=== PATIENT | male | born 1965 | race Caucasian/White ===

== ENCOUNTER 2017-07-17 10:47 | Inpatient (IN) | payer OTHER ==
--- NOTE | 2017-07-17 12:02 | PDOC ---
History of Present Illness - General Chief Complaint: Respiratory Stated Complaint: ADMIT (PCP SENT) Time Seen by Provider: 07/17/17 11:45 History Source: Patient - History of Present Illness Timing/Duration: reports: other Severity: reports: moderate Associated Symptoms: reports: shortness of breath. denies: chest pain/soreness , wheezing Past History - Past Medical History Allergies/Adverse Reactions: Allergies Allergy/AdvReac Type Severity Reaction Status Date / Time No Known Allergies Allergy Verified 07/17/17 11:03 Home Medications: Ambulatory Orders Cetirizine HCl 10 mg PO DAILY 07/17/17 Cholecalciferol (Vitamin D3) [Vitamin D3 -] 5,000 unit PO Q7D 07/17/17 Glipizide 2.5 mg PO DAILY 07/17/17 Metoprolol Succinate [Toprol Xl -] 50 mg PO DAILY 07/17/17 [place]-3S/Dha/Epa/Fish Oil [Fish Oil 1,200 mg Softgel] 1 each PO DAILY 07/17/17 Sevelamer Carbonate [Renvela] 800 mg PO TID 07/17/17 Torsemide 100 mg PO BID 07/17/17 COPD: No Diabetes: Yes Dialysis: Yes (M-W-F) HTN: Yes - Suicide/Smoking/Psychosocial Hx Smoking History: Never smoked Have you smoked in the past 12 months: Yes Hx Alcohol Use: No Drug/Substance Use Hx: No Review of Systems - Review of Systems Constitutional: No: Chills, Fever Respiratory: Yes: Shortness of Breath. No: Wheezing Cardiac (ROS): No: Chest Pain *Physical Exam - Vital Signs Last Vital Signs Temp Pulse Resp BP Pulse Ox 97.6 F 82 20 210/95 98 07/17/17 11:00 07/17/17 11:00 07/17/17 11:00 07/17/17 11:00 07/17/17 11:00 - Physical Exam General Appearance: Yes: Appropriately Dressed, Mild Distress HEENT: positive: Normal Voice Neck: positive: Supple Respiratory/Chest: positive: Lungs Clear, Normal Breath Sounds. negative: Respiratory Distress Cardiovascular: positive: Regular Rate, S1, S2 Gastrointestinal/Abdominal: positive: Soft. negative: Tender Extremity: positive: Pedal Edema Integumentary: positive: Dry, Warm Neurologic: positive: Fully Oriented, Alert, Normal Mood/Affect ED Treatment Course - LABORATORY CBC & Chemistry Diagram: 07/17/17 12:31 07/17/17 12:31 - RADIOLOGY Radiology Studies Ordered: Category Date Time Status CHEST X-RAY PORTABLE* [RAD] Stat Radiology 07/17/17 11:50 Ordered Medical Decision Making - Medical Decision Making 07/17/17 11:50 52-year-old male history of NIDDM, hypertension, ESRD on HD Wednesdays and Fridays, last dialyzed on Saturday, sent in by PMD for shortness of breath. Patient states for the past several months, has had worsening shortness of breath with edema and started on 100 mg of torsemide. States despite following up with dialysis and getting dialyzed 2 days ago, continues to be short of breath. Went to see Dr. Staton yesterday and told "there is fluid on my lungs" and referred to ER for admission. Patient denies chest pain, diaphoresis, nausea or vomiting See exam Worsening sob w/ edema On torsemide and last dialyzed 2 days ago, scheduled for HD at 5pm today Referred to ED by PMD for "fluid on lungs" in office yesterday Pt visibly sob and hypertensive but stable otherwise -NC -ekg -cxr -labs -cards c/s -arrange admission w/ PMD 07/17/17 13:[address] Staton who wants patient admitted. [facility] patient's cell technician, Dr. Nava rodriguez M.D. requesting Dr. Navarro of renal be consulted to arrange HD today *DC/Admit/Observation/Transfer Diagnosis at time of Disposition: SOB (shortness of breath) - Discharge Dispostion Condition at time of disposition: Fair Admit: Yes - Referrals Referrals: Axel Staton MD [Primary Care Provider] - - Patient Instructions - Post Discharge Activity
[2017-07-17 12:40] LABS: BASOPHIL 0.7 % (0-2.0); MCH 31.6 pg (25.7-33.7); MCHC 33.1 g/dl (32.0-35.9); MEAN CELL VOLUME 95.6 fl (80-96); MEAN PLT VOLUME 9.3 fl (7.5-11.1); NEUTROPHILS 69.5 % (42.8-82.8); PLATELET COUNT 166 K/MM3 (134-434); RDW 16.1 % (11.9-15.9); WHITE BLOOD COUNT 7.5 K/mm3 (4.0-10.0)
[2017-07-17 12:58] LABS: ALBUMIN 3.2 g/dl (3.4-5.0); ANION GAP 15 (8-16); BILIRUBIN,TOTAL 0.4 mg/dL (0.2-1.0); CALCIUM 7.8 mg/dL (8.5-10.1); CO2 22 mmol/L (21-32); GLUCOSE,RANDOM 126 mg/dL (74-106); SGPT/ALT 18 U/L (12-78); TOT PROT 6.3 g/dl (6.4-8.2)
[2017-07-17 13:03] LABS: ALK PHOS 57 U/L (45-117); CPK 308 IU/L (39-308); TROPONIN I 0.03 ng/ml (0.00-0.05)
[2017-07-17 13:20] LABS: CREATININE 12.7 mg/dL (0.7-1.3); SGOT/AST 10 U/L (15-37)
[2017-07-17] MEDS ORDERED: EPOETIN ALFA 3,000 UNIT/1 ML ML IVPUSH ONE ×2 (13:42→18:45)
--- NOTE | 2017-07-17 13:42 | CONSULT ---
Consult Consult Specialty:: Nephrology Reason for Consultation:: ESRD - History of Present Illness Chief Complaint: shortness of breath History of Present Illness: Pt is a 52 year old male with pmhx of esrd (MWF), DM and HTN who was sent in from PMD office for fluid overload and shortness of breath. He last has HD on Saturday. I was called to evaluate him for dialysis. He got to HD in [facility] in [facility] and is followed by Dr Navarrete. I did call and discuss his care with his clinical specialty rep. Pt says that he is easily short of breath. He complains of lower extremity edema. It does not seem that he is compliant with his fluid intake. He denies chest pain or palpitations. He is awake and alert. He denies fevers or chills. He still makes urine and is on diuretics as well. Consult called as stat. - History Source History Provided By: Patient, Medical Record - Past Medical History Cardio/Vascular: Yes: HTN Renal/: Yes: Renal Inusuff, Hemodialysis Heme/Onc: Yes: Anemia Endocrine: Yes: Diabetes Mellitus - Past Surgical History Past Surgical History: Yes: AV Fistula/Graft - Alcohol/Substance Use Hx Alcohol Use: No - Smoking History Smoking history: Never smoked Have you smoked in the past 12 months: Yes Home Medications - Allergies Allergies/Adverse Reactions: Allergies Allergy/AdvReac Type Severity Reaction Status Date / Time No Known Allergies Allergy Verified 07/17/17 11:03 - Home Medications Home Medications: Ambulatory Orders Cetirizine HCl 10 mg PO DAILY 07/17/17 Cholecalciferol (Vitamin D3) [Vitamin D3 -] 5,000 unit PO Q7D 07/17/17 Glipizide 2.5 mg PO DAILY 07/17/17 Metoprolol Succinate [Toprol Xl -] 50 mg PO DAILY 07/17/17 [place]-3S/Dha/Epa/Fish Oil [Fish Oil 1,200 mg Softgel] 1 each PO DAILY 07/17/17 Sevelamer Carbonate [Renvela] 800 mg PO TID 07/17/17 Torsemide 100 mg PO BID 07/17/17 Family Disease History - Family Disease History Family History: Denies Review of Systems - Review of Systems Constitutional: reports: Malaise. denies: Chills, Fever Eyes: reports: No Symptoms HENT: reports: No Symptoms Neck: reports: No Symptoms Cardiovascular: reports: Edema, Shortness of Breath Respiratory: reports: SOB, SOB on Exertion Gastrointestinal: reports: No Symptoms Musculoskeletal: reports: No Symptoms Integumentary: reports: No Symptoms Neurological: reports: No Symptoms Endocrine: reports: No Symptoms Physical Exam Vital Signs: Vital Signs Temperature 97.6 F 07/17/17 11:00 Pulse Rate 80 07/17/17 12:37 Respiratory Rate 18 07/17/17 12:37 Blood Pressure 155/87 07/17/17 12:37 O2 Sat by Pulse Oximetry (%) 98 07/17/17 12:37 Constitutional: Yes: Calm Eyes: Yes: Conjunctiva Clear HENT: Yes: Atraumatic Cardiovascular: Yes: JVD, S1, S2 Respiratory: Yes: On Nasal O2, Rhonchi Gastrointestinal: Yes: Soft, Abdomen, Obese Renal/: Yes: WNL Musculoskeletal: Yes: WNL Extremities: Yes: Other (fistula with thrill and bruit) Edema: Yes Edema: LLE: 2+, RLE: 2+ Neurological: Yes: Oriented Psychiatric: Yes: Oriented Labs: CBC, BMP 07/17/17 12:31 07/17/17 12:31 Laboratory Tests 07/17/17 07/17/17 07/17/17 12:02 12:31 12:31 WBC 7.5 Hgb 9.0 L Sodium 138 Potassium 5.4 H Chloride 101 Anion Gap 15 B-Natriuretic Peptide 70570.97 H Imaging - Results Chest X-ray: Report Reviewed Problem List - Problems (1) ESRD (end stage renal disease) Code(s): N18.6 - END STAGE RENAL DISEASE (2) HTN (hypertension) Code(s): I10 - ESSENTIAL (PRIMARY) HYPERTENSION (3) Diabetes mellitus Code(s): E11.9 - TYPE 2 DIABETES MELLITUS WITHOUT COMPLICATIONS (4) Anemia Code(s): D64.9 - ANEMIA, UNSPECIFIED (5) Hyperkalemia Code(s): E87.5 - HYPERKALEMIA (6) SOB (shortness of breath) Code(s): R06.02 - SHORTNESS OF BREATH Assessment/Plan Current Medications Generic Name Dose Route Start Last Admin Trade Name Freq PRN Reason Stop Dose Admin Acetaminophen 650 mg 07/17/17 14:35 Tylenol - PO Q6H PRN FEVER OR PAIN Glipizide 2.5 mg 07/17/17 16:30 07/17/17 17:18 Glucotrol - PO 2.5 mg DAILY@0700 BRIAN Administration Metoprolol Succinate 50 mg 07/18/17 10:00 Toprol Xl - PO DAILY BRIAN Sevelamer Carbonate 800 mg 07/17/17 14:30 07/17/17 17:00 Renvela - PO 800 mg TIDCM BRIAN Administration Torsemide 100 mg 07/18/17 10:00 Demadex - PO DAILY BRIAN Impression 1. ESRD 2. hyperkalemia 3. fluid overload 4. dyspnea 5. anemia 6. HTN 7. DM Plan - will arrange for urgent dialysis today - called HD unit for prescription - repeat labs in am - discussed fluid restriction with pt and it does not seem that he is compliant - cont with torsemide - cont with oxygen as needed - will treat hyperkalemia with HD - will assess for HD again tomorrow for volume removal as needed - cardio eval - monitro blood pressure - will follow closely Dr Navarro
[2017-07-17] MEDS ORDERED: ACETAMINOPHEN 325 MG TABLET (FP) PO PRN (14:35)
--- NOTE | 2017-07-17 15:37 | CON.CARD ---
Cardiology Consult (text) - Consultation Consultation Note: CC: Sob 52-year-old male history of NIDDM, hypertension, ESRD on HD Wednesdays and Fridays, last dialyzed on Saturday, sent in by PMD for shortness of breath. Patient states for the past several months, has had worsening shortness of breath with edema and started on 100 mg of torsemide. States despite following up with dialysis and getting dialyzed 2 days ago, continues to be short of breath. Went to see Dr. Staton yesterday and told "there is fluid on my lungs" and referred to ER for admission. Patient denies chest pain, diaphoresis, nausea or vomiting Ambulatory Orders Cetirizine HCl 10 mg PO DAILY 07/17/17 Cholecalciferol (Vitamin D3) [Vitamin D3 -] 5,000 unit PO Q7D 07/17/17 Glipizide 2.5 mg PO DAILY 07/17/17 Metoprolol Succinate [Toprol Xl -] 50 mg PO DAILY 07/17/17 [place]-3S/Dha/Epa/Fish Oil [Fish Oil 1,200 mg Softgel] 1 each PO DAILY 07/17/17 Sevelamer Carbonate [Renvela] 800 mg PO TID 07/17/17 Torsemide 100 mg PO BID 07/17/17 Current Medications Acetaminophen (Tylenol -) 650 mg PO Q6H PRN PRN Reason: FEVER OR PAIN Epoetin Maurizio (Procrit -) 6,000 unit IVPUSH ONCE ONE Stop: 07/17/17 14:01 Glipizide (Glucotrol -) 2.5 mg PO DAILY@0700 [facility] Heparin Sodium (Porcine) (Heparin -) 2,000 unit IVPUSH ONCE ONE Stop: 07/17/17 13:43 Metoprolol Succinate (Toprol Xl -) 50 mg PO DAILY BRIAN Sevelamer Carbonate (Renvela -) 800 mg PO TIDCM BRIAN Torsemide (Demadex -) 100 mg PO DAILY [facility] Vital Signs - 24 hr 07/17/17 07/17/17 07/17/17 11:00 12:31 12:37 Temperature 97.6 F Pulse Rate 82 Pulse Rate [ 80 Apical] Respiratory 20 18 Rate Blood Pressure 210/95 Blood Pressure 155/87 [Right Arm] O2 Sat by Pulse 98 97 98 Oximetry (%) Intake & Output 07/15/17 07/16/17 07/17/17 11/30/17 07:59 07:59 07:59 07:59 Weight 255 lb CBC, BMP 07/17/17 12:31 07/17/17 12:31
[2017-07-17] MEDS: SEVELAMER CARBONATE 800 MG TAB (FP) PO SCH ×2 (17:00→22:36)
[2017-07-17] MEDS: glipiZIDE 5 MG TABLET (FP) PO SCH (17:18)
[2017-07-17] MEDS ORDERED: HEPARIN NA (PORCINE) 5,000 UNITS/ML 1ML VIAL IVPUSH ONE (18:45)
[2017-07-17] MEDS ORDERED: CALCIUM CHLORIDE 1 GM/10 ML *DISP.SYRIN ONE (19:38)
[2017-07-18 00:32] VITALS: BMI 38.1
[2017-07-18] MEDS: glipiZIDE 5 MG TABLET (FP) PO SCH (06:17)
[2017-07-18] MEDS: SEVELAMER CARBONATE 800 MG TAB (FP) PO SCH ×3 (08:33→17:26)
--- NOTE | 2017-07-18 11:03 | CON.CARD ---
Cardiology Consult (text) - Consultation Consultation Note: cc: sob hpi: 52 m hx dm, esrd on hd, htn here with sob. Pt has been having gradual worsening of sob past few days. No cp, palps, dizzy, loc, pnd, orthopnea, le edema. Got HD session and now feeling better. Sees dr tyler for cardio. pmh: per hpi psh: HD access social: no tob fam: no premature cad, scd ros: per hpi; no fever, nvd, cough, [place], vision changes, nasal congestion, muscle pain, gib, dysuria meds: Home Medications Medication Instructions Recorded Cetirizine HCl 10 mg PO DAILY 07/17/17 Cholecalciferol (Vitamin D3) 5,000 unit PO Q7D 07/17/17 [Vitamin D3 -] Glipizide 2.5 mg PO DAILY 07/17/17 Metoprolol Succinate [Toprol Xl -] 50 mg PO DAILY 07/17/17 [place]-3S/Dha/Epa/Fish Oil [Fish 1 each PO DAILY 07/17/17 Oil 1,200 mg Softgel] Sevelamer Carbonate [Renvela] 800 mg PO TID 07/17/17 Torsemide 100 mg PO BID 07/17/17 pe: Vital Signs Period Temp Pulse Resp BP Sys/Layne Pulse Ox Last 24 Hr 97.6 F-98.8 F 78-91 18-20 138-210/68-109 95-98 nad no jvd rrr s1s2 no mrg cta bl nl eff aaox3 no le e/c/c abd nt nd pos bs no jaundice diaphoresis pos pt pt no carotid bruit Laboratory Last Values WBC 7.5 K/mm3 (4.0-10.0) 07/17/17 12:31 RBC 2.84 M/mm3 (4.00-5.60) L 07/17/17 12:31 Hgb 9.0 GM/dL (11.7-16.9) L 07/17/17 12:31 Hct 27.1 % (35.4-49) L 07/17/17 12:31 MCV 95.6 fl (80-96) 07/17/17 12:31 MCH 31.6 pg (25.7-33.7) 07/17/17 12:31 MCHC 33.1 g/dl (32.0-35.9) 07/17/17 12:31 RDW 16.1 % (11.9-15.9) H 07/17/17 12:31 Plt Count 166 K/MM3 (134-434) 07/17/17 12:31 MPV 9.3 fl (7.5-11.1) 07/17/17 12:31 Neutrophils % 69.5 % (42.8-82.8) 07/17/17 12:31 Lymphocytes % 17.7 % (8-40) 07/17/17 12:31 Monocytes % 6.1 % (3.8-10.2) 07/17/17 12:31 Eosinophils % 6.0 % (0-4.5) H 07/17/17 12:31 Basophils % 0.7 % (0-2.0) 07/17/17 12:31 Sodium 138 mmol/L (136-145) 07/17/17 12:31 Potassium 5.4 mmol/L (3.5-5.1) H 07/17/17 12:31 Chloride 101 mmol/L (98-107) 07/17/17 12:31 Carbon Dioxide 22 mmol/L (21-32) 07/17/17 12:31 Anion Gap 15 (8-16) 07/17/17 12:31 BUN 101 mg/dL (7-18) H 07/17/17 12:31 Creatinine 12.7 mg/dL (0.7-1.3) H* 07/17/17 12:31 Creat Clearance w eGFR 4.18 (>60) 07/17/17 12:31 POC Glucometer 80 UNITS (80-120) 07/18/17 06:17 Random Glucose 126 mg/dL (74-106) H 07/17/17 12:31 Calcium 7.8 mg/dL (8.5-10.1) L 07/17/17 12:31 Total Bilirubin 0.4 mg/dL (0.2-1.0) 07/17/17 12:31 AST 10 U/L (15-37) L 07/17/17 12:31 ALT 18 U/L (12-78) 07/17/17 12:31 Alkaline Phosphatase 57 U/L (45-117) 07/17/17 12:31 Creatine Kinase 308 IU/L (39-308) 07/17/17 12:31 Creatine Kinase Index 2.2 % (0.0-5.0) 07/17/17 12:31 CK-MB (CK-2) 6.93 ng/mL (0.5-3.6) H 07/17/17 12:31 Troponin I 0.03 ng/ml (0.00-0.05) 07/17/17 12:31 B-Natriuretic Peptide 85668.97 pg/ml (5-125) H 07/17/17 12:02 Total Protein 6.3 g/dl (6.4-8.2) L 07/17/17 12:31 Albumin 3.2 g/dl (3.4-5.0) L 07/17/17 12:31 cxr: clear lungs ecg 07/17/17: sr, nl intervals, no ischemic changes a/p: 52 m hx dm, esrd on hd, htn here with sob. esrd, sob: -no signs acs -no sig pulm edema and pt already feeling better after HD session so seems he had mild vol overload that is now improved -echo pending -cont hd per renal -cont diuretics (pt makes some urine still) htn: -cont bb cardiac mari stable
--- NOTE | 2017-07-18 12:06 | CON.PULM ---
Consult Consult Specialty:: Pulmonary Reason for Consultation:: We were called to evaluate the patient for worsening shortness of breath - History of Present Illness Chief Complaint: Shortness of breath History of Present Illness: The patient is a 52 yo m w/ PMH DM, HTN, ESRD on HD MWF who was sent to the ED by his PCP, Dr. Staton, for progressively worsening shortness of breath. The patient states that he has been having intermittent shortness of breath in between his dialysis sessions over the past several months. The patient's symptoms have been getting progressively worse, prompting him to visit his PCP. Per the patient, his doctor told him he "has water in the lungs" and sent him to the ED for admission. Nephrology saw him in the ED and scheduled him for urgent dialysis. The patient denies any recent change in medications, but believed his symptoms are due to his drinking water several times per day. Today , patient states he feels better after dialysis yesterday evening and states that the swelling of his legs has improved. He states his dry weight after dialysis is approximately 106 kg. - Past Medical History Cardio/Vascular: Yes: HTN Renal/: Yes: Renal Inusuff, Hemodialysis Endocrine: Yes: Diabetes Mellitus - Past Surgical History Past Surgical History: Yes: AV Fistula/Graft - Alcohol/Substance Use Hx Alcohol Use: No - Smoking History Smoking history: Former smoker Have you smoked in the past 12 months: Yes If you are a former smoker, when did you quit?: 1 year ago Home Medications - Allergies Allergies/Adverse Reactions: Allergies Allergy/AdvReac Type Severity Reaction Status Date / Time No Known Allergies Allergy Verified 07/17/17 11:03 - Home Medications Home Medications: Ambulatory Orders Cetirizine HCl 10 mg PO DAILY 07/17/17 Cholecalciferol (Vitamin D3) [Vitamin D3 -] 5,000 unit PO Q7D 07/17/17 Glipizide 2.5 mg PO DAILY 07/17/17 Metoprolol Succinate [Toprol Xl -] 50 mg PO DAILY 07/17/17 [place]-3S/Dha/Epa/Fish Oil [Fish Oil 1,200 mg Softgel] 1 each PO DAILY 07/17/17 Sevelamer Carbonate [Renvela] 800 mg PO TID 07/17/17 Torsemide 100 mg PO BID 07/17/17 Review of Systems - Review of Systems Constitutional: denies: Chills, Fever, Weakness Cardiovascular: reports: Edema, Shortness of Breath. denies: Chest Pain Respiratory: reports: SOB, SOB on Exertion. denies: Cough Integumentary: denies: Erythema, Pruritis, Rash Physical Exam Vital Sings: Vital Signs Temperature 97.7 F 07/18/17 09:00 Pulse Rate 91 H 07/18/17 09:00 Respiratory Rate 20 07/18/17 09:00 Blood Pressure 158/88 07/18/17 09:00 O2 Sat by Pulse Oximetry (%) 95 07/18/17 09:00 Constitutional: Yes: Well Nourished, No Distress, Calm HENT: Yes: Atraumatic, Normocephalic Neck: Yes: Supple, Trachea Midline Cardiovascular: Yes: Regular Rate and Rhythm, S1, S2. No: JVD, Gallop, Murmur, Rub, S3, S4 Respiratory: Yes: Regular, CTA Bilaterally, Other (crackles at bases b/l; crackles in the mid lung field on the right ) Edema: Yes Edema: LLE: 2+, RLE: 2+ Neurological: Yes: Alert, Oriented Labs: CBC, BMP 07/17/17 12:31 07/17/17 12:31 Assessment/Plan The patient is a 52 yo m w/ PMH DM, HTN, HLD admitted for urgent dialysis. Patient's clinical status is improved after dialysis yesterday. Patient is scheduled for dialysis tomorrow and Saturday. #SOB 2/2 fluid overload vs cardiac etiology -patient improved after dialysis -patient for two more dialysis sessions today and saturday -monitor lytes -monitor weight with goal of dry weight (106 kg) -c/w home diuretics -advise echo
--- NOTE | 2017-07-18 12:19 | PN ---
Progress Note, Physician History of Present Illness: Pt seen and examined at bedside. He feels that his breathing is a little better. He still complains of lower ext edema. - Current Medication List Current Medications: Active Medications Acetaminophen (Tylenol -) 650 mg PO Q6H PRN PRN Reason: FEVER OR PAIN Glipizide (Glucotrol -) 2.5 mg PO DAILY@0700 [facility] Last Admin: 07/18/17 06:17 Dose: 2.5 mg Metoprolol Succinate (Toprol Xl -) 50 mg PO DAILY [facility] Sevelamer Carbonate (Renvela -) 800 mg PO TIDCM [facility] Last Admin: 07/18/17 12:00 Dose: 800 mg Torsemide (Demadex -) 100 mg PO DAILY [facility] - Objective Vital Signs: Vital Signs Temperature 97.7 F 07/18/17 09:00 Pulse Rate 91 H 07/18/17 09:00 Respiratory Rate 20 07/18/17 09:00 Blood Pressure 158/88 07/18/17 09:00 O2 Sat by Pulse Oximetry (%) 95 07/18/17 09:00 Constitutional: Yes: Calm Eyes: Yes: Conjunctiva Clear HENT: Yes: Atraumatic Neck: Yes: Supple Cardiovascular: Yes: S1, S2 Respiratory: Yes: CTA Bilaterally Gastrointestinal: Yes: Soft, Abdomen, Obese Genitourinary: Yes: WNL Musculoskeletal: Yes: WNL Edema: Yes Edema: LLE: 1+, RLE: 1+ Neurological: Yes: Oriented Psychiatric: Yes: Oriented Labs: CBC, BMP 07/17/17 12:31 07/17/17 12:31 Problem List - Problems (1) ESRD (end stage renal disease) Code(s): N18.6 - END STAGE RENAL DISEASE (2) HTN (hypertension) Code(s): I10 - ESSENTIAL (PRIMARY) HYPERTENSION (3) Diabetes mellitus Code(s): E11.9 - TYPE 2 DIABETES MELLITUS WITHOUT COMPLICATIONS (4) Anemia Code(s): D64.9 - ANEMIA, UNSPECIFIED (5) Hyperkalemia Code(s): E87.5 - HYPERKALEMIA (6) SOB (shortness of breath) Code(s): R06.02 - SHORTNESS OF BREATH Assessment/Plan Current Medications Generic Name Dose Route Start Last Admin Trade Name Freq PRN Reason Stop Dose Admin Acetaminophen 650 mg 07/17/17 14:35 Tylenol - PO Q6H PRN FEVER OR PAIN Glipizide 2.5 mg 07/17/17 16:30 07/18/17 06:17 Glucotrol - PO 2.5 mg DAILY@0700 BRIAN Administration Metoprolol Succinate 50 mg 07/18/17 10:00 Toprol Xl - PO DAILY BRIAN Sevelamer Carbonate 800 mg 07/17/17 14:30 07/18/17 12:00 Renvela - PO 800 mg TIDCM BRIAN Administration Torsemide 100 mg 07/18/17 10:00 Demadex - PO DAILY BRIAN Impression 1. ESRD 2. hyperkalemia 3. fluid overload 4. dyspnea 5. anemia 6. HTN 7. DM Plan - will dialyze pt again today for volume - check pre HD labs - will likely dialyze again tomorrow and get pt back on schedule - discussed fluid restriction with pt and it does not seem that he is compliant - cont with torsemide - cont with oxygen as needed - monitro blood pressure - will follow closely Dr Navarro
[2017-07-18] MEDS ORDERED: HEPARIN NA (PORCINE) 5,000 UNITS/ML 1ML VIAL IVPUSH ONE (12:20)
--- NOTE | 2017-07-18 12:59 | EKG ---
Test Reason : Blood Pressure : / mmHG Vent. Rate : 079 BPM Atrial Rate : 079 BPM P-R Int : 174 ms QRS Dur : 098 ms QT Int : 436 ms P-R-T Axes : -04 064 062 degrees QTc Int : 499 ms NORMAL SINUS RHYTHM NONSPECIFIC ST ABNORMALITY PROLONGED QT ABNORMAL ECG NO PREVIOUS ECGS AVAILABLE Confirmed by JOSHUA CARRERA MD ([id number]) on 07/18/2017 12:59:11 PM Referred By: Confirmed By:JOSHUA CARRERA MD
[2017-07-18 13:10] LABS: MCH 31.7 pg (25.7-33.7); MCHC 33.5 g/dl (32.0-35.9); MEAN CELL VOLUME 94.7 fl (80-96); MEAN PLT VOLUME 8.1 fl (7.5-11.1); PLATELET COUNT 149 K/MM3 (134-434); RDW 16.1 % (11.9-15.9); WHITE BLOOD COUNT 6.9 K/mm3 (4.0-10.0)
[2017-07-18 13:41] LABS: ANION GAP 13 (8-16); CALCIUM 7.9 mg/dL (8.5-10.1); CO2 27 mmol/L (21-32); GLUCOSE,RANDOM 110 mg/dL (74-106)
--- NOTE | 2017-07-18 13:42 | PN ---
Teaching Attending Note Name of Resident: Antonio Senior ATTENDING PHYSICIAN STATEMENT I saw and evaluated the patient. I reviewed the resident's note and discussed the case with the resident. I agree with the resident's findings and plan as documented. SUBJECTIVE: Pt seen and examined with the resident. Briefly, 52yo male with h/o HTN, DM, ESRD on HD who was admitted with progressive shortness of breath. Admits to liberal fluid intake. Dry weight apparently 233lbs. No chest pain. No cough or wheezing. Otherwise compliant with medications and HD sessions. OBJECTIVE: Last Vital Signs Temp Pulse Resp BP Pulse Ox 97.7 F 91 H 20 158/88 95 07/18/17 09:00 07/18/17 09:00 07/18/17 09:00 07/18/17 09:00 07/18/17 09:00 Intake & Output 07/15/17 07/16/17 07/17/17 07/18/17 23:59 23:59 23:59 23:59 Intake Total 275 Balance 275 Weight 258 lb 4.8 oz 257 lb 4.8 oz Gen: NAD at rest Heart: RRR Lung: decreased breath sounds at the bases Abd: soft, nontender Ext: distal edema CBC, BMP 07/18/17 12:45 CMP Sodium 138 mmol/L (136-145) 07/17/17 12:31 Potassium 5.4 mmol/L (3.5-5.1) H 07/17/17 12:31 Chloride 101 mmol/L (98-107) 07/17/17 12:31 Carbon Dioxide 22 mmol/L (21-32) 07/17/17 12:31 Anion Gap 15 (8-16) 07/17/17 12:31 BUN 101 mg/dL (7-18) H 07/17/17 12:31 Creatinine 12.7 mg/dL (0.7-1.3) H* 07/17/17 12:31 Creat Clearance w eGFR 4.18 (>60) 07/17/17 12:31 POC Glucometer 80 UNITS (80-120) 07/18/17 06:17 Random Glucose 126 mg/dL (74-106) H 07/17/17 12:31 Calcium 7.8 mg/dL (8.5-10.1) L 07/17/17 12:31 Total Bilirubin 0.4 mg/dL (0.2-1.0) 07/17/17 12:31 AST 10 U/L (15-37) L 07/17/17 12:31 ALT 18 U/L (12-78) 07/17/17 12:31 Alkaline Phosphatase 57 U/L (45-117) 07/17/17 12:31 Creatine Kinase 308 IU/L (39-308) 07/17/17 12:31 Creatine Kinase Index 2.2 % (0.0-5.0) 07/17/17 12:31 CK-MB (CK-2) 6.93 ng/mL (0.5-3.6) H 07/17/17 12:31 Troponin I 0.03 ng/ml (0.00-0.05) 07/17/17 12:31 B-Natriuretic Peptide 64309.97 pg/ml (5-125) H 07/17/17 12:02 Total Protein 6.3 g/dl (6.4-8.2) L 07/17/17 12:31 Albumin 3.2 g/dl (3.4-5.0) L 07/17/17 12:31 Active Medications Acetaminophen (Tylenol -) 650 mg PO Q6H PRN PRN Reason: FEVER OR PAIN Glipizide (Glucotrol -) 2.5 mg PO DAILY@0700 [facility] Last Admin: 07/18/17 06:17 Dose: 2.5 mg Metoprolol Succinate (Toprol Xl -) 50 mg PO DAILY [facility] Sevelamer Carbonate (Renvela -) 800 mg PO TIDCM [facility] Last Admin: 07/18/17 12:00 Dose: 800 mg Torsemide (Demadex -) 100 mg PO DAILY [facility] CXR: cardiomegaly, mild congestion ASSESSMENT AND PLAN: Volume Overload ESRD on HD HTN DM - continue HD with ultrafiltration - echocardiogram - monitor lytes - daily weights - enforced diet/fluid compliance - DVT prophylaxis Thank you for this consult Adriano Townsend MD
[2017-07-18 14:45] LABS: CREATININE 9.3 mg/dL (0.7-1.3)
[2017-07-18] MEDS ORDERED: PT OWN MED DRAWER 7, Y5N ONE ×2 (16:09→16:13)
[2017-07-18] MEDS: METOPROLOL SUCCINATE 50 MG TAB.SR.24H (FP) PO SCH (16:11)
[2017-07-18] MEDS: TORSEMIDE 100 MG TABLET PO SCH (17:27)
--- NOTE | 2017-07-18 21:29 | HP ---
Admitting History and Physical - Primary Care Physician PCP: Axel Staton - Admission Chief Complaint: DYSPNEA History of Present Illness: ADMITTTED FOR PROGRESSIVE SOB, HISTORY OF ESRD ON HD, HTN, CHF History Source: Patient Limitations to Obtaining History: No Limitations - Past Medical History Cardiovascular: Yes: HTN Renal/: Yes: Renal Inusuff, Hemodialysis Heme/Onc: Yes: Anemia Endocrine: Yes: Diabetes Mellitus - Past Surgical History Past Surgical History: Yes: AV Fistula/Graft - Smoking History Smoking history: Former smoker Have you smoked in the past 12 months: Yes If you are a former smoker, when did you quit?: 1 year ago - Alcohol/Substance Use Hx Alcohol Use: No Home Medications - Allergies Allergies/Adverse Reactions: Allergies Allergy/AdvReac Type Severity Reaction Status Date / Time No Known Allergies Allergy Verified 07/17/17 11:03 - Home Medications Home Medications: Ambulatory Orders Cetirizine HCl 10 mg PO DAILY 07/17/17 Cholecalciferol (Vitamin D3) [Vitamin D3 -] 5,000 unit PO Q7D 07/17/17 Glipizide 2.5 mg PO DAILY 07/17/17 Metoprolol Succinate [Toprol Xl -] 50 mg PO DAILY 07/17/17 [place]-3S/Dha/Epa/Fish Oil [Fish Oil 1,200 mg Softgel] 1 each PO DAILY 07/17/17 Sevelamer Carbonate [Renvela] 800 mg PO TID 07/17/17 Torsemide 100 mg PO BID 07/17/17 Review of Systems - Review of Systems Constitutional: reports: Weakness Eyes: reports: No Symptoms HENT: reports: No Symptoms Neck: reports: No Symptoms Cardiovascular: reports: Shortness of Breath Respiratory: reports: Orthopnea Gastrointestinal: reports: No Symptoms Genitourinary: reports: No Symptoms Musculoskeletal: reports: No Symptoms Integumentary: reports: No Symptoms Neurological: reports: Pre-Existing Deficit Endocrine: reports: No Symptoms Hematology/Lymphatic: reports: No Symptoms Psychiatric: reports: No Symptoms Physical Examination Vital Signs: Vital Signs Temperature 98.2 F 07/18/17 16:40 Pulse Rate 84 07/18/17 16:00 Respiratory Rate 20 07/18/17 16:00 Blood Pressure 160/88 07/18/17 16:00 O2 Sat by Pulse Oximetry (%) 95 07/18/17 09:00 Constitutional: Yes: Mild Distress Eyes: Yes: WNL HENT: Yes: WNL Neck: Yes: WNL Cardiovascular: Yes: Other Respiratory: Yes: SOB Gastrointestinal: Yes: WNL Renal/: Yes: WNL Musculoskeletal: Yes: WNL Extremities: Yes: WNL Edema: Yes Edema: LLE: 2+, RLE: 2+ Peripheral Pulses WNL: Yes Integumentary: Yes: WNL Wound/Incision: Yes: Clean/Dry Neurological: Yes: WNL ...Motor Strength: WNL Psychiatric: Yes: WNL Labs: CBC, BMP 07/18/17 12:45 07/18/17 12:45 Imaging - Results Chest X-ray: Report Reviewed Problem List - Problems (1) Anemia Code(s): D64.9 - ANEMIA, UNSPECIFIED (2) Diabetes mellitus Code(s): E11.9 - TYPE 2 DIABETES MELLITUS WITHOUT COMPLICATIONS (3) ESRD (end stage renal disease) Code(s): N18.6 - END STAGE RENAL DISEASE (4) HTN (hypertension) Code(s): I10 - ESSENTIAL (PRIMARY) HYPERTENSION (5) Hyperkalemia Code(s): E87.5 - HYPERKALEMIA (6) SOB (shortness of breath) Code(s): R06.02 - SHORTNESS OF BREATH Assessment/Plan HD PER RENAL CARDIOLGY EVAL PULMONARY EVAL LASIX/DIURETICS 02 SUPPORT
[2017-07-19] MEDS: glipiZIDE 5 MG TABLET (FP) PO SCH (06:40)
[2017-07-19] MEDS: SEVELAMER CARBONATE 800 MG TAB (FP) PO SCH ×2 (08:19→12:13)
[2017-07-19] MEDS ORDERED: PT OWN MED DRAWER 7, Y5N ONE (09:05)
[2017-07-19] MEDS: METOPROLOL SUCCINATE 50 MG TAB.SR.24H (FP) PO SCH ×2 (09:12→15:46)
[2017-07-19] MEDS: TORSEMIDE 100 MG TABLET PO SCH ×2 (09:12→15:46)
--- NOTE | 2017-07-19 11:41 | DS ---
Physical Examination Vital Signs: Vital Signs Temperature 97.4 F L 07/19/17 06:00 Pulse Rate 75 07/19/17 06:00 Respiratory Rate 18 07/19/17 06:00 Blood Pressure 124/61 07/19/17 06:00 O2 Sat by Pulse Oximetry (%) 96 07/18/17 21:00 Findings/Remarks: awake alert feeling better Constitutional: Yes: No Distress Eyes: Yes: WNL HENT: Yes: WNL Neck: Yes: WNL Cardiovascular: Yes: WNL Respiratory: Yes: WNL Gastrointestinal: Yes: WNL Renal/: Yes: WNL Musculoskeletal: Yes: WNL Extremities: Yes: WNL Edema: Yes Peripheral Pulses WNL: Yes Integumentary: Yes: WNL Wound/Incision: Yes: Clean/Dry Neurological: Yes: WNL ...Motor Strength: WNL Psychiatric: Yes: WNL Labs: CBC, BMP 07/18/17 12:45 07/18/17 12:45 Discharge Summary Reason For Visit: SOB Current Active Problems Anemia (Acute) Diabetes mellitus (Acute) ESRD (end stage renal disease) (Acute) HTN (hypertension) (Acute) Hyperkalemia (Acute) SOB (shortness of breath) (Acute) Procedures: Principal: ECHO/CAROTID DOPPLER Hospital Course: ADMITTED WITH DYSPNEA/FLUID OVERLOAD, TREATED WITH CARDIOLOGY WORKUP AND HEMODIALYSIS FOR FLUID REMOVAL. DIETARY CONSULT TO AVOID REOCCURANCE Condition: Fair - Instructions Diet, Activity, Other Instructions: RENAL, 1 LITER FLUID DAILY ADA SEE DR STATON 2 WEEKS NEPHROLOGY SATURDAY FOR HD Referrals: Axel Staton MD [Primary Care Provider] - Disposition: HOME - Home Medications Comprehensive Discharge Medication List: Ambulatory Orders Cetirizine HCl 10 mg PO DAILY 07/17/17 Cholecalciferol (Vitamin D3) [Vitamin D -] 5,000 unit PO Q7D 07/17/17 Glipizide 2.5 mg PO DAILY 07/17/17 Metoprolol Succinate [Toprol XL -] 50 mg PO DAILY 07/17/17 [place]-3S/Dha/Epa/Fish Oil [Fish Oil 1,200 mg Softgel] 1 each PO DAILY 07/17/17 Sevelamer Carbonate [Renvela -] 800 mg PO TID 07/17/17 Torsemide 100 mg PO BID 07/17/17
--- NOTE | 2017-07-19 11:57 | PN ---
Progress Note, Physician History of Present Illness: Pulmonology follow-up Patient seen and examined at bedside. Patient states he continues to improve after serial dialysis. For dialysis again today. For discharge after dialysis as per primary. - Current Medication List Current Medications: Active Medications Acetaminophen (Tylenol -) 650 mg PO Q6H PRN PRN Reason: FEVER OR PAIN Epoetin Maurizio (Epogen -) 8,000 units IVPUSH ONCE ONE Stop: 07/19/17 11:18 Glipizide (Glucotrol -) 2.5 mg PO DAILY@0700 [facility] Last Admin: 07/19/17 06:40 Dose: 2.5 mg Heparin Sodium (Porcine) (Heparin -) 2,000 unit IVPUSH ONCE ONE Stop: 07/19/17 11:18 Metoprolol Succinate (Toprol Xl -) 50 mg PO DAILY [facility] Last Admin: 07/19/17 09:12 Dose: Not Given Sevelamer Carbonate (Renvela -) 800 mg PO TIDCM [facility] Last Admin: 07/19/17 08:19 Dose: 800 mg Torsemide (Demadex -) 100 mg PO DAILY [facility] Last Admin: 07/19/17 09:12 Dose: Not Given - Objective Vital Signs: Vital Signs Temperature 97.4 F L 07/19/17 06:00 Pulse Rate 75 07/19/17 06:00 Respiratory Rate 18 07/19/17 06:00 Blood Pressure 124/61 07/19/17 06:00 O2 Sat by Pulse Oximetry (%) 96 07/18/17 21:00 Constitutional: Yes: Well Nourished, No Distress, Calm HENT: Yes: Atraumatic, Normocephalic Neck: Yes: Supple, Trachea Midline Cardiovascular: Yes: Regular Rate and Rhythm, S1, S2. No: JVD, Gallop, Murmur, Rub, S3, S4 Respiratory: Yes: Regular, CTA Bilaterally Edema: Yes (improved from yesterday) Edema: LLE: 2+, RLE: 2+ Labs: CBC, BMP 07/18/17 12:45 07/18/17 12:45 Assessment/Plan The patient is a 52 yo m w/ PMH DM, HTN, HLD admitted for urgent dialysis. Patient's clinical status is improved after dialysis yesterday. Patient is scheduled for dialysis again today. #SOB 2/2 fluid overload vs cardiac etiology -patient improved after second dialysis -patient for one more dialysis session today -echo shows ventricular dilation and mild decrease in LV function -patient will require PFTs as outpatient.
[2017-07-19 13:13] LABS: MCH 31.3 pg (25.7-33.7); MCHC 32.6 g/dl (32.0-35.9); MEAN CELL VOLUME 96.2 fl (80-96); MEAN PLT VOLUME 8.5 fl (7.5-11.1); PLATELET COUNT 201 K/MM3 (134-434); RDW 16.2 % (11.9-15.9); WHITE BLOOD COUNT 8.2 K/mm3 (4.0-10.0)
[2017-07-19 13:38] LABS: ANION GAP 9 (8-16); CALCIUM 7.9 mg/dL (8.5-10.1); CO2 28 mmol/L (21-32); GLUCOSE,RANDOM 75 mg/dL (74-106)
--- NOTE | 2017-07-19 13:40 | PN ---
Teaching Attending Note Name of Resident: Antonio Senior ATTENDING PHYSICIAN STATEMENT I saw and evaluated the patient. I reviewed the resident's note and discussed the case with the resident. I agree with the resident's findings and plan as documented. PULMONARY ALERT,NAD,ON DIALYSIS,-SOB,-CP,OCC COUGH ASSESSMENT AND PLAN: Volume Overload ESRD on HD HTN DM - HD with ultrafiltration as per renal - monitor lytes - daily weights - enforced diet/fluid compliance - DVT prophylaxis - pfts outpatient DR MARK Problem List - Problems (1) Anemia Code(s): D64.9 - ANEMIA, UNSPECIFIED (2) Diabetes mellitus Code(s): E11.9 - TYPE 2 DIABETES MELLITUS WITHOUT COMPLICATIONS (3) ESRD (end stage renal disease) Code(s): N18.6 - END STAGE RENAL DISEASE (4) HTN (hypertension) Code(s): I10 - ESSENTIAL (PRIMARY) HYPERTENSION (5) SOB (shortness of breath) Code(s): R06.02 - SHORTNESS OF BREATH
[2017-07-19] MEDS ORDERED: HEPARIN NA (PORCINE) 5,000 UNITS/ML 1ML VIAL IVPUSH ONE (14:15)
[2017-07-19] MEDS ORDERED: EPOETIN ALFA 2,000 UNITS/1 ML VIAL IVPUSH ONE (14:15)
[2017-07-19 15:24] VITALS: TEMP 97.9
[2017-07-19 15:38] VITALS: BP 148/83; PULSE 75
--- NOTE | 2017-07-19 16:33 | PN ---
Progress Note, Physician History of Present Illness: Pt seen and examined at bedside. He is awake and alert. He tolerated HD. He denies shortness of breath. - Objective Vital Signs: Vital Signs Temperature 97.9 F 07/19/17 14:21 Pulse Rate 75 07/19/17 15:30 Respiratory Rate 18 07/19/17 15:30 Blood Pressure 148/83 07/19/17 15:30 O2 Sat by Pulse Oximetry (%) 97 07/19/17 10:00 Constitutional: Yes: Calm Eyes: Yes: Conjunctiva Clear Cardiovascular: Yes: S1, S2 Respiratory: Yes: CTA Bilaterally Gastrointestinal: Yes: Soft Genitourinary: Yes: WNL Musculoskeletal: Yes: WNL Extremities: Yes: WNL Edema: No Neurological: Yes: Oriented Psychiatric: Yes: Oriented Labs: CBC, BMP 07/19/17 12:30 07/19/17 12:30 Problem List - Problems (1) ESRD (end stage renal disease) Code(s): N18.6 - END STAGE RENAL DISEASE (2) HTN (hypertension) Code(s): I10 - ESSENTIAL (PRIMARY) HYPERTENSION (3) Diabetes mellitus Code(s): E11.9 - TYPE 2 DIABETES MELLITUS WITHOUT COMPLICATIONS (4) Anemia Code(s): D64.9 - ANEMIA, UNSPECIFIED (5) Hyperkalemia Code(s): E87.5 - HYPERKALEMIA (6) SOB (shortness of breath) Code(s): R06.02 - SHORTNESS OF BREATH Assessment/Plan Impression 1. ESRD 2. hyperkalemia 3. fluid overload 4. dyspnea 5. anemia 6. HTN 7. DM Plan - pt tolerated HD today - he has outpt dialysis scheduled for Saturday - discussed diet and fluid intake with pt - discussed with pmd - volume status is improved - cont with torsemide - cont with oxygen as needed - will follow closely Dr Navarro
== END 2017-07-19 16:28 | disposition home or self-care (01) | DRG 640 ==
LOC: JER 10:47 → JERBED 13:01 → J5S 21:17
PROVIDERS: ADMIT Family Medicine; ATTEND Family Medicine
PROC: 5A1D90Z Performance of Urinary Filtration, Continuous, Greater than 18 hours Per Day (ICD-10-PCS; principal; 2017-07-18)
DX: E87.70 Fluid overload, unspecified (principal); N18.6 End stage renal disease; I12.0 Hypertensive chronic kidney disease with stage 5 chronic kidney disease or end stage renal disease; E11.22 Type 2 diabetes mellitus with diabetic chronic kidney disease; Z99.2 Dependence on renal dialysis; E87.5 Hyperkalemia; D64.9 Anemia, unspecified; Z87.891 Personal history of nicotine dependence; R06.02 Shortness of breath
CPT/HCPCS: 36415; 71010-TC; 80048; 80053; 82550; 82553; 83880; 84484; 85025; 85027; 86704; 86706; 86708; 86803; 87340; 93005; 93010; 93306-TC; 93880-TC; 99284-25; J0885; J1644

== ENCOUNTER 2017-10-31 09:31 | Day surgery (SDC) | payer OTHER ==
[2017-10-31 10:15] VITALS: BMI 36.1
[2017-10-31] MEDS ORDERED: PROPOFOL 20 ML ONE ×2 (11:07)
--- NOTE | 2017-10-31 11:55 | PROC ---
Endoscopy Procedure Endoscopy procedure completed. Please see scanned procedure report. small, transverse colon polyp noted and removed via cold forceps biopsy, otherwise normal colonoscopy
[2017-10-31 11:58] VITALS: TEMP 98.5
[2017-10-31 12:37] VITALS: BP 152/78; PULSE 77
--- NOTE | 2017-11-01 15:34 | PATH ---
Surgical Pathology Report Patient Name: VERONIKA ROMERO [facility]. Rec. #: [id number] /Age/Gender: 1965 (Age: 52) / M Account: [id number] Location: [facility]-ENDOSCOPY Taken: 10/31/2017 Received: 10/31/2017 Reported: 11/01/2017 Physicians: Ronni Winslow M.D. Specimen(s) Received BX TRANSVERSE COLON Clinical History Preoperative diagnosis: Screening Postoperative diagnosis: Colon polyp Final Diagnosis TRANSVERSE COLON, POLYP, BIOPSY: TUBULAR ADENOMA. Electronically Signed Yuli Putnam M.D. Gross Description Received in formalin, labeled "biopsy transverse colon polyp" are 2 jama, irregular portions of soft tissue measuring 0.3 and 0.4 cm. in greatest dimension. The specimens are submitted in toto in one cassette. 10/31/201710/31/2017
== END 2017-10-31 12:38 | disposition home or self-care (01) ==
LOC: JASU-ENDO 09:31
PROVIDERS: ATTEND Internal Medicine Gastroenterology
PROC: 0DBL8ZX Excision of Transverse Colon, Via Natural or Artificial Opening Endoscopic, Diagnostic (ICD-10-PCS; principal; 2017-10-31 12:30)
DX: Z12.11 Encounter for screening for malignant neoplasm of colon (principal); D12.3 Benign neoplasm of transverse colon; K64.8 Other hemorrhoids
CPT/HCPCS: 88305-TC

== ENCOUNTER 2018-01-12 23:35 | Inpatient (IN) | payer OTHER ==
--- NOTE | 2018-01-12 23:38 | PDOC ---
History of Present Illness - General History Source: Patient, EMS, Spouse Exam Limitations: No Limitations - History of Present Illness Initial Comments: 01/13/18 00:46 The patient is a 52 year old male with past medical history of ESRD on HD MWF, Diabetes Mellitus, Anemia, HTN and CHF presents to the emergency department via ems s/p difficulty breathing. As per the ems, upon arrival the patient was standing at a tripod position with having trouble breathing. The ems reports the patient had an increase blood pressure upon arrival, patient was given nitroglycerin sublingually which help to lower the blood pressure. The reports the patient has an appointment on Saturday at [place] to get an angiogram done. The reports the patient is awaiting a kidney transplant. Denies fever, chills, or headache. Denies nausea or vomiting. Denies diarrhea or constipation. Denies dysuria, hematuria, frequency or urgency to urinate. Allergies: NKDA Social history: Former smoker. No reported use of alcohol or recreational drugs. Surgical history: AV Fistula/Graft PCP: Dr. Axel Staton [employer] Professor: Dr. Cooper Anchor Operator: Dr. Kp Navarrete <Haily Hdez - Last Filed: 01/13/18 02:22> <Steff Crump - Last Filed: 01/13/18 02:44> - General Chief Complaint: Congestive Heart Failure Stated Complaint: S.O.B. Time Seen by Provider: 01/12/18 23:37 Past History <Haily Hdez - Last Filed: 01/13/18 02:22> - Past Medical History Anemia: No Asthma: No Cancer: No Cardiac Disorders: No CVA: No COPD: No CHF: No Dementia: No Diabetes: Yes (NIDDM) Dialysis: Yes (M-W-F) GI Disorders: No Disorders: No HTN: Yes Hypercholesterolemia: No Liver Disease: No Seizures: No Thyroid Disease: No - Surgical History Abdominal Surgery: No Appendectomy: No Cardiac Surgery: No Cholecystectomy: No Lung Surgery: No Neurologic Surgery: No Orthopedic Surgery: No - Suicide/Smoking/Psychosocial Hx Smoking History: Former smoker Have you smoked in the past 12 months: No If you are a former smoker, when did you quit?: 2009 Hx Alcohol Use: No Drug/Substance Use Hx: No <Steff Crump - Last Filed: 01/13/18 02:44> - Past Medical History Allergies/Adverse Reactions: Allergies Allergy/AdvReac Type Severity Reaction Status Date / Time No Known Allergies Allergy Verified 01/13/18 00:43 Home Medications: Ambulatory Orders Cholecalciferol (Vitamin D3) [Vitamin D -] 50,000 unit PO Q7D 07/17/17 Sevelamer Carbonate [Renvela -] 1,600 mg PO TID 07/17/17 Nifedipine [Procardia] 10 mg PO DAILY 10/31/17 Glipizide [Glipizide ER] 2.5 mg PO DAILY 01/13/18 Review of Systems - Review of Systems Able to Perform ROS?: Yes Comments:: 01/13/18 00:48 CONSTITUTIONAL:(+)Tripod standing position. Absent: fever, chills, diaphoresis, generalized weakness, malaise, loss of appetite HEENT: Absent: rhinorrhea, nasal congestion, throat pain, throat swelling, difficulty swallowing, mouth swelling, ear pain, eye pain, visual Changes CARDIOVASCULAR: Absent: chest pain, syncope, palpitations, irregular heart rate, lightheadedness , peripheral edema RESPIRATORY: (+)Difficulty breathing and cough. Absent: shortness of breath, dyspnea with exertion, orthopnea, wheezing, stridor , hemoptysis GASTROINTESTINAL: Absent: abdominal pain, abdominal distension, nausea, vomiting, diarrhea, constipation, melena, hematochezia GENITOURINARY: Absent: dysuria, frequency, urgency, hesitancy, hematuria, flank pain, genital pain MUSCULOSKELETAL: Absent: myalgia, arthralgia, joint swelling SKIN: Absent: rash, itching, pallor HEMATOLOGIC/IMMUNOLOGIC: Absent: easy bleeding, easy bruising, lymphadenopathy, frequent infections ENDOCRINE: Absent: unexplained weight gain, unexplained weight loss, heat intolerance, cold intolerance NEUROLOGIC: Absent: headache, focal weakness or paresthesias, dizziness, unsteady gait, seizure, mental status changes, bladder or bowel incontinence PSYCHIATRIC: Absent: anxiety, depression, suicidal or homicidal ideation, hallucinations. <Haily Hdez - Last Filed: 01/13/18 02:22> *Physical Exam - Vital Signs Last Vital Signs Temp Pulse Resp BP Pulse Ox 99 H 28 H 180/102 99 01/12/18 23:39 01/12/18 23:39 01/12/18 23:39 01/12/18 23:39 - Physical Exam Comments: 01/13/18 01:29 GENERAL:Acute SOB Well developed, well nourished. Awake and alert. HEENT: Normocephalic, atraumatic. PERRLA, EOMI. No conjunctival pallor. Sclera are non- icteric. Moist mucous membranes. Oropharynx is clear. NECK: Supple. Full ROM. No JVD. Carotid pulses 2+ and symmetric, without bruits. No thyromegaly. No lymphadenopathy. CARDIOVASCULAR:(+) Slightly tachycardic No murmurs, rubs, or gallops. Distal pulses are 2+ and symmetric. PULMONARY: (+) scattered rales Lungs clear to auscultation bilaterally. No wheezing or rhonchi. ABDOMINAL: Soft. Non-tender. Non-distended. No rebound or guarding. No organomegaly. Normoactive bowel sounds. MUSCULOSKELETAL Normal range of motion at all joints. No bony deformities or tenderness. No CVA tenderness. EXTREMITIES: (+) Bilateral edema. No cyanosis. No clubbing. No calf tenderness. SKIN: Warm and dry. Normal capillary refill. No rashes. No jaundice. NEUROLOGICAL: Alert, awake, appropriate. Cranial nerves 2-12 intact. No deficits to light touch and temperature in face, upper extremities and lower extremities. No motor deficits in the in face, upper extremities and lower extremities. Normoreflexic in the upper and lower extremities. Normal speech. Toes are down- going bilaterally. PSYCHIATRIC: Cooperative. Good eye contact. Appropriate mood and affect. <Haily Hdez - Last Filed: 01/13/18 02:22> ED Treatment Course - LABORATORY CBC & Chemistry Diagram: 01/13/18 00:20 01/13/18 00:20 - ADDITIONAL ORDERS Additional order review: 01/13/18 00:20 RBC 2.93 L MCV 95.2 MCHC 33.9 RDW 14.4 D MPV 8.8 Neutrophils % 72.9 Lymphocytes % 12.6 D Monocytes % 4.8 Eosinophils % 8.5 H Basophils % 1.2 <Haily Hdez - Last Filed: 01/13/18 02:22> - LABORATORY CBC & Chemistry Diagram: 01/13/18 00:20 01/13/18 00:20 <Steff Crump - Last Filed: 01/13/18 02:44> Medical Decision Making - Critical Care Time Total Critical Care Time (minutes): 30 (Required the use of Bipap ) Critical Care Statement: The care of this patient involved high complexity decision making to prevent further life threatening deterioration of the patient 's condition and/or to evaluate & treat vital organ system(s) failure or risk of failure. - Medical Decision Making 01/13/18 02:[address] [place] at 2:14 am, whose covering for Dr. Navarro. The dialysis is scheduled for 6:00 am, if something happens the team will come in earlier. <Haily Hdez - Last Filed: 01/13/18 02:22> *DC/Admit/Observation/Transfer - Attestations Scribe Attestion: 01/13/18 01:30 Documentation prepared by Haily Hdez, acting as medical billing and coding instructor for Steff Crump MD. <Haily Hdez - Last Filed: 01/13/18 02:22> - Discharge Dispostion Decision to Admit order: Yes <Steff Crump - Last Filed: 01/13/18 02:44> Diagnosis at time of Disposition: SOB (shortness of breath), Hyperkalemia, ESRD (end stage renal disease) HTN (hypertension) Qualifiers: Hypertension type: secondary to other renal disorders Qualified Code(s): I15.1 - Hypertension secondary to other renal disorders Anemia Qualifiers: Anemia type: due to chronic kidney disease Chronic kidney disease stage: on chronic dialysis Qualified Code(s): N18.6 - End stage renal disease - Referrals Referrals: Axel Staton MD [Primary Care Provider] - - Patient Instructions - Post Discharge Activity
[2018-01-13 00:40] LABS: BASO % 1.2 % (0-2.0); EOS % 8.5 % (0-4.5); HEMATOCRIT 27.9 % (35.4-49); HEMOGLOBIN 9.5 GM/dL (11.7-16.9); LYMPH % 12.6 % (8-40); MCH 32.3 pg (25.7-33.7); MCHC 33.9 g/dl (32.0-35.9); MEAN CELL VOLUME 95.2 fl (80-96); MEAN PLT VOLUME 8.8 fl (7.5-11.1); MONO % 4.8 % (3.8-10.2); NEUT % 72.9 % (42.8-82.8); PLATELET COUNT 242 K/MM3 (134-434); RBC 2.93 M/mm3 (4.00-5.60); RDW 14.4 % (11.9-15.9); WHITE BLOOD COUNT 10.3 K/mm3 (4.0-10.0)
[2018-01-13 01:16] LABS: ALBUMIN 3.5 g/dl (3.4-5.0); ANION GAP 12 (8-16); BILIRUBIN,TOTAL 0.5 mg/dL (0.2-1.0); BLOOD UREA NITROGEN 95 mg/dL (7-18); CALCIUM 8.2 mg/dL (8.5-10.1); CHLORIDE 97 mmol/L (98-107); CO2 28 mmol/L (21-32); GLUCOSE,RANDOM 94 mg/dL (74-106); POTASSIUM 5.3 mmol/L (3.5-5.1); SGOT/AST 10 U/L (15-37); SGPT/ALT 21 U/L (12-78); SODIUM 137 mmol/L (136-145); TOT PROT 6.8 g/dl (6.4-8.2)
[2018-01-13 01:17] LABS: CREATININE 12.4 mg/dL (0.7-1.3)
[2018-01-13 01:21] LABS: ALK PHOS 89 U/L (45-117)
[2018-01-13] MEDS ORDERED: SODIUM POLYSTYRENE SULFONATE 15 GM/60 ML BOTTLE PO ONE (01:55)
--- NOTE | 2018-01-13 02:13 | HP ---
CHIEF COMPLAINT: SOB, Lower Extremity Swelling PCP: Dr. Staton HISTORY OF PRESENT ILLNESS: This is a 52 y/o man with a PMHx of ESRD (HD- Mo, We, Fr), HTN, NIDDM. Who presents to the ED with increased SOB, ANDERSEN, LE edema x several days, worse last night. Patient's family at bedside, reports that the patient was very pale, with blanched lips and having difficulty breathing. His family also report that the patient was scheduled for an Angiogram this Saturday at [facility]. Patient was placed on BIPAP in the ED secondary to his Acute Respiratory Distress. Patient denies fever, chills, CP, palpitations, AP, N/V/D , constipation. ER course was notable for: (1) Chest Xray image- Cardiomegaly, pulm vascular congestion (2) EKG- NSR with incomplete RBBB, prolonged QT (3) BNP- 46814 (4) BUN/Cr- 95/12.4 Recent Travel: None PAST MEDICAL HISTORY: See HPI PAST SURGICAL HISTORY: AV Fistula- right arm Social History: Smoking: Former Alcohol: None Drugs: None Lives with family Family History: Allergies No Known Allergies Allergy (Verified 01/13/18 00:43) HOME MEDICATIONS: Home Medications Medication Instructions Recorded Cholecalciferol (Vitamin D3) 5,000 unit PO Q7D 07/17/17 [Vitamin D -] [place]-3S/Dha/Epa/Fish Oil [Fish 1 each PO DAILY 07/17/17 Oil 1,200 mg Softgel] Sevelamer Carbonate [Renvela -] 800 mg PO TID 07/17/17 Nifedipine [Procardia] 10 mg PO DAILY 10/31/17 Glipizide [Glipizide ER] 2.5 mg PO 01/13/18 REVIEW OF SYSTEMS CONSTITUTIONAL: shortness of breath, dyspnea with exertion Absent: fever, chills, diaphoresis, generalized weakness, malaise, loss of appetite, weight change HEENT: Absent: rhinorrhea, nasal congestion, throat pain, throat swelling, difficulty swallowing, mouth swelling, ear pain, eye pain, visual changes CARDIOVASCULAR: peripheral edema Absent: chest pain, syncope, palpitations, irregular heart rate, lightheadedness RESPIRATORY: Absent: cough, orthopnea, wheezing, stridor, hemoptysis GASTROINTESTINAL: Absent: abdominal pain, abdominal distension, nausea, vomiting, diarrhea, constipation, melena, hematochezia GENITOURINARY: Absent: dysuria, frequency, urgency, hesitancy, hematuria, flank pain, genital pain MUSCULOSKELETAL: Absent: myalgia, arthralgia, joint swelling, back pain, neck pain SKIN: Absent: rash, itching, pallor HEMATOLOGIC/IMMUNOLOGIC: Absent: easy bleeding, easy bruising, lymphadenopathy, frequent infections ENDOCRINE: Absent: unexplained weight gain, unexplained weight loss, heat intolerance, cold intolerance NEUROLOGIC: Absent: headache, focal weakness or paresthesias, dizziness, unsteady gait, seizure, mental status changes, bladder or bowel incontinence PSYCHIATRIC: Absent: anxiety, depression, suicidal or homicidal ideation, hallucinations. PHYSICAL EXAMINATION Vital Signs - 24 hr 01/12/18 01/13/18 23:39 00:46 Pulse Rate 99 H Respiratory 28 H Rate Blood Pressure 180/102 O2 Sat by Pulse 99 95 Oximetry (%) GENERAL: Awake, alert, and fully oriented, in no acute distress. HEAD: Normal with no signs of trauma. EYES: Pupils equal, round and reactive to light, extraocular movements intact, sclera anicteric, conjunctiva clear. No lid lag. EARS, NOSE, THROAT: Ears normal, nares patent, oropharynx clear without exudates. Dry mucous membranes. NECK: Normal range of motion, supple without lymphadenopathy, JVD, or masses. LUNGS: Breath sounds diminished at bases, rales throughout. No accessory muscle use. HEART: Regular rate and rhythm, normal S1 and S2 without murmur, rub or gallop. ABDOMEN: Soft, nontender, not distended, normoactive bowel sounds, no guarding, no rebound, no masses. No hepatomegaly or splenomegaly. MUSCULOSKELETAL: Normal range of motion at all joints. No bony deformities or tenderness. No CVA tenderness. UPPER EXTREMITIES: 2+ pulses, warm, well-perfused. No cyanosis. No clubbing. No peripheral edema. LOWER EXTREMITIES: 2+ pulses, warm, well-perfused. No calf tenderness. +3 +4 R> L pitting feet-below knee peripheral edema. NEUROLOGICAL: Cranial nerves II-XII intact. Normal speech. Gait not observed. PSYCHIATRIC: Cooperative. Good eye contact. Appropriate mood and affect. SKIN: Warm, dry, normal turgor, no rashes or lesions noted, normal capillary refill. Laboratory Results - last 24 hr 01/13/18 01/13/18 01/13/18 00:20 00:20 00:20 WBC 10.3 H RBC 2.93 L Hgb 9.5 L Hct 27.9 L MCV 95.2 MCH 32.3 MCHC 33.9 RDW 14.4 D Plt Count 242 D MPV 8.8 Neutrophils % 72.9 Lymphocytes % 12.6 D Monocytes % 4.8 Eosinophils % 8.5 H Basophils % 1.2 Nucleated RBC % 0 Sodium 137 Potassium 5.3 H Chloride 97 L Carbon Dioxide 28 Anion Gap 12 BUN 95 H D Creatinine 12.4 H* D Creat Clearance w eGFR 4.29 Random Glucose 94 D Calcium 8.2 L Total Bilirubin 0.5 D AST 10 L ALT 21 Alkaline Phosphatase 89 D Creatine Kinase 295 Troponin I 0.04 D B-Natriuretic Peptide Total Protein 6.8 Albumin 3.5 01/13/18 00:20 WBC RBC Hgb Hct MCV MCH MCHC RDW Plt Count MPV Neutrophils % Lymphocytes % Monocytes % Eosinophils % Basophils % Nucleated RBC % Sodium Potassium Chloride Carbon Dioxide Anion Gap BUN Creatinine Creat Clearance w eGFR Random Glucose Calcium Total Bilirubin AST ALT Alkaline Phosphatase Creatine Kinase Troponin I B-Natriuretic Peptide 38010.84 H Total Protein Albumin ASSESSMENT/PLAN: 52 y/o man with a PMH of ESRD (HD- Mo,We,Fr), HTN, DM. Admitted to Telemetry for Acute CHF Exacerbation, ESRD. Plan: FEN - Fluid Restriction - Replete lytes prn - Low Na, Renal Diet DVT ppx - OOB - Heparin SQ Code Status: Full Code Dispo: Requires Inpatient Care Problem List - Problem (1) Acute exacerbation of CHF (congestive heart failure) Assessment/Plan: - Admit to Telemetry - Continue cardiac monitoring - [place] HF Criteria Met - Serial Enzymes, neg x1 - Appreciate Cardiology consult - Continue BIPAP - ABG- pending - BNP> 45,000 - Patient would benefit from HD in am - Monitor Spo2 - Consider Echo - Monitor CBC, BMP Code(s): I50.9 - HEART FAILURE, UNSPECIFIED (2) SOB (shortness of breath) Assessment/Plan: - See Above Code(s): R06.02 - SHORTNESS OF BREATH (3) Hyperkalemia Assessment/Plan: - Likely secondary to Fluid Overload - Kayexlate given in ED - Repeat BMP in am - EKG reviewed no peaked T waves - Monitor vitals - Continue cardiac monitoring Code(s): E87.5 - HYPERKALEMIA (4) ESRD (end stage renal disease) Assessment/Plan: - HD (Mo, We, Fr) - Appreciate Nephrology consult for HD management - Continue home meds - Avoid nephrotoxic drugs Code(s): N18.6 - END STAGE RENAL DISEASE (5) Lower extremity edema Assessment/Plan: - Likely secondary to Fluid Overload - Wells Score 1 - Duplex LE- pending - Elevate extremities Code(s): R60.0 - LOCALIZED EDEMA (6) HTN (hypertension) Assessment/Plan: - Uncontrolled - Likely secondary to fluid overload - Given NTG sl in ED- now improved - Will need to verify Procardia dose with patient's home pharmacy - Monitor BP Code(s): I10 - ESSENTIAL (PRIMARY) HYPERTENSION Qualifiers: Hypertension type: secondary to other renal disorders Qualified Code(s): I15.1 - Hypertension secondary to other renal disorders; N28.89 - Other specified disorders of kidney and ureter (7) Diabetes mellitus Assessment/Plan: - Stable - Continue Glipizide - Monitor renal function Code(s): E11.9 - TYPE 2 DIABETES MELLITUS WITHOUT COMPLICATIONS (8) Anemia Assessment/Plan: - Stable - Likely chronic secondary to ESRD - Will transfuse if Hb < 7.0 - Monitor CBC Code(s): D64.9 - ANEMIA, UNSPECIFIED Qualifiers: Anemia type: due to chronic kidney disease Chronic kidney disease stage: on chronic dialysis Qualified Code(s): N18.6 - End stage renal disease; D63.1 - Anemia in chronic kidney disease; Z99.2 - Dependence on renal dialysis Visit type - Emergency Visit Emergency Visit: Yes ED Registration Date: 01/12/18 Care time: The patient presented to the Emergency Department on the above date and was hospitalized for further evaluation of their emergent condition. - New Patient This patient is new to me today: Yes Date on this admission: 01/13/18 - Critical Care Critical Care patient: No Hospitalist Screening - Colonoscopy Questionnaire Colonoscopy Questionnaire: Colonoscopy Questionnaire - Patient: 50 - 75 years old and never had a screening colonoscopy: No History of colon or rectal polyps, or CA: No History of IBD, Crohn's disease or UC: No History of abdominal radiation therapy as a child: No - Relative: 1 with colon or rectal CA, or polyps at age 60 or younger: No Colon or rectal CA diagnosed at age 45 or younger: No Multiple relatives with colon or rectal CA: No - Outcome: Screening Result: Negative Screen
[2018-01-13 02:57] LABS: ARTERIAL BLD GAS O2 SATURATION 99.4 % (90-98.9); ARTERIAL BLOOD GAS BASE EXCESS -0.8 meq/l (-2-2); ARTERIAL BLOOD GAS PCO2 41.9 mmHg (35-45); ARTERIAL BLOOD GAS pH 7.37 (7.35-7.45)
[2018-01-13 02:58] LABS: ALLENS TEST POSITIVE
[2018-01-13] MEDS ORDERED: SODIUM POLYSTYRENE SULFONATE 15 GM/60 ML BOTTLE ONE (03:04)
[2018-01-13] MEDS: SEVELAMER CARBONATE 800 MG TAB (FP) PO SCH ×3 (08:00→17:42)
[2018-01-13] MEDS ORDERED: EPOETIN ALFA 3,000 UNIT, EPOETIN ALFA 2,000 UNIT IVPUSH ONE (08:00)
[2018-01-13] MEDS ORDERED: HEPARIN NA (PORCINE) 5,000 UNITS/ML 1ML VIAL SQ ONE (08:30)
--- NOTE | 2018-01-13 08:37 | EKG ---
Test Reason : Blood Pressure : / mmHG Vent. Rate : 091 BPM Atrial Rate : 091 BPM P-R Int : 160 ms QRS Dur : 104 ms QT Int : 396 ms P-R-T Axes : 050 045 069 degrees QTc Int : 487 ms NORMAL SINUS RHYTHM POSSIBLE LEFT ATRIAL ENLARGEMENT INCOMPLETE RIGHT BUNDLE BRANCH BLOCK POOR R WAVE PROGRESSION PROLONGED QT ABNORMAL ECG WHEN COMPARED WITH ECG OF 17-JUL-2017 13:13, NO SIGNIFICANT CHANGE WAS FOUND BASELINE ARTIFACT Confirmed by LAVINIA LAUGHLIN, DAMIR ([id number]) on 01/13/2018 8:37:24 AM Referred By: Confirmed By:DAMIR KATE MD
[2018-01-13] MEDS ORDERED: NIFEdipine 10 MG CAPSULE (FP) PO SCH (10:00)
[2018-01-13] MEDS: HEPARIN NA (PORCINE) 5,000 UNITS/ML 1ML VIAL SQ SCH ×2 (10:00→22:02)
--- NOTE | 2018-01-13 10:13 | PN ---
Progress Note, Physician Chief Complaint: AWAKE ALERT RECEIVING HD APPROX 2.2LBS OF FLUID REMOVED SO FAR, GOAL 3.8LBS DENEIS CHEST PAIN NO SOB SCHEDULED FOR CARDIAC CATH AT [facility] TOMORROW OUTPATIENT - Current Medication List Current Medications: Active Medications Glipizide (Glucotrol Xl -) 2.5 mg PO DAILY@0700 [facility] Heparin Sodium (Porcine) (Heparin -) 5,000 unit SQ BID BRIAN Nifedipine (Procardia Capsule -) 10 mg PO DAILY BRIAN Sevelamer Carbonate (Renvela -) 1,600 mg PO TIDCM BRIAN - Objective Vital Signs: Vital Signs Temperature 97.8 F 01/13/18 07:45 Pulse Rate 87 01/13/18 09:20 Respiratory Rate 18 01/13/18 09:20 Blood Pressure 184/100 01/13/18 09:20 O2 Sat by Pulse Oximetry (%) 98 01/13/18 06:38 Constitutional: Yes: Mild Distress Eyes: Yes: WNL HENT: Yes: WNL Neck: Yes: WNL Cardiovascular: Yes: WNL Respiratory: Yes: WNL Gastrointestinal: Yes: WNL Genitourinary: Yes: Other Musculoskeletal: Yes: Other Extremities: Yes: WNL Edema: Yes Edema: LLE: 1+, RLE: 1+ Peripheral Pulses WNL: Yes Integumentary: Yes: WNL Wound/Incision: Yes: Clean/Dry Neurological: Yes: WNL ...Motor Strength: WNL Psychiatric: Yes: WNL Labs: CBC, BMP 01/13/18 00:20 01/13/18 00:20 Problem List - Problems (1) Acute exacerbation of CHF (congestive heart failure) Code(s): I50.9 - HEART FAILURE, UNSPECIFIED (2) Anemia Code(s): D64.9 - ANEMIA, UNSPECIFIED Qualifiers: Anemia type: due to chronic kidney disease Chronic kidney disease stage: on chronic dialysis Qualified Code(s): N18.6 - End stage renal disease; D63.1 - Anemia in chronic kidney disease; Z99.2 - Dependence on renal dialysis (3) ESRD (end stage renal disease) Code(s): N18.6 - END STAGE RENAL DISEASE (4) HTN (hypertension) Code(s): I10 - ESSENTIAL (PRIMARY) HYPERTENSION Qualifiers: Hypertension type: secondary to other renal disorders Qualified Code(s): I15.1 - Hypertension secondary to other renal disorders; N28.89 - Other specified disorders of kidney and ureter (5) Hyperkalemia Code(s): E87.5 - HYPERKALEMIA (6) Lower extremity edema Code(s): R60.0 - LOCALIZED EDEMA (7) SOB (shortness of breath) Code(s): R06.02 - SHORTNESS OF BREATH (8) Diabetes mellitus Code(s): E11.9 - TYPE 2 DIABETES MELLITUS WITHOUT COMPLICATIONS Assessment/Plan HD PER RENAL REMOVING APPROX 3.8LBS DIET AND FLUID RESTRICTION D/W PATIENT I INSTRUCTED THE PAT[facility] RESCHEDULE CARDIAC CATH FOR NEXT WEEK HE WILL BE HERE INPATIENT FOR AT LEAST 2 MORE DAYS
[2018-01-13 10:30] LABS: MAGNESIUM 2.1 mg/dL (1.8-2.4); PHOSPHOROUS 6.4 mg/dL (2.5-4.9)
[2018-01-13 12:02] LABS: CREATININE 11.3 mg/dL (0.7-1.3)
[2018-01-13] MEDS: hydrALAZINE HCL 10 MG TABLET PO SCH ×2 (12:23→22:02)
--- NOTE | 2018-01-13 15:11 | CON.CARD ---
Consult Consult Specialty:: Cardiology Referred by:: Dr. Staton and Ms. Jose L NP Reason for Consultation:: CHF exacerbation - History of Present Illness Chief Complaint: Worsening shortness of breath. History of Present Illness: 52 year-old man with a PMHx of HTN, NIDDM, CHF with mild LV systolic dysfunction , scheduled cardiac cath at [facility] for 01/14/2018, ESRD on hemodialysis presented to the ED with increased worsening shortness of breath, leg edema and decreased exercise tolerance for several days. His symptoms of shortness of beath worsened last night with shortness of breath at rest. His BP was severe elevated, was placed on BIPAP in the ED secondary to his acute respiratory distress. He received IV NTG for BP control. His symptoms of dyspnea improved markedly after hemodialysis today. He reports no chest pain , palpitation, dizziness, syncope or near syncope. ECG shows sinus rhythm with imcomplete RBBB, no ST-T abnormalities. Echocardiogram 07/18/2017: Moderate LV dilatation with mild global hypokinesis and mildly reduced LV systolic function. Reported LVEF = 51.7%. Mild RV dilatation with mildly reduced RV function. Moderate LA dilatation. Mild MR. Mild to moderate pulmonary HTN, RVSP = 40 - 50 mmHg. CXR 01/12/2018: Cardiomegaly and pulmonary congestion. - History Source History Provided By: Patient, Medical Record Limitations to Obtaining History: No Limitations - Past Medical History Cardio/Vascular: Yes: CHF, HTN Renal/: Yes: Renal Failure, Renal Inusuff, Hemodialysis Heme/Onc: Yes: Anemia Endocrine: Yes: Diabetes Mellitus - Past Surgical History Past Surgical History: Yes: AV Fistula/Graft - Alcohol/Substance Use Hx Alcohol Use: No - Smoking History Smoking history: Former smoker Have you smoked in the past 12 months: No If you are a former smoker, when did you quit?: 2009 Home Medications - Allergies Allergies/Adverse Reactions: Allergies Allergy/AdvReac Type Severity Reaction Status Date / Time No Known Allergies Allergy Verified 01/13/18 00:43 - Home Medications Home Medications: Ambulatory Orders Cholecalciferol (Vitamin D3) [Vitamin D -] 50,000 unit PO Q7D 07/17/17 Sevelamer Carbonate [Renvela -] 1,600 mg PO TID 07/17/17 Nifedipine [Procardia] 10 mg PO DAILY 03/15/18 Glipizide [Glipizide ER] 2.5 mg PO DAILY 01/13/18 Review of Systems - Review of Systems Constitutional: reports: No Symptoms Eyes: reports: No Symptoms HENT: reports: No Symptoms Neck: reports: No Symptoms Cardiovascular: reports: Shortness of Breath Respiratory: reports: SOB, SOB on Exertion Gastrointestinal: reports: No Symptoms Genitourinary: reports: No Symptoms Breasts: reports: No Symptoms Reported Musculoskeletal: reports: No Symptoms Integumentary: reports: No Symptoms Neurological: reports: No Symptoms Endocrine: reports: No Symptoms Hematology/Lymphatic: reports: No Symptoms Psychiatric: reports: No Symptoms Vital Signs: Vital Signs Temperature 97.7 F 01/13/18 14:21 Pulse Rate 79 01/13/18 14:21 Respiratory Rate 18 01/13/18 14:21 Blood Pressure 146/54 01/13/18 14:21 O2 Sat by Pulse Oximetry (%) 98 01/13/18 06:38 General: Well developed. Obese. No acute distress. Head: Normocephalic. Atraumatic, Eyes: PERRLA, EOMI. Sclerae anicteric. Conjunctivae clear. Neck: Supple. No JVD. No bruits. Heart: Normal S1, S2: Regular rhythm and rate. No murmur. No gallop or rub. Lungs: Symmetrical air entry. Minimal bibasilar crackle. No wheezing or rhonchi. Abdomen: Obese. Soft. Bowel sound positive. Non tender. No masses. Extremities: 1+ edema. No clubbing or cyanosis. PD 2+, equal bilaterally. - Other Data Labs, Other Data: CBC, BMP 01/13/18 00:20 01/13/18 11:40 Troponin, BNP 01/13/18 01/13/18 01/13/18 00:20 00:20 08:00 Troponin I 0.04 D 0.05 B-Natriuretic Peptide 39873.84 H 01/13/18 01/13/18 11:40 11:40 Troponin I Cancelled 0.06 H B-Natriuretic Peptide Troponin, BNP 01/13/18 01/13/18 01/13/18 00:20 00:20 08:00 Troponin I 0.04 D 0.05 B-Natriuretic Peptide 45998.84 H 01/13/18 01/13/18 11:40 11:40 Troponin I Cancelled 0.06 H B-Natriuretic Peptide Imaging - Results EKG: Image Reviewed (Sinus rhythm. Normal axis. Incomplete RBBB. LA abnormality. No significant ST-T abnormalities.) Assessment/Plan 52 year-old man with a PMHx of HTN, NIDDM, CHF with mild LV systolic dysfunction , scheduled cardiac cath at [facility] for 01/14/2018, ESRD on hemodialysis presented to the ED with increased worsening shortness of breath, leg edema and decreased exercise tolerance for several days. No angina or TN. ECG shows sinus rhythm with imcomplete RBBB, no ST-T abnormalities. Echocardiogram 07/18/2017: Moderate LV dilatation with mild global hypokinesis and mildly reduced LV systolic function. Reported LVEF = 51.7%. Mild RV dilatation with mildly reduced RV function. Moderate LA dilatation. Mild MR. Mild to moderate pulmonary HTN, RVSP = 40 - 50 mmHg. CXR 01/12/2018: Cardiomegaly and pulmonary congestion. 1) CHF exacerbation: Acute on chronic diastolic CHF with mild LV systolic dysfunction, possible due to dietary indiscrepasy and medication non- compliance. Renal follow up for hemodialysis to prevent fluid overload. Add Metoprolol succinate 50 mg daily for heart rate and BP control. Titrate up for BP and HR control. Add ACEI - Lisinopril 10 mg daily. May discontinue nifedipine after starting Metoprolol and Lisinopril. 2) Severe hypertension: BP control improved after HD. BP control as above. 3) Cardiac cath is scheduled for 01/14/2018 at [facility]. The detail is unclear. The patient is inpatient to provide the information at the time of interview. His CHF, LV dilatation and mild global LV systolic dysfunction are likely caused by non-ischemic cardiomyopathy, possible hypertensive cardiomyopathy. But I have no objection to the plan cardiac cath. We will follow the patient with you.
[2018-01-13 20:34] VITALS: BMI 33.0
--- NOTE | 2018-01-13 20:34 | CON.NEP ---
Consult Consult Specialty:: nephrology Referred by:: diego Reason for Consultation:: esrd for hd - History of Present Illness Chief Complaint: sob/esrd History of Present Illness: esrd on hd tiw mwf did not miss any tx claims he doesnt gain much weight in between treatments pt presents with sob respiratory distress asking for hd - History Source History Provided By: Patient Limitations to Obtaining History: Clinical Condition - Past Medical History Cardio/Vascular: Yes: CHF, HTN Renal/: Yes: Renal Failure, Renal Inusuff, Hemodialysis Endocrine: Yes: Diabetes Mellitus - Past Surgical History Past Surgical History: Yes: AV Fistula/Graft - Alcohol/Substance Use Hx Alcohol Use: No - Smoking History Smoking history: Former smoker Have you smoked in the past 12 months: No If you are a former smoker, when did you quit?: 2009 Home Medications - Allergies Allergies/Adverse Reactions: Allergies Allergy/AdvReac Type Severity Reaction Status Date / Time No Known Allergies Allergy Verified 01/13/18 00:43 - Home Medications Home Medications: Ambulatory Orders Cholecalciferol (Vitamin D3) [Vitamin D -] 50,000 unit PO Q7D 07/17/17 Sevelamer Carbonate [Renvela -] 1,600 mg PO TID 07/17/17 Nifedipine [Procardia] 10 mg PO DAILY 10/31/17 Glipizide [Glipizide ER] 2.5 mg PO DAILY 01/13/18 Review of Systems - Review of Systems Constitutional: denies: No Symptoms Eyes: denies: No Symptoms HENT: denies: No Symptoms Neck: denies: No Symptoms Cardiovascular: reports: Shortness of Breath Respiratory: reports: SOB, SOB on Exertion Gastrointestinal: reports: No Symptoms Genitourinary: reports: No Symptoms Breasts: reports: No Symptoms Reported Musculoskeletal: reports: No Symptoms Integumentary: reports: No Symptoms Neurological: reports: No Symptoms Endocrine: reports: No Symptoms Hematology/Lymphatic: reports: No Symptoms Psychiatric: reports: No Symptoms Nephrology Consult - Height Height: 5 ft 9 in - Weight Weight: 224 lb - BMI Body Mass Index (BMI): 33.0 - Lab Results CBC,BMP: CBC, BMP 01/13/18 00:20 01/13/18 11:40 Anion Gap: Anion Gap Anion Gap 12 (8-16) 01/13/18 00:20 - Physical Examination Vital Signs: Vital Signs Temperature 98.3 F 01/13/18 17:54 Pulse Rate 78 01/13/18 17:54 Respiratory Rate 18 01/13/18 17:54 Blood Pressure 172/93 01/13/18 17:54 O2 Sat by Pulse Oximetry (%) 97 01/13/18 09:00 Constitutional: Yes: Obese Eyes: Yes: WNL HENT: Yes: WNL Neck: Yes: WNL Cardiovascular: Yes: WNL Respiratory: Yes: WNL Gastrointestinal: Yes: WNL Musculoskeletal: Yes: WNL Extremities: Yes: WNL Edema: Yes Edema: LLE: 2+, RLE: 2+ Peripheral Pulses WNL: No Integumentary: Yes: WNL Neurological: Yes: WNL Psychiatric: Yes: WNL Assessment/Plan esrd on hd fluid overload r/o unidentified weight loss needs dry weight to be adjusted dialyzed urgently seen while on dialysis may benefit from extra dialysis treatment if he still has edema
[2018-01-13] MEDS: glipiZIDE-XL 2.5 MG TAB.ER.24 PO SCH (22:01)
[2018-01-14] MEDS: glipiZIDE-XL 2.5 MG TAB.ER.24 PO SCH (06:32)
[2018-01-14] MEDS ORDERED: PT OWN MED DRAWER 7, Y5N ONE (08:58)
[2018-01-14] MEDS: SEVELAMER CARBONATE 800 MG TAB (FP) PO SCH ×3 (09:27→17:14)
[2018-01-14] MEDS: hydrALAZINE HCL 10 MG TABLET PO SCH ×2 (09:27→21:05)
[2018-01-14] MEDS: HEPARIN NA (PORCINE) 5,000 UNITS/ML 1ML VIAL SQ SCH ×2 (09:27→21:05)
--- NOTE | 2018-01-14 10:59 | PN ---
Progress Note, Physician History of Present Illness: seen and examined today in [facility]. no overnight events. no new complaints. - Current Medication List Current Medications: Active Medications Glipizide (Glucotrol Xl -) 2.5 mg PO DAILY@0700 [facility] Last Admin: 01/14/18 06:32 Dose: 2.5 mg Heparin Sodium (Porcine) (Heparin -) 5,000 unit SQ BID [facility] Last Admin: 01/14/18 09:27 Dose: 5,000 unit Hydralazine HCl (Apresoline -) 10 mg PO BID [facility] Last Admin: 01/14/18 09:27 Dose: 10 mg Nifedipine (Procardia Capsule -) 10 mg PO DAILY [facility] Sevelamer Carbonate (Renvela -) 1,600 mg PO TIDCM [facility] Last Admin: 01/14/18 09:27 Dose: 1,600 mg - Objective Vital Signs: Vital Signs Temperature 98.2 F 01/14/18 09:00 Pulse Rate 81 01/14/18 09:00 Respiratory Rate 20 01/14/18 09:00 Blood Pressure 171/87 01/14/18 09:00 O2 Sat by Pulse Oximetry (%) 98 01/14/18 09:00 Constitutional: Yes: No Distress, Calm Eyes: Yes: Conjunctiva Clear, EOM Intact HENT: Yes: Atraumatic, Normocephalic Neck: Yes: Supple, Trachea Midline Cardiovascular: Yes: Regular Rate and Rhythm, S1, S2. No: Bradycardia, Tachycardia, Pulse Irregular, Bruit, JVD, Gallop, Murmur, Rub, S3, S4, Varicosities Respiratory: Yes: Regular, Diminished, On Nasal O2, Rales. No: Rhonchi, SOB, Wheezes Gastrointestinal: Yes: Normal Bowel Sounds, Soft Extremities: Yes: WNL Edema: LLE: Trace, RLE: Trace Peripheral Pulses WNL: Yes Neurological: Yes: Alert, Oriented Psychiatric: Yes: Alert, Oriented Labs: CBC, BMP 01/13/18 00:20 01/13/18 11:40 - ....Imaging Chest X-ray: Report Reviewed, Image Reviewed EKG: Report Reviewed, Image Reviewed Other: Report Reviewed, Image Reviewed (tele-nsr, no events recorded) Assessment/Plan 52 year-old man with a PMHx of HTN, NIDDM, CHF with mild LV systolic dysfunction , pt reports scheduled cardiac cath at [facility] for 01/14/2018 , ESRD on hemodialysis presented to the ED with increased worsening shortness of breath, leg edema and decreased exercise tolerance for several days. No angina or [place]. ECG shows sinus rhythm with imcomplete RBBB, no ST-T abnormalities. Echocardiogram 07/18/2017: Moderate LV dilatation with mild global hypokinesis and mildly reduced LV systolic function. Reported LVEF = 51.7%. Mild RV dilatation with mildly reduced RV function. Moderate LA dilatation. Mild MR. Mild to moderate pulmonary HTN, RVSP = 40 - 50 mmHg. CXR 01/12/2018: Cardiomegaly and pulmonary congestion. 1) CHF exacerbation: Acute on chronic diastolic CHF with mild LV systolic dysfunction, possible due to dietary indiscretion and medication non-adherence -tanesha HERMAN possibly HTN induced, unclear if ischemic work up done in the past -s/p HD yesterday, still volume overloaded -volume removal with HD -can Start Metoprolol succinate 50 mg daily for heart rate and BP control. Titrate up for BP and HR control. -if safe from a renal/K+ standpoint Add ACEI -May discontinue nifedipine after starting Metoprolol and Lisinopril if BP tolerates -pt does not know if he follows with a wearing apparel presser as outpatient, only aware of Dr. Dunn, will need close outpatient f/up 2) Severe hypertension: -as above 3) Pt reports outpatient Cardiac cath is scheduled for 01/14/2018 at [facility] -pt states this was arranged by Dr. Dunn, unclear details at this time if indeed is for cardiac cath or peripheral angiogram -this can be rescheduled as outpatient
--- NOTE | 2018-01-14 14:56 | PN ---
Progress Note, Physician History of Present Illness: Pt seen and examined at bedside. He feels better after HD yesterday. He still complains of lower ext edema. - Current Medication List Current Medications: Active Medications Glipizide (Glucotrol Xl -) 2.5 mg PO DAILY@0700 [facility] Last Admin: 01/14/18 06:32 Dose: 2.5 mg Heparin Sodium (Porcine) (Heparin -) 5,000 unit SQ BID [facility] Last Admin: 01/14/18 09:27 Dose: 5,000 unit Hydralazine HCl (Apresoline -) 10 mg PO BID [facility] Last Admin: 01/14/18 09:27 Dose: 10 mg Nifedipine (Procardia Capsule -) 10 mg PO DAILY [facility] Sevelamer Carbonate (Renvela -) 1,600 mg PO TIDCM [facility] Last Admin: 01/14/18 12:51 Dose: 1,600 mg - Objective Vital Signs: Vital Signs Temperature 98.2 F 01/14/18 09:00 Pulse Rate 81 01/14/18 09:00 Respiratory Rate 20 01/14/18 09:00 Blood Pressure 171/87 01/14/18 09:00 O2 Sat by Pulse Oximetry (%) 98 01/14/18 09:00 Constitutional: Yes: Calm Eyes: Yes: Conjunctiva Clear HENT: Yes: Atraumatic Neck: Yes: Supple Cardiovascular: Yes: S1, S2 Respiratory: Yes: On Nasal O2 Gastrointestinal: Yes: Soft, Abdomen, Obese Genitourinary: Yes: WNL Musculoskeletal: Yes: WNL Edema: Yes Edema: LLE: 1+, RLE: 1+ Neurological: Yes: Oriented Psychiatric: Yes: Oriented Labs: CBC, BMP 01/13/18 00:20 01/13/18 11:40 Problem List - Problems (1) Anemia Code(s): D64.9 - ANEMIA, UNSPECIFIED Qualifiers: Anemia type: due to chronic kidney disease Chronic kidney disease stage: on chronic dialysis Qualified Code(s): N18.6 - End stage renal disease; D63.1 - Anemia in chronic kidney disease; Z99.2 - Dependence on renal dialysis (2) ESRD (end stage renal disease) Code(s): N18.6 - END STAGE RENAL DISEASE (3) HTN (hypertension) Code(s): I10 - ESSENTIAL (PRIMARY) HYPERTENSION Qualifiers: Hypertension type: secondary to other renal disorders Qualified Code(s): I15.1 - Hypertension secondary to other renal disorders; N28.89 - Other specified disorders of kidney and ureter (4) Hyperkalemia Code(s): E87.5 - HYPERKALEMIA Assessment/Plan Current Medications Generic Name Dose Route Start Last Admin Trade Name Freq PRN Reason Stop Dose Admin Glipizide 2.5 mg 01/13/18 07:00 01/14/18 06:32 Glucotrol Xl - PO 2.5 mg DAILY@0700 BRIAN Administration Heparin Sodium (Porcine) 5,000 unit 01/13/18 10:00 01/14/18 09:27 Heparin - SQ 5,000 unit BID BRIAN Administration Hydralazine HCl 10 mg 01/13/18 10:30 01/14/18 09:27 Apresoline - PO 10 mg BID BRIAN Administration Nifedipine 10 mg 01/13/18 10:00 Procardia Capsule - PO DAILY BRIAN Sevelamer Carbonate 1,600 mg 01/13/18 08:00 01/14/18 12:51 Renvela - PO 1,600 mg TIDCM BRIAN Administration Impression 1. ESRD 2. hyperkalemia 3. fluid overload 4. dyspnea 5. anemia 6. HTN 7. DM Plan - HD in am - cont current med - discussed diet and fluid intake - follow up echo
[2018-01-14] MEDS ORDERED: SODIUM CHLORIDE 250 ML IV PRN (14:58)
[2018-01-14 16:21] LABS: HBSAG SCREEN Negative (Negative); HEP B CORE AB, TOT Negative (Negative)
--- NOTE | 2018-01-14 21:20 | DS ---
Physical Examination Vital Signs: Vital Signs Temperature 97.5 F L 01/14/18 17:00 Pulse Rate 79 01/14/18 17:00 Respiratory Rate 18 01/14/18 17:00 Blood Pressure 159/89 01/14/18 17:00 O2 Sat by Pulse Oximetry (%) 98 01/14/18 09:00 Constitutional: Yes: Mild Distress Eyes: Yes: WNL HENT: Yes: WNL Neck: Yes: WNL Cardiovascular: Yes: WNL Respiratory: Yes: On Nasal O2, SOB Gastrointestinal: Yes: WNL Renal/: Yes: Incontinence, Other Musculoskeletal: Yes: WNL Extremities: Yes: Other Edema: Yes Edema: LLE: 1+, RLE: 1+ Peripheral Pulses WNL: Yes Integumentary: Yes: WNL Wound/Incision: Yes: Clean/Dry Neurological: Yes: WNL ...Motor Strength: WNL Psychiatric: Yes: WNL Labs: CBC, BMP 01/13/18 00:20 01/13/18 11:40 Discharge Summary Reason For Visit: SHORTNESS OF BREATH,DIABETES MELLITUS,ANEMIA Current Active Problems Acute exacerbation of CHF (congestive heart failure) (Acute) Anemia (Acute) ESRD (end stage renal disease) (Acute) HTN (hypertension) (Acute) Hyperkalemia (Acute) Lower extremity edema (Acute) SOB (shortness of breath) (Acute) Procedures: Principal: ECHO, HD Hospital Course: TRANSFERRING FOR CARDIAC CATH - Instructions Referrals: Axel Staton MD [Primary Care Provider] - Disposition: TRANSFER ACUTE CARE/OTHER HOSP - Home Medications Comprehensive Discharge Medication List: Ambulatory Orders Cholecalciferol (Vitamin D3) [Vitamin D -] 50,000 unit PO Q7D 07/17/17 Sevelamer Carbonate [Renvela -] 1,600 mg PO TID 07/17/17 Nifedipine [Procardia] 10 mg PO DAILY 10/31/17 Glipizide [Glipizide ER] 2.5 mg PO DAILY 01/13/18
[2018-01-15 05:28] VITALS: BP 152/92; PULSE 84; TEMP 97.9
[2018-01-15] MEDS: glipiZIDE-XL 2.5 MG TAB.ER.24 PO SCH (06:22)
--- NOTE | 2018-01-15 07:06 | HOSP ---
Subjective - Review of Symptoms Events since last encounter: Hospitalist Encounter Notified by RN that the patient is scheduled to be transferred arranged by Dr. Hardy to [facility] for Cardiac Cath this AM, and the transfer formes need to be filled out. Subjective: Arrived to bedside, patient is asleep but arosuable. He denies chest pain or SOB at present. See PE Assessment: 52 y/o man with a PMH of ESRD (HD- Mo,We,Fr), HTN, DM. Admitted to Telemetry for Acute CHF Exacerbation, ESRD. 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 Condition stable Physical Examination Vital Signs: Vital Signs Temperature 97.9 F 01/15/18 05:00 Pulse Rate 84 01/15/18 05:00 Respiratory Rate 20 01/15/18 05:00 Blood Pressure 152/92 01/15/18 05:00 O2 Sat by Pulse Oximetry (%) 96 01/14/18 21:00 Constitutional: Yes: Well Nourished, No Distress Eyes: Yes: WNL, Conjunctiva Clear, EOM Intact, PERRL HENT: Yes: WNL, Atraumatic, Normocephalic Neck: Yes: WNL, Supple, Trachea Midline Cardiovascular: Yes: WNL, Regular Rate and Rhythm Respiratory: Yes: WNL, Regular, CTA Bilaterally, On Nasal O2 Gastrointestinal: Yes: WNL, Normal Bowel Sounds, Soft, Abdomen, Obese Neurological: Yes: WNL, Alert, Oriented ...Motor Strength: WNL Psychiatric: Yes: WNL, Alert, Oriented Labs: CBC, BMP 01/13/18 00:20 01/13/18 11:40 Laboratory Results - last 24 hr 01/13/18 01/13/18 01/14/18 08:00 08:00 16:42 POC Glucometer 123 Hepatitis A Ab Total Negative Hep Bs Antigen Negative Hep Bs Antibody Reactive Hep B Core Total Ab Negative Hep C Ab Diagnostic 0.1 Liver Fibrosis Interp 01/15/18 05:32 POC Glucometer 120 Hepatitis A Ab Total Hep Bs Antigen Hep Bs Antibody Hep B Core Total Ab Hep C Ab Diagnostic Liver Fibrosis Interp Current Medications Generic Name Dose Route Start Last Admin Trade Name Freq PRN Reason Stop Dose Admin Epoetin Maurizio 5,000 unit 01/15/18 14:58 Epogen - IVPUSH 01/15/18 14:59 ONCE ONE Glipizide 2.5 mg 01/13/18 07:00 01/15/18 06:22 Glucotrol Xl - PO 2.5 mg DAILY@0700 BRIAN Administration Heparin Sodium (Porcine) 5,000 unit 01/13/18 10:00 01/14/18 21:05 Heparin - SQ 5,000 unit BID BRIAN Administration Heparin Sodium (Porcine) 1,000 unit 01/15/18 14:58 Heparin - IVPUSH 01/15/18 14:59 ONCE ONE Hydralazine HCl 10 mg 01/13/18 10:30 01/14/18 21:05 Apresoline - PO 10 mg BID BRIAN Administration Sodium Chloride 250 mls @ 3,000 mls/hr 01/14/18 14:58 Normal Saline - IV 01/15/18 14:58 PRN PRN Hypotension during Dialysis Nifedipine 10 mg 01/13/18 10:00 Procardia Capsule - PO DAILY BRIAN Sevelamer Carbonate 1,600 mg 01/13/18 08:00 01/14/18 17:14 Renvela - PO 1,600 mg TIDCM BRIAN Administration
[2018-01-15] MEDS ORDERED: HEPARIN NA (PORCINE) 5,000 UNITS/ML 1ML VIAL IVPUSH ONE (14:58)
[2018-01-15] MEDS ORDERED: EPOETIN ALFA 2,000 UNIT/1 ML VIAL IVPUSH ONE (14:58)
== END 2018-01-15 08:52 | disposition short-term general hospital (02) | DRG 291 ==
LOC: JER 23:35 → JERBED 01-13 02:44 → J4W 01-13 04:50
PROVIDERS: ADMIT Family Medicine; ATTEND Family Medicine
PROC: 5A1D70Z Performance of Urinary Filtration, Intermittent, Less than 6 Hours Per Day (ICD-10-PCS; principal; 2018-01-14)
DX: I13.2 Hypertensive heart and chronic kidney disease with heart failure and with stage 5 chronic kidney disease, or end stage renal disease (principal); N18.6 End stage renal disease; I50.33 Acute on chronic diastolic (congestive) heart failure; D64.9 Anemia, unspecified; E11.22 Type 2 diabetes mellitus with diabetic chronic kidney disease; I50.9 Heart failure, unspecified; Z99.2 Dependence on renal dialysis; Z87.891 Personal history of nicotine dependence; E87.5 Hyperkalemia; I45.10 Unspecified right bundle-branch block; I45.81 Long QT syndrome; Z79.84 Long term (current) use of oral hypoglycemic drugs; E66.9 Obesity, unspecified; Z91.14 Patient's other noncompliance with medication regimen; Z91.11 Patient's noncompliance with dietary regimen; Z68.36 Body mass index [BMI] 36.0-36.9, adult
CPT/HCPCS: 36415; 36600; 71045-TC-FY; 80053; 80061; 82550; 82553; 82565; 82803; 82962; 83036; 83721; 83735; 83880; 84100; 84484; 84520; 85025; 86704; 86706; 86708; 87340; 93005; 93010; 93306-TC; 93970-TC; 99284-25; J0885; J1644

== ENCOUNTER 2018-10-14 12:12 | Inpatient (IN) | payer OTHER ==
[~2018-10-14 12:12] MED LIST: SODIUM CHLORIDE 250 ML IV PRN
--- NOTE | 2018-10-14 12:43 | PDOC ---
History of Present Illness - General Chief Complaint: Congestive Heart Failure Stated Complaint: SENT BY PCP - History of Present Illness Initial Comments: 10/14/18 12:40 53 yo M with h/o HTN, NIDDM, ESRD ( HD M,,), CHF with diastolic dysfunction, who p/w SOB, and cough. Patient reports 2 weeks of non prodcutive cough, worse within past 24 hours. Also with 1-2 days worsening SOB,Morel, and BL LE swelling. No home lasix use, home O2 requrimetns, or duoneb use. Last dialysis Saturday. Patient states that he had to use oxygen during dialysis session, d/t SOB. Able to produce trace urine. Past Echo ( 12/2017) with EF 35 %. Patient denies Falcon, N/V, F,C, CP, wheezing, palpitations, orthopnea, PND, urinary complaints, abdominal pain, diarrhea, constipation, lightheadedness, weakness, sensory changes. PMHx: as noted above. Denies h/o ACS/MO, stent placement, CABG, DVT/PE. ROS: as noted SHx: Denies Etoh, IVDA. Tobacco cessation x 2 years Allergies: FREDI Gould, Cardiology Dr. Styles Past History - Past Medical History Allergies/Adverse Reactions: Allergies Allergy/AdvReac Type Severity Reaction Status Date / Time No Known Allergies Allergy Verified 01/13/18 00:43 Home Medications: Ambulatory Orders Cholecalciferol (Vitamin D3) [Vitamin D -] 50,000 unit PO Q7D 07/17/17 Sevelamer Carbonate [Renvela -] 1,600 mg PO TID 07/17/17 Nifedipine [Procardia] 10 mg PO DAILY 10/31/17 Glipizide [Glipizide ER] 2.5 mg PO DAILY 01/13/18 Anemia: No Asthma: No Cancer: No Cardiac Disorders: No CVA: No COPD: No CHF: Yes Dementia: No Diabetes: Yes (NIDDM) Dialysis: Yes (-W-) GI Disorders: No Disorders: No HTN: Yes Hypercholesterolemia: No Liver Disease: No Seizures: No Thyroid Disease: No - Surgical History Abdominal Surgery: No Appendectomy: No Cardiac Surgery: No Cholecystectomy: No Lung Surgery: No Neurologic Surgery: No Orthopedic Surgery: No - Suicide/Smoking/Psychosocial Hx Smoking History: Never smoked Have you smoked in the past 12 months: No If you are a former smoker, when did you quit?: 2009 Information on smoking cessation initiated: No Hx Alcohol Use: No Drug/Substance Use Hx: No Substance Use Type: None Hx Substance Use Treatment: No Review of Systems - Review of Systems Comments:: 10/14/18 12:42 GENERAL/CONSTITUTIONAL: No fever or chills. No weakness. HEAD, EYES, EARS, NOSE AND THROAT: No change in vision. No ear pain or discharge. No sore throat. CARDIOVASCULAR: + SOB. No chest pain. RESPIRATORY: +cough. No wheezing, or hemoptysis. GASTROINTESTINAL: No nausea, vomiting, diarrhea or constipation. GENITOURINARY: No dysuria, frequency, or change in urination. MUSCULOSKELETAL: No joint or muscle swelling or pain. No neck or back pain. SKIN: No rash NEUROLOGIC: No headache, vertigo, loss of consciousness, or change in strength/ sensation. ENDOCRINE: No increased thirst. No abnormal weight change HEMATOLOGIC/LYMPHATIC: No anemia, easy bleeding, or history of blood clots. ALLERGIC/IMMUNOLOGIC: No hives or skin allergy. *Physical Exam - Vital Signs Last Vital Signs Temp Pulse Resp BP Pulse Ox 98.6 F 84 20 175/81 H 96 10/14/18 12:19 10/14/18 12:19 10/14/18 12:19 10/14/18 12:19 10/14/18 12:19 - Physical Exam Comments: 10/14/18 12:42 GENERAL: Awake, alert, and fully oriented, in no acute distress HEAD: No signs of trauma, normocephalic, atraumatic EYES: PERRLA, EOMI, sclera anicteric, conjunctiva clear ENT: Hearing grossly normal, nares patent, oropharynx clear without exudates. Moist mucosa NECK: Normal ROM, supple, no lymphadenopathy, JVD, or masses LUNGS: No distress, speaks full sentences, clear to auscultation bilaterally HEART: Regular rate and rhythm, normal S1 and S2, no murmurs, rubs or gallops, peripheral pulses normal and equal bilaterally. ABDOMEN: Soft, nontender, normoactive bowel sounds. No guarding, no rebound. No masses EXTREMITIES : + R AV fistula in AC, with + bruit. + BL LE edema 2 +. Normal inspection, Normal range of motion. No clubbing or cyanosis. SKIN: Warm, Dry, normal turgor, no rashes or lesions noted Moderate Sedation - Procedure Monitoring Vital Signs: Procedure Monitoring Vital Signs Temperature 98.6 F 10/14/18 12:19 Pulse Rate 84 10/14/18 12:19 Respiratory Rate 20 10/14/18 12:19 Blood Pressure 175/81 H 10/14/18 12:19 O2 Sat by Pulse Oximetry (%) 96 10/14/18 12:19 Heart Score/ECG Review - History History: Slightly suspicious - Electrocardiogram EKG: Non specific repolarization disturbance - Age Age: 45-65 - Risk Factors Risk Factors Heart Score: Yes Hx Hypercholesterolemia, Yes Hx Hypertension, Yes Hx Diabetes, Yes Smoking History, Yes Positive family hx of cardiac disease, Yes Hx Obesity Based on the list above the patient has:: >/=3 risk factors or Hx atherosclerotic disease - Troponin Troponin: 1-3x normal limit - Score Heart Score - Total: 5 ED Treatment Course - LABORATORY CBC & Chemistry Diagram: 10/14/18 13:13 10/14/18 13:13 Medical Decision Making - Medical Decision Making 10/14/18 12:43 53 yo M with h/o HTN, NIDDM, ESRD ( HD M,W,F), CHF with diastolic dysfunction, who p/w SOB, BL LE edema, x 2 days, and cough x 2 weeks. BP 175/81, vitals otherwise wnl, AF, A&Ox3. Physical exam notable for BL LE 2 + Pitting edema. ACS /MO r/o. Will consider PNA, acute CHF, COPD, pericardial effusions, plerual effusion. Low risk PE Weils criteria. Ed Course: 10/14/18 12:43 BUN/Cr: 54/7.8 CXR: Cardiomegaly 10/14/18 14:21 BNP: 94,277 Trop: 0.09 EKG: Heart score 5 Admit patient 10/14/18 14:[address] Adams. Patient admitted. *DC/Admit/Observation/Transfer Diagnosis at time of Disposition: ESRD (end stage renal disease) on dialysis Fluid overload Qualifiers: Hypervolemia type: unspecified Qualified Code(s): E87.70 - Fluid overload, unspecified Acute exacerbation of CHF (congestive heart failure) Qualifiers: Heart failure type: combined systolic and diastolic Qualified Code(s): I50.43 - Acute on chronic combined systolic (congestive) and diastolic (congestive) heart failure - Discharge Dispostion Condition at time of disposition: Stable Decision to Admit order: Yes - Referrals - Patient Instructions Additional Instructions: Please return to the emergency department with any new or worsening symptoms or concerns. Please follow up with your primary care physician within 72 hours. - Post Discharge Activity
[2018-10-14 13:31] LABS: BASO % 0.4 % (0-2.0); EOS % 2.5 % (0-4.5); HEMATOCRIT 25.5 % (35.4-49); HEMOGLOBIN 8.8 GM/dL (11.7-16.9); LYMPH % 5.6 % (8-40); MCH 34.6 pg (25.7-33.7); MCHC 34.5 g/dl (32.0-35.9); MEAN CELL VOLUME 100.4 fl (80-96); MEAN PLT VOLUME 7.6 fl (7.5-11.1); MONO % 8.4 % (3.8-10.2); NEUT % 83.1 % (42.8-82.8); PLATELET COUNT 211 K/MM3 (134-434); RBC 2.54 M/mm3 (4.00-5.60); RDW 13.2 % (11.9-15.9); WHITE BLOOD COUNT 9.8 K/mm3 (4.0-10.0)
--- NOTE | 2018-10-14 13:57 | PDOC ---
Attending Attestation - Resident Resident Name: Jose David Banegas - ED Attending Attestation I have performed the following: I have examined & evaluated the patient, The case was reviewed & discussed with the resident, I agree w/resident's findings & plan - HPI HPI: 10/14/18 13:52 53-year-old male with history of CHF, ESRD on Saturday/Saturday/Saturday dialysis last dialyzed on yesterday presents from Dr. Staton's office with several days of worsening volume overload with symptoms of cough, orthopnea, and leg swelling. Had full dialysis yesterday without improvement, presents for evaluation. Does not make urine and does not take diuretics. admits to diet noncompliance over the weekend that may have contributed to this. - Physicial Exam PE: 10/14/18 13:53 Elevated blood pressure, O2 sat within normal limits Seated upright in stretcher, slightly tachypnea, but speaking full sentences Lungs are clear 2+ edema bilaterally around the ankles - Medical Decision Making 10/14/18 13:55 53-year-old male end-stage renal disease on dialysis and CHF presents with volume overload/dyspnea/peripheral edema. Check labs Will likely need additional dialysis for diuresis Admission Heart Score/ECG Review #1 ECG reviewed & interpreted by me at: 14:07 General ECG Interpretation: Sinus Rhythm, Normal Rate (73), Normal Intervals ( qtc 502, IRBBB with qrs 102), No acute ischemic changes
[2018-10-14 14:00] LABS: ALBUMIN 3.1 g/dl (3.4-5.0); ALK PHOS 126 U/L (45-117); ANION GAP 10 MMOL/L (8-16); BILIRUBIN,TOTAL 0.6 mg/dL (0.2-1); BLOOD UREA NITROGEN 54 mg/dL (7-18); CALCIUM 8.3 mg/dL (8.5-10.1); CHLORIDE 97 mmol/L (98-107); CO2 30 mmol/L (21-32); GLUCOSE,RANDOM 114 mg/dL (74-106); POTASSIUM 4.1 mmol/L (3.5-5.1); SGOT/AST 8 U/L (15-37); SGPT/ALT 15 U/L (13-61); SODIUM 137 mmol/L (136-145); TOT PROT 6.7 g/dl (6.4-8.2)
[2018-10-14 14:04] LABS: CREATININE 7.8 mg/dL (0.55-1.3)
[2018-10-14 14:19] LABS: N-TERMINAL BNP 94277.4 pg/ml (5-125)
--- NOTE | 2018-10-14 15:31 | HP ---
Admitting History and Physical - Primary Care Physician PCP: Axel Staton - Admission Chief Complaint: worsening cough and increased leg edema History of Present Illness: 10/14/18 13:52 53-year-old male with history of CHF, ESRD on Saturday/Saturday/Saturday dialysis last dialyzed on yesterday presents from Dr. Staton's office with several days of worsening volume overload with symptoms of cough, orthopnea, and leg swelling. Had full dialysis yesterday without improvement, presents for evaluation. Does not make urine and does not take diuretics. admits to diet noncompliance over the weekend that may have contributed to this. History Source: Patient - Past Medical History Cardiovascular: Yes: CHF, HTN Renal/: Yes: Renal Failure, Renal Inusuff, Hemodialysis Heme/Onc: Yes: Anemia Endocrine: Yes: Diabetes Mellitus - Past Surgical History Past Surgical History: Yes: AV Fistula/Graft - Smoking History Smoking history: Never smoked Have you smoked in the past 12 months: No If you are a former smoker, when did you quit?: 2009 - Alcohol/Substance Use Hx Alcohol Use: No Home Medications - Allergies Allergies/Adverse Reactions: Allergies Allergy/AdvReac Type Severity Reaction Status Date / Time No Known Allergies Allergy Verified 01/13/18 00:43 - Home Medications Home Medications: Ambulatory Orders Cholecalciferol (Vitamin D3) [Vitamin D -] 50,000 unit PO Q7D 07/17/17 Sevelamer Carbonate [Renvela -] 1,600 mg PO TID 07/17/17 Nifedipine [Procardia] 10 mg PO DAILY 10/31/17 Glipizide [Glipizide ER] 2.5 mg PO DAILY 01/13/18 Review of Systems - Review of Systems Respiratory: reports: Cough Musculoskeletal: reports: Other (leg swelling) Physical Examination Vital Signs: Vital Signs Temperature 98.6 F 10/14/18 12:19 Pulse Rate 78 10/14/18 15:13 Respiratory Rate 16 10/14/18 15:13 Blood Pressure 128/75 10/14/18 15:13 O2 Sat by Pulse Oximetry (%) 100 10/14/18 15:13 Constitutional: Yes: Calm Cardiovascular: Yes: Regular Rate and Rhythm, S1, S2 Respiratory: Yes: CTA Bilaterally, Diminished (at bases) Gastrointestinal: Yes: Normal Bowel Sounds, Soft Edema: Yes Labs: CBC, BMP 10/14/18 13:13 10/14/18 13:13 Problem List - Problems (1) Acute exacerbation of CHF (congestive heart failure) Assessment/Plan: daily weight echo cardiology renal iv lasix today if no plans for HD elevated bnp elevated troponin in setting of ESRD Code(s): I50.9 - HEART FAILURE, UNSPECIFIED Qualifiers: Heart failure type: combined systolic and diastolic Qualified Code(s): I50.43 - Acute on chronic combined systolic (congestive) and diastolic ( congestive) heart failure (2) ESRD (end stage renal disease) on dialysis Assessment/Plan: got HD yesterday is on MWF schedule Code(s): N18.6 - END STAGE RENAL DISEASE; Z99.2 - DEPENDENCE ON RENAL DIALYSIS (3) Anemia Assessment/Plan: iron panel, folate Code(s): D64.9 - ANEMIA, UNSPECIFIED Qualifiers: Anemia type: due to chronic kidney disease Chronic kidney disease stage: on chronic dialysis Qualified Code(s): N18.6 - End stage renal disease; D63.1 - Anemia in chronic kidney disease; Z99.2 - Dependence on renal dialysis (4) Diabetes mellitus Assessment/Plan: bgm sliding scale [id number] Code(s): E11.9 - TYPE 2 DIABETES MELLITUS WITHOUT COMPLICATIONS Qualifiers: Diabetes mellitus type: type 2
[2018-10-14] MEDS ORDERED: FUROSEMIDE 40 MG/4 ML INJECTABLE VIAL IVPUSH ONE (15:57)
[2018-10-14] MEDS ORDERED: FUROSEMIDE 40 MG/4 ML INJECTABLE VIAL ONE (16:51)
--- NOTE | 2018-10-14 17:06 | CONSULT ---
Consult Consult Specialty:: Nephrology Reason for Consultation:: ESRD - History of Present Illness Chief Complaint: sent in for cough History of Present Illness: Pt is a 53 year old male with pmhx of ESRD, DM, HTN and CHF who was sent in to the ER for cough and edema. He denies chest pain. He denies shortness of breath at rest. He has had a cough for the last two weeks. He last went to HD yesterday. He is not compliant with fluid intake. He does make urine. He denies fevers or chills. He denies sick contacts. - History Source History Provided By: Patient, Medical Record - Past Medical History Cardio/Vascular: Yes: CHF, HTN Renal/: Yes: Renal Failure, Renal Inusuff, Hemodialysis Endocrine: Yes: Diabetes Mellitus - Past Surgical History Past Surgical History: Yes: AV Fistula/Graft - Alcohol/Substance Use Hx Alcohol Use: No - Smoking History Smoking history: Never smoked Have you smoked in the past 12 months: No If you are a former smoker, when did you quit?: 2009 Home Medications - Allergies Allergies/Adverse Reactions: Allergies Allergy/AdvReac Type Severity Reaction Status Date / Time No Known Allergies Allergy Verified 01/13/18 00:43 - Home Medications Home Medications: Ambulatory Orders Cholecalciferol (Vitamin D3) [Vitamin D -] 50,000 unit PO Q7D 07/17/17 Sevelamer Carbonate [Renvela -] 1,600 mg PO TID 07/17/17 Nifedipine [Procardia] 10 mg PO DAILY 10/31/17 Glipizide [Glipizide ER] 2.5 mg PO DAILY 01/13/18 Family Disease History - Family Disease History Family History: Denies Review of Systems - Review of Systems Constitutional: reports: Malaise. denies: Chills, Fever Eyes: reports: No Symptoms HENT: reports: No Symptoms Neck: reports: No Symptoms Cardiovascular: reports: Edema Respiratory: reports: Cough, SOB on Exertion Gastrointestinal: reports: No Symptoms Genitourinary: reports: No Symptoms Musculoskeletal: reports: No Symptoms Integumentary: reports: No Symptoms Neurological: reports: No Symptoms Endocrine: reports: No Symptoms Hematology/Lymphatic: reports: No Symptoms Psychiatric: reports: No Symptoms Physical Exam Vital Signs: Vital Signs Temperature 98.6 F 10/14/18 12:19 Pulse Rate 78 10/14/18 15:13 Respiratory Rate 16 10/14/18 15:13 Blood Pressure 128/75 10/14/18 15:13 O2 Sat by Pulse Oximetry (%) 100 10/14/18 15:13 Constitutional: Yes: Calm Eyes: Yes: Conjunctiva Clear HENT: Yes: Atraumatic Neck: Yes: Supple Cardiovascular: Yes: S1, S2 Respiratory: Yes: CTA Bilaterally, On Nasal O2 Gastrointestinal: Yes: Soft, Abdomen, Obese Renal/: Yes: WNL Musculoskeletal: Yes: WNL Edema: LLE: 1+, RLE: 1+ Neurological: Yes: Oriented Psychiatric: Yes: Oriented Labs: CBC, BMP 10/14/18 13:13 10/14/18 13:13 Laboratory Tests 10/14/18 10/14/18 10/14/18 13:13 13:13 13:13 Hgb 8.8 L Sodium 137 Potassium 4.1 Chloride 97 L Carbon Dioxide 30 Anion Gap 10 BUN 54 H Creatinine 7.8 H* B-Natriuretic Peptide 92225.4 H Imaging - Results Chest X-ray: Report Reviewed Problem List - Problems (1) ESRD (end stage renal disease) on dialysis Code(s): N18.6 - END STAGE RENAL DISEASE; Z99.2 - DEPENDENCE ON RENAL DIALYSIS (2) Anemia Code(s): D64.9 - ANEMIA, UNSPECIFIED Qualifiers: Anemia type: due to chronic kidney disease Chronic kidney disease stage: on chronic dialysis Qualified Code(s): N18.6 - End stage renal disease; D63.1 - Anemia in chronic kidney disease; Z99.2 - Dependence on renal dialysis (3) Diabetes mellitus Code(s): E11.9 - TYPE 2 DIABETES MELLITUS WITHOUT COMPLICATIONS Qualifiers: Diabetes mellitus type: type 2 (4) HTN (hypertension) Code(s): I10 - ESSENTIAL (PRIMARY) HYPERTENSION Qualifiers: Hypertension type: secondary to other renal disorders Qualified Code(s): I15.1 - Hypertension secondary to other renal disorders; N28.89 - Other specified disorders of kidney and ureter Assessment/Plan Current Medications Generic Name Dose Route Start Last Admin Trade Name Freq PRN Reason Stop Dose Admin Heparin Sodium (Porcine) 5,000 unit 10/14/18 22:00 Heparin - SQ BID BRIAN Insulin Aspart 1 vial 10/14/18 16:30 Novolog Vial Sliding Scale - SQ ACHS BRIAN Protocol Impression 1. ESRD 2. CHF 3. fluid overload 4. dyspnea 5. anemia 6. HTN 7. DM Plan - will arrange for HD in am - agree with dose of lasix - no failure on cxr - pt sat is 100 percent on 2 l nasal canula - check daily weights Dr Navarro
[2018-10-14] MEDS: INSULIN SLIDING SCALE (NOVOLOG) 1 VIAL SQ SCH ×2 (18:38→22:29)
[2018-10-14] MEDS ORDERED: HEPARIN NA (PORCINE) 5,000 UNITS/ML 1ML VIAL ONE (22:17)
[2018-10-14] MEDS: HEPARIN NA (PORCINE) 5,000 UNITS/ML 1ML VIAL SQ SCH (22:29)
[2018-10-15] MEDS: BENZOCAINE/MENTH/CETYLPYRD CL 1 EACH LOZENGE MM PRN ×2 (06:23→09:41)
[2018-10-15] MEDS: INSULIN SLIDING SCALE (NOVOLOG) 1 VIAL SQ SCH ×4 (06:32→21:59)
[2018-10-15 06:37] VITALS: BMI 37.3
[2018-10-15 07:01] LABS: INR 1.23 (0.83-1.09); PROTHROMBIN TIME (PATIENT) 14.6 SEC (9.7-13.0)
[2018-10-15 07:45] LABS: HEMATOCRIT 26.4 % (35.4-49); HEMOGLOBIN 9.1 GM/dL (11.7-16.9); MCH 34.9 pg (25.7-33.7); MCHC 34.5 g/dl (32.0-35.9); MEAN CELL VOLUME 101.1 fl (80-96); MEAN PLT VOLUME 8.9 fl (7.5-11.1); PLATELET COUNT 170 K/MM3 (134-434); RBC 2.62 M/mm3 (4.00-5.60); RDW 13.1 % (11.9-15.9); WHITE BLOOD COUNT 8.8 K/mm3 (4.0-10.0)
[2018-10-15 07:56] LABS: ALBUMIN 3.1 g/dl (3.4-5.0); ALK PHOS 122 U/L (45-117); ANION GAP 10 MMOL/L (8-16); BILIRUBIN,TOTAL 0.6 mg/dL (0.2-1); BLOOD UREA NITROGEN 70 mg/dL (7-18); CALCIUM 8.3 mg/dL (8.5-10.1); CHLORIDE 97 mmol/L (98-107); CO2 29 mmol/L (21-32); GLUCOSE,RANDOM 108 mg/dL (74-106); MAGNESIUM 2.1 mg/dL (1.8-2.4); N-TERMINAL BNP 89856.4 pg/ml (5-125); PHOSPHOROUS 5.8 mg/dL (2.5-4.9); POTASSIUM 5.1 mmol/L (3.5-5.1); SGOT/AST 10 U/L (15-37); SGPT/ALT 14 U/L (13-61); SODIUM 136 mmol/L (136-145); TOT PROT 6.6 g/dl (6.4-8.2)
[2018-10-15 08:18] LABS: CREATININE 9.2 mg/dL (0.55-1.3)
--- NOTE | 2018-10-15 08:20 | PN ---
Progress Note, Physician - Current Medication List Current Medications: Active Medications Benzocaine/Menthol (Cepacol Lozenge -) 1 each MM PRN PRN PRN Reason: SORE THROAT Last Admin: 10/15/18 06:23 Dose: 1 each Epoetin Maurizio (Procrit -) 5,000 unit IVPUSH ONCE ONE Stop: 10/15/18 08:31 Heparin Sodium (Porcine) (Heparin -) 5,000 unit SQ BID BRIAN Last Admin: 10/14/18 22:29 Dose: 5,000 unit Heparin Sodium (Porcine) (Heparin -) 2,000 unit IVPUSH ONCE ONE Stop: 10/15/18 08:31 Sodium Chloride (Normal Saline -) 250 mls @ 3,000 mls/hr IV PRN PRN PRN Reason: Hypotension during Dialysis Stop: 10/15/18 08:29 Insulin Aspart (Novolog Vial Sliding Scale -) 1 vial SQ ACHS [facility]; Protocol Last Admin: 10/15/18 06:32 Dose: Not Given Pneumococcal 13-Valent Conj Vacc (Prevnar 13 Syringe -) 0.5 ml IM .ONCE ONE Stop: 10/15/18 10:01 - Objective Vital Signs: Vital Signs Temperature 97.8 F 10/15/18 06:00 Pulse Rate 79 10/15/18 06:00 Respiratory Rate 22 H 10/15/18 06:00 Blood Pressure 145/84 10/15/18 06:00 O2 Sat by Pulse Oximetry (%) 100 10/15/18 02:00 Cardiovascular: Yes: S1, S2 Respiratory: Yes: Diminished, On Nasal O2 Gastrointestinal: Yes: Normal Bowel Sounds, Soft Labs: CBC, BMP 10/15/18 05:30 10/15/18 05:30 INR, PTT INR 1.23 (0.83-1.09) H 10/15/18 05:30 Assessment/Plan - Problems (1) Acute exacerbation of CHF (congestive heart failure) Assessment/Plan: daily weight echo cardiology renal getting dialysis now elevated bnp elevated troponin in setting of ESRD Code(s): I50.9 - HEART FAILURE, UNSPECIFIED Qualifiers: Heart failure type: combined systolic and diastolic Qualified Code(s): I50.43 - Acute on chronic combined systolic (congestive) and diastolic ( congestive) heart failure (2) ESRD (end stage renal disease) on dialysis Assessment/Plan: getting HD Code(s): N18.6 - END STAGE RENAL DISEASE; Z99.2 - DEPENDENCE ON RENAL DIALYSIS (3) Anemia Assessment/Plan: iron panel, folate Code(s): D64.9 - ANEMIA, UNSPECIFIED Qualifiers: Anemia type: due to chronic kidney disease Chronic kidney disease stage: on chronic dialysis Qualified Code(s): N18.6 - End stage renal disease; D63.1 - Anemia in chronic kidney disease; Z99.2 - Dependence on renal dialysis (4) Diabetes mellitus Assessment/Plan: bgm sliding scale hgba1c Code(s): E11.9 - TYPE 2 DIABETES MELLITUS WITHOUT COMPLICATIONS Qualifiers: Diabetes mellitus type: type 2
[2018-10-15] MEDS ORDERED: EPOETIN ALFA 3,000 UNIT/1 ML ML IVPUSH ONE (08:30)
[2018-10-15] MEDS ORDERED: HEPARIN NA (PORCINE) 5,000 UNITS/ML 1ML VIAL IVPUSH ONE (08:30)
[2018-10-15] MEDS: HEPARIN NA (PORCINE) 5,000 UNITS/ML 1ML VIAL SQ SCH ×2 (09:42→21:59)
--- NOTE | 2018-10-15 10:43 | EKG ---
Test Reason : Blood Pressure : / mmHG Vent. Rate : 073 BPM Atrial Rate : 073 BPM P-R Int : 190 ms QRS Dur : 102 ms QT Int : 456 ms P-R-T Axes : 022 088 085 degrees QTc Int : 502 ms NORMAL SINUS RHYTHM INCOMPLETE RIGHT BUNDLE BRANCH BLOCK NONSPECIFIC ST AND T WAVE ABNORMALITY ABNORMAL ECG WHEN COMPARED WITH ECG OF 12-JAN-2018 23:51, ST NOW DEPRESSED IN ANTERIOR LEADS NONSPECIFIC T WAVE ABNORMALITY, WORSE IN ANTERIOR LEADS Confirmed by WILI LAUGHLIN, SAMI ([id number]) on 10/15/2018 10:43:26 AM Referred By: Confirmed By:SAMI RASHEED MD
[2018-10-15] MEDS ORDERED: SODIUM CHLORIDE 250 ML IV PRN (11:18)
--- NOTE | 2018-10-15 11:18 | PN ---
Progress Note, Physician History of Present Illness: Pt seen and examined at bedside. He is awake and alert. He still has a cough. He is tolerating HD. - Current Medication List Current Medications: Active Medications Benzocaine/Menthol (Cepacol Lozenge -) 1 each MM PRN PRN PRN Reason: SORE THROAT Last Admin: 10/15/18 09:41 Dose: 1 each Heparin Sodium (Porcine) (Heparin -) 5,000 unit SQ BID BRIAN Last Admin: 10/15/18 09:42 Dose: 5,000 unit Insulin Aspart (Novolog Vial Sliding Scale -) 1 vial SQ ACHS [facility]; Protocol Last Admin: 10/15/18 06:32 Dose: Not Given Pneumococcal 13-Valent Conj Vacc (Prevnar 13 Syringe -) 0.5 ml IM .ONCE ONE Stop: 10/15/18 10:01 - Objective Vital Signs: Vital Signs Temperature 98.2 F 10/15/18 07:25 Pulse Rate 72 10/15/18 10:30 Respiratory Rate 18 10/15/18 10:30 Blood Pressure 152/87 10/15/18 10:30 O2 Sat by Pulse Oximetry (%) 100 10/15/18 02:00 Constitutional: Yes: Calm Eyes: Yes: Conjunctiva Clear HENT: Yes: Atraumatic Neck: Yes: Supple Cardiovascular: Yes: S1, S2 Respiratory: Yes: CTA Bilaterally Gastrointestinal: Yes: Soft Genitourinary: Yes: WNL Extremities: Yes: WNL Edema: Yes Edema: LLE: 2+, RLE: 2+ Neurological: Yes: Oriented Psychiatric: Yes: Oriented Labs: CBC, BMP 10/15/18 05:30 10/15/18 05:30 INR, PTT INR 1.23 (0.83-1.09) H 10/15/18 05:30 Problem List - Problems (1) ESRD (end stage renal disease) on dialysis Code(s): N18.6 - END STAGE RENAL DISEASE; Z99.2 - DEPENDENCE ON RENAL DIALYSIS (2) Anemia Code(s): D64.9 - ANEMIA, UNSPECIFIED Qualifiers: Anemia type: due to chronic kidney disease Chronic kidney disease stage: on chronic dialysis Qualified Code(s): N18.6 - End stage renal disease; D63.1 - Anemia in chronic kidney disease; Z99.2 - Dependence on renal dialysis (3) Diabetes mellitus Code(s): E11.9 - TYPE 2 DIABETES MELLITUS WITHOUT COMPLICATIONS Qualifiers: Diabetes mellitus type: type 2 (4) HTN (hypertension) Code(s): I10 - ESSENTIAL (PRIMARY) HYPERTENSION Qualifiers: Hypertension type: secondary to other renal disorders Qualified Code(s): I15.1 - Hypertension secondary to other renal disorders; N28.89 - Other specified disorders of kidney and ureter Assessment/Plan Current Medications Generic Name Dose Route Start Last Admin Trade Name Freq PRN Reason Stop Dose Admin Benzocaine/Menthol 1 each 10/14/18 17:13 10/15/18 09:41 Cepacol Lozenge - MM 1 each PRN PRN Administration SORE THROAT Heparin Sodium (Porcine) 5,000 unit 10/14/18 22:00 10/15/18 09:42 Heparin - SQ 5,000 unit BID BRIAN Administration Insulin Aspart 1 vial 10/14/18 16:30 10/15/18 06:32 Novolog Vial Sliding Scale - SQ Not Given ACHS [facility] Protocol Pneumococcal 13-Valent Conj Vacc 0.5 ml 10/15/18 10:00 Prevnar 13 Syringe - IM 10/15/18 10:01 .ONCE ONE Impression 1. ESRD 2. CHF 3. fluid overload 4. dyspnea 5. anemia 6. HTN 7. DM Plan - pt tolerating HD - will dialyze again tomorrow for volume - repeat labs in am - compliance with fluids intake has been a problem - renal diet - check daily weights Dr Navarro
--- NOTE | 2018-10-15 13:18 | ECHO ---
Name: INEZ ROMEROADA Exam:Adult Echocardiogram Study Date: 10/15/2018 12:05 PM Age: 53 yrs Reason For Study: EF Height: 69 in Weight: 255 lb BSA: 2.3 m2 MMode/2D Measurements & Calculations IVSd: 1.4 cm Ao root diam: 2.9 cm LVIDd: 6.0 cm LA dimension: 4.5 cm LVIDs: 4.0 cm LVPWd: 1.5 cm EDV(Teich): 179.5 ml LVOT diam: 2.0 cm ESV(Teich): 70.2 ml LAV (MOD-bp): 150.0 ml Doppler Measurements & Calculations MV E max louis: 163.0 cm/sec Ao V2 max: 167.0 cm/sec MV A max louis: 61.2 cm/sec Ao max P.1 mmHg MV E/A: 2.7 MV dec time: 0.17 sec GULSHAN(V,D): 2.3 cm2 LV V1 max P.7 mmHg MR max louis: 357.4 cm/sec LV V1 max: 119.4 cm/sec MR max P.7 mmHg TR max louis: 257.2 cm/sec PA V2 max: 109.9 cm/sec TR max P.6 mmHg PA max P.8 mmHg Med Peak E' Louis: 5.0 cm/sec PI Vmax: 210.4 cm/sec Med E/e': 32.6 Lat Peak E' Louis: 9.1 cm/sec Lat E/e': 17.8 Procedure A two-dimensional transthoracic echocardiogram with color flow and Doppler was performed. Left Ventricle There is moderate concentric left ventricular hypertrophy. The left ventricle is moderately dilated. The left ventricular ejection fraction is normal. Diastolic dysfunction, Grade II, consistent with elevated le ft atrial pressure. The left ventricular wall motion is normal. Right Ventricle The right ventricle is not well visualized. Atria The left atrium is moderately dilated. The right atrium is moderately dilated. Mitral Valve There is mild mitral valve thickening. There is no mitral valve stenosis. There is mild mitral regurg itation. Tricuspid Valve There is mild tricuspid valve thickening. There is no tricuspid stenosis. There is mild tricuspid regurgitation. Right ventricular systolic pressure is normal. Aortic Valve The aortic valve is normal in structure and function. No hemodynamically significant valvular aortic stenosis. No aortic regurgitation is present. Pulmonic Valve The pulmonic valve is not well visualized. There is no pulmonic valvular stenosis. Trace pulmonic gabo vular regurgitation. Great Vessels The aortic root is normal size. Pericardium/Pleura There is no pericardial effusion. Interpretation Summary There is moderate concentric left ventricular hypertrophy. The left ventricle is moderately dilated. There is mild tricuspid regurgitation. Right ventricular systolic pressure is normal. The left ventricular wall motion is normal. There is mild mitral regurgitation. Diastolic dysfunction, Grade II, consistent with elevated left atrial pressure. The left ventricular ejection fraction is normal. The left atrium is moderately dilated. The right atrium is moderately dilated. MD Benedicto Muñoz 10/15/2018 01:18 PM
--- NOTE | 2018-10-15 15:27 | CON.CARD ---
Consult Consult Specialty:: Cardiology Referred by:: Shemar Reason for Consultation:: CHF - History of Present Illness Chief Complaint: sob, cough History of Present Illness: 52 year-old man with a PMHx of HTN, NIDDM, CHF with mild LV systolic dysfunction , s/p cardiac cath at [facility] for 01/14/2018 showing nonobstructive CAD, ESRD on hemodialysis presented to the ED with increased worsening shortness of breath, and cough for one day. Had no messed HD, but is noncompliant with fluid restriction. Echocardiogram 07/18/2017: Moderate LV dilatation with mild global hypokinesis and mildly reduced LV systolic function. Reported LVEF = 51.7%. Mild RV dilatation with mildly reduced RV function. Moderate LA dilatation. Mild MR. Mild to moderate pulmonary HTN, RVSP = 40 - 50 mmHg. - History Source History Provided By: Patient, Medical Record Limitations to Obtaining History: No Limitations - Past Medical History Cardio/Vascular: Yes: CHF, HTN Renal/: Yes: Renal Failure, Renal Inusuff, Hemodialysis Endocrine: Yes: Diabetes Mellitus - Past Surgical History Past Surgical History: Yes: AV Fistula/Graft - Alcohol/Substance Use Hx Alcohol Use: No - Smoking History Smoking history: Never smoked Have you smoked in the past 12 months: No If you are a former smoker, when did you quit?: 2009 Home Medications - Allergies Allergies/Adverse Reactions: Allergies Allergy/AdvReac Type Severity Reaction Status Date / Time No Known Allergies Allergy Verified 01/13/18 00:43 - Home Medications Home Medications: Ambulatory Orders Sevelamer Carbonate [Renvela -] 1,600 mg PO TID 07/17/17 Unobtainable 10/14/18 Vital Signs: Vital Signs Temperature 99.1 F 10/15/18 13:51 Pulse Rate 82 10/15/18 13:51 Respiratory Rate 22 H 10/15/18 13:51 Blood Pressure 169/66 10/15/18 13:51 O2 Sat by Pulse Oximetry (%) 100 10/15/18 09:00 Constitutional: Yes: No Distress Eyes: Yes: EOM Intact HENT: Yes: Normocephalic Neck: Yes: Trachea Midline Respiratory: Yes: Rales (bilat bases) Gastrointestinal: Yes: Normal Bowel Sounds, Soft Renal/: Yes: WNL Cardiovascular: Yes: Regular Rate and Rhythm JVD: Yes Carotid Bruit: No PMI: Non-Displaced Heart Sounds: Yes: S1, S2 Murmur: Yes: Systolic Murmur, Grade 2 Musculoskeletal: Yes: WNL Extremities: Yes: WNL Edema: No Peripheral Pulses WNL: Yes - Other Data Labs, Other Data: CBC, BMP 10/15/18 05:30 10/15/18 05:30 INR, PTT INR 1.23 (0.83-1.09) H 10/15/18 05:30 Troponin, BNP 10/15/18 10/15/18 10/15/18 01:15 05:30 05:30 Troponin I 0.07 H 0.07 H 0.06 H B-Natriuretic Peptide 63691.4 H Troponin, BNP 10/15/18 10/15/18 10/15/18 01:15 05:30 05:30 Troponin I 0.07 H 0.07 H 0.06 H B-Natriuretic Peptide 77795.4 H Imaging - Results Chest X-ray: Report Reviewed EKG: Report Reviewed Assessment/Plan 52 year-old man with a PMHx of HTN, NIDDM, CHF with mild LV systolic dysfunction , s/p cardiac cath at [facility] for 01/14/2018 showing nonobstructive CAD, ESRD on hemodialysis presented to the ED with increased worsening shortness of breath, and cough for one day. Had no messed HD, but is noncompliant with fluid restriction. Acute on chronic diastolic CHF -needs HD for fluid removal. -no need for repeat cardiac testing at present. -fluid restriction -he has nonobstructive CAD by cath. Elevated troponin is nonischemic pattern due to renal disease. No plans for further cardiac workup. -dc telemetry.
[2018-10-15] MEDS: guaiFENesin/CODEINE 10 ML UNIT-DOSE CUPS PO PRN ×2 (18:16→21:59)
[2018-10-15] MEDS: LORATADINE 10 MG TABLET PO SCH (18:16)
[2018-10-15] MEDS: SEVELAMER CARBONATE 800 MG TAB (FP) PO SCH (18:17)
[2018-10-15] MEDS ORDERED: PT OWN MED DRAWER 7, Y5N ONE (22:08)
[2018-10-16 06:43] LABS: BASO % 0.5 % (0-2.0); EOS % 4.9 % (0-4.5); HEMATOCRIT 24.9 % (35.4-49); HEMOGLOBIN 8.5 GM/dL (11.7-16.9); LYMPH % 7.9 % (8-40); MCH 34.2 pg (25.7-33.7); MCHC 34.2 g/dl (32.0-35.9); MEAN CELL VOLUME 100.1 fl (80-96); MEAN PLT VOLUME 7.6 fl (7.5-11.1); MONO % 8.7 % (3.8-10.2); PLATELET COUNT 194 K/MM3 (134-434); RBC 2.48 M/mm3 (4.00-5.60); WHITE BLOOD COUNT 7.9 K/mm3 (4.0-10.0)
[2018-10-16 08:06] LABS: SERUM IRON SATURATION 25 % (15-55); TOTAL IRON BINDING CAPACITY 219 ug/dL (250-450); UIBC 164 ug/dL (111-343)
[2018-10-16] MEDS: SEVELAMER CARBONATE 800 MG TAB (FP) PO SCH ×3 (08:50→17:08)
--- NOTE | 2018-10-16 08:54 | PN ---
Progress Note, Physician - Current Medication List Current Medications: Active Medications Benzocaine/Menthol (Cepacol Lozenge -) 1 each MM PRN PRN PRN Reason: SORE THROAT Last Admin: 10/15/18 09:41 Dose: 1 each Guaifenesin/Codeine Phosphate (Robitussin Ac -) 10 ml PO Q8H PRN PRN Reason: COUGH Last Admin: 10/15/18 21:59 Dose: 10 ml Heparin Sodium (Porcine) (Heparin -) 5,000 unit SQ BID [facility] Last Admin: 10/15/18 21:59 Dose: 5,000 unit Sodium Chloride (Normal Saline -) 250 mls @ 3,000 mls/hr IV PRN PRN PRN Reason: Hypotension during Dialysis Stop: 10/16/18 11:18 Insulin Aspart (Novolog Vial Sliding Scale -) 1 vial SQ ACHS [facility]; Protocol Last Admin: 10/15/18 21:59 Dose: Not Given Loratadine (Claritin -) 10 mg PO DAILY [facility] Last Admin: 10/15/18 18:16 Dose: 10 mg Pneumococcal 13-Valent Conj Vacc (Prevnar 13 Syringe -) 0.5 ml IM .ONCE ONE Stop: 10/15/18 10:01 Sevelamer Carbonate (Renvela -) 1,600 mg PO TIDCM [facility] Last Admin: 10/15/18 18:17 Dose: 1,600 mg - Objective Vital Signs: Vital Signs Temperature 99.1 F 10/15/18 13:51 Pulse Rate 82 10/15/18 21:00 Respiratory Rate 81 H 10/15/18 21:00 Blood Pressure 156/80 10/15/18 21:00 O2 Sat by Pulse Oximetry (%) 96 10/15/18 21:00 Cardiovascular: Yes: S1, S2 Respiratory: Yes: Regular, CTA Bilaterally Gastrointestinal: Yes: Normal Bowel Sounds, Soft Edema: Yes Labs: CBC, BMP 10/16/18 05:30 10/15/18 05:30 INR, PTT INR 1.23 (0.83-1.09) H 10/15/18 05:30 Assessment/Plan - Problems (1) Acute exacerbation of CHF (congestive heart failure) Assessment/Plan: daily weight echo cardiology renal getting dialysis now elevated bnp elevated troponin in setting of ESRD Code(s): I50.9 - HEART FAILURE, UNSPECIFIED Qualifiers: Heart failure type: combined systolic and diastolic Qualified Code(s): I50.43 - Acute on chronic combined systolic (congestive) and diastolic ( congestive) heart failure (2) ESRD (end stage renal disease) on dialysis Assessment/Plan: getting HD Code(s): N18.6 - END STAGE RENAL DISEASE; Z99.2 - DEPENDENCE ON RENAL DIALYSIS (3) Anemia Assessment/Plan: iron panel, folate Code(s): D64.9 - ANEMIA, UNSPECIFIED Qualifiers: Anemia type: due to chronic kidney disease Chronic kidney disease stage: on chronic dialysis Qualified Code(s): N18.6 - End stage renal disease; D63.1 - Anemia in chronic kidney disease; Z99.2 - Dependence on renal dialysis (4) Diabetes mellitus Assessment/Plan: bgm sliding scale hgba1c Code(s): E11.9 - TYPE 2 DIABETES MELLITUS WITHOUT COMPLICATIONS Qualifiers: Diabetes mellitus type: type 2
[2018-10-16] MEDS: LORATADINE 10 MG TABLET PO SCH (09:20)
[2018-10-16] MEDS: guaiFENesin/CODEINE 10 ML UNIT-DOSE CUPS PO PRN ×2 (09:21→17:07)
[2018-10-16] MEDS: HEPARIN NA (PORCINE) 5,000 UNITS/ML 1ML VIAL SQ SCH ×2 (09:21→21:48)
[2018-10-16] MEDS: INSULIN SLIDING SCALE (NOVOLOG) 1 VIAL SQ SCH ×3 (12:32→21:48)
[2018-10-16] MEDS ORDERED: PNEUMOC 13-VAL CONJ-DIP CRM/PF 0.5 ML DISP.SYRIN IM ONE (13:30)
[2018-10-16] MEDS ORDERED: SODIUM CHLORIDE 250 ML IV PRN (15:25)
--- NOTE | 2018-10-16 15:25 | PN ---
Progress Note, Physician History of Present Illness: Pt seen and examined at bedside. He tolerated HD today. He feels that his breathing is improved. - Current Medication List Current Medications: Active Medications Benzocaine/Menthol (Cepacol Lozenge -) 1 each MM PRN PRN PRN Reason: SORE THROAT Last Admin: 10/15/18 09:41 Dose: 1 each Guaifenesin/Codeine Phosphate (Robitussin Ac -) 10 ml PO Q8H PRN PRN Reason: COUGH Last Admin: 10/16/18 09:21 Dose: 10 ml Heparin Sodium (Porcine) (Heparin -) 5,000 unit SQ BID BRIAN Last Admin: 10/16/18 09:21 Dose: 5,000 unit Sodium Chloride (Normal Saline -) 250 mls @ 3,000 mls/hr IV PRN PRN PRN Reason: Hypotension during Dialysis Stop: 10/16/18 11:18 Insulin Aspart (Novolog Vial Sliding Scale -) 1 vial SQ ACHS [facility]; Protocol Last Admin: 10/16/18 12:32 Dose: Not Given Loratadine (Claritin -) 10 mg PO DAILY [facility] Last Admin: 10/16/18 09:20 Dose: 10 mg Sevelamer Carbonate (Renvela -) 1,600 mg PO TIDCM [facility] Last Admin: 10/16/18 12:33 Dose: 1,600 mg - Objective Vital Signs: Vital Signs Temperature 98.6 F 10/16/18 10:10 Pulse Rate 86 10/16/18 13:30 Respiratory Rate 18 10/16/18 13:30 Blood Pressure 149/76 10/16/18 13:30 O2 Sat by Pulse Oximetry (%) 96 10/15/18 21:00 Constitutional: Yes: Calm Eyes: Yes: Conjunctiva Clear HENT: Yes: Atraumatic Neck: Yes: Supple Cardiovascular: Yes: S1, S2 Respiratory: Yes: CTA Bilaterally, On Nasal O2 Gastrointestinal: Yes: Soft, Abdomen, Obese Genitourinary: Yes: WNL Musculoskeletal: Yes: WNL Edema: Yes Edema: LLE: 1+, RLE: 1+ Neurological: Yes: Oriented Psychiatric: Yes: Oriented Labs: CBC, BMP 10/16/18 05:30 10/15/18 05:30 INR, PTT INR 1.23 (0.83-1.09) H 10/15/18 05:30 Problem List - Problems (1) ESRD (end stage renal disease) on dialysis Code(s): N18.6 - END STAGE RENAL DISEASE; Z99.2 - DEPENDENCE ON RENAL DIALYSIS (2) Anemia Code(s): D64.9 - ANEMIA, UNSPECIFIED Qualifiers: Anemia type: due to chronic kidney disease Chronic kidney disease stage: on chronic dialysis Qualified Code(s): N18.6 - End stage renal disease; D63.1 - Anemia in chronic kidney disease; Z99.2 - Dependence on renal dialysis (3) Diabetes mellitus Code(s): E11.9 - TYPE 2 DIABETES MELLITUS WITHOUT COMPLICATIONS Qualifiers: Diabetes mellitus type: type 2 (4) HTN (hypertension) Code(s): I10 - ESSENTIAL (PRIMARY) HYPERTENSION Qualifiers: Hypertension type: secondary to other renal disorders Qualified Code(s): I15.1 - Hypertension secondary to other renal disorders; N28.89 - Other specified disorders of kidney and ureter Assessment/Plan Current Medications Generic Name Dose Route Start Last Admin Trade Name Freq PRN Reason Stop Dose Admin Benzocaine/Menthol 1 each 10/14/18 17:13 10/15/18 09:41 Cepacol Lozenge - MM 1 each PRN PRN Administration SORE THROAT Guaifenesin/Codeine Phosphate 10 ml 10/15/18 18:09 10/16/18 09:21 Robitussin Ac - PO 10 ml Q8H PRN Administration COUGH Heparin Sodium (Porcine) 5,000 unit 10/14/18 22:00 10/16/18 09:21 Heparin - SQ 5,000 unit BID BRIAN Administration Sodium Chloride 250 mls @ 3,000 mls/hr 10/15/18 11:18 Normal Saline - IV 10/16/18 11:18 PRN PRN Hypotension during Dialysis Insulin Aspart 1 vial 10/14/18 16:30 10/16/18 12:32 Novolog Vial Sliding Scale - SQ Not Given ACHS BRIAN Protocol Loratadine 10 mg 10/15/18 18:15 10/16/18 09:20 Claritin - PO 10 mg DAILY [facility]RIAN Administration Sevelamer Carbonate 1,600 mg 10/15/18 18:15 10/16/18 12:33 Renvela - PO 1,600 mg TIDCM BRIAN Administration Impression 1. ESRD 2. CHF 3. fluid overload 4. dyspnea 5. anemia 6. HTN 7. DM Plan - pt tolerated HD - will dialyze again tomorrow to get him back on schedule - discussed compliance with fluids intake, pt has been gaining over 5 kg between HD sessions as outpt - repeat labs in am - renal diet - check daily weights Dr Navarro
[2018-10-16] MEDS: BENZOCAINE/MENTH/CETYLPYRD CL 1 EACH LOZENGE MM PRN (21:48)
--- NOTE | 2018-10-16 23:12 | CONSULT ---
Consult Consult Specialty:: endocrine Referred by:: dr.ammir cortez Reason for Consultation:: diabetes mellitus 2 - History of Present Illness Chief Complaint: patient refused to be seen History of Present Illness: patient refused to be seen understands he has diabetes mellitus feels he has it under control and does not want help,i offered him my information if he changes his mind please call back. - Past Medical History Cardio/Vascular: Yes: CHF, HTN Renal/: Yes: Renal Failure, Renal Inusuff, Hemodialysis Endocrine: Yes: Diabetes Mellitus - Past Surgical History Past Surgical History: Yes: AV Fistula/Graft - Alcohol/Substance Use Hx Alcohol Use: No - Smoking History Smoking history: Never smoked Have you smoked in the past 12 months: No If you are a former smoker, when did you quit?: 2009 Home Medications - Allergies Allergies/Adverse Reactions: Allergies Allergy/AdvReac Type Severity Reaction Status Date / Time No Known Allergies Allergy Verified 01/13/18 00:43 - Home Medications Home Medications: Ambulatory Orders Sevelamer Carbonate [Renvela -] 1,600 mg PO TID 07/17/17 Unobtainable 10/14/18 Physical Exam Vital Signs: Vital Signs Temperature 98.4 F 10/16/18 22:00 Pulse Rate 85 10/16/18 22:00 Respiratory Rate 18 10/16/18 22:00 Blood Pressure 158/78 10/16/18 22:00 O2 Sat by Pulse Oximetry (%) 98 10/16/18 21:00 Labs: CBC, BMP 10/16/18 05:30 10/15/18 05:30
[2018-10-17] MEDS: guaiFENesin/CODEINE 10 ML UNIT-DOSE CUPS PO PRN (00:25)
[2018-10-17 04:15] LABS: HBSAG SCREEN Negative (Negative); HEP B CORE AB, TOT Negative (Negative)
[2018-10-17] MEDS ORDERED: PT OWN MED DRAWER 7, Y5N ONE ×2 (05:58→10:12)
[2018-10-17] MEDS: INSULIN SLIDING SCALE (NOVOLOG) 1 VIAL SQ SCH ×2 (06:52→11:05)
[2018-10-17 07:58] LABS: HEMATOCRIT 24.3 % (35.4-49); HEMOGLOBIN 8.4 GM/dL (11.7-16.9); MCH 34.2 pg (25.7-33.7); MCHC 34.4 g/dl (32.0-35.9); MEAN CELL VOLUME 99.3 fl (80-96); MEAN PLT VOLUME 7.5 fl (7.5-11.1); PLATELET COUNT 196 K/MM3 (134-434); RBC 2.44 M/mm3 (4.00-5.60); RDW 12.8 % (11.9-15.9); WHITE BLOOD COUNT 7.3 K/mm3 (4.0-10.0)
[2018-10-17] MEDS: SEVELAMER CARBONATE 800 MG TAB (FP) PO SCH ×2 (08:31→12:13)
[2018-10-17 08:50] LABS: ANION GAP 10 MMOL/L (8-16); BLOOD UREA NITROGEN 36 mg/dL (7-18); CALCIUM 8.1 mg/dL (8.5-10.1); CHLORIDE 97 mmol/L (98-107); CO2 29 mmol/L (21-32); CREATININE 6.5 mg/dL (0.55-1.3); GLUCOSE,RANDOM 98 mg/dL (74-106); POTASSIUM 3.9 mmol/L (3.5-5.1); SODIUM 136 mmol/L (136-145)
[2018-10-17 10:05] VITALS: TEMP 97.9
[2018-10-17] MEDS: HEPARIN NA (PORCINE) 5,000 UNITS/ML 1ML VIAL SQ SCH (10:12)
[2018-10-17] MEDS: LORATADINE 10 MG TABLET PO SCH (10:13)
[2018-10-17 11:40] VITALS: BP 142/71; PULSE 89
--- NOTE | 2018-10-17 12:55 | PN ---
Progress Note, Physician Chief Complaint: ESRD Fluid overload History of Present Illness: Received dialysis today comfortable sitting in bed NAD - Current Medication List Current Medications: Active Medications Benzocaine/Menthol (Cepacol Lozenge -) 1 each MM PRN PRN PRN Reason: SORE THROAT Last Admin: 10/16/18 21:48 Dose: 1 each Guaifenesin/Codeine Phosphate (Robitussin Ac -) 10 ml PO Q8H PRN PRN Reason: COUGH Last Admin: 10/17/18 00:25 Dose: 10 ml Heparin Sodium (Porcine) (Heparin -) 5,000 unit SQ BID [facility] Last Admin: 10/17/18 10:12 Dose: 5,000 unit Sodium Chloride (Normal Saline -) 250 mls @ 3,000 mls/hr IV PRN PRN PRN Reason: Hypotension during Dialysis Stop: 10/17/18 15:25 Insulin Aspart (Novolog Vial Sliding Scale -) 1 vial SQ [facility]; Protocol Last Admin: 10/17/18 11:05 Dose: Not Given Loratadine (Claritin -) 10 mg PO DAILY [facility] Last Admin: 10/17/18 10:13 Dose: 10 mg Sevelamer Carbonate (Renvela -) 1,600 mg PO TIDCM [facility] Last Admin: 10/17/18 12:13 Dose: 1,600 mg - Objective Vital Signs: Vital Signs Temperature 97.9 F 10/17/18 10:00 Pulse Rate 89 10/17/18 11:40 Respiratory Rate 18 10/17/18 11:40 Blood Pressure 142/71 10/17/18 11:40 O2 Sat by Pulse Oximetry (%) 98 10/17/18 08:00 Constitutional: Yes: Well Nourished, No Distress, Calm, Obese Cardiovascular: Yes: Regular Rate and Rhythm Respiratory: Yes: Regular Gastrointestinal: Yes: Normal Bowel Sounds, Soft, Abdomen, Obese Musculoskeletal: Yes: WNL Extremities: Yes: WNL Edema: No Peripheral Pulses WNL: Yes Neurological: Yes: Alert, Oriented Psychiatric: Yes: Alert, Oriented Labs: CBC, BMP 10/17/18 07:20 10/17/18 07:20 INR, PTT INR 1.23 (0.83-1.09) H 10/15/18 05:30 Problem List - Problems (1) ESRD (end stage renal disease) on dialysis Assessment/Plan: -Dialysis as per renal- MWF -Seen by nephrology Code(s): N18.6 - END STAGE RENAL DISEASE; Z99.2 - DEPENDENCE ON RENAL DIALYSIS (2) Fluid overload Assessment/Plan: -Volume status stabilized -1 L restriction -Renal diet -Seen by nephrology and cardiology Code(s): E87.70 - FLUID OVERLOAD, UNSPECIFIED Qualifiers: Hypervolemia type: unspecified Qualified Code(s): E87.70 - Fluid overload, unspecified (3) Anemia Assessment/Plan: in CKD -stable Code(s): D64.9 - ANEMIA, UNSPECIFIED Qualifiers: Anemia type: due to chronic kidney disease Chronic kidney disease stage: on chronic dialysis Qualified Code(s): N18.6 - End stage renal disease; D63.1 - Anemia in chronic kidney disease; Z99.2 - Dependence on renal dialysis (4) Diabetes mellitus Assessment/Plan: -A1c at goal -BGM AC HS -On Insulin Novolog Code(s): E11.9 - TYPE 2 DIABETES MELLITUS WITHOUT COMPLICATIONS Qualifiers: Diabetes mellitus type: type 2 Assessment/Plan see problem list Self ambulatory
--- NOTE | 2018-10-17 13:15 | PN ---
Progress Note, Physician History of Present Illness: Pt tolerated HD. Feels edema is improved. - Current Medication List Current Medications: Active Medications Benzocaine/Menthol (Cepacol Lozenge -) 1 each MM PRN PRN PRN Reason: SORE THROAT Last Admin: 10/16/18 21:48 Dose: 1 each Guaifenesin/Codeine Phosphate (Robitussin Ac -) 10 ml PO Q8H PRN PRN Reason: COUGH Last Admin: 10/17/18 00:25 Dose: 10 ml Heparin Sodium (Porcine) (Heparin -) 5,000 unit SQ BID [facility] Last Admin: 10/17/18 10:12 Dose: 5,000 unit Sodium Chloride (Normal Saline -) 250 mls @ 3,000 mls/hr IV PRN PRN PRN Reason: Hypotension during Dialysis Stop: 10/17/18 15:25 Insulin Aspart (Novolog Vial Sliding Scale -) 1 vial SQ ACHS [facility]; Protocol Last Admin: 10/17/18 11:05 Dose: Not Given Loratadine (Claritin -) 10 mg PO DAILY [facility] Last Admin: 10/17/18 10:13 Dose: 10 mg Sevelamer Carbonate (Renvela -) 1,600 mg PO TIDCM [facility] Last Admin: 10/17/18 12:13 Dose: 1,600 mg - Objective Vital Signs: Vital Signs Temperature 97.9 F 10/17/18 10:00 Pulse Rate 89 10/17/18 11:40 Respiratory Rate 18 10/17/18 11:40 Blood Pressure 142/71 10/17/18 11:40 O2 Sat by Pulse Oximetry (%) 98 10/17/18 08:00 Constitutional: Yes: Calm Eyes: Yes: Conjunctiva Clear HENT: Yes: Atraumatic Cardiovascular: Yes: S1, S2 Respiratory: Yes: CTA Bilaterally Gastrointestinal: Yes: Soft Genitourinary: Yes: WNL Musculoskeletal: Yes: WNL Edema: LLE: Trace, RLE: Trace Neurological: Yes: Oriented Psychiatric: Yes: Oriented Labs: CBC, BMP 10/17/18 07:20 10/17/18 07:20 INR, PTT INR 1.23 (0.83-1.09) H 10/15/18 05:30 Problem List - Problems (1) ESRD (end stage renal disease) on dialysis Code(s): N18.6 - END STAGE RENAL DISEASE; Z99.2 - DEPENDENCE ON RENAL DIALYSIS (2) Anemia Code(s): D64.9 - ANEMIA, UNSPECIFIED Qualifiers: Anemia type: due to chronic kidney disease Chronic kidney disease stage: on chronic dialysis Qualified Code(s): N18.6 - End stage renal disease; D63.1 - Anemia in chronic kidney disease; Z99.2 - Dependence on renal dialysis (3) Diabetes mellitus Code(s): E11.9 - TYPE 2 DIABETES MELLITUS WITHOUT COMPLICATIONS Qualifiers: Diabetes mellitus type: type 2 (4) HTN (hypertension) Code(s): I10 - ESSENTIAL (PRIMARY) HYPERTENSION Qualifiers: Hypertension type: secondary to other renal disorders Qualified Code(s): I15.1 - Hypertension secondary to other renal disorders; N28.89 - Other specified disorders of kidney and ureter Assessment/Plan Current Medications Generic Name Dose Route Start Last Admin Trade Name Freq PRN Reason Stop Dose Admin Benzocaine/Menthol 1 each 10/14/18 17:13 10/16/18 21:48 Cepacol Lozenge - MM 1 each PRN PRN Administration SORE THROAT Guaifenesin/Codeine Phosphate 10 ml 10/15/18 18:09 10/17/18 00:25 Robitussin Ac - PO 10 ml Q8H PRN Administration COUGH Heparin Sodium (Porcine) 5,000 unit 10/14/18 22:00 10/17/18 10:12 Heparin - SQ 5,000 unit BID BRIAN Administration Sodium Chloride 250 mls @ 3,000 mls/hr 10/16/18 15:25 Normal Saline - IV 10/17/18 15:25 PRN PRN Hypotension during Dialysis Insulin Aspart 1 vial 10/14/18 16:30 10/17/18 11:05 Novolog Vial Sliding Scale - SQ Not Given ACHS BRIAN Protocol Loratadine 10 mg 10/15/18 18:15 10/17/18 10:13 Claritin - PO 10 mg DAILY BRIAN Administration Sevelamer Carbonate 1,600 mg 10/15/18 18:15 10/17/18 12:13 Renvela - PO 1,600 mg TIDCM BRIAN Administration Impression 1. ESRD 2. CHF 3. fluid overload 4. dyspnea 5. anemia 6. HTN 7. DM Plan - HD today - pt has HD set up as outpt - renal diet - check daily weights Dr Navarro
--- NOTE | 2018-10-17 13:16 | DS ---
Physical Examination Vital Signs: Vital Signs Temperature 97.9 F 10/17/18 10:00 Pulse Rate 89 10/17/18 11:40 Respiratory Rate 18 10/17/18 11:40 Blood Pressure 142/71 10/17/18 11:40 O2 Sat by Pulse Oximetry (%) 98 10/17/18 08:00 Findings/Remarks: 53-year-old male with history of CHF, ESRD on Saturday/Saturday/Saturday dialysis last dialyzed on yesterday presents from Dr. Staton's office with several days of worsening volume overload with symptoms of cough, orthopnea, and leg swelling. Had full dialysis yesterday without improvement, presents for evaluation. Does not make urine and does not take diuretics. admits to diet noncompliance over the weekend that may have contributed to this. Constitutional: Yes: Well Nourished, No Distress, Calm Cardiovascular: Yes: Regular Rate and Rhythm Respiratory: Yes: Regular Gastrointestinal: Yes: Normal Bowel Sounds, Soft, Abdomen, Obese Musculoskeletal: Yes: WNL Extremities: Yes: WNL Edema: No Peripheral Pulses WNL: Yes Neurological: Yes: Alert, Oriented Psychiatric: Yes: Alert, Oriented Labs: CBC, BMP 10/17/18 07:20 10/17/18 07:20 Discharge Summary Reason For Visit: ACUTE CHF,ESRD,HYPERVOLEMIA Current Active Problems Acute exacerbation of CHF (congestive heart failure) (Acute) ESRD (end stage renal disease) on dialysis (Acute) Fluid overload (Acute) Hospital Course: Laboratory Last Values WBC 7.3 K/mm3 (4.0-10.0) 10/17/18 07:20 RBC 2.44 M/mm3 (4.00-5.60) L 10/17/18 07:20 Hgb 8.4 GM/dL (11.7-16.9) L 10/17/18 07:20 Hct 24.3 % (35.4-49) L 10/17/18 07:20 MCV 99.3 fl (80-96) H 10/17/18 07:20 MCH 34.2 pg (25.7-33.7) H 10/17/18 07:20 MCHC 34.4 g/dl (32.0-35.9) 10/17/18 07:20 RDW 12.8 % (11.9-15.9) 10/17/18 07:20 Plt Count 196 K/MM3 (134-434) 10/17/18 07:20 MPV 7.5 fl (7.5-11.1) 10/17/18 07:20 Absolute Neuts (auto) 6.2 K/mm3 (1.5-8.0) 10/16/18 05:30 Neutrophils % 78.0 % (42.8-82.8) 10/16/18 05:30 Lymphocytes % 7.9 % (8-40) L D 10/16/18 05:30 Monocytes % 8.7 % (3.8-10.2) 10/16/18 05:30 Eosinophils % 4.9 % (0-4.5) H D 10/16/18 05:30 Basophils % 0.5 % (0-2.0) 10/16/18 05:30 Nucleated RBC % 0 % (0-0) 10/16/18 05:30 Platelet Comment No clumping noted 10/15/18 05:30 PT with INR 14.60 SEC (9.7-13.0) H 10/15/18 05:30 INR 1.23 (0.83-1.09) H 10/15/18 05:30 Sodium 136 mmol/L (136-145) 10/17/18 07:20 Potassium 3.9 mmol/L (3.5-5.1) 10/17/18 07:20 Chloride 97 mmol/L (98-107) L 10/17/18 07:20 Carbon Dioxide 29 mmol/L (21-32) 10/17/18 07:20 Anion Gap 10 MMOL/L (8-16) 10/17/18 07:20 BUN 36 mg/dL (7-18) H 10/17/18 07:20 Creatinine 6.5 mg/dL (0.55-1.3) H 10/17/18 07:20 Creat Clearance w eGFR 9.01 (>60) 10/17/18 07:20 POC Glucometer 143 UNITS (80-120) 10/17/18 11:04 Random Glucose 98 mg/dL (74-106) 10/17/18 07:20 Hemoglobin A1c % 6.6 % (4.2-6.3) H 10/15/18 05:30 Calcium 8.1 mg/dL (8.5-10.1) L 10/17/18 07:20 Phosphorus 5.8 mg/dL (2.5-4.9) H 10/15/18 05:30 Magnesium 2.1 mg/dL (1.8-2.4) 10/15/18 05:30 Iron 55 ug/dL (38-169) 10/15/18 05:30 TIBC 219 ug/dL (250-450) L 10/15/18 05:30 Iron Saturation 25 % (15-55) 10/15/18 05:30 Ferritin 843.1 ng/ml (8-388) H 10/15/18 05:30 Total Bilirubin 0.6 mg/dL (0.2-1) 10/15/18 05:30 AST 10 U/L (15-37) L 10/15/18 05:30 ALT 14 U/L (13-61) 10/15/18 05:30 Alkaline Phosphatase 122 U/L (45-117) H 10/15/18 05:30 Creatine Kinase 354 U/L (26-308) H 10/16/18 05:30 Creatine Kinase Index 0.8 % (0.0-5.0) 10/16/18 05:30 CK-MB (CK-2) 2.9 ng/mL (0.5-3.6) 10/16/18 05:30 Troponin I 0.09 ng/ml (0.00-0.05) H 10/16/18 05:30 B-Natriuretic Peptide 83234.4 pg/ml (5-125) H 10/15/18 05:30 Total Protein 6.6 g/dl (6.4-8.2) 10/15/18 05:30 Albumin 3.1 g/dl (3.4-5.0) L 10/15/18 05:30 Hepatitis A Ab Total Negative (Negative) 10/15/18 12:00 Hep Bs Antigen Negative (Negative) 10/15/18 12:00 Hep Bs Antibody Reactive (.) 10/15/18 12:00 Hep B Core Total Ab Negative (Negative) 10/15/18 12:00 Hep C Ab Diagnostic <0.1 s/co ratio (0.0-0.9) 10/15/18 08:53 Vital Signs Temp 97.9 F 10/17/18 10:00 Pulse 89 10/17/18 11:40 Resp 18 10/17/18 11:40 BP 142/71 10/17/18 11:40 Pulse Ox 98 10/17/18 08:00 Intake & Output 10/16/18 10/17/18 10/17/18 23:59 11:59 23:59 Intake Total 300 Balance 300 Intake: Oral 300 Other: Voiding Method Urinal Urinal # Unmeasured Voids Void 2 Bowel Movement No Condition: Stable - Instructions Diet, Activity, Other Instructions: Please return to the emergency department with any new or worsening symptoms or concerns. Please follow up with your primary care physician within 72 hours. Disposition: HOME - Home Medications Comprehensive Discharge Medication List: Ambulatory Orders Sevelamer Carbonate [Renvela -] 1,600 mg PO TID 07/17/17 Unobtainable 10/14/18
== END 2018-10-17 14:45 | disposition home or self-care (01) | DRG 291 ==
LOC: JER 12:12 → JERBED 14:23 → J2W 10-15 01:31
PROVIDERS: ADMIT Family Medicine; ATTEND Family Medicine
PROC: 5A1D70Z Performance of Urinary Filtration, Intermittent, Less than 6 Hours Per Day (ICD-10-PCS; principal; 2018-10-16)
DX: I13.2 Hypertensive heart and chronic kidney disease with heart failure and with stage 5 chronic kidney disease, or end stage renal disease (principal); N18.6 End stage renal disease; I50.43 Acute on chronic combined systolic (congestive) and diastolic (congestive) heart failure; E11.22 Type 2 diabetes mellitus with diabetic chronic kidney disease; Z99.2 Dependence on renal dialysis; I27.20 Pulmonary hypertension, unspecified; Z79.84 Long term (current) use of oral hypoglycemic drugs; Z87.891 Personal history of nicotine dependence; D63.1 Anemia in chronic kidney disease; E66.9 Obesity, unspecified; Z68.37 Body mass index [BMI] 37.0-37.9, adult; I25.10 Atherosclerotic heart disease of native coronary artery without angina pectoris; Z91.19 Patient's noncompliance with other medical treatment and regimen
CPT/HCPCS: 36415; 71045-TC-FY; 80048; 80053; 82550; 82553; 82728; 82962; 83036; 83540; 83550; 83735; 83880; 84100; 84484; 85025; 85027; 85610; 86704; 86706; 86708; 86803; 87340; 93005; 93010; 93306-TC; 93970-TC; 97116-GP; 97161-GP; 99285-25; J0885; J1644

== ENCOUNTER 2019-02-01 23:15 | Inpatient (IN) | payer OTHER | END 2019-02-04 16:50 | disposition home or self-care (01) | LOC: JER 23:15 → JERBED 02-02 01:49 → J4W 02-02 03:33 ==

== ENCOUNTER 2019-07-05 22:33 | Inpatient (IN) | payer OTHER ==
--- NOTE | 2019-07-05 22:55 | PDOC ---
History of Present Illness - General Stated Complaint: DIFFICULTY BREATHING Time Seen by Provider: 07/05/19 22:55 History Source: Patient Exam Limitations: No Limitations - History of Present Illness Initial Comments: Pt is a 54 yo M, with PMH of ESRD (HD M/W/F), dCHF, DM, HTN, who is presenting with complaints of acute SOB just prior to arrival. Pt states he went to lie down for sleep, when he had SOB with lying flat. The SOB was not improved with sitting up, prompting him to call EMS; SOB was improved with 2 L NC and O2 was 100% on the ambulance per EMS. Pt states he has been compliant with his medication and diet, and had a full HD tx on Saturday. Pt does not produce urine. Pt denies any recent fevers/chills, cough or congestion, headache, vision changes, syncope, chest pain, palpitations, nausea/vomiting, abdominal pain, urinary symptoms, diarrhea/constipation, or leg swelling. Allergies: NKDA PCP: Dr. Staton Renal: Dr. Navarrete; [facility] for HD Social: Pt denies any current cigarette, alcohol, or drug use. Prior THC and cocaine use ~30 years ago. Pt denies any recent travel or sick contacts. Surgical: L AVF for dialysis Family: Father - MIs in 50s; Grandfather - CVA 07/05/19 23:13 07/05/19 23:17 07/06/19 01:23 Past History - Travel Traveled outside of the country in the last 30 days: No Close contact w/someone who was outside of country & ill: No - Past Medical History Allergies/Adverse Reactions: Allergies Allergy/AdvReac Type Severity Reaction Status Date / Time No Known Allergies Allergy Verified 07/05/19 23:09 Home Medications: Ambulatory Orders Glyburide 2.5 mg PO DAILY 02/03/19 Hydralazine HCl 25 mg PO BID 02/03/19 Metoprolol Succinate [Toprol XL -] 50 mg PO BID 02/03/19 Torsemide 100 mg PO UTDICT 02/03/19 Fluticasone Prop 0.05% Nasal [Flonase -] 2 spray NS DAILY PRN #1 spray 02/04/19 Sevelamer Carbonate [Renvela -] 1,600 mg PO TIDCM tab 02/04/19 Anemia: No Asthma: No Cancer: No Cardiac Disorders: No CVA: No COPD: No CHF: Yes Dementia: No Diabetes: Yes Dialysis: Yes (-W-) GI Disorders: No Disorders: No HTN: Yes Hypercholesterolemia: Yes Liver Disease: No Seizures: No Thyroid Disease: No - Surgical History Abdominal Surgery: No Appendectomy: No Cardiac Surgery: No Cholecystectomy: No Lung Surgery: No Neurologic Surgery: No Orthopedic Surgery: No - Psycho Social/Smoking Cessation Hx Smoking History: Never smoked Have you smoked in the past 12 months: No If you are a former smoker, when did you quit?: 2009 Hx Alcohol Use: No Drug/Substance Use Hx: No Substance Use Type: None Hx Substance Use Treatment: No Respiratory Specific PMHX - Complaint Specific PMHX Hx Asthma: No Hx Intubation: No Hx Bronchitis: No Hx Pneumonia: No Hx Pulmonary Embolus: No Hx TB (Tuberculosis): No Hx Angina: No Review of Systems - Review of Systems Able to Perform ROS?: Yes Is the patient limited Romansh proficient: No Constitutional: Yes: Weight Stable. No: Chills, Diaphoresis, Fever, Loss of Appetite, Malaise, Weakness HEENTM: No: Recent change in vision, Nose Congestion, Throat Pain, Throat Swelling, Difficulty Swallowing Respiratory: Yes: See HPI, Orthopnea, Shortness of Breath, SOB with Exertion, SOB at Rest. No: Cough, Wheezing, Productive cough, Hemoptysis Cardiac (ROS): No: Chest Pain, Edema, Irregular Heart Rate, Lightheadedness, Palpitations, Syncope, Chest Tightness ABD/GI: No: Constipated, Diarrhea, Nausea, Poor Appetite, Poor Fluid Intake, Vomiting, Abdominal cramping : No: Burning, Dysuria, Frequency, Flank Pain, Hematuria, Pain, Urgency Musculoskeletal: No: Joint Pain, Joint Swelling, Muscle Pain, Muscle Weakness Integumentary: No: Erythema, Rash Neurological: No: Headache, Paresthesia, Weakness, Unsteady Gait, Dizziness Psychiatric: No: Sleep Pattern Change, Change in Appetite Endocrine: No: Increased Urine, Change in Weight Hematologic/Lymphatic: Yes: Anemia. No: Blood Clots, Easy Bleeding, Easy Bruising All Other Systems: Reviewed and Negative *Physical Exam - Physical Exam Comments: HTN (at baseline), 100% on 2 L NC, pt afebrile. Pt in NAD, able to lie flat on the bed; obese body habitus. Pt alert and oriented x3. vocational trainer generally intact, muscular strength and sensation intact. No midline spinal tenderness, step-offs, or crepitus. Head normocephalic, atraumatic. Eyes PERRLA, EOMI. Oropharynx without erythema or exudates, no LAD b/l. No nasal congestion. Hearing intact. +mild b/l pedal edema without pitting. Clear heart sounds, S1/S2, no JVD, or heart murmur. Clear lung sounds, no respiratory distress, wheezes, crackles, or accessory muscle use. No abdominal or CVA tenderness to palpation, no rebound, no guarding. Abdomen soft, non-distended, and with normoactive bowel sounds. Skin without jaundice or rash. 07/05/19 23:27 ED Treatment Course - LABORATORY CBC & Chemistry Diagram: 07/05/19 23:50 07/05/19 23:50 Medical Decision Making - Medical Decision Making Pt was seen at bedside, also will be seen by attending Dr. Crump. Pt presenting with SOB; frequent admissions due to fluid overload, ESRD, CHF exacerbations. Will evaluate for anemia vs electrolyte imbalances vs ACS vs CHF exacerbation vs non-compliance with medications/diet. Provided 2 L NC for improvement of dyspnea. Will continue to reassess pt and monitor for symptomatic improvement. 07/05/19 23:28 ECG: NSR with 1st degree AV block, RAD (HR 63, Pr 210, QRS 104, QTc 509). No TWIs or significant ST segment changes. No significant changes from prior ECG (). 07/06/19 00:26 CBC: anemia within pt baseline CMP: BUN/Cr 85/10.5 -- at pts baseline when pending HD Trop <.02 Chest x-ray with congestion, no focal infiltrate Pt takes PO torsemide, would provide IV lasix but pt makes minimal urine -- pt needs HD in AM Placed consult for nephrology (Dr. Navarro) Paged hospitalist team for admission (covering for Dr. Staton) 07/06/19 00:50 Pt accepted to hospitalist (Dr. Staton) for urgent transfusion. 07/06/19 01:38 Discharge - Discharge Information Problems reviewed: Yes Clinical Impression/Diagnosis: ESRD (end stage renal disease) on dialysis Acute exacerbation of CHF (congestive heart failure) Qualifiers: Heart failure type: unspecified Qualified Code(s): I50.9 - Heart failure, unspecified Condition: Stable - Admission Yes - Follow up/Referral - Patient Discharge Instructions - Post Discharge Activity
--- NOTE | 2019-07-05 23:36 | PDOC ---
Documentation entered by Haily Hdez SCRIBE, acting as scribe for Steff Crump MD. Steff Crump MD: This documentation has been prepared by the viktoribe, Haily Hdez SCRIBE, under my direction and personally reviewed by me in its entirety. I confirm that the documentation accurately reflects all work, treatment, procedures, and medical decision making performed by me. Attending Attestation - Resident Resident Name: Jerica Gale - ED Attending Attestation I have performed the following: I have examined & evaluated the patient, The case was reviewed & discussed with the resident, I agree w/resident's findings & plan, Exceptions are as noted - HPI HPI: 07/06/19 00:40 The patient is a 54 year old male with a past medical history significant for ESRD (on HD M, W, F), CHF, DM, HTN who presents to the emergency department with an acute onset of shortness of breath, that presented while the patient was lying down. The patient denies any relief with sitting up. Denies fever, chills or cough. - Physicial Exam PE: 07/06/19 00:42 Obese 54-year-old male presents with acute shortness of breath that started 30 minutes after he went to bed 07/06/19 00:51 head ncat neck supple lungs no wheezing cvs [id number] abd protuberant skin warm and dry extremities Left AV fistula, + thrill neuro [id number] 07/06/19 01:54 - Medical Decision Making 07/06/19 00:54 EKG is normal sinus rhythm at 63 bpm with a first-degree AV block, incomplete right bundle branch block 07/06/19 00:54 bnp>35,000 07/06/19 01:52 Patient had an echo done February 03 of this year that showed an ejection fraction of 35 to 40% There was moderate decreased LV function pt has ESRD and dialysis M W Fr 07/06/19 01:54 negative trop/ admit acute on chronic chf 07/06/19 01:55
[2019-07-06 00:02] LABS: BASO % 0.7 % (0-2.0); EOS % 4.9 % (0-4.5); HEMATOCRIT 33.2 % (35.4-49); HEMOGLOBIN 10.8 GM/dL (11.7-16.9); LYMPH % 11.1 % (8-40); MCH 33.2 pg (25.7-33.7); MCHC 32.5 g/dl (32.0-35.9); MEAN CELL VOLUME 102.2 fl (80-96); MEAN PLT VOLUME 9.1 fl (7.5-11.1); MONO % 5.6 % (3.8-10.2); NEUT % 77.7 % (42.8-82.8); PLATELET COUNT 117 K/MM3 (134-434); RBC 3.25 M/mm3 (4.00-5.60); RDW 14.6 % (11.9-15.9); WHITE BLOOD COUNT 7.5 K/mm3 (4.0-10.0)
[2019-07-06 00:21] VITALS: BMI 35.4
[2019-07-06 00:32] LABS: INR 1.12 (0.83-1.09); PROTHROMBIN TIME (PATIENT) 13.2 SEC (9.7-13.0)
[2019-07-06 00:34] LABS: ALBUMIN 3.9 g/dl (3.4-5.0); ALK PHOS 133 U/L (45-117); ANION GAP 10 MMOL/L (8-16); BILIRUBIN,TOTAL 0.8 mg/dL (0.2-1); BLOOD UREA NITROGEN 85.9 mg/dL (7-18); CALCIUM 8.5 mg/dL (8.5-10.1); CHLORIDE 99 mmol/L (98-107); CO2 28 mmol/L (21-32); GLUCOSE,RANDOM 102 mg/dL (74-106); MAGNESIUM 2.3 mg/dL (1.8-2.4); N-TERMINAL BNP > 35000.0 pg/ml (5-125); PHOSPHOROUS 4.9 mg/dL (2.5-4.9); POTASSIUM 5.2 mmol/L (3.5-5.1); SGOT/AST 12 U/L (15-37); SGPT/ALT 30 U/L (13-61); SODIUM 138 mmol/L (136-145); TOT PROT 7.3 g/dl (6.4-8.2)
[2019-07-06 00:39] LABS: CREATININE 10.5 mg/dL (0.55-1.3)
--- NOTE | 2019-07-06 02:12 | HP ---
Admitting History and Physical - Admission Chief Complaint: SOB History of Present Illness: 54 year old male with a past medical history significant for ESRD (on HD M, W, F ), CHF, DM, HTN and anemia who presents to the emergency department with an acute onset of shortness of breath, that presented while the patient was lying down. The patient denies any relief with sitting up. Pt states he went to lie down for sleep, when he had SOB with lying flat. The SOB was not improved with sitting up, prompting him to call EMS; SOB was improved with 2 L NC and O2 was 100% on the ambulance per EMS. Pt states he has been compliant with his medication and diet, and had a full HD tx on Saturday. Pt does not produce urine. Denies fever, chills or cough. History Source: Patient Limitations to Obtaining History: No Limitations - Past Medical History Cardiovascular: Yes: CHF, HTN Renal/: Yes: Renal Failure, Renal Inusuff, Hemodialysis Heme/Onc: Yes: Anemia Endocrine: Yes: Diabetes Mellitus - Past Surgical History Past Surgical History: Yes: AV Fistula/Graft - Smoking History Smoking history: Never smoked Have you smoked in the past 12 months: No If you are a former smoker, when did you quit?: 2009 - Alcohol/Substance Use Hx Alcohol Use: No History of Substance Use: reports: None - Social History ADL: Independent History of Recent Travel: No Home Medications - Allergies Allergies/Adverse Reactions: Allergies Allergy/AdvReac Type Severity Reaction Status Date / Time No Known Allergies Allergy Verified 07/05/19 23:09 - Home Medications Home Medications: Ambulatory Orders Glyburide 2.5 mg PO DAILY 02/03/19 Hydralazine HCl 25 mg PO BID 02/03/19 Metoprolol Succinate [Toprol XL -] 50 mg PO BID 02/03/19 Torsemide 100 mg PO UTDICT 02/03/19 Sevelamer Carbonate [Renvela -] 800 mg PO TID 07/06/19 Family Medical History Family History: Denies Review of Systems - Review of Systems Constitutional: reports: No Symptoms Eyes: reports: No Symptoms HENT: reports: No Symptoms Neck: reports: No Symptoms Cardiovascular: reports: No Symptoms Respiratory: reports: SOB Gastrointestinal: reports: No Symptoms Genitourinary: reports: No Symptoms Musculoskeletal: reports: No Symptoms Integumentary: reports: No Symptoms Neurological: reports: No Symptoms Endocrine: reports: No Symptoms Hematology/Lymphatic: reports: No Symptoms Psychiatric: reports: No Symptoms Physical Examination Vital Signs: Vital Signs Temperature 97.9 F 07/05/19 23:06 Pulse Rate 65 07/05/19 23:06 Respiratory Rate 20 07/05/19 23:06 Blood Pressure 160/78 07/05/19 23:06 O2 Sat by Pulse Oximetry (%) 100 07/05/19 23:06 Constitutional: Yes: No Distress, Calm Eyes: Yes: Conjunctiva Clear, EOM Intact HENT: Yes: Atraumatic, Normocephalic Neck: Yes: Supple, Trachea Midline Cardiovascular: Yes: Regular Rate and Rhythm Respiratory: Yes: Regular, CTA Bilaterally, On Nasal O2, SOB Gastrointestinal: Yes: Normal Bowel Sounds, Soft Musculoskeletal: Yes: WNL Extremities: Yes: WNL Edema: No Peripheral Pulses WNL: Yes Neurological: Yes: Alert, Oriented Labs: CBC, BMP 07/05/19 23:50 07/05/19 23:50 Problem List - Problems (1) Acute exacerbation of CHF (congestive heart failure) Code(s): I50.9 - HEART FAILURE, UNSPECIFIED Qualifiers: Heart failure type: unspecified Qualified Code(s): I50.9 - Heart failure, unspecified (2) ESRD (end stage renal disease) on dialysis Code(s): N18.6 - END STAGE RENAL DISEASE; Z99.2 - DEPENDENCE ON RENAL DIALYSIS (3) Anemia Code(s): D64.9 - ANEMIA, UNSPECIFIED (4) Diabetes mellitus Code(s): E11.9 - TYPE 2 DIABETES MELLITUS WITHOUT COMPLICATIONS Qualifiers: Diabetes mellitus type: type 2 (5) HTN (hypertension) Code(s): I10 - ESSENTIAL (PRIMARY) HYPERTENSION Qualifiers: Hypertension type: secondary to other renal disorders Qualified Code(s): I15.1 - Hypertension secondary to other renal disorders; N28.89 - Other specified disorders of kidney and ureter (6) Hyperkalemia Code(s): E87.5 - HYPERKALEMIA (7) SOB (shortness of breath) Code(s): R06.02 - SHORTNESS OF BREATH Assessment/Plan 54 year old male with a past medical history significant for ESRD (on HD M, W, F ), CHF, DM, HTN who presents to the emergency department with an acute onset of shortness of breath, that presented while the patient was lying down. # Acute exacerbation of CHF (congestive heart failure) - Admit to Telemetry - Continue cardiac monitoring - BNP 35,000 - CXR: no acute infiltrate -Torsemide 100 mg PO UTDICT - Patient would benefit from HD in am - Monitor Spo2 - Daily weight - cardiology follow up - Monitor CBC, BMP #HTN -trops negative -CK-MB: 3.9 -ECG: NSR with 1st degree AV block, No TWIs or significant ST segment changes. -Hydralazine HCl 25 mg PO BID -Metoprolol Succinate 50 mg PO BID # Hyperkalemia -K 5.2 - will get dialysis in AM - monitor lytes trend # ESRD (end stage renal disease) on dialysis -HD MWF schedule -Continue Sevelamer Carbonate 1,600 mg PO TIDCM -Avoid nephrotoxic drugs # Anemia - Stable - Likely chronic secondary to ESRD - Will transfuse if Hb < 7.0 - Monitor CBC #Diabetes mellitus -bgm QDAC -Glyburide 2.5 mg PO DAILY -hgba1c FEN - Fluid Restriction - Replete lytes prn - Low Na, Renal Diet DVT ppx - OOB - Heparin SQ Dispo: Requires Inpatient Care Visit type - Emergency Visit Emergency Visit: Yes Care time: The patient presented to the Emergency Department on the above date and was hospitalized for further evaluation of their emergent condition. - New Patient This patient is new to me today: Yes Date on this admission: 07/06/19 - Critical Care Critical Care patient: No
[2019-07-06 06:07] LABS: HEMATOCRIT 31.7 % (35.4-49); HEMOGLOBIN 10.5 GM/dL (11.7-16.9); MCH 33.3 pg (25.7-33.7); MEAN CELL VOLUME 101.2 fl (80-96); PLATELET COUNT 118 K/MM3 (134-434); RBC 3.13 M/mm3 (4.00-5.60); WHITE BLOOD COUNT 7.5 K/mm3 (4.0-10.0)
[2019-07-06 06:29] LABS: BLOOD UREA NITROGEN 94.7 mg/dL (7-18); CALCIUM 8.5 mg/dL (8.5-10.1); POTASSIUM 5.7 mmol/L (3.5-5.1)
[2019-07-06] MEDS ORDERED: glyBURIDE 2.5 MG TABLET (FP) PO SCH (07:00)
[2019-07-06] MEDS ORDERED: SEVELAMER CARBONATE 800 MG TAB (FP) PO SCH (08:00)
[2019-07-06] MEDS ORDERED: hydrALAZINE HCL 25 MG TABLET (FP) PO SCH (10:00)
[2019-07-06] MEDS ORDERED: HEPARIN NA (PORCINE) 5,000 UNITS/ML 1ML VIAL SQ SCH (10:00)
--- NOTE | 2019-07-06 10:01 | EKG ---
Test Reason : Blood Pressure : / mmHG Vent. Rate : 063 BPM Atrial Rate : 063 BPM P-R Int : 210 ms QRS Dur : 104 ms QT Int : 498 ms P-R-T Axes : 049 106 087 degrees QTc Int : 509 ms SINUS RHYTHM WITH 1ST DEGREE A-V BLOCK INCOMPLETE RIGHT BUNDLE BRANCH BLOCK BORDERLINE ECG WHEN COMPARED WITH ECG OF 01-FEB-2019 23:33, NO SIGNIFICANT CHANGE WAS FOUND Confirmed by ОЛЬГА CRABTREE MD ([id number]) on 07/06/2019 10:01:10 AM Referred By: Confirmed By:ОЛЬГА CRABTREE MD
--- NOTE | 2019-07-06 11:34 | PN ---
Progress Note, Physician Chief Complaint: patient seen examined sitting up in chair wants to go home no complains of Shortness of breath feels ok patient said he suddenly got short of breath last night and now he feels much better - Current Medication List Current Medications: Active Medications Glyburide (Diabeta -) 2.5 mg PO DAILY@0700 [facility] Last Admin: 07/06/19 07:45 Dose: 2.5 mg Heparin Sodium (Porcine) (Heparin -) 5,000 unit SQ BID [facility] Hydralazine HCl (Apresoline -) 25 mg PO BID [facility] Last Admin: 07/06/19 11:09 Dose: Not Given Metoprolol Succinate (Toprol Xl -) 50 mg PO BID [facility] Last Admin: 07/06/19 11:10 Dose: Not Given Sevelamer Carbonate (Renvela -) 800 mg PO TIDCM [facility] Last Admin: 07/06/19 09:30 Dose: 800 mg Torsemide (Demadex -) 100 mg PO TuThSa@1000 [facility] - Objective Vital Signs: Vital Signs Temperature 98.0 F 07/06/19 07:10 Pulse Rate 58 L 07/06/19 11:27 Respiratory Rate 18 07/06/19 11:27 Blood Pressure 152/71 07/06/19 11:27 O2 Sat by Pulse Oximetry (%) 97 07/06/19 11:27 Constitutional: Yes: Calm Cardiovascular: Yes: Regular Rate and Rhythm, S1, S2 Respiratory: Yes: CTA Bilaterally Gastrointestinal: Yes: Normal Bowel Sounds, Soft Musculoskeletal: Yes: Other (arm bruit) Neurological: Yes: Alert, Oriented Labs: CBC, BMP 07/06/19 05:38 07/06/19 05:38 INR, PTT INR 1.12 (0.83-1.09) H 07/05/19 23:50 Problem List - Problems (1) ESRD (end stage renal disease) on dialysis Assessment/Plan: HD today per schedule renal consult renvela Code(s): N18.6 - END STAGE RENAL DISEASE; Z99.2 - DEPENDENCE ON RENAL DIALYSIS (2) Diabetes mellitus Assessment/Plan: [facility] 89 glyburide Code(s): E11.9 - TYPE 2 DIABETES MELLITUS WITHOUT COMPLICATIONS Qualifiers: Diabetes mellitus type: type 2 (3) HTN (hypertension) Assessment/Plan: hydralazine Code(s): I10 - ESSENTIAL (PRIMARY) HYPERTENSION Qualifiers: Hypertension type: secondary to other renal disorders Qualified Code(s): I15.1 - Hypertension secondary to other renal disorders; N28.89 - Other specified disorders of kidney and ureter
--- NOTE | 2019-07-06 12:21 | CONSULT ---
Consult Consult Specialty:: Nephrology Reason for Consultation:: esrd - History of Present Illness Chief Complaint: shortness of breath History of Present Illness: Pt is a 54 year old mal with pmhx of esrd, chf, dm and htn who presents to the er with shortness of breath. he says that it began yesterday and got worse though the day. he last went to HD on Saturday. He is not compliant with fluid intake. He denies fevers or chills. He denies chest pain or palpitations. He complains of lower ext edema. - History Source History Provided By: Patient - Past Medical History Cardio/Vascular: Yes: CHF, HTN Renal/: Yes: Renal Failure, Renal Inusuff, Hemodialysis Endocrine: Yes: Diabetes Mellitus - Past Surgical History Past Surgical History: Yes: AV Fistula/Graft - Alcohol/Substance Use Hx Alcohol Use: No History of Substance Use: reports: None - Smoking History Smoking history: Never smoked Have you smoked in the past 12 months: No If you are a former smoker, when did you quit?: 2009 - Social History ADL: Independent History of Recent Travel: No Home Medications - Allergies Allergies/Adverse Reactions: Allergies Allergy/AdvReac Type Severity Reaction Status Date / Time No Known Allergies Allergy Verified 07/05/19 23:09 - Home Medications Home Medications: Ambulatory Orders Glyburide 2.5 mg PO DAILY 02/03/19 Hydralazine HCl 25 mg PO BID 02/03/19 Metoprolol Succinate [Toprol XL -] 50 mg PO BID 02/03/19 Torsemide 100 mg PO UTDICT 02/03/19 Sevelamer Carbonate [Renvela -] 800 mg PO TID 07/06/19 Family Medical History Family History: Denies Review of Systems - Review of Systems Constitutional: reports: Malaise Eyes: reports: No Symptoms HENT: reports: No Symptoms Neck: reports: No Symptoms Cardiovascular: reports: Edema Respiratory: reports: SOB Gastrointestinal: reports: No Symptoms Genitourinary: reports: No Symptoms Musculoskeletal: reports: No Symptoms Integumentary: reports: No Symptoms Neurological: reports: No Symptoms Endocrine: reports: No Symptoms Hematology/Lymphatic: reports: No Symptoms Psychiatric: reports: No Symptoms Physical Exam Vital Signs: Vital Signs Temperature 98.0 F 07/06/19 07:10 Pulse Rate 58 L 07/06/19 11:27 Respiratory Rate 18 07/06/19 11:27 Blood Pressure 152/71 07/06/19 11:27 O2 Sat by Pulse Oximetry (%) 97 07/06/19 11:27 Constitutional: Yes: Calm Eyes: Yes: Conjunctiva Clear HENT: Yes: Atraumatic Neck: Yes: Supple Cardiovascular: Yes: S1, S2 Respiratory: Yes: CTA Bilaterally Gastrointestinal: Yes: Soft, Abdomen, Obese Renal/: Yes: WNL Musculoskeletal: Yes: WNL Edema: LLE: 1+, RLE: 1+ Neurological: Yes: Oriented Psychiatric: Yes: Oriented Labs: CBC, BMP 07/06/19 05:38 07/06/19 05:38 Imaging - Results Chest X-ray: Report Reviewed Problem List - Problems (1) ESRD (end stage renal disease) on dialysis Code(s): N18.6 - END STAGE RENAL DISEASE; Z99.2 - DEPENDENCE ON RENAL DIALYSIS (2) Anemia Code(s): D64.9 - ANEMIA, UNSPECIFIED (3) Diabetes mellitus Code(s): E11.9 - TYPE 2 DIABETES MELLITUS WITHOUT COMPLICATIONS Qualifiers: Diabetes mellitus type: type 2 Assessment/Plan Current Medications Generic Name Dose Route Start Last Admin Trade Name Freq PRN Reason Stop Dose Admin Glyburide 2.5 mg 07/06/19 07:00 07/06/19 07:45 Diabeta - PO 2.5 mg DAILY@0700 [facility] Administration Heparin Sodium (Porcine) 5,000 unit 07/06/19 10:00 Heparin - SQ BID BRIAN Hydralazine HCl 25 mg 07/06/19 10:00 07/06/19 11:09 Apresoline - PO Not Given BID BRIAN Metoprolol Succinate 50 mg 07/06/19 10:00 07/06/19 11:10 Toprol Xl - PO Not Given BID BRIAN Sevelamer Carbonate 800 mg 07/06/19 08:00 07/06/19 09:30 Renvela - PO 800 mg TIDCM BRIAN Administration Torsemide 100 mg 07/07/19 10:00 Demadex - PO TuThSa@1000 [facility]RIAN Impression 1. ESRD 2. CHF 3. fluid overload 4. dyspnea 5. anemia 6. HTN 7. DM 8. hyperkalemia Plan - diuretic on non HD days - HD today - epogen for anemia - discussed fluid intake and compliance - pt has HD set up as outpt -
[2019-07-06] MEDS ORDERED: HEPARIN NA (PORCINE) 5,000 UNITS/ML 1ML VIAL IVPUSH ONE (12:23)
[2019-07-06 12:56] VITALS: TEMP 98.2
--- NOTE | 2019-07-06 15:30 | CON.CARD ---
Consult Consult Specialty:: Cardiology Referred by:: Dr. Staton Reason for Consultation:: SOB, fluid overload - History of Present Illness Chief Complaint: SOB History of Present Illness: 54 year old man with a pmh HTN, DMII, HLD, ESRD on HD, chronic combined systolic /diastolic CHF with h/o mild LV systolic dysfunction, non-obs CAD on cardiac cath 01/15/18 prior admissions for sob/fluid overload in the setting of dietary non-adherence, now again admitted with sob and fluid overload. Pt seen and examined today in HD in [place]. States he is feeling better and wants to go home. States that he has been eating a proper diet at home states he had breakfast and lunch at home yesterday and states he does not add any salt to his food. states he has been adherent with his medications. denies any chest pain, palpitations. - History Source History Provided By: Patient, Medical Record Limitations to Obtaining History: No Limitations - Past Medical History Cardio/Vascular: Yes: CAD, CHF, HTN Renal/: Yes: Renal Failure, Renal Inusuff, Hemodialysis Endocrine: Yes: Diabetes Mellitus - Past Surgical History Past Surgical History: Yes: AV Fistula/Graft - Alcohol/Substance Use Hx Alcohol Use: No History of Substance Use: reports: None - Smoking History Smoking history: Never smoked Have you smoked in the past 12 months: No If you are a former smoker, when did you quit?: 2009 - Social History ADL: Independent History of Recent Travel: No Home Medications - Allergies Allergies/Adverse Reactions: Allergies Allergy/AdvReac Type Severity Reaction Status Date / Time No Known Allergies Allergy Verified 07/05/19 23:09 - Home Medications Home Medications: Ambulatory Orders Glyburide 2.5 mg PO DAILY 02/03/19 Hydralazine HCl 25 mg PO BID 02/03/19 Metoprolol Succinate [Toprol XL -] 50 mg PO BID 02/03/19 Torsemide 100 mg PO UTDICT 02/03/19 Sevelamer Carbonate [Renvela -] 800 mg PO TID 07/06/19 Review of Systems - Review of Systems Constitutional: denies: No Symptoms, Chills, Diaphoresis, Fever, Lethargy, Loss of Appetite, Malaise, Night Sweats, Unintentional Wgt. Loss, Weakness, Other Eyes: denies: No Symptoms, Blind Spots, Blurred Vision, Double Vision, Eye Pain , Floaters, Photophobia, Recent Change in Vision, Other HENT: denies: No Symptoms, Difficult Swallowing, Ear Discharge, Ear Pain, Epistaxis, Gingival Bleeding, Hearing Loss, Mouth Swelling, Nasal Congestion, Ocular Prosthesis, Throat Pain, Toothache, Ringing in Ears, Other Neck: denies: No Symptoms, Decreased ROM, Lumps, Pain on Movement, Stiffness, Swollen Glands, Tenderness, Other Cardiovascular: reports: Shortness of Breath. denies: No Symptoms, Chest Pain, Edema, Palpitations, Other Respiratory: reports: Orthopnea, SOB, SOB on Exertion. denies: No Symptoms, Cough, Exercise Intolerance, Hemoptysis, PND, Snoring, Wheezing, Other Gastrointestinal: denies: No Symptoms, Abdominal Pain, Bloating, Constipation, Diarrhea, Dysphagia, Indigestion, Melena, Nausea, Rectal Bleeding, Vomiting, Vomiting Blood, Other Genitourinary: denies: No Symptoms, Burning, Discharge, Dysuria, Flank Pain, Frequency, Hematuria, Incontinence, Lesions, Menses, Pain, Testicular Mass, Testicular Pain, Testicular Swelling, Urgency, Vaginal Bleeding, Other Breasts: denies: No Symptoms Reported, See HPI, Breast Implants, Discharge from Nipple, Lumps, Pain, Skin Changes, Other Musculoskeletal: denies: No Symptoms, Back Pain, Crepitus, Decreased ROM, Extremity Pain, Joint Pain, Joint Swelling, Muscle Pain, Muscle Cramps, Muscle Weakness, Other Integumentary: denies: No Symptoms, Blister, Bruising, Change in Color, Eczema, Erythema, Incision, Lesions, Lump, Pallor, Pruritis, Rash, Wound, Other Neurological: denies: No Symptoms, Change in LOC, Change in Speech, Confusion, Dizziness, Headache, Incoordination, Numbness, Parasthesia, Pre-Existing Deficit , Seizure, Syncope, Tremors, Unsteady Gait, Weakness, Other Endocrine: denies: No Symptoms, Excessive Sweating, Flushing, Increased Hunger, Increased Thirst, Intolerance to Cold, Intolerance to Heat, Unexplained Weight Gain, Unexplained Weight Loss, Other Hematology/Lymphatic: denies: No Symptoms, Easily Bruised, Excessive Bleeding, Swollen Glands, Other Psychiatric: denies: No Symptoms, Altered Sleep Pattern, Anxiety, Depression, Hallucinations, Panic, Paranoia, Suicidal, Other - Risk Factors Known Risk Factors: Yes: Hypercholesterolemia, Hypertension Vital Signs: Vital Signs Temperature 98.2 F 07/06/19 12:45 Pulse Rate 60 07/06/19 14:20 Respiratory Rate 18 07/06/19 14:20 Blood Pressure 164/82 07/06/19 14:20 O2 Sat by Pulse Oximetry (%) 97 07/06/19 11:27 Constitutional: Yes: No Distress, Calm Eyes: Yes: Conjunctiva Clear, EOM Intact, PERRL HENT: Yes: Atraumatic, Normocephalic Neck: Yes: Supple, Trachea Midline Respiratory: Yes: Regular, CTA Bilaterally. No: Rales, Rhonchi, SOB, Wheezes Gastrointestinal: Yes: Normal Bowel Sounds, Soft. No: Distention, Tenderness Cardiovascular: Yes: Regular Rate and Rhythm. No: Bradycardia, Tachycardia, Pulse Irregular, Gallop, Rub, Varicosities, Other JVD: No Carotid Bruit: No PMI: Non-Displaced Heart Sounds: Yes: S1, S2. No: Split S2, S3, S4, Clicks, Gallop, Rub, Bruit Murmur: No: Systolic Murmur, Diastolic Murmur Extremities: Yes: WNL Edema: No Peripheral Pulses WNL: Yes Peripheral Pulses: 2+ Left Doralis Pedis, 2+ Right Dorsalis Pedis Neurological: Yes: Alert, Oriented Psychiatric: Yes: Alert, Oriented - Other Data Labs, Other Data: CBC, BMP 07/06/19 05:38 07/06/19 05:38 INR, PTT INR 1.12 (0.83-1.09) H 07/05/19 23:50 Troponin, BNP 07/05/19 07/05/19 23:50 23:50 Troponin I 0.02 B-Natriuretic Peptide > 01635.0 H Troponin, BNP 07/05/19 07/05/19 23:50 23:50 Troponin I 0.02 B-Natriuretic Peptide > 93872.0 H nsr 1st deg avb 63bpm, incomplete rbbb Imaging - Results Chest X-ray: Report Reviewed, Image Reviewed EKG: Report Reviewed, Image Reviewed Other: Report Reviewed, Image Reviewed Assessment/Plan 54 year old man with a pmh HTN, DMII, HLD, ESRD on HD, chronic combined systolic /diastolic CHF with h/o mild LV systolic dysfunction, non-obs CAD on cardiac cath 01/15/18 prior admissions for sob/fluid overload in the setting of dietary non-adherence, now again admitted with sob and fluid overload. States he is feeling better and wants to go home. States that he has been eating a proper diet at home states he had breakfast and lunch at home yesterday and states he does not add any salt to his food. states he has been adherent with his medications. denies any chest pain, palpitations. Volume overload-acute on chronic combined systolic/diastolic chf in setting of ESRD on HD -improving with HD -no current pulm edema or sob -no signs of ischemia, no chest pain, no ischemia on ekg, cardiac enzymes wnl -cardiac cath 01/15/2018 [facility] as above showed non-obs CAD -no additional inpatient cardiac work up is needed at this time. 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
--- NOTE | 2019-07-06 15:34 | DS ---
Physical Examination Vital Signs: Vital Signs Temperature 98.2 F 07/06/19 12:45 Pulse Rate 60 07/06/19 14:20 Respiratory Rate 18 07/06/19 14:20 Blood Pressure 164/82 07/06/19 14:20 O2 Sat by Pulse Oximetry (%) 97 07/06/19 11:27 Constitutional: Yes: Calm Cardiovascular: Yes: Regular Rate and Rhythm, S1, S2 Respiratory: Yes: CTA Bilaterally Gastrointestinal: Yes: Normal Bowel Sounds, Soft Neurological: Yes: Alert, Oriented Labs: CBC, BMP 07/06/19 05:38 07/06/19 05:38 Discharge Summary Problems reviewed: Yes Reason For Visit: ACUTE ON CHRONIC CHF,SOB,ESRD Current Active Problems Acute exacerbation of CHF (congestive heart failure) (Acute) ESRD (end stage renal disease) on dialysis (Acute) Hospital Course: 54 year old male with a past medical history significant for ESRD (on HD M, W, F ), CHF, DM, HTN and anemia who presents to the emergency department with an acute onset of shortness of breath, that presented while the patient was lying down. The patient denies any relief with sitting up. Pt states he went to lie down for sleep, when he had SOB with lying flat. The SOB was not improved with sitting up, prompting him to call EMS; SOB was improved with 2 L NC and O2 was 100% on the ambulance per EMS. Pt states he has been compliant with his medication and diet, and had a full HD tx on Saturday and 4.5 Kg was removed today he is getting HD and feeling better dc home after HD Condition: Stable - Instructions Disposition: HOME - Home Medications Comprehensive Discharge Medication List: Ambulatory Orders Glyburide 2.5 mg PO DAILY 02/03/19 Hydralazine HCl 25 mg PO BID 02/03/19 Metoprolol Succinate [Toprol XL -] 50 mg PO BID 02/03/19 Torsemide 100 mg PO UTDICT 02/03/19 Sevelamer Carbonate [Renvela -] 800 mg PO TID 07/06/19
[2019-07-06] MEDS ORDERED: SODIUM CHLORIDE 250 ML IV PRN (15:57)
[2019-07-06] MEDS ORDERED: HEPARIN NA (PORCINE) 5,000 UNITS/ML 1ML VIAL IVPUSH SCH (16:00)
[2019-07-06 17:33] VITALS: BP 160/77; PULSE 60
[2019-07-07] MEDS ORDERED: TORSEMIDE 100 MG TABLET PO SCH (10:00)
== END 2019-07-06 17:45 | disposition home or self-care (01) | DRG 291 ==
LOC: JER 22:33 → JERBED 07-06 00:45
PROVIDERS: ADMIT Family Medicine; ATTEND Family Medicine
PROC: 5A1D70Z Performance of Urinary Filtration, Intermittent, Less than 6 Hours Per Day (ICD-10-PCS; principal; 2019-07-06)
DX: I13.2 Hypertensive heart and chronic kidney disease with heart failure and with stage 5 chronic kidney disease, or end stage renal disease (principal); N18.6 End stage renal disease; I50.43 Acute on chronic combined systolic (congestive) and diastolic (congestive) heart failure; E66.9 Obesity, unspecified; Z68.35 Body mass index [BMI] 35.0-35.9, adult; I44.0 Atrioventricular block, first degree; I45.10 Unspecified right bundle-branch block; E87.5 Hyperkalemia; E87.70 Fluid overload, unspecified; I25.10 Atherosclerotic heart disease of native coronary artery without angina pectoris; Z95.5 Presence of coronary angioplasty implant and graft; E11.22 Type 2 diabetes mellitus with diabetic chronic kidney disease; Z99.2 Dependence on renal dialysis
CPT/HCPCS: 36415; 71045-TC-FY; 80048; 80053; 82550; 82553; 82962; 83735; 83880; 84100; 84484; 85025; 85027; 85610; 86803; 87340; 93005; 93010; 99285-25; J1644

== ENCOUNTER 2019-08-24 18:08 | Inpatient (IN) | payer OTHER ==
--- NOTE | 2019-08-24 18:17 | PDOC ---
Rapid Medical Evaluation Medical Evaluation: Allergies Allergy/AdvReac Type Severity Reaction Status Date / Time No Known Allergies Allergy Verified 07/05/19 23:09 I have performed a brief in-person evaluation of this patient. The patient presents with a chief complaint of: pmh HTN, DMII, HLD, ESRD on HD, chronic combined systolic/diastolic CHF with h/o mild LV systolic dysfunction, non-obs CAD on cardiac cath 01/15/18 sent for admission by Dr. Staton for possible worsening CHF; patient is on Torsemide but reports increased BLE swelling over the past couple of weeks; weight gain 15 pounds in 2 weeks Pertinent physical exam findings: 3+pitting edema of BLE, no skin color changes on legs noted I have ordered the following: labs, ekg, cxr The patient will proceed to the ED for further evaluation. 08/24/19 18:15
[2019-08-24 19:11] LABS: BASO % 0.7 % (0-2.0); EOS % 6.5 % (0-4.5); HEMATOCRIT 30.5 % (35.4-49); HEMOGLOBIN 9.9 GM/dL (11.7-16.9); LYMPH % 11.6 % (8-40); MCH 32.7 pg (25.7-33.7); MCHC 32.3 g/dl (32.0-35.9); MEAN CELL VOLUME 101.2 fl (80-96); MEAN PLT VOLUME 8.9 fl (7.5-11.1); MONO % 12.1 % (3.8-10.2); NEUT % 69.1 % (42.8-82.8); PLATELET COUNT 135 K/MM3 (134-434); RBC 3.02 M/mm3 (4.00-5.60); RDW 15.6 % (11.9-15.9)
--- NOTE | 2019-08-24 19:30 | PDOC ---
History of Present Illness - General Chief Complaint: Edema Stated Complaint: PAIN Time Seen by Provider: 08/24/19 18:14 - History of Present Illness Initial Comments: The pt is a 54M w/ a history of HTN, CHF, T2DM, ESRD on iHD (MWF) s/p complete session today who presents for evaluation of 2 weeks of worsening BLE swelling, ANDERSEN, and orthopnea. He reports having a full session of iHD today. He denies fevers/chills, cough, abdominal pain, vomiting today, diarrhea, or changes in sensation. He reports being compliant with his medications and no change in his diet He reports a >10lbs weight gain over the last 2 weeks. 08/24/19 19:30 Past History - Past Medical History Allergies/Adverse Reactions: Allergies Allergy/AdvReac Type Severity Reaction Status Date / Time No Known Allergies Allergy Verified 08/24/19 18:17 Home Medications: Ambulatory Orders Hydralazine HCl 25 mg PO BID 02/03/19 Metoprolol Succinate [Toprol XL -] 50 mg PO BID 02/03/19 Torsemide 100 mg PO UTDICT 02/03/19 Sevelamer Carbonate [Renvela -] 800 mg PO TID 07/06/19 Atorvastatin Ca [Lipitor] 80 mg PO HS 08/24/19 Ferrous Sulfate [Feosol] 325 mg PO BID 08/24/19 Hydralazine HCl 50 mg PO TID 08/24/19 Anemia: No Asthma: No Cancer: No Cardiac Disorders: No CVA: No COPD: No CHF: Yes Dementia: No Diabetes: Yes Dialysis: Yes (M-W-) GI Disorders: No Disorders: No HTN: Yes Hypercholesterolemia: Yes Liver Disease: No Seizures: No Thyroid Disease: No - Surgical History Abdominal Surgery: No Appendectomy: No Cardiac Surgery: No Cholecystectomy: No Lung Surgery: No Neurologic Surgery: No Orthopedic Surgery: No - Psycho Social/Smoking Cessation Hx Smoking History: Never smoked Have you smoked in the past 12 months: No If you are a former smoker, when did you quit?: 2009 Hx Alcohol Use: No Drug/Substance Use Hx: No Substance Use Type: None Hx Substance Use Treatment: No Review of Systems - Review of Systems Able to Perform ROS?: Yes Comments:: GENERAL/CONSTITUTIONAL: No fever or chills HEAD, EYES, EARS, NOSE AND THROAT: No change in vision. No change in hearing. No sore throat CARDIOVASCULAR: +ANDERSEN/orthopnea; denies CP RESPIRATORY: Denies cough, hemoptysis GASTROINTESTINAL: +intermittent nausea/vomiting; denies diarrhea or constipation GENITOURINARY: Anuric MUSCULOSKELETAL: No joint or muscle swelling or pain. No neck or back pain SKIN: No rash NEUROLOGIC: No headache, vertigo, loss of consciousness, or change in strength/ sensation ENDOCRINE: No increased thirst HEMATOLOGIC/LYMPHATIC: No anemia, easy bleeding, or history of blood clots ALLERGIC/IMMUNOLOGIC: No hives or skin allergy 08/24/19 19:24 Is the patient limited Hungarian proficient: No *Physical Exam - Vital Signs Last Vital Signs Temp Pulse Resp BP Pulse Ox 97.9 F 64 18 168/80 95 08/24/19 18:15 08/24/19 18:15 08/24/19 18:15 08/24/19 18:15 08/24/19 18:15 - Physical Exam GENERAL: Awake, alert, and oriented to person/place/time, in no acute distress HEAD: No signs of trauma, normocephalic, atraumatic EYES: PERRLA, EOMI, sclera anicteric, conjunctiva clear ENT: Hearing grossly normal, nares patent, oropharynx clear without exudates. Moist mucosa LUNGS: No distress, speaks in full sentences, mild diminished breath sounds at bases HEART: Regular rate and rhythm, normal S1 and S2, no murmurs appreciated, peripheral pulses normal and equal bilaterally ABDOMEN: Soft, nontender, normoactive bowel sounds. No guarding, no rebound EXTREMITIES: Moves all extremities independently, BLE 4+ edema to knees NEUROLOGICAL: Cranial nerves II through XII grossly intact. Normal speech, no focal sensorimotor deficits SKIN: Warm, Dry 08/24/19 19:25 ED Treatment Course - LABORATORY CBC & Chemistry Diagram: 08/24/19 18:45 08/24/19 18:45 - ADDITIONAL ORDERS Additional order review: 08/24/19 18:45 RBC 3.02 L MCV 101.2 H MCHC 32.3 RDW 15.6 D MPV 8.9 Neutrophils % 69.1 Lymphocytes % 11.6 Monocytes % 12.1 H D Eosinophils % 6.5 H Basophils % 0.7 Medical Decision Making - Medical Decision Making The pt is a 54M w/ a history of HTN, CHF, T2DM, ESRD on iHD (MWF) s/p complete session today who presents for evaluation of 2 weeks of worsening BLE swelling, ANDERSEN, and orthopnea. ED Course Labs sent ECG CXR Consult order placed to Dr. Navarro ECG w/ NSR; HR 62; QTc 513; no axis deviation, non-specific TW abn; abn ecg No leukocytosis Anemia noted, near baseline K 4.6 Cr elevated, known ESRD Trop I neg BNP elevated to >100k Plan for admission for CHF exacerbation Pt [facility] [place] 08/24/19 21:18 Discharge - Discharge Information Problems reviewed: Yes Clinical Impression/Diagnosis: ESRD (end stage renal disease) Acute exacerbation of CHF (congestive heart failure) Qualifiers: Heart failure type: unspecified Qualified Code(s): I50.9 - Heart failure, unspecified HTN (hypertension) Qualifiers: Hypertension type: secondary to other renal disorders Qualified Code(s): I15.1 - Hypertension secondary to other renal disorders Condition: Good - Admission Yes - Follow up/Referral Referrals: Axel Staton MD [Primary Care Provider] - - Patient Discharge Instructions - Post Discharge Activity
--- NOTE | 2019-08-24 19:37 | PDOC ---
Attending Attestation - Resident Resident Name: Woodrow Melgar - ED Attending Attestation I have performed the following: I have examined & evaluated the patient, The case was reviewed & discussed with the resident, I agree w/resident's findings & plan, Exceptions are as noted - HPI HPI: 08/24/19 19:37 54-year-old male referred in for admission by for his increasing lower extremity edema - Physicial Exam PE: 08/24/19 20:36 Well-nourished well-developed 54-year-old male Presents with lower extremity pitting edema Head normocephalic atraumatic Neck is supple Lungs clear to auscultation bilaterally CVS regular rate rhythm S1-S2 Abdomen is protuberant, nontender, no rebound or guarding Extremities pitting edema in lower extremities, there is AV fistula in left arm w thrill Neuro alert and oriented x3, ambulating with ease no gross focal neuro deficits 08/24/19 22:24 - Medical Decision Making 08/24/19 21:27 54-year-old male sent in by Dr. Staton for admission Chief complaint of 2 weeks of increasing orthopnea and dyspnea on exertion and increasing lower extremity edema Past medical history significant for hypertension, CHF, type 2 diabetes, end- stage renal disease with dialysis on Saturday and and Saturday08/24/19 21:28 Electrolytes are unremarkable Patient is afebrile, has no current chest pain abdominal pain or nausea or vomiting or fever or chills 08/24/19 22:25 imp chf,esrd pt admitted to med/surg
[2019-08-24 19:41] LABS: ALBUMIN 3.4 g/dl (3.4-5.0); BILIRUBIN,TOTAL 0.8 mg/dL (0.2-1); BLOOD UREA NITROGEN 50.6 mg/dL (7-18); CALCIUM 7.5 mg/dL (8.5-10.1); POTASSIUM 4.6 mmol/L (3.5-5.1); TOT PROT 6.7 g/dl (6.4-8.2)
--- NOTE | 2019-08-24 20:25 | HP ---
Admitting History and Physical - Primary Care Physician PCP: Axel Staton - Admission Chief Complaint: SOB, Bilateral LE Edema History of Present Illness: This is a 54 y/o man with a PMHx of ESRD (HD- M,W,F), Chronic Systolic/ Diastolic CHF, non obs CAD (cardiac cath 01/15/18), HTN, HLD, DM. Who presents to the ED with worsening SOB, ANDERSEN and b/l LE edema. Patient reports having b/l LE edema x 2 weeks. Patient reports only being able to ambulate 10-12 feet before becoming SOB. He reports having to sleep with 3 pillows at night. He reports having chills, non bilious- non bloody vomiting this past weekend. Patient ate 75% of his dinner tray without incident. Patient denies fever, dizziness, CUTLER, CP, palpitations, AP, melena, hematochezia. Patient does not produce urine. Patient denies recent travel or sick contacts. ED course was noted for: (1) BNP- 437125 (2) Bun 50.6, Cr 7.0 (3) Chest Xray image- cardiomegaly, congestive changes History Source: Patient Limitations to Obtaining History: No Limitations - Past Medical History Cardiovascular: Yes: CAD, CHF, HTN Renal/: Yes: Renal Failure, Renal Inusuff, Hemodialysis Heme/Onc: Yes: Anemia Endocrine: Yes: Diabetes Mellitus - Past Surgical History Past Surgical History: Yes: AV Fistula/Graft - Smoking History Smoking history: Never smoked Have you smoked in the past 12 months: No If you are a former smoker, when did you quit?: 2009 - Alcohol/Substance Use Hx Alcohol Use: No History of Substance Use: reports: None - Social History Usual Living Arrangement: Yes: With Spouse Do you think of yourself as: Straight/Heterosexual ADL: Independent History of Recent Travel: No Home Medications - Allergies Allergies/Adverse Reactions: Allergies Allergy/AdvReac Type Severity Reaction Status Date / Time No Known Allergies Allergy Verified 08/24/19 18:17 - Home Medications Home Medications: Ambulatory Orders Hydralazine HCl 25 mg PO BID 02/03/19 Metoprolol Succinate [Toprol XL -] 50 mg PO BID 02/03/19 Torsemide 100 mg PO UTDICT 02/03/19 Sevelamer Carbonate [Renvela -] 800 mg PO TID 07/06/19 Atorvastatin Ca [Lipitor] 80 mg PO HS 08/24/19 Ferrous Sulfate [Feosol] 325 mg PO BID 08/24/19 Hydralazine HCl 50 mg PO TID 08/24/19 Family Medical History Family Hx Cardiac Disorders: Father (CHF- age 58) Family Hx Diabetes: Sister Family Hx Nuerologic Problems: Mother (Seizures) Review of Systems - Review of Systems Constitutional: reports: No Symptoms Eyes: reports: No Symptoms HENT: reports: No Symptoms Neck: reports: No Symptoms Cardiovascular: reports: Edema, Shortness of Breath Respiratory: reports: Cough, Orthopnea, SOB, SOB on Exertion Gastrointestinal: reports: No Symptoms Genitourinary: reports: Other (patient does not produce urine) Breasts: reports: No Symptoms Reported Musculoskeletal: reports: Extremity Pain Integumentary: reports: Erythema Neurological: reports: No Symptoms Endocrine: reports: No Symptoms Hematology/Lymphatic: reports: No Symptoms Psychiatric: reports: No Symptoms Pain Intensity: 4 Physical Examination Vital Signs: Vital Signs Temperature 97.9 F 08/24/19 18:15 Pulse Rate 64 08/24/19 18:15 Respiratory Rate 18 08/24/19 18:15 Blood Pressure 168/80 08/24/19 18:15 O2 Sat by Pulse Oximetry (%) 95 08/24/19 18:15 Constitutional: Yes: Well Nourished, Mild Distress, Obese Eyes: Yes: WNL, Conjunctiva Clear, EOM Intact, PERRL HENT: Yes: WNL, Atraumatic, Normocephalic Neck: Yes: WNL, Supple, Trachea Midline Cardiovascular: Yes: WNL, Regular Rate and Rhythm, S1, S2 Respiratory: Yes: Diminished, Rales, Rhonchi, SOB, SOB on Exertion Gastrointestinal: Yes: WNL, Normal Bowel Sounds, Soft, Abdomen, Obese ...Rectal Exam: Yes: Deferred Renal/: Yes: Other (pt does not produce urine) Breast(s): Yes: WNL Musculoskeletal: Yes: WNL Extremities: Yes: Other (AV Fistula- L-forearm +bruit/thrill) Edema: Yes Edema: LLE: 3+, RLE: 3+ Peripheral Pulses WNL: Yes Integumentary: Yes: Erythema Neurological: Yes: WNL, Alert, Oriented ...Motor Strength: WNL Psychiatric: Yes: WNL, Alert, Oriented Labs: CBC, BMP 08/24/19 18:45 08/24/19 18:45 Problem List - Problems (1) Acute exacerbation of CHF (congestive heart failure) Assessment/Plan: Likely secondary to overload due to ESRD (HD) Appreciate Cardiology consult Appreciate Nephrology consult BNP > 712330 (no baseline avail to compare) Chest Xray image- vascular congestion, increased markings Will continue Torsemide per renal dosing Strict INOs Daily weights Elevated extremity Duplex b/l LE r/o DVT Wells Score 1 Code(s): I50.9 - HEART FAILURE, UNSPECIFIED Qualifiers: Heart failure type: unspecified Qualified Code(s): I50.9 - Heart failure, unspecified (2) SOB (shortness of breath) Assessment/Plan: See above Code(s): R06.02 - SHORTNESS OF BREATH (3) Lower extremity edema Assessment/Plan: Likely secondary to CHF flare Appreciate Cardiology consult Continue Torsemide Strict INOs Daily weights Monitor vitals Code(s): R60.0 - LOCALIZED EDEMA (4) ESRD (end stage renal disease) on dialysis Assessment/Plan: HD (M,W,F) Appreciate Nephrology consult- HD Management Avoid Nephrotoxic drugs Code(s): N18.6 - END STAGE RENAL DISEASE; Z99.2 - DEPENDENCE ON RENAL DIALYSIS (5) HTN (hypertension) Assessment/Plan: stable Monitor BP Continue home meds with parameters Code(s): I10 - ESSENTIAL (PRIMARY) HYPERTENSION Qualifiers: Hypertension type: secondary to other renal disorders Qualified Code(s): I15.1 - Hypertension secondary to other renal disorders; N28.89 - Other specified disorders of kidney and ureter (6) Anemia Assessment/Plan: Likely due to ESRD Hgb 9.9 9 (at baseline) Will transfuse if Hgb < 7.0 Code(s): D64.9 - ANEMIA, UNSPECIFIED (7) Diabetes mellitus Assessment/Plan: stable BGMs ISS Code(s): E11.9 - TYPE 2 DIABETES MELLITUS WITHOUT COMPLICATIONS Qualifiers: Diabetes mellitus type: type 2 Assessment/Plan This is a 54 with a PMHx of ESRD (HD- M,W,F), Chronic Systolic/Diastolic CHF, non obs CAD (cardiac cath 01/15/18), HTN, HLD, DM. Admitted to Telemetry for CHF Exacerbation, ESRD for further evaluation of their emergent condition. Plan: See Problem List FEN Fluid Restriction 1L Replete lytes prn Low Na, Diabetic, Renal Diet DVT ppx OOB SCDs Heparin SQ Code Status: Full Code Dispo: Requires Inpatient Care Visit type - Emergency Visit Emergency Visit: Yes ED Registration Date: 08/24/19 Care time: The patient presented to the Emergency Department on the above date and was hospitalized for further evaluation of their emergent condition. - New Patient This patient is new to me today: Yes Date on this admission: 08/24/19 - Critical Care Critical Care patient: No
[2019-08-24] MEDS ORDERED: PATIENT'S OWN MEDICATION (NON-FORMULARY) (Ferrous Sulfate [Feosol] 325 MG) PO SCH (22:00)
[2019-08-24] MEDS ORDERED: hydrALAZINE HCL 25 MG TABLET (FP) ONE (22:04)
[2019-08-24] MEDS ORDERED: FERROUS SO4 325 MG TABLET (FP) ONE (22:05)
[2019-08-24] MEDS ORDERED: HEPARIN NA (PORCINE) 5,000 UNITS/ML 1ML VIAL ONE (22:05)
[2019-08-24] MEDS ORDERED: ATORVASTATIN CA 40 MG TABLET (FP) ONE (22:06)
[2019-08-24] MEDS: HEPARIN NA (PORCINE) 5,000 UNITS/ML 1ML VIAL SQ SCH (22:13)
[2019-08-24] MEDS: hydrALAZINE HCL 50 MG TABLET (FP) PO SCH (22:13)
[2019-08-24] MEDS: FERROUS SO4 325 MG TABLET (FP) PO SCH (22:13)
[2019-08-24] MEDS: ATORVASTATIN CA 80 MG TABLET (FP) PO SCH (22:13)
[2019-08-25 01:09] VITALS: BMI 39.3
[2019-08-25] MEDS: hydrALAZINE HCL 50 MG TABLET (FP) PO SCH ×3 (05:49→21:38)
[2019-08-25 06:38] LABS: BASO % 0.5 % (0-2.0); EOS % 6.2 % (0-4.5); HEMATOCRIT 28.9 % (35.4-49); HEMOGLOBIN 9.4 GM/dL (11.7-16.9); LYMPH % 10.7 % (8-40); MCH 32.9 pg (25.7-33.7); MCHC 32.6 g/dl (32.0-35.9); MEAN PLT VOLUME 8.9 fl (7.5-11.1); MONO % 13.1 % (3.8-10.2); NEUT % 69.5 % (42.8-82.8); PLATELET COUNT 132 K/MM3 (134-434); RBC 2.87 M/mm3 (4.00-5.60); RDW 15.4 % (11.9-15.9); WHITE BLOOD COUNT 6.7 K/mm3 (4.0-10.0)
[2019-08-25 07:24] LABS: BLOOD UREA NITROGEN 59.7 mg/dL (7-18); CALCIUM 7.4 mg/dL (8.5-10.1); MAGNESIUM 2.3 mg/dL (1.8-2.4); PHOSPHOROUS 5.2 mg/dL (2.5-4.9); POTASSIUM 4.8 mmol/L (3.5-5.1)
[2019-08-25] MEDS ORDERED: TORSEMIDE 100 MG TABLET PO SCH (10:00)
[2019-08-25] MEDS: FERROUS SO4 325 MG TABLET (FP) PO SCH ×2 (10:22→21:38)
[2019-08-25] MEDS: SEVELAMER CARBONATE 800 MG TAB (FP) PO SCH ×3 (10:22→17:37)
[2019-08-25] MEDS: HEPARIN NA (PORCINE) 5,000 UNITS/ML 1ML VIAL SQ SCH ×2 (10:22→21:38)
--- NOTE | 2019-08-25 11:04 | CON.CARD ---
Consult Consult Specialty:: Cardiology Referred by:: Dr. Vigil Reason for Consultation:: edema - History of Present Illness Chief Complaint: fluid overload, edema History of Present Illness: 54 year old man with a pmh HTN, DMII, HLD, ESRD on HD, chronic combined systolic /diastolic CHF with h/o mild LV systolic dysfunction, non-obs CAD on cardiac cath 01/15/18 prior admissions for sob/fluid overload in the setting of dietary non-adherence, now again admitted with sob and fluid overload. Pt seen and examined today in HD in nad. States he has not missed HD. states that he has had weight gain over the past 2 weeks. Denies any chest pain, palpitations. Currently he is denying having had any sob. states that his only issue is the swelling in his legs. States he has been adherent with his diet but may have been drinking too much water. - History Source History Provided By: Patient Limitations to Obtaining History: No Limitations - Past Medical History Cardio/Vascular: Yes: CAD, CHF, HTN Renal/: Yes: Renal Failure, Renal Inusuff, Hemodialysis Endocrine: Yes: Diabetes Mellitus - Past Surgical History Past Surgical History: Yes: AV Fistula/Graft - Alcohol/Substance Use Hx Alcohol Use: No History of Substance Use: reports: None - Smoking History Smoking history: Never smoked Have you smoked in the past 12 months: No If you are a former smoker, when did you quit?: 2009 - Social History ADL: Independent History of Recent Travel: No Home Medications - Allergies Allergies/Adverse Reactions: Allergies Allergy/AdvReac Type Severity Reaction Status Date / Time No Known Allergies Allergy Verified 08/24/19 18:17 - Home Medications Home Medications: Ambulatory Orders Hydralazine HCl 25 mg PO BID 02/03/19 Metoprolol Succinate [Toprol XL -] 50 mg PO BID 02/03/19 Torsemide 100 mg PO UTDICT 02/03/19 Sevelamer Carbonate [Renvela -] 800 mg PO TID 07/06/19 Atorvastatin Ca [Lipitor] 80 mg PO HS 08/24/19 Ferrous Sulfate [Feosol] 325 mg PO BID 08/24/19 Hydralazine HCl 50 mg PO TID 08/24/19 Family Medical History Family History: Unremarkable Review of Systems - Review of Systems Constitutional: denies: No Symptoms, Chills, Diaphoresis, Fever, Lethargy, Loss of Appetite, Malaise, Night Sweats, Unintentional Wgt. Loss, Weakness, Other Eyes: denies: No Symptoms, Blind Spots, Blurred Vision, Double Vision, Eye Pain , Floaters, Photophobia, Recent Change in Vision, Other HENT: denies: No Symptoms, Difficult Swallowing, Ear Discharge, Ear Pain, Epistaxis, Gingival Bleeding, Hearing Loss, Mouth Swelling, Nasal Congestion, Ocular Prosthesis, Throat Pain, Toothache, Ringing in Ears, Other Neck: denies: No Symptoms, Decreased ROM, Lumps, Pain on Movement, Stiffness, Swollen Glands, Tenderness, Other Cardiovascular: reports: Edema, Shortness of Breath Respiratory: reports: Orthopnea, PND, SOB, SOB on Exertion. denies: No Symptoms , Cough, Exercise Intolerance, Hemoptysis, Snoring, Wheezing, Other Gastrointestinal: denies: No Symptoms, Abdominal Pain, Bloating, Constipation, Diarrhea, Dysphagia, Indigestion, Melena, Nausea, Rectal Bleeding, Vomiting, Vomiting Blood, Other Genitourinary: denies: No Symptoms, Burning, Discharge, Dysuria, Flank Pain, Frequency, Hematuria, Incontinence, Lesions, Menses, Pain, Testicular Mass, Testicular Pain, Testicular Swelling, Urgency, Vaginal Bleeding, Other Breasts: denies: No Symptoms Reported, See HPI, Breast Implants, Discharge from Nipple, Lumps, Pain, Skin Changes, Other Musculoskeletal: denies: No Symptoms, Back Pain, Crepitus, Decreased ROM, Extremity Pain, Joint Pain, Joint Swelling, Muscle Pain, Muscle Cramps, Muscle Weakness, Other Integumentary: denies: No Symptoms, Blister, Bruising, Change in Color, Eczema, Erythema, Incision, Lesions, Lump, Pallor, Pruritis, Rash, Wound, Other Neurological: denies: No Symptoms, Change in LOC, Change in Speech, Confusion, Dizziness, Headache, Incoordination, Numbness, Parasthesia, Pre-Existing Deficit , Seizure, Syncope, Tremors, Unsteady Gait, Weakness, Other Endocrine: denies: No Symptoms, Excessive Sweating, Flushing, Increased Hunger, Increased Thirst, Intolerance to Cold, Intolerance to Heat, Unexplained Weight Gain, Unexplained Weight Loss, Other Hematology/Lymphatic: denies: No Symptoms, Easily Bruised, Excessive Bleeding, Swollen Glands, Other Psychiatric: denies: No Symptoms, Altered Sleep Pattern, Anxiety, Depression, Hallucinations, Panic, Paranoia, Suicidal, Other - Risk Factors Known Risk Factors: Yes: Hypercholesterolemia, Hypertension Vital Signs: Vital Signs Temperature 98.1 F 08/25/19 00:44 Pulse Rate 64 08/25/19 04:00 Respiratory Rate 22 H 08/25/19 04:00 Blood Pressure 153/81 08/25/19 04:00 O2 Sat by Pulse Oximetry (%) 94 L 08/25/19 03:54 Constitutional: Yes: No Distress, Calm Eyes: Yes: Conjunctiva Clear, EOM Intact HENT: Yes: Atraumatic, Normocephalic Neck: Yes: Supple, Trachea Midline Respiratory: Yes: Regular, CTA Bilaterally. No: Rales, Rhonchi, SOB, Wheezes Gastrointestinal: Yes: Normal Bowel Sounds, Soft. No: Distention, Tenderness Cardiovascular: Yes: Regular Rate and Rhythm, Bradycardia. No: Tachycardia, Pulse Irregular, Gallop, Rub, Varicosities JVD: No Carotid Bruit: No PMI: Non-Displaced Heart Sounds: Yes: S1, S2. No: Split S2, S3, S4, Clicks, Gallop, Rub, Bruit Murmur: No: Systolic Murmur, Diastolic Murmur Musculoskeletal: Yes: WNL Extremities: Yes: WNL Edema: Yes Edema: LLE: 2+, RLE: 2+ Peripheral Pulses WNL: Yes Peripheral Pulses: 2+ Left Doralis Pedis, 2+ Right Dorsalis Pedis Neurological: Yes: Alert, Oriented Psychiatric: Yes: Alert, Oriented - Other Data Labs, Other Data: CBC, BMP 08/25/19 05:50 08/25/19 05:50 Troponin, BNP 08/24/19 08/24/19 08/25/19 18:45 18:45 01:30 Troponin I 0.02 0.02 B-Natriuretic Peptide 543794.5 H 08/25/19 05:50 Troponin I 0.02 B-Natriuretic Peptide Troponin, BNP 08/24/19 08/24/19 08/25/19 18:45 18:45 01:30 Troponin I 0.02 0.02 B-Natriuretic Peptide 884548.5 H 08/25/19 05:50 Troponin I 0.02 B-Natriuretic Peptide no ischemia, nsr Echo: Report Reviewed Prior Cardiac Procedures: Cardiac Catheterization Imaging - Results Chest X-ray: Report Reviewed, Image Reviewed EKG: Report Reviewed, Image Reviewed Other: Report Reviewed, Image Reviewed Assessment/Plan 54 year old man with a pmh HTN, DMII, HLD, ESRD on HD, chronic combined systolic /diastolic CHF with h/o mild LV systolic dysfunction, non-obs CAD on cardiac cath 01/15/18 prior admissions for sob/fluid overload in the setting of dietary non-adherence, now again admitted with sob and fluid overload. Pt seen and examined today in HD in nad. States he has not missed HD. states that he has had weight gain over the past 2 weeks. Denies any chest pain, palpitations. Currently he is denying having had any sob. states that his only issue is the swelling in his legs. States he has been adherent with his diet but may have been drinking too much water. Volume overload-acute on chronic combined systolic/diastolic chf in setting of ESRD on HD -not c/w ACS -does not require additional cardiac work up at this time -can dc tele -volume overload possibly secondary to dietary non-adherence (water intake) -lungs are clear, only peripheral edema -nephrology evaluation for volume removal with HD -no signs of ischemia, no chest pain, no ischemia on ekg, cardiac enzymes wnl -cardiac cath 01/15/2018 [facility] as above showed non-obs CAD -no additional inpatient cardiac work up is needed at this time. -pt previously stated that he follows with a mortgage loan reviewer at [facility] as part of his renal transplant preparation.
--- NOTE | 2019-08-25 11:10 | PN ---
Progress Note, Physician - Current Medication List Current Medications: Active Medications Atorvastatin Calcium (Lipitor -) 80 mg PO HS [facility] Last Admin: 08/24/19 22:13 Dose: 80 mg Ferrous Sulfate (Feosol -) 325 mg PO BID [facility] Last Admin: 08/25/19 10:22 Dose: 325 mg Heparin Sodium (Porcine) (Heparin -) 5,000 unit SQ BID [facility] Last Admin: 08/25/19 10:22 Dose: 5,000 unit Hydralazine HCl (Apresoline -) 50 mg PO TID [facility] Last Admin: 08/25/19 05:49 Dose: 50 mg Metoprolol Succinate (Toprol Xl -) 50 mg PO BID [facility] Last Admin: 08/25/19 10:22 Dose: 50 mg Sevelamer Carbonate (Renvela -) 800 mg PO TIDCM [facility] Last Admin: 08/25/19 10:22 Dose: 800 mg Torsemide (Demadex -) 100 mg PO TUTHSA@1000 [facility] Last Admin: 08/25/19 10:21 Dose: 100 mg - Objective Vital Signs: Vital Signs Temperature 98.1 F 08/25/19 00:44 Pulse Rate 64 08/25/19 04:00 Respiratory Rate 22 H 08/25/19 04:00 Blood Pressure 153/81 08/25/19 04:00 O2 Sat by Pulse Oximetry (%) 94 L 08/25/19 03:54 Cardiovascular: Yes: S1, S2 Respiratory: Yes: Regular, CTA Bilaterally Gastrointestinal: Yes: Normal Bowel Sounds, Soft Edema: Yes Edema: LLE: 3+, RLE: 3+ Labs: CBC, BMP 08/25/19 05:50 08/25/19 05:50 Problem List - Problems (1) Acute exacerbation of CHF (congestive heart failure) Assessment/Plan: DIALYSIS PER RENAL CARDIO CT CHEST DUE TO CXR Code(s): I50.9 - HEART FAILURE, UNSPECIFIED Qualifiers: Heart failure type: unspecified Qualified Code(s): I50.9 - Heart failure, unspecified (2) ESRD (end stage renal disease) Assessment/Plan: DIALYSIS PER RENAL FOLLOW LYTES Code(s): N18.6 - END STAGE RENAL DISEASE (3) HTN (hypertension) Assessment/Plan: MONITOR ON CURRENT MEDS Code(s): I10 - ESSENTIAL (PRIMARY) HYPERTENSION Qualifiers: Hypertension type: secondary to other renal disorders Qualified Code(s): I15.1 - Hypertension secondary to other renal disorders; N28.89 - Other specified disorders of kidney and ureter (4) Diabetes mellitus Assessment/Plan: [facility] Code(s): E11.9 - TYPE 2 DIABETES MELLITUS WITHOUT COMPLICATIONS Qualifiers: Diabetes mellitus type: type 2
--- NOTE | 2019-08-25 12:58 | EKG ---
Test Reason : Blood Pressure : / mmHG Vent. Rate : 062 BPM Atrial Rate : 062 BPM P-R Int : 194 ms QRS Dur : 112 ms QT Int : 506 ms P-R-T Axes : 006 095 082 degrees QTc Int : 513 ms NORMAL SINUS RHYTHM RIGHTWARD AXIS INCOMPLETE RIGHT BUNDLE BRANCH BLOCK NONSPECIFIC T WAVE ABNORMALITY PROLONGED QT ABNORMAL ECG WHEN COMPARED WITH ECG OF 06-JUL-2019 00:19, NO SIGNIFICANT CHANGE WAS FOUND Confirmed by MD Jacek, Kory ([id number]) on 08/25/2019 12:58:02 PM Referred By: Confirmed By:Kory Read MD
[2019-08-25] MEDS ORDERED: PNEUMOC 13-VAL CONJ-DIP CRM/PF 0.5 ML DISP.SYRIN IM ONE (13:00)
[2019-08-25] MEDS ORDERED: SODIUM CHLORIDE 250 ML IV PRN ×2 (14:35→14:43)
[2019-08-25] MEDS ORDERED: EPOETIN ALFA 2,000 UNIT/1 ML VIAL IVPUSH ONE (14:43)
--- NOTE | 2019-08-25 14:43 | CONSULT ---
Consult Consult Specialty:: Nephrology Reason for Consultation:: ESRD - History of Present Illness Chief Complaint: shortness of breath History of Present Illness: Pt is a 54 year old male with pmhx of esrd, chf, cad, htn, hld, and dm who presents with worsening shortness of breath. He also complains of lower ext edema. He has hx of esrd and is on HD. He is unable to lay flat at night. He denies chest pain. He denies palpitations. He denies fevers or chills. He is not compliant with fluid restriction. - History Source History Provided By: Patient, Medical Record - Past Medical History Cardio/Vascular: Yes: CAD, CHF, HTN Renal/: Yes: Renal Failure, Renal Inusuff, Hemodialysis Endocrine: Yes: Diabetes Mellitus - Past Surgical History Past Surgical History: Yes: AV Fistula/Graft - Alcohol/Substance Use Hx Alcohol Use: No History of Substance Use: reports: None - Smoking History Smoking history: Never smoked Have you smoked in the past 12 months: No If you are a former smoker, when did you quit?: 2009 - Social History ADL: Independent History of Recent Travel: No Home Medications - Allergies Allergies/Adverse Reactions: Allergies Allergy/AdvReac Type Severity Reaction Status Date / Time No Known Allergies Allergy Verified 08/24/19 18:17 - Home Medications Home Medications: Ambulatory Orders Hydralazine HCl 25 mg PO BID 02/03/19 Metoprolol Succinate [Toprol XL -] 50 mg PO BID 02/03/19 Torsemide 100 mg PO UTDICT 02/03/19 Sevelamer Carbonate [Renvela -] 800 mg PO TID 07/06/19 Atorvastatin Ca [Lipitor] 80 mg PO HS 08/24/19 Ferrous Sulfate [Feosol] 325 mg PO BID 08/24/19 Hydralazine HCl 50 mg PO TID 08/24/19 Family Medical History Family History: Denies Review of Systems - Review of Systems Constitutional: reports: No Symptoms Eyes: reports: No Symptoms HENT: reports: No Symptoms Neck: reports: No Symptoms Cardiovascular: reports: Edema Respiratory: reports: SOB on Exertion Gastrointestinal: reports: No Symptoms Musculoskeletal: reports: No Symptoms Integumentary: reports: No Symptoms Neurological: reports: No Symptoms Endocrine: reports: No Symptoms Hematology/Lymphatic: reports: No Symptoms Psychiatric: reports: No Symptoms Physical Exam Vital Signs: Vital Signs Temperature 97.3 F L 08/25/19 08:00 Pulse Rate 62 08/25/19 08:00 Respiratory Rate 20 08/25/19 09:00 Blood Pressure 144/76 08/25/19 08:00 O2 Sat by Pulse Oximetry (%) 94 L 08/25/19 09:00 Constitutional: Yes: Calm Eyes: Yes: Conjunctiva Clear HENT: Yes: Atraumatic Neck: Yes: Supple Cardiovascular: Yes: S1, S2 Respiratory: Yes: CTA Bilaterally Gastrointestinal: Yes: Normal Bowel Sounds, Soft Renal/: Yes: WNL Edema: Yes Edema: LLE: 2+, RLE: 2+ Neurological: Yes: Oriented Psychiatric: Yes: Oriented Labs: CBC, BMP 08/25/19 05:50 08/25/19 05:50 Imaging - Results Cat Scan: Report Reviewed Problem List - Problems (1) Acute exacerbation of CHF (congestive heart failure) Code(s): I50.9 - HEART FAILURE, UNSPECIFIED Qualifiers: Heart failure type: unspecified Qualified Code(s): I50.9 - Heart failure, unspecified (2) ESRD (end stage renal disease) Code(s): N18.6 - END STAGE RENAL DISEASE (3) HTN (hypertension) Code(s): I10 - ESSENTIAL (PRIMARY) HYPERTENSION Qualifiers: Hypertension type: secondary to other renal disorders Qualified Code(s): I15.1 - Hypertension secondary to other renal disorders; N28.89 - Other specified disorders of kidney and ureter (4) Diabetes mellitus Code(s): E11.9 - TYPE 2 DIABETES MELLITUS WITHOUT COMPLICATIONS Qualifiers: Diabetes mellitus type: type 2 (5) Fluid overload Code(s): E87.70 - FLUID OVERLOAD, UNSPECIFIED Qualifiers: Hypervolemia type: unspecified Qualified Code(s): E87.70 - Fluid overload, unspecified Assessment/Plan Current Medications Generic Name Dose Route Start Last Admin Trade Name Freq PRN Reason Stop Dose Admin Atorvastatin Calcium 80 mg 08/24/19 22:00 08/24/19 22:13 Lipitor - PO 80 mg HS BRIAN Administration Ferrous Sulfate 325 mg 08/24/19 22:00 08/25/19 10:22 Feosol - PO 325 mg BID BRIAN Administration Heparin Sodium (Porcine) 5,000 unit 08/24/19 22:00 08/25/19 10:22 Heparin - SQ 5,000 unit BID BRIAN Administration Hydralazine HCl 50 mg 08/24/19 22:00 08/25/19 14:35 Apresoline - PO 50 mg TID BRIAN Administration Sodium Chloride 250 mls @ 3,000 mls/hr 08/25/19 14:35 Normal Saline - IV 08/26/19 14:35 PRN PRN Hypotension during Dialysis Insulin Aspart 1 vial 08/25/19 16:30 Novolog Vial Sliding Scale - SQ ACHS [facility] Protocol Metoprolol Succinate 50 mg 08/24/19 22:00 08/25/19 10:22 Toprol Xl - PO 50 mg BID BRIAN Administration Sevelamer Carbonate 800 mg 08/25/19 08:00 08/25/19 12:22 Renvela - PO 800 mg TIDCM BRIAN Administration Torsemide 100 mg 08/25/19 10:00 08/25/19 10:21 Demadex - PO 100 mg TUTHSA@1000 BRIAN Administration Impression 1. ESRD 2. CHF 3. fluid overload 4. dyspnea 5. anemia 6. HTN 7. DM Plan - HD today for overload - next HD again tomorrow - renal diet with fluid and ice restriction - epogen for anemia
[2019-08-25] MEDS ORDERED: HEPARIN NA (PORCINE) 5,000 UNITS/ML 1ML VIAL IVPUSH ONE (15:45)
[2019-08-25] MEDS ORDERED: EPOETIN ALFA 6,000 UNIT, EPOETIN ALFA 2,000 UNIT IVPUSH ONE (15:45)
[2019-08-25] MEDS: INSULIN SLIDING SCALE (NOVOLOG) 1 VIAL SQ SCH ×2 (17:40→21:39)
[2019-08-25] MEDS: ATORVASTATIN CA 80 MG TABLET (FP) PO SCH (21:38)
[2019-08-26] MEDS: hydrALAZINE HCL 50 MG TABLET (FP) PO SCH ×2 (06:13→15:26)
[2019-08-26] MEDS: INSULIN SLIDING SCALE (NOVOLOG) 1 VIAL SQ SCH ×3 (06:14→17:30)
--- NOTE | 2019-08-26 08:12 | DS ---
Physical Examination Vital Signs: Vital Signs Temperature 97.8 F 08/26/19 02:00 Pulse Rate 65 08/26/19 02:00 Respiratory Rate 18 08/26/19 02:00 Blood Pressure 158/76 08/26/19 02:00 O2 Sat by Pulse Oximetry (%) 94 L 08/25/19 20:54 Cardiovascular: Yes: Regular Rate and Rhythm Respiratory: Yes: Regular, CTA Bilaterally Gastrointestinal: Yes: Normal Bowel Sounds, Soft Edema: Yes (IMPROVED) Labs: CBC, BMP 08/25/19 05:50 08/25/19 05:50 Discharge Summary Problems reviewed: Yes Reason For Visit: PAIN Current Active Problems Acute exacerbation of CHF (congestive heart failure) (Acute) ESRD (end stage renal disease) (Acute) HTN (hypertension) (Acute) Hospital Course: - Problems (1) Acute exacerbation of CHF (congestive heart failure) Assessment/Plan: DIALYSIS PER RENAL HAD YESTERDAY WILL HAVE ANOTHER TODAY CARDIO CT CHEST DUE TO CXR Code(s): I50.9 - HEART FAILURE, UNSPECIFIED Qualifiers: Heart failure type: unspecified Qualified Code(s): I50.9 - Heart failure, unspecified (2) ESRD (end stage renal disease) Assessment/Plan: DIALYSIS PER RENAL FOLLOW LYTES Code(s): N18.6 - END STAGE RENAL DISEASE (3) HTN (hypertension) Assessment/Plan: MONITOR ON CURRENT MEDS Code(s): I10 - ESSENTIAL (PRIMARY) HYPERTENSION Qualifiers: Hypertension type: secondary to other renal disorders Qualified Code(s): I15.1 - Hypertension secondary to other renal disorders; N28.89 - Other specified disorders of kidney and ureter (4) Diabetes mellitus Assessment/Plan: [facility] Code(s): E11.9 - TYPE 2 DIABETES MELLITUS WITHOUT COMPLICATIONS Qualifiers: Diabetes mellitus type: type 2 DC HOME ONCE CLEARED BY RENAL Condition: Good - Instructions Referrals: Axel Staton MD [Primary Care Provider] - 1 Week Disposition: HOME - Home Medications Comprehensive Discharge Medication List: Ambulatory Orders Metoprolol Succinate [Toprol XL -] 50 mg PO BID 02/03/19 Torsemide 100 mg PO UTDICT 02/03/19 Sevelamer Carbonate [Renvela -] 800 mg PO TID 07/06/19 Atorvastatin Ca [Lipitor] 80 mg PO HS 08/24/19 Ferrous Sulfate [Feosol] 325 mg PO BID 08/24/19 Hydralazine HCl 50 mg PO TID 08/24/19
[2019-08-26] MEDS: SEVELAMER CARBONATE 800 MG TAB (FP) PO SCH ×3 (08:28→17:34)
[2019-08-26] MEDS ORDERED: SODIUM CHLORIDE 250 ML IV PRN (09:18)
[2019-08-26] MEDS ORDERED: EPOETIN ALFA 2,000 UNIT/1 ML VIAL IVPUSH ONE (09:30)
[2019-08-26] MEDS ORDERED: HEPARIN NA (PORCINE) 5,000 UNITS/ML 1ML VIAL IVPUSH ONE (09:30)
[2019-08-26] MEDS: FERROUS SO4 325 MG TABLET (FP) PO SCH (10:28)
[2019-08-26] MEDS: HEPARIN NA (PORCINE) 5,000 UNITS/ML 1ML VIAL SQ SCH (10:29)
--- NOTE | 2019-08-26 11:28 | PN ---
Progress Note, Physician History of Present Illness: Pt seen and examined at bedside. He is tolerating HD. He feels that his breathing is improving. - Current Medication List Current Medications: Active Medications Atorvastatin Calcium (Lipitor -) 80 mg PO HS [facility] Last Admin: 08/25/19 21:38 Dose: 80 mg Ferrous Sulfate (Feosol -) 325 mg PO BID [facility] Last Admin: 08/25/19 21:38 Dose: 325 mg Heparin Sodium (Porcine) (Heparin -) 5,000 unit SQ BID [facility] Last Admin: 08/25/19 21:38 Dose: 5,000 unit Hydralazine HCl (Apresoline -) 50 mg PO TID [facility] Last Admin: 08/26/19 06:13 Dose: 50 mg Sodium Chloride (Normal Saline -) 250 mls @ 3,000 mls/hr IV PRN PRN PRN Reason: Hypotension during Dialysis Stop: 08/26/19 14:43 Sodium Chloride (Normal Saline -) 250 mls @ 3,000 mls/hr IV PRN PRN PRN Reason: Hypotension during Dialysis Stop: 08/27/19 09:17 Insulin Aspart (Novolog Vial Sliding Scale -) 1 vial SQ [facility]; Protocol Last Admin: 08/26/19 06:14 Dose: Not Given Metoprolol Succinate (Toprol Xl -) 50 mg PO BID [facility] Last Admin: 08/25/19 21:38 Dose: 50 mg Sevelamer Carbonate (Renvela -) 800 mg PO TIDCM [facility] Last Admin: 08/25/19 17:37 Dose: 800 mg Torsemide (Demadex -) 100 mg PO TUTHSA@1000 [facility] Last Admin: 08/25/19 10:21 Dose: 100 mg - Objective Vital Signs: Vital Signs Temperature 98.5 F 08/26/19 09:40 Pulse Rate 66 08/26/19 10:45 Respiratory Rate 18 08/26/19 10:45 Blood Pressure 144/81 08/26/19 10:45 O2 Sat by Pulse Oximetry (%) 94 L 08/25/19 20:54 Constitutional: Yes: Calm Eyes: Yes: Conjunctiva Clear HENT: Yes: Atraumatic Cardiovascular: Yes: S1, S2 Respiratory: Yes: CTA Bilaterally, On Nasal O2 Gastrointestinal: Yes: Soft Genitourinary: Yes: WNL Musculoskeletal: Yes: WNL Edema: Yes Edema: LLE: 2+, RLE: 2+ Neurological: Yes: Oriented Psychiatric: Yes: Oriented Labs: CBC, BMP 08/25/19 05:50 Problem List - Problems (1) Acute exacerbation of CHF (congestive heart failure) Code(s): I50.9 - HEART FAILURE, UNSPECIFIED Qualifiers: Heart failure type: unspecified Qualified Code(s): I50.9 - Heart failure, unspecified (2) ESRD (end stage renal disease) Code(s): N18.6 - END STAGE RENAL DISEASE (3) HTN (hypertension) Code(s): I10 - ESSENTIAL (PRIMARY) HYPERTENSION Qualifiers: Hypertension type: secondary to other renal disorders Qualified Code(s): I15.1 - Hypertension secondary to other renal disorders; N28.89 - Other specified disorders of kidney and ureter (4) Diabetes mellitus Code(s): E11.9 - TYPE 2 DIABETES MELLITUS WITHOUT COMPLICATIONS Qualifiers: Diabetes mellitus type: type 2 (5) Fluid overload Code(s): E87.70 - FLUID OVERLOAD, UNSPECIFIED Qualifiers: Hypervolemia type: unspecified Qualified Code(s): E87.70 - Fluid overload, unspecified Assessment/Plan Current Medications Generic Name Dose Route Start Last Admin Trade Name Freq PRN Reason Stop Dose Admin Atorvastatin Calcium 80 mg 08/24/19 22:00 08/25/19 21:38 Lipitor - PO 80 mg HS BRIAN Administration Ferrous Sulfate 325 mg 08/24/19 22:00 08/25/19 21:38 Feosol - PO 325 mg BID BRIAN Administration Heparin Sodium (Porcine) 5,000 unit 08/24/19 22:00 08/25/19 21:38 Heparin - SQ 5,000 unit BID BRIAN Administration Hydralazine HCl 50 mg 08/24/19 22:00 08/26/19 06:13 Apresoline - PO 50 mg TID BRIAN Administration Sodium Chloride 250 mls @ 3,000 mls/hr 08/25/19 14:43 Normal Saline - IV 08/26/19 14:43 PRN PRN Hypotension during Dialysis Sodium Chloride 250 mls @ 3,000 mls/hr 08/26/19 09:18 Normal Saline - IV 08/27/19 09:17 PRN PRN Hypotension during Dialysis Insulin Aspart 1 vial 08/25/19 16:30 08/26/19 06:14 Novolog Vial Sliding Scale - SQ Not Given ACHS BRIAN Protocol Metoprolol Succinate 50 mg 08/24/19 22:00 08/25/19 21:38 Toprol Xl - PO 50 mg BID [facility] Administration Sevelamer Carbonate 800 mg 08/25/19 08:00 08/25/19 17:37 Renvela - PO 800 mg TIDCM [facility]RIAN Administration Torsemide 100 mg 08/25/19 10:00 08/25/19 10:21 Demadex - PO 100 mg TUTHSA@1000 [facility] Administration Impression 1. ESRD 2. CHF 3. fluid overload 4. dyspnea 5. anemia 6. HTN 7. DM Plan - HD today - torsemide on non hd days - discussed compliance with fluids - he has HD set up as outpt - renal diet with fluid and ice restriction - epogen for anemia
[2019-08-26] MEDS ORDERED: PT OWN MED DRAWER 7, Y5N ONE (11:29)
[2019-08-26 11:43] LABS: BLOOD UREA NITROGEN 47.7 mg/dL (7-18); CALCIUM 7.1 mg/dL (8.5-10.1); CREATININE 7.1 mg/dL (0.55-1.3); POTASSIUM 4.3 mmol/L (3.5-5.1)
[2019-08-26 15:05] VITALS: BP 127/76; PULSE 68; TEMP 98
--- NOTE | 2019-08-26 16:26 | PN ---
Progress Note, Physician History of Present Illness: seen and examined today in [facility]. states he is feeling much better today. states LE edema improved. - Current Medication List Current Medications: Active Medications Atorvastatin Calcium (Lipitor -) 80 mg PO HS [facility] Last Admin: 08/25/19 21:38 Dose: 80 mg Ferrous Sulfate (Feosol -) 325 mg PO BID [facility] Last Admin: 08/25/19 21:38 Dose: 325 mg Heparin Sodium (Porcine) (Heparin -) 5,000 unit SQ BID [facility] Last Admin: 08/25/19 21:38 Dose: 5,000 unit Hydralazine HCl (Apresoline -) 50 mg PO TID [facility] Last Admin: 08/26/19 15:26 Dose: 50 mg Sodium Chloride (Normal Saline -) 250 mls @ 3,000 mls/hr IV PRN PRN PRN Reason: Hypotension during Dialysis Stop: 08/27/19 09:17 Insulin Aspart (Novolog Vial Sliding Scale -) 1 vial SQ [facility]; Protocol Last Admin: 08/26/19 06:14 Dose: Not Given Metoprolol Succinate (Toprol Xl -) 50 mg PO BID [facility] Last Admin: 08/25/19 21:38 Dose: 50 mg Sevelamer Carbonate (Renvela -) 800 mg PO TIDCM [facility] Last Admin: 08/26/19 12:26 Dose: 800 mg Torsemide (Demadex -) 100 mg PO TUTHSA@1000 [facility] Last Admin: 08/25/19 10:21 Dose: 100 mg - Objective Vital Signs: Vital Signs Temperature 98 F 08/26/19 14:05 Pulse Rate 68 08/26/19 14:05 Respiratory Rate 19 08/26/19 14:05 Blood Pressure 127/76 08/26/19 14:05 O2 Sat by Pulse Oximetry (%) 94 L 08/26/19 09:00 Constitutional: Yes: No Distress, Calm Eyes: Yes: Conjunctiva Clear, EOM Intact HENT: Yes: Atraumatic, Normocephalic Neck: Yes: Supple, Trachea Midline Cardiovascular: Yes: Regular Rate and Rhythm, S1, S2. No: Bradycardia, Tachycardia, Pulse Irregular, Bruit, JVD, Gallop, Murmur, Rub, S3, S4, Varicosities Respiratory: Yes: Regular, CTA Bilaterally. No: Rales, Rhonchi, Tachypnea, Wheezes Gastrointestinal: Yes: Normal Bowel Sounds, Soft. No: Distention, Tenderness Musculoskeletal: Yes: WNL Extremities: Yes: WNL Edema: Yes Edema: LLE: Trace, RLE: Trace Peripheral Pulses: Left Doralis Pedis: 2+, Right Dorsalis Pedis: 2+ Neurological: Yes: Alert, Oriented Psychiatric: Yes: Alert, Oriented Labs: CBC, BMP 08/25/19 05:50 08/26/19 09:45 - ....Imaging Chest X-ray: Report Reviewed, Image Reviewed EKG: Report Reviewed, Image Reviewed Other: Report Reviewed, Image Reviewed (tele-no sig arrhythmias) Assessment/Plan 54 year old man with a pmh HTN, DMII, HLD, ESRD on HD, chronic combined systolic /diastolic CHF with h/o mild LV systolic dysfunction, non-obs CAD on cardiac cath 01/15/18 prior admissions for sob/fluid overload in the setting of dietary non-adherence, now again admitted with sob and fluid overload. Pt seen and examined today in HD in [facility]. States he has not missed HD. states that he has had weight gain over the past 2 weeks. Denies any chest pain, palpitations. Currently he is denying having had any sob. states that his only issue is the swelling in his legs. States he has been adherent with his diet but may have been drinking too much water. Volume overload-acute on chronic combined systolic/diastolic chf in setting of ESRD on HD -not c/w ACS -does not require additional cardiac work up at this time -can dc tele -volume overload possibly secondary to dietary non-adherence (water intake) -volume improved with HD, further volume removal with HD as per nephrology -no signs of ischemia, no chest pain, no ischemia on ekg, cardiac enzymes wnl -cardiac cath 01/15/[address] [facility] as above showed non-obs CAD -no additional inpatient cardiac work up is needed at this time. -pt previously stated that he follows with a tableman at [facility] as part of his renal transplant preparation. -pt acceptable for discharge from a cardiac standpoint. will see as needed. please call with any additional questions.
== END 2019-08-26 19:26 | disposition home or self-care (01) | DRG 291 ==
LOC: JER 18:08 → JERBED 19:29 → J4W 08-25 00:30
PROVIDERS: ADMIT Internal Medicine; ATTEND Family Medicine
PROC: 5A1D70Z Performance of Urinary Filtration, Intermittent, Less than 6 Hours Per Day (ICD-10-PCS; principal; 2019-08-25)
PROC: 5A1D70Z Performance of Urinary Filtration, Intermittent, Less than 6 Hours Per Day (ICD-10-PCS; 2019-08-26)
DX: I13.2 Hypertensive heart and chronic kidney disease with heart failure and with stage 5 chronic kidney disease, or end stage renal disease (principal); N18.6 End stage renal disease; I50.43 Acute on chronic combined systolic (congestive) and diastolic (congestive) heart failure; E78.00 Pure hypercholesterolemia, unspecified; E87.70 Fluid overload, unspecified; E11.22 Type 2 diabetes mellitus with diabetic chronic kidney disease; D64.9 Anemia, unspecified; Z99.2 Dependence on renal dialysis; Z91.15 Patient's noncompliance with renal dialysis
CPT/HCPCS: 36415; 71046-TC-FY; 71250-TC; 80048; 80053; 82962; 83735; 83880; 84100; 84484; 85025; 86803; 87340; 90670; 93005; 93010; 93970-TC; 99285-25; J0885; J1644

== ENCOUNTER 2019-10-12 18:32 | Inpatient (IN) | payer OTHER ==
[2019-10-12 18:36] VITALS: BMI 37.8
--- NOTE | 2019-10-12 18:37 | PDOC ---
Rapid Medical Evaluation Medical Evaluation: Allergies Allergy/AdvReac Type Severity Reaction Status Date / Time No Known Allergies Allergy Verified 08/24/19 18:17 I have performed a brief in-person evaluation of this patient. The patient presents with a chief complaint of: hx of ESRD on HD (last went today), CHF presents with SOB from x 3 days; denies chest pain, fever Pertinent physical exam findings: Appears slightly tachypneic; lungs clear; + swelling of BLE I have ordered the following: Labs, EKG, CXR The patient will proceed to the ED for further evaluation. 10/12/19 18:34
--- NOTE | 2019-10-12 19:18 | PDOC ---
History of Present Illness - General Chief Complaint: Shortness of Breath Stated Complaint: SOB Time Seen by Provider: 10/12/19 18:33 - History of Present Illness Initial Comments: Yary Kwong is a 54 y/o male with PMH significant for ESRD (M/W/F), CHF, CAD (cath 12/2017), HTN, HLD, DM, presenting today with worsening shortness of breath and dyspnea on exertion and bilateral lower extremity edema. Reports that the symptoms started on Saturday and has been short of breath worse on exertion since then. Reports mild associated dizziness. He has had these symptoms several times before. Denies chest pain. Denies abdominal pain. Denies headache. He went to HD today and stayed for the full 4 hours. 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 Past History - Past Medical History Allergies/Adverse Reactions: Allergies Allergy/AdvReac Type Severity Reaction Status Date / Time No Known Allergies Allergy Verified 10/12/19 18:36 Home Medications: Ambulatory Orders Metoprolol Succinate [Toprol XL -] 50 mg PO BID 02/03/19 Torsemide 100 mg PO UTDICT 02/03/19 Sevelamer Carbonate [Renvela -] 800 mg PO TID 07/06/19 Atorvastatin Ca [Lipitor] 80 mg PO HS 08/24/19 Ferrous Sulfate [Feosol] 325 mg PO BID 08/24/19 Hydralazine HCl 50 mg PO TID 08/24/19 Anemia: No Asthma: No Cancer: No Cardiac Disorders: Yes CVA: No COPD: No CHF: Yes Dementia: No Diabetes: Yes Dialysis: Yes (M-W-F) GI Disorders: No Disorders: No HTN: Yes Hypercholesterolemia: Yes Liver Disease: No Seizures: No Thyroid Disease: No - Surgical History Abdominal Surgery: No Appendectomy: No Cardiac Surgery: No Cholecystectomy: No Lung Surgery: No Neurologic Surgery: No Orthopedic Surgery: No - Psycho Social/Smoking Cessation Hx Smoking History: Former smoker Have you smoked in the past 12 months: No If you are a former smoker, when did you quit?: 2009 Information on smoking cessation initiated: No Hx Alcohol Use: No Drug/Substance Use Hx: No Substance Use Type: None Hx Substance Use Treatment: No Cardiac Specific PMH - Complaint Specific PMHX Angina: No Pacemaker: No Pulmonary Embolus: No Review of Systems - Review of Systems Comments:: GENERAL/CONSTITUTIONAL: No fever or chills. No weakness._ HEAD, EYES, EARS, NOSE AND THROAT: No change in vision. No change in hearing. No sore throat._ CARDIOVASCULAR: No chest pain. Reports shortness of breath. RESPIRATORY: Denies cough, hemoptysis_ GASTROINTESTINAL: No nausea, vomiting, diarrhea or constipation._ GENITOURINARY: No dysuria, frequency, or change in urination._ MUSCULOSKELETAL: Reports bilateral lower extremity swelling. No neck or back pain._ SKIN: No rash_ NEUROLOGIC: Reports dizziness. No headache, loss of consciousness, or change in strength/sensation._ ENDOCRINE: No increased thirst. No abnormal weight change_ HEMATOLOGIC/LYMPHATIC: No anemia, easy bleeding, or history of blood clots._ ALLERGIC/IMMUNOLOGIC: No hives or skin allergy._ *Physical Exam - Vital Signs Last Vital Signs Temp Pulse Resp BP Pulse Ox 97.7 F 68 21 H 137/59 L 100 10/13/19 00:15 10/13/19 00:15 10/13/19 00:15 10/13/19 00:15 10/13/19 00:15 - Physical Exam GENERAL: Awake, alert, and oriented to person/place/time, in no acute distress_ HEAD: No signs of trauma, normocephalic, atraumatic _ EYES: PERRLA, EOMI, sclera anicteric, conjunctiva clear_ ENT: Hearing grossly normal, nares patent, oropharynx clear without exudates. No uvular deviation. Moist mucosa_ NECK: Normal ROM, supple, no lymphadenopathy, JVD, or masses_ LUNGS: No distress, speaks in full sentences, clear to auscultation bilaterally _ HEART: Regular rate and rhythm, normal S1 and S2, no murmurs appreciated, peripheral pulses normal and equal bilaterally._ ABDOMEN: Soft, nontender, normoactive bowel sounds. No guarding, no rebound. No masses_ EXTREMITIES: Normal inspection, Normal range of motion. 4+ bilateral LE pitting edema. No clubbing or cyanosis_ NEUROLOGICAL: Cranial nerves II through XII grossly intact. Normal speech, normal gait, no focal sensorimotor deficits _ SKIN: Warm, Dry, normal turgor, no rashes or lesions noted_ ED Treatment Course - LABORATORY CBC & Chemistry Diagram: 10/12/19 20:00 10/12/19 20:00 - ADDITIONAL ORDERS Additional order review: 10/12/19 20:00 RBC 2.86 L MCV 100.8 H MCHC 32.7 RDW 15.6 MPV 9.0 Neutrophils % 75.7 Lymphocytes % 9.5 Monocytes % 10.0 Eosinophils % 4.2 Basophils % 0.6 - RADIOLOGY Radiology Studies Ordered: Category Date Time Status CHEST X-RAY PORTABLE* [RAD] Stat Radiology 10/12/19 19:03 Completed Medical Decision Making - Medical Decision Making 10/12/19 19:09 54M hx of CHF, DM, CAD, ESRD on HD, presenting with SOB ANDERSEN bilateral LE edema that started on Saturday. -cbc, cmp, bnp -ekg, trop, cxr 10/12/19 20:02 CXR shows cardiomegaly otherwise no acute intra thoracic process. EKG shows NSR, 64 bpm, no ST elevation, no axis deviation, QTc 513. 10/12/19 21:[address] Navarrete. Labs reviewed. Laboratory Tests 10/12/19 10/12/19 10/12/19 20:00 20:00 20:00 WBC 7.4 RBC 2.86 L Hgb 9.4 L Hct 28.8 L MCV 100.8 H MCH 33.0 MCHC 32.7 RDW 15.6 Plt Count 139 MPV 9.0 Absolute Neuts (auto) 5.6 Neutrophils % 75.7 Lymphocytes % 9.5 Monocytes % 10.0 Eosinophils % 4.2 Basophils % 0.6 Nucleated RBC % 0 VBG pH POC VBG pCO2 POC VBG pO2 VBG HCO3 VBG O2 Sat (Vianey) VBG Base Excess Sodium 139 Potassium 4.9 Chloride 100 Carbon Dioxide 32 Anion Gap 8 BUN 46.2 H Creatinine 6.7 H Est GFR (CKD-EPI)AfAm 9.87 Est GFR (CKD-EPI)NonAf 8.52 Random Glucose 173 H Calcium 8.0 L Total Bilirubin 1.0 AST 15 ALT 19 Alkaline Phosphatase 156 H Troponin I 0.02 B-Natriuretic Peptide 87148.7 H Total Protein 6.9 Albumin 3.4 10/12/19 20:00 WBC RBC Hgb Hct MCV MCH MCHC RDW Plt Count MPV Absolute Neuts (auto) Neutrophils % Lymphocytes % Monocytes % Eosinophils % Basophils % Nucleated RBC % VBG pH 7.47 H POC VBG pCO2 43.7 POC VBG pO2 < 49 H VBG HCO3 31.1 H VBG O2 Sat (Vianey) 65.7 L VBG Base Excess 7.0 H Sodium Potassium Chloride Carbon Dioxide Anion Gap BUN Creatinine Est GFR (CKD-EPI)AfAm Est GFR (CKD-EPI)NonAf Random Glucose Calcium Total Bilirubin AST ALT Alkaline Phosphatase Troponin I B-Natriuretic Peptide Total Protein Albumin 10/12/19 22:42 D/w Dr. Angeles who accepts the patient for admission. Discharge - Discharge Information Problems reviewed: Yes Clinical Impression/Diagnosis: CHF exacerbation Qualifiers: Heart failure type: unspecified Qualified Code(s): I50.9 - Heart failure, unspecified Condition: Stable Disposition: AGAINST MEDICAL ADVICE - Admission Yes - Follow up/Referral - Patient Discharge Instructions - Post Discharge Activity
--- NOTE | 2019-10-12 19:33 | PDOC ---
Documentation entered by aHily Hdez SCRIBE, acting as scribe for Steff Crump MD. Steff Crump MD: This documentation has been prepared by the viktoribe, Haily Hdez SCRIBE, under my direction and personally reviewed by me in its entirety. I confirm that the documentation accurately reflects all work, treatment, procedures, and medical decision making performed by me. Attending Attestation - Resident Resident Name: Edouard Suresh - ED Attending Attestation I have performed the following: I have examined & evaluated the patient, The case was reviewed & discussed with the resident, I agree w/resident's findings & plan, Exceptions are as noted - HPI HPI: 10/12/19 19:46 The patient is a 54-year-old female with a past medical history significant for CHF and ESRD (M, W, F) who presents to the emergency department with acute on chronic CHF. The patient reports for the past two months hes been noncompliant with his water pills, and reports he has gained about 18 pounds. The patient presents with increased lower extremity swelling and dyspnea on exertion. The patient reports he had his full dialysis session today. Allergies: NKA PCP: Dr. Staton. Nephrology: Dr. Navarrete ([phone]), - Physicial Exam PE: 10/12/19 20:09 GENERAL: Well-appearing, well-nourished. No apparent distress. HEENT: Normocephalic, atraumatic. PERRL, EOM intact. CARDIOVASCULAR: Regular rate and rhythm. PULMONARY: Clear to auscultation bilaterally. ABDOMEN: Protuberant, nontender abdomen. EXTREMITIES: +left AV fistula with thrill. 3+ edema bilaterally to the lower extremity. Normal ROM in all four extremities. SKIN: Warm, dry. No rash NEUROLOGICAL: No focal neurological deficits. - Medical Decision Making 10/12/19 21:00 Chest x-ray large heart, elevated right hemidiaphragm, no consolidation, no significant change from previous chest x-ray done August 2019 Troponin is negative 10/12/19 21:08 Patient will be admitted for acute on chronic CHF
[2019-10-12 20:22] LABS: BASO % 0.6 % (0-2.0); EOS % 4.2 % (0-4.5); HEMATOCRIT 28.8 % (35.4-49); HEMOGLOBIN 9.4 GM/dL (11.7-16.9); LYMPH % 9.5 % (8-40); MCHC 32.7 g/dl (32.0-35.9); MEAN CELL VOLUME 100.8 fl (80-96); NEUT % 75.7 % (42.8-82.8); PLATELET COUNT 139 K/MM3 (134-434); RBC 2.86 M/mm3 (4.00-5.60); RDW 15.6 % (11.9-15.9); VENOUS PC02 43.7 mmHg (38-52); VENOUS PH 7.47 (7.31-7.41); WHITE BLOOD COUNT 7.4 K/mm3 (4.0-10.0)
[2019-10-12 20:23] LABS: VENOUS PO2 < 49 mmHg (28-48)
[2019-10-12 21:08] LABS: ALBUMIN 3.4 g/dl (3.4-5.0); BLOOD UREA NITROGEN 46.2 mg/dL (7-18); CREATININE 6.7 mg/dL (0.55-1.3); N-TERMINAL BNP 96456.7 pg/ml (5-125); POTASSIUM 4.9 mmol/L (3.5-5.1); TOT PROT 6.9 g/dl (6.4-8.2)
--- NOTE | 2019-10-12 22:48 | HP ---
CHIEF COMPLAINT:Shortness of breath PCP: Shemar HISTORY OF PRESENT ILLNESS: 54 y/o male with PMH significant for ESRD (M/W/F), CHF, CAD (cath 12/2017), HTN, HLD, DM, presenting with worsening shortness of breath and dyspnea on exertion and bilateral lower extremity edema. Reports that the symptoms started on Saturday and has been short of breath worse on exertion since then. Reports mild associated dizziness. Denies chest pain. Denies abdominal pain. Denies headache. He went to HD 10/12/19 and stayed for the full 4 hours and removed 5L fluid. Patient reports that he does not take any diuretics because he does not produce any urine. ER course was notable for: (1) cxr (2) (3) Recent Travel:no PAST MEDICAL HISTORY: no PAST SURGICAL HISTORY: no Social History: Smoking: denied Alcohol:denied Drugs: denied Allergies No Known Allergies Allergy (Verified 10/12/19 18:36) HOME MEDICATIONS: Home Medications Medication Instructions Recorded Metoprolol Succinate [Toprol XL -] 50 mg PO BID 02/03/19 Torsemide 100 mg PO UTDICT 02/03/19 Sevelamer Carbonate [Renvela -] 800 mg PO TID 07/06/19 Atorvastatin Ca [Lipitor] 80 mg PO HS 08/24/19 Ferrous Sulfate [Feosol] 325 mg PO BID 08/24/19 Hydralazine HCl 50 mg PO TID 08/24/19 REVIEW OF SYSTEMS CONSTITUTIONAL: Absent: fever, chills, diaphoresis, generalized weakness, malaise, loss of appetite, weight change HEENT: Absent: rhinorrhea, nasal congestion, throat pain, throat swelling, difficulty swallowing, mouth swelling, ear pain, eye pain, visual changes CARDIOVASCULAR: Absent: chest pain, syncope, palpitations, irregular heart rate, lightheadedness , peripheral edema RESPIRATORY: Absent: cough, orthopnea, wheezing, stridor, hemoptysis present-shortness of breath, dyspnea with exertion, GASTROINTESTINAL: Absent: abdominal pain, abdominal distension, nausea, vomiting, diarrhea, constipation, melena, hematochezia GENITOURINARY: Absent: dysuria, frequency, urgency, hesitancy, hematuria, flank pain, genital pain MUSCULOSKELETAL: Absent: myalgia, arthralgia, joint swelling, back pain, neck pain SKIN: Absent: rash, itching, pallor HEMATOLOGIC/IMMUNOLOGIC: Absent: easy bleeding, easy bruising, lymphadenopathy, frequent infections ENDOCRINE: Absent: unexplained weight gain, unexplained weight loss, heat intolerance, cold intolerance NEUROLOGIC: Absent: headache, focal weakness or paresthesias, dizziness, unsteady gait, seizure, mental status changes, bladder or bowel incontinence PSYCHIATRIC: Absent: anxiety, depression, suicidal or homicidal ideation, hallucinations. PHYSICAL EXAMINATION Vital Signs - 24 hr 10/12/19 10/12/19 18:33 20:10 Temperature 97.8 F 97.9 F Pulse Rate 68 Pulse Rate [ 64 Right] Respiratory 18 18 Rate Blood Pressure 139/67 Blood Pressure 144/59 L [Right Arm] O2 Sat by Pulse 98 96 Oximetry (%) GENERAL: Awake, alert, and fully oriented, in no acute distress. HEAD: Normal with no signs of trauma. EYES: Pupils equal, round and reactive to light, extraocular movements intact, sclera anicteric, conjunctiva clear. No lid lag. EARS, NOSE, THROAT: Ears normal, nares patent, oropharynx clear without exudates. Moist mucous membranes. NECK: Normal range of motion, supple without lymphadenopathy, JVD, or masses. LUNGS: Breath sounds equal, clear to auscultation bilaterally. No wheezes, and no crackles. No accessory muscle use. HEART: Regular rate and rhythm, normal S1 and S2 without murmur, rub or gallop. ABDOMEN: Soft, nontender, not distended, normoactive bowel sounds, no guarding, no rebound, no masses. MUSCULOSKELETAL: Normal range of motion at all joints. No bony deformities or tenderness. No CVA tenderness. UPPER EXTREMITIES: 2+ pulses, warm, well-perfused. No cyanosis. left upper extremity av fistula- good thrill, bruit LOWER EXTREMITIES: 2+ pulses, warm, well-perfused. No calf tenderness. Bilateral pedal edema appreciated, 2+ pitting, up to knees. NEUROLOGICAL: Cranial nerves II-XII intact. Normal speech. Normal gait. PSYCHIATRIC: Cooperative. Good eye contact. Appropriate mood and affect. SKIN: Warm, dry, normal turgor, no rashes or lesions noted, normal capillary refill. Laboratory Results - last 24 hr 10/12/19 10/12/19 10/12/19 20:00 20:00 20:00 WBC 7.4 RBC 2.86 L Hgb 9.4 L Hct 28.8 L MCV 100.8 H MCH 33.0 MCHC 32.7 RDW 15.6 Plt Count 139 MPV 9.0 Absolute Neuts (auto) 5.6 Neutrophils % 75.7 Lymphocytes % 9.5 Monocytes % 10.0 Eosinophils % 4.2 Basophils % 0.6 Nucleated RBC % 0 VBG pH POC VBG pCO2 POC VBG pO2 VBG HCO3 VBG O2 Sat (Vianey) VBG Base Excess Sodium 139 Potassium 4.9 Chloride 100 Carbon Dioxide 32 Anion Gap 8 BUN 46.2 H Creatinine 6.7 H Est GFR (CKD-EPI)AfAm 9.87 Est GFR (CKD-EPI)NonAf 8.52 Random Glucose 173 H Calcium 8.0 L Total Bilirubin 1.0 AST 15 ALT 19 Alkaline Phosphatase 156 H Troponin I 0.02 B-Natriuretic Peptide 08262.7 H Total Protein 6.9 Albumin 3.4 10/12/19 20:00 WBC RBC Hgb Hct MCV MCH MCHC RDW Plt Count MPV Absolute Neuts (auto) Neutrophils % Lymphocytes % Monocytes % Eosinophils % Basophils % Nucleated RBC % VBG pH 7.47 H POC VBG pCO2 43.7 POC VBG pO2 < 49 H VBG HCO3 31.1 H VBG O2 Sat (Vianey) 65.7 L VBG Base Excess 7.0 H Sodium Potassium Chloride Carbon Dioxide Anion Gap BUN Creatinine Est GFR (CKD-EPI)AfAm Est GFR (CKD-EPI)NonAf Random Glucose Calcium Total Bilirubin AST ALT Alkaline Phosphatase Troponin I B-Natriuretic Peptide Total Protein Albumin Chest x-ray reviewedsome mild pulmonary edema bilaterally appreciated. Sharp costophrenic angles bilaterally. ASSESSMENT/PLAN: 54-year-old male with shortness of breath likely secondary to fluid overload secondary to end-stage renal disease versus CHF Exacerbation. Uncertain if IV diuretics will be of use in this case as patient reports he does not produce urine however will attempt.Patient required additional dialysis to remove excess fluid. Hypertension in setting of end-stage renal disease likely from fluid overload. CAD likely as a result of CKD, also contributing to CHF. Admit to telemetry Hold Avoid free water and salt Renal and cardiology consults Needs additional dialysis I's and O's and daily weights We will attempt to diurese with 40 mg furosemide IV Toprol 50 mg p.o. daily Avoid DWIGHT inhibitor/RB as patient is end-stage renal disease and this might precipitate hyperkalemia Aspirin Atorvastatin 80 mg p.o. nightly Hydralazine 50 mg p.o. 3 times daily #Diabetes mellitus NovoLog sliding scale A1c DVT prophylaxisheparin subcutaneously Visit type - Emergency Visit Emergency Visit: Yes ED Registration Date: 10/12/19 Care time: The patient presented to the Emergency Department on the above date and was hospitalized for further evaluation of their emergent condition. - New Patient This patient is new to me today: Yes Date on this admission: 10/13/19 - Critical Care Critical Care patient: No
[2019-10-13 01:27] VITALS: BP 137/59; PULSE 68; TEMP 97.7
--- NOTE | 2019-10-13 04:30 | PN ---
Progress Note (short form) - Note Progress Note: call center support representative resident asked to evaluate patient requesting to leave hospital. Patient is agitated and repeatedly asks to leave hospital. Risks including but not limited to worsening condition, progressive shortness of breath- respiratory failure, fall, trauma to head or any part of body, permanent disability, discussed with patient. Patient is of sound mind, alert, oriented x3 and verbalizes understanding of the risks. Counselled to follow up with primary care physician, and return to nearest ED if symptoms do not improve, or worsen. Discussed with Dr. Angeles.
[2019-10-13] MEDS ORDERED: HEPARIN NA (PORCINE) 5,000 UNITS/ML 1ML VIAL SQ SCH (06:00)
[2019-10-13] MEDS ORDERED: hydrALAZINE HCL 50 MG TABLET (FP) PO SCH (06:00)
[2019-10-13] MEDS ORDERED: FUROSEMIDE 40 MG/4 ML INJECTABLE VIAL IVPUSH SCH ×2 (06:00→10:00)
[2019-10-13] MEDS ORDERED: SEVELAMER CARBONATE 800 MG TAB (FP) PO SCH (08:00)
--- NOTE | 2019-10-13 08:54 | CON.CARD ---
Consult Consult Specialty:: Cardiology Referred by:: Yaritza Reason for Consultation:: CHF - History of Present Illness Chief Complaint: SOB History of Present Illness: 54 year old man with a pmh HTN, DMII, HLD, ESRD on HD, chronic combined systolic /diastolic CHF with h/o mild LV systolic dysfunction, non-obs CAD on cardiac cath 01/15/18 prior admissions for sob/fluid overload in the setting of dietary non-adherence, now again admitted with sob and fluid overload. Echo 02/03/19 EF 35-40% mild MR/TR - History Source History Provided By: Patient, Medical Record - Past Medical History Cardio/Vascular: Yes: CAD, CHF, HTN Renal/: Yes: Renal Failure, Renal Inusuff, Hemodialysis Endocrine: Yes: Diabetes Mellitus - Past Surgical History Past Surgical History: Yes: AV Fistula/Graft - Alcohol/Substance Use Hx Alcohol Use: No History of Substance Use: reports: None - Smoking History Smoking history: Former smoker Have you smoked in the past 12 months: No If you are a former smoker, when did you quit?: 2009 - Social History ADL: Independent History of Recent Travel: No Home Medications - Allergies Allergies/Adverse Reactions: Allergies Allergy/AdvReac Type Severity Reaction Status Date / Time No Known Allergies Allergy Verified 10/12/19 18:36 - Home Medications Home Medications: Ambulatory Orders Metoprolol Succinate [Toprol XL -] 50 mg PO BID 02/03/19 Torsemide 100 mg PO UTDICT 02/03/19 Sevelamer Carbonate [Renvela -] 800 mg PO TID 07/06/19 Atorvastatin Ca [Lipitor] 80 mg PO HS 08/24/19 Ferrous Sulfate [Feosol] 325 mg PO BID 08/24/19 Hydralazine HCl 50 mg PO TID 08/24/19 Vital Signs: Vital Signs Temperature 97.7 F 10/13/19 00:15 Pulse Rate 68 10/13/19 00:15 Respiratory Rate 21 H 10/13/19 00:15 Blood Pressure 137/59 L 10/13/19 00:15 O2 Sat by Pulse Oximetry (%) 100 10/13/19 00:15 - Other Data Labs, Other Data: CBC, BMP 10/12/19 20:00 10/12/19 20:00 Troponin, BNP 10/12/19 10/12/19 20:00 20:00 Troponin I 0.02 B-Natriuretic Peptide 74983.7 H Troponin, BNP 10/12/19 10/12/19 20:00 20:00 Troponin I 0.02 B-Natriuretic Peptide 64223.7 H Assessment/Plan 54 year old man with a pmh HTN, DMII, HLD, ESRD on HD, chronic combined systolic /diastolic CHF with h/o mild LV systolic dysfunction, non-obs CAD on cardiac cath 01/15/18 prior admissions for sob/fluid overload in the setting of dietary non-adherence, now again admitted with sob and fluid overload.
--- NOTE | 2019-10-13 09:40 | EKG ---
Test Reason : Blood Pressure : / mmHG Vent. Rate : 064 BPM Atrial Rate : 064 BPM P-R Int : 184 ms QRS Dur : 112 ms QT Int : 498 ms P-R-T Axes : 082 100 069 degrees QTc Int : 513 ms POOR DATA QUALITY, INTERPRETATION MAY BE ADVERSELY AFFECTED NORMAL SINUS RHYTHM POSSIBLE RIGHT VENTRICULAR HYPERTROPHY ABNORMAL ECG WHEN COMPARED WITH ECG OF 24-AUG-2019 18:38, NO SIGNIFICANT CHANGE WAS FOUND Confirmed by Edouard Bergman MD ([id number]) on 10/13/2019 9:40:27 AM Referred By: Confirmed By:Edouard Bergman MD
[2019-10-13] MEDS ORDERED: CALCITRIOL 0.25 MCG CAPSULE (FP) PO SCH (10:00)
[2019-10-13] MEDS ORDERED: SODIUM BICARBONATE 650 MG TABLET PO SCH (10:00)
[2019-10-13] MEDS ORDERED: PATIENT'S OWN MEDICATION (NON-FORMULARY) (Ferrous Sulfate [Feosol] 325 MG) PO SCH (10:00)
[2019-10-13] MEDS ORDERED: FERROUS SO4 325 MG TABLET (FP) PO SCH (10:00)
[2019-10-13] MEDS ORDERED: ASPIRIN 81 MG CHEWABLE TABLETS PO SCH (10:00)
[2019-10-13] MEDS ORDERED: ATORVASTATIN CA 80 MG TABLET (FP) PO SCH (22:00)
[2019-10-19] MEDS ORDERED: ERGOCALCIFEROL (VIT D2) 50,000 UNIT (1.25 MG) CAPSULE PO SCH (10:00)
== END 2019-10-13 06:09 | disposition left against medical advice (07) | DRG 291 ==
LOC: JER 18:32 → JERBED 22:17
PROVIDERS: ADMIT Internal Medicine; ATTEND Family Medicine
DX: I13.2 Hypertensive heart and chronic kidney disease with heart failure and with stage 5 chronic kidney disease, or end stage renal disease (principal); N18.6 End stage renal disease; E11.22 Type 2 diabetes mellitus with diabetic chronic kidney disease; I50.9 Heart failure, unspecified; Z99.2 Dependence on renal dialysis; I25.10 Atherosclerotic heart disease of native coronary artery without angina pectoris
CPT/HCPCS: 36415; 71045-TC-FY; 80053; 82803; 83880; 84484; 85025; 93005; 93010; 99285-25

== ENCOUNTER 2020-06-02 14:10 | Emergency (ER) | payer OTHER ==
[2020-06-02 14:30] VITALS: BMI 34.9
--- NOTE | 2020-06-02 14:52 | EKG ---
Test Reason : Blood Pressure : / mmHG Vent. Rate : 061 BPM Atrial Rate : 061 BPM P-R Int : 200 ms QRS Dur : 110 ms QT Int : 502 ms P-R-T Axes : 033 082 073 degrees QTc Int : 505 ms NORMAL SINUS RHYTHM INCOMPLETE RIGHT BUNDLE BRANCH BLOCK PROLONGED QT ABNORMAL ECG WHEN COMPARED WITH ECG OF 12-OCT-2019 20:01, NO SIGNIFICANT CHANGE WAS FOUND Confirmed by JOSHUA CARRERA MD ([id number]) on 06/02/2020 2:52:26 PM Referred By: Confirmed By:JOSHUA CARRERA MD
--- OUTSIDE RECORDS SUMMARY | 2020-06-02 15:04 | XMS ---
:1965 Author Organization [facility] Care Team Providers Name Role Phone CELINA SÁNCHEZ Unavailable Unavailable OLIVIA ORELLANA Unavailable Unavailable FERNANDO NÚÑEZ Unavailable Unavailable MERNA WILLARD Unavailable Unavailable Shemar, Ammir Unavailable [phone] Shemar, Ammir Unavailable [phone] Shemar, Ammir Unavailable [phone] Shemar, Ammir Unavailable [phone] Shemar, Ammir Unavailable [phone] Shemar, Ammir Unavailable [phone] Shemar, Ammir Unavailable [phone] Shemar, Ammir Unavailable [phone] Shemar, Ammir Unavailable [phone] Shemar, Ammir Unavailable [phone] Shemar, Ammir Unavailable [phone] Shemar, Ammir Unavailable [phone] Shemar, Ammir Unavailable [phone] Shemar, Ammir Unavailable [phone] Shemar, Ammir Unavailable [phone] Shemar, Ammir Unavailable [phone] VIDYA WOOD Unavailable Unavailable LENA OZUNA Unavailable Unavailable CYNTHIA JIMENEZ Unavailable Unavailable Re-disclosure Warning The records that you are about to access may contain information from federally- assisted alcohol or drug abuse programs. If such information is present, then the following federally mandated warning applies: This information has been disclosed to you from records protected by federal confidentiality rules (42 CFR part 2). The federal rules prohibit you from making any further disclosure of this information unless further disclosure is expressly permitted by the written consent of the person to whom it pertains or as otherwise permitted by 42 CFR part 2. A general authorization for the release of medical or other information is NOT sufficient for this purpose. The Federal rules restrict any use of the information to criminally investigate or prosecute any alcohol or drug abuse patient.The records that you are about to access may contain highly sensitive health information, the redisclosure of which is protected by Article 27-F of the [facility] Public Health law. If you continue you may haveaccess to information: Regarding HIV / AIDS; Provided by facilities licensed or operated by the [facility] Office of Mental Health; or Provided by the [facility] Office for People With Developmental Disabilities. If such information is present, then the following [facility] mandated warning applies: This information has been disclosed to you from confidential records which are protected by state law. State law prohibits you from making any further disclosure of this information without the specific written consent of the person to whom it pertains, or as otherwise permitted by law. Any unauthorized further disclosure in violation of state law may result in a fine or longterm sentence or both. A general authorization for the release of medical or other information is NOT sufficient authorization for further disclosure. Encounters Encounter Providers Location Date Indications Data Source(s ) [facility]: [facility] (A mmir Shemar 12:00:00 AM MIRACLE [place] Ph ysician) Office Attender: Axel Staton 05/24/2020 12:00:00 AM E DT [facility] (Ammir Shemar Physician) Office Attender: Axel Staton 05/24/2020 12:00:00 AM E DT [facility] (Ammir Shemar Physician) Office Attender: Axel Mijaresadi 05/24/2020 12:00:00 AM E DT [facility] (Ammir Shemar Physician) Office Attender: Axel Mijaresadi 05/24/2020 12:00:00 AM E DT [facility] (Ammir Shemar Physician) Office Attender: Axel Staton 05/24/2020 12:00:00 AM E DT [facility] (Ammir Shemar Physician) Office Attender: Axel Staton 05/24/2020 12:00:00 AM E DT [facility] (Ammir Shemar Physician) Office Outpatient Attender: WILTON 05/19/2020 01:30:00 [facility]: DIFLO, AM EDT [facility] THOMASReferrer: Veda NÚÑEZ rporation FERNANDO Attender: Ammir Shemar 05/17/2020 12:00:00 [facility] (Ammir Shemar AM EDT Physician) [facility]/17/2020 12:00:00 AM E DT [facility] (Ammir Shemar Physician) [facility] 05/17/2020 12:00:00 AM E DT [facility] (Ammir Shemar Physician) [facility] 05/17/2020 12:00:00 AM E DT [facility] (Ammir Shemar Physician) [facility] 05/17/2020 12:00:00 AM E DT [facility] (Ammir Shemar Physician) [facility] 05/17/2020 12:00:00 AM E DT [facility] (Ammir Shemar Physician) Office Outpatient Attender: WILTON 04/19/2020 02:26:00 [facility] HospitalAdmitter: LEO NÚÑEZ EDT alth Care LIHUEReferrer: Veda NÚÑEZ Outpatient Attender: GONZALO 04/05/2020 06:00:00 I42.9 ,I25 [facility] ROBERTAdmitter: LEO EDT .10 [facility] [employer] [facility] ROBERTReferrer: CELINA SÁNCHEZ I42.9,I25.10 Outpatient Attender: SULMA 04/01/2020 10:15:00 I42.9 [facility] SEBASTIÁNTAdmitter: LEO OZUNA [facility] Alen OZUNA LENA I42.9 Outpatient Attender: MONTSE 04/01/2020 08:39:00 Z03.818 [facility] MERNA CarrAdmitter: LEO EDT [facility] MERNA WILLARD Corporfavio n E.Referrer: MERNA WILLARD Z03.818 Outpatient Attender: WILTON 03/19/2020 06:00:00 [facility] HospitalAdmitter: LEO NÚÑEZ EDT alth Care THOMASReferrer: Veda NÚÑEZ rporation FERNANDO Outpatient Attender: SULMA 02/29/2020 11:23:00 I42.9 [facility] ELLIOTAdmitter: OZUNA, AM EDT H ealth Care ELLIOTReferrer: Alen OZUNAT I42.9 Outpatient Attender: WILTON, 02/17/2020 03:08:00 [facility] HospitalAdmitter: DIFLO, AM EDT He alth Care THOMASReferrer: WILTON Co rporation FERNANDO Outpatient Attender: ESTEBAN, 02/16/2020 06:00:00 N18.6 [facility] SERVICESttender: TONY, AM EDT He alth Care TANYAAdmitter: [email or web address]: OLIVIA ORELLANA N18.6 Outpatient Attender: ESTEBAN, 01/26/2020 01:21:00 N18.6 [facility] Health Ca re [email or web address]: OLIVIA ORELLANA N18.6 Outpatient Attender: ESTEBAN 01/26/2020 N18.6 [facility] PM [facility]T [facility] Care [email or web address]: OLIVIA ORELLANA N18.6 Z76.82 Outpatient Attender: ESTEBAN, 01/26/2020 N18.6 Z76.82 [facility] 06:00:00 AM EDT [facility]al [facility] Care LYNDON WOODeferrer: OLIVIA Aceves N18.6 Z76.82 Outpatient Attender: WILTON, 01/18/2020 01:15:00 [facility] HospitalAdmitter: DIFLO, PM EDT He alth Care THOMASReferrer: Veda NÚÑEZ rporation FERNANDO Outpatient Attender: WILTON, 12/18/2019 11:04:00 [facility] HospitalAdmitter: DIFLO, AM EDT He alth Care THOMASReferrer: Veda NÚÑEZ rporation FERNANDO Outpatient Attender: WILTON, 11/18/2019 02:49:00 [facility] HospitalAdmitter: ANASTASIYALO, AM EDT - 12/17/2019 Health Care THOMASReferrer: DIFLO, 04:41:00 PM EDT [employer] [employer] FERNANDO Outpatient Attender: WILTON, 10/18/2019 03:28:00 [facility] HospitalAdmitter: ANASTASIYALO, AM EST [facility] Care THOMASReferrer: WILTON Co rporation FERNANDO Outpatient Attender: WILTON, 09/19/2019 02:17:00 [facility] HospitalAdmitter: WILTON, PM EST He alth Care THOMASReferrer: WILTON Co rporation FERNANDO Outpatient Attender: WILTON, 08/19/2019 11:13:00 [facility] HospitalAdmitter: WILTON, AM EST He alth Care THOMASReferrer: WILTON Co rporation FERNANDO Outpatient Attender: WILTON, 07/19/2019 12:21:00 [facility] HospitalAdmitter: WILTON, PM EST - [facility]18/2019 [facility], 12:42:00 PM EST [facility] FERNANDO Outpatient Attender: WILTON, 06/19/2019 09:54:00 [facility] HospitalAdmitter: WILTON, AM EDT He alth Care THOMASReferrer: WILTON Co rporation FERNANDO Outpatient Attender: WILTON, 05/19/2019 11:20:00 [facility] HospitalAdmitter: WILTON, AM EDT He alth Care THOMASReferrer: WILTON Co rporation FERNANDO Outpatient Attender: WILTON, 04/19/2019 04:41:00 [facility] HospitalAdmitter: ANASTASIYALO, AM EDT He alth Care THOMASReferrer: WILTON Co rporation FERNANDO Medications Medication Brand Start Product Dose Route Administrative Pharmacy [facility] Indications Reaction Description Data Name Date Form Instructions Instructions Source(s) Bacitracin BACITR 05/24/ OINTMENT 1 complet CAR ITRACIN MED[facility] 0.5 UNT/MG ACIN 2019 ed OPHTHALMIC (Am juan Ophthalmic OPHTHA 12:00: Rabad i Ointment LMIC:3 00 AM Physicia n) BACITRACIN 41231 EDT OPHTHALMIC: 348346 Bacitracin CORTIS 05/24/ OINTMENT 1 complet COR TISPORIN MED[facility] 0.4 UNT/MG PORIN 2019 ed OPHTHALMIC (A mmir / OPHTHA 12:00: Shemar Hydrocortis LMIC:6 00 AM Physi raghu) one 0.01 62636 EDT MG/MG / Neomycin 0.0035 MG/MG / Polymyxin B 10 UNT/MG Ophthalmic Ointment [Cortispori n Ointment] CORTISPORIN OPHTHALMIC: 750304 cetirizine ZYRTEC 05/24/ TABLET 30 complet ZYRTE C MEDGEN hydrochlori :99099 2019 ed (Ammir de 10 MG 26 12:00: Shemar Oral Tablet 00 AM Physici an) [Zyrtec] EDT ZYRTEC:1020 026 Lisinopril LISINO 05/17/ TABLET 30 complet LISIN OPRIL MED[facility] 20 MG Oral PRIL:3 2019 ed (Ammir Tablet 31059 12:00: Shemar LISINOPRIL: 00 AM Physici an) 221439 EDT Hydralazine HYDRAL 05/17/ TABLET 90 complet HYDR ALAZINE [facility] Hydrochlori AZINE: 2019 ed (Ammir de 100 MG 904317 12:00: Shemar Oral Tablet 00 AM Physici an) HYDRALAZINE EDT :734324 Hydralazine HYDRAL 05/17/ TABLET 90 complet HYDR ALAZINE [facility] Hydrochlori AZINE: 2019 ed (Ammir de 100 MG 001099 12:00: Shemar Oral Tablet 00 AM Physici an) HYDRALAZINE EDT :260252 Lisinopril LISINO 05/17/ TABLET 30 complet LISIN OPRIL [facility] 20 MG Oral PRIL:3 2019 ed (Ammir Tablet 09531 12:00: Shemar LISINOPRIL: 00 AM Physici an) 033061 EDT 24 HR METOPR 30/ TABLET, 180 complet METOPROLO L MED[facility] metoprolol OLOL 2019 EXTENDED ed SUCCINATE ER (Ammir succinate SUCCIN 12:00: RELEASE Rab tramaine 50 MG ATE 00 AM Physician) Extended ER:866 EST Release 436 Oral Tablet METOPROLOL SUCCINATE ER:[id number] 24 HR METOPR 12/30/ TABLET, 180 complet METOPROLO L [facility] metoprolol OLOL 2019 EXTENDED ed SUCCINATE ER (Ammir succinate SUCCIN 12:00: RELEASE Rab tramaine 50 MG ATE 00 AM Physician) Extended ER:866 EST Release 436 Oral Tablet METOPROLOL SUCCINATE ER:089231 Insurance Providers Payer name Policy type Policy ID Covered Covered libertarian's Policy P bryanna / Coverage libertarian ID relationship to [employer] ormation type burt MEDICARE [id number] SP [id number] ROSSY [id number] SP [id number] EXCHANGE MEDICARE [id number] SP [id number] MEDICARE [id number] SP [id number] Problems, Conditions, and Diagnoses Code Display Name Description Problem Type Effective Data Sour ce(s) Dates Z20.828 Contact with and CONTACT WITH AND Problem 05/24/2020 ME DGEN (Ammir (suspected) (SUSPECTED) 12:00:00 AM Shemar exposure to other EXPOSURE TO OTHER EDT Physician) viral communicable VIRAL COMMUNICABLE diseases DISEASES H05.222 Edema of left orbit EDEMA OF LEFT Problem 05/17/2020 ME D[facility] (Ammir ORBIT 12:00:00 AM Shemar EDT Physician) H05.222 Edema of left orbit EDEMA OF LEFT Problem 05/17/2020 ME DGEN (Ammir ORBIT 12:00:00 AM Shemar EDT Physician) I87.2 Venous VENOUS Problem 08/17/2019 [facility] (Ammir insufficiency INSUFFICIENCY 12:00:00 AM Shemar (chronic) (CHRONIC) EST Physician) (peripheral) (PERIPHERAL) I87.2 Venous VENOUS Problem 08/17/2019 [facility] (Ammir insufficiency INSUFFICIENCY 12:00:00 AM Shemar (chronic) (CHRONIC) EST Physician) (peripheral) (PERIPHERAL) K40.90 Unilateral inguinal UNILATERAL Problem 04/29/2019 MEDGE N (Ammir hernia, without INGUINAL HERNIA, 12:00:00 AM Ra badi obstruction or WITHOUT EDT Physician) gangrene, not OBSTRUCTION OR specified as GANGRENE, NOT recurrent SPECIFIED RECURRENT K40.90 Unilateral inguinal UNILATERAL Problem 04/29/2019 MEDGE N (Ammir hernia, without INGUINAL HERNIA, 12:00:00 AM Ra badi obstruction or WITHOUT EDT Physician) gangrene, not OBSTRUCTION OR specified as GANGRENE, NOT recurrent SPECIFIED RECURRENT N18.6 End stage renal END STAGE RENAL Diagnosis 05/19/2020 [place] disease DISEASE 01:30:00 AM [facility] VDI LaboratoryT Care [employer] Z87.891 Personal history of PERSONAL HISTORY Diagnosis 04/05/2020 [place] nicotine dependence OF NICOTINE 06:00:[address] [facility] [employer] DEPENDENCE EDT Care [employer] F14.11 Cocaine abuse, in COCAINE ABUSE, IN Diagnosis 04/05/2020 [place] remission [facility] [employer] Z99.2 Dependence on renal DEPENDENCE ON Diagnosis 04/05/2020 [place] [facility] dialysis RENAL DIALYSIS 06:00:00 AM [facility] VDI LaboratoryT [facility] [employer] E78.5 Hyperlipidemia, HYPERLIPIDEMIA, Diagnosis 04/05/2020 [place] unspecified UNSPECIFIED 06:00:00 AM [facility] VDI LaboratoryT [facility] [employer] E11.22 Type 2 diabetes TYPE 2 DIABETES Diagnosis 04/05/2020 [place] mellitus with MELLITUS W 06:00:00 AM [facility] diabetic chronic DIABETIC CHRONIC EDT [place] re kidney disease KIDNEY DISEASE Corpor ation I12.0 Hypertensive HYP CHR KIDNEY Diagnosis 04/05/2020 [facility] chronic kidney DISEASE W STAGE 5 06:00:00 AM [facility] disease with stage CHR KIDNEY DISEASE EDT Care 5 chronic kidney OR ESRD Corporat ion disease or end stage renal disease I42.9 Cardiomyopathy, CARDIOMYOPATHY, Diagnosis 04/05/2020 [place] unspecified UNSPECIFIED 06:00:00 AM [facility] [employer] I25.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 CARDIOVASCULAR EDT Care examination EXAMINATION [employer] R94.39 Abnormal result of ABNORMAL RESULT OF Diagnosis 0 [place] other OTHER 06:00:00 AM [facility] CARDIOVASCULAR EDT Care function study FUNCTION STUDY Corpor ation Z03.818 Encounter for ENCNTR FOR OBS FOR Diagnosis 04/01/2020 [facility] observation for SUSP EXPSR TO OTH 08:39:00 AM [employer] suspected exposure BIOLG AGENTS RULED EDT Care to other biological OUT Corpo ration agents ruled out Z76.82 Awaiting organ AWAITING ORGAN Diagnosis 01/26/2020 [facility] transplant status TRANSPL[facility] STATUS [facility]:00:[facility] [employer] Surgeries/Procedures Procedure Description Date Indications Data Source(s) Documentation of current 05/17/2020 MED [facility] (Ammir Shemar medications (procedure) 12:00:00 AM EDT P hysician) Documentation of current 05/17/2020 [facility] (Ammir Hsemar medications (procedure) 12:00:00 AM EDT P hysician) Medication Reconciliation 05/17/2020 ME D[facility] (Ammir Shemar (procedure) 12:00:00 AM EDT Physician) Documentation of current 05/17/2020 [facility] (Ammir Shemar medications (procedure) 12:00:00 AM EDT P hysician) Documentation of current 05/17/2020 [facility] (Ammir Shemar medications (procedure) 12:00:00 AM EDT P hysician) Medication Reconciliation 05/17/2020 ME DGEN (Ammir Shemar (procedure) 12:00:00 AM EDT Physician) Documentation of current 05/17/2020 [facility] (Ammir Shemar medications (procedure) 12:00:00 AM EDT P hysician) Documentation of current 08/24/2019 [facility] (Ammir Shemar medications (procedure) 12:00:00 AM EST P hysician) Documentation of current 08/24/2019 [facility] (Ammir Shemar medications (procedure) 12:00:00 AM EST P hysician) Documentation of current 08/24/2019 [facility] (Ammir Shemar medications (procedure) 12:00:00 AM EST P hysician) Documentation of current 08/24/2019 [facility] (Ammir Shemar medications (procedure) 12:00:00 AM EST P hysician) Documentation of current 08/24/2019 [facility] (Ammir Shemar medications (procedure) 12:00:00 AM EST P hysician) Documentation of current 08/24/2019 [facility] (Ammir Shemar medications (procedure) 12:00:00 AM EST P hysician) Documentation of current 08/24/2019 [facility] (Ammir Shemar medications (procedure) 12:00:00 AM EST P hysician) Documentation of current 08/24/2019 [facility] (Ammir Shemar medications (procedure) 12:00:00 AM EST P hysician) Documentation of current 04/29/2019 [facility] (Ammir Shemar medications (procedure) 12:00:00 AM EDT P hysician) Documentation of current 04/29/2019 [facility] (Ammir Shemar medications (procedure) 12:00:00 AM EDT P hysician) Documentation of current 04/29/2019 [facility] (Ammir Shemar medications (procedure) 12:00:00 AM EDT P hysician) Documentation of current 04/29/2019 [facility] (Ammir Shemar medications (procedure) 12:00:00 AM EDT P hysician) Documentation of current 04/29/2019 [facility] (Ammir Shemar medications (procedure) 12:00:00 AM EDT P hysician) Documentation of current 04/29/2019 [facility] (Ammir Shemar medications (procedure) 12:00:00 AM EDT P hysician) Documentation of current 04/29/2019 [facility] (Ammir Shemar medications (procedure) 12:00:00 AM EDT P hysician) Documentation of current 04/29/2019 [facility] (Ammir Shemar medications (procedure) 12:00:00 AM EDT P hysician) Results ID Date Data Source [id number] 05/24/2020 12:03:[address] [facility] Name Value Range Interpretation Code Description Data Josefina rce(s) Supporting Document(s ) SARS-CoV-2 [facility] PCR [facility] and reported by [facility]. ID Date Data Source [id number] 05/17/2020 12:00:00 AM EDT [facility] (Ammir Shemar Physician) Name Value Range Interpretation Code Description Data Josefina rce(s) Supporting Document(s ) %PSA, Test not Normal (applies to [facility] (Amm ir FREE performed. non-numeric Shemar results) Physician) ID Date Data Source [id number] 05/17/2020 12:00:00 AM EDT [facility] (Ammir Shemar Physician) Name Value Range Interpretation Code Description Data Josefina rce(s) Supporting Document(s ) PSA, FREE 0.18 ng/mL Normal (applies to [facility] (Am juan non-numeric Shemar results) Physician) ID Date Data Source [id number] 05/17/2020 12:00:00 AM EDT [facility] (Ammir Shemar Physician) Name Value Range Interpretation Code Description Data Supporting Source(s) Document(s ) PSA, TOTAL 0.26 ng/mL Normal (applies to [facility] (A mmir non-numeric Shemar results) Physician) ID Date Data Source [id number] 05/17/2020 12:00:00 AM EDT [facility] (Ammir Shemar Physician) Name Value Range Interpretation Description Data Sup porting Code Source(s) Document(s ) TSH,3RD 0.05 Below low normal [facility] GENERATION uIU/mL (Ammir Shemar Physician) T4 FREE, 1.56 Normal (applies to [facility] THYROXINE ng/dL non-numeric (Ammir results) Shemar Physician) ID Date Data Source [id number] 05/17/2020 12:00:00 AM EDT [facility] (Ammir Shemar Physician) Name Value Range Interpretation Description Data Sup porting Code Source(s) Document(s ) TESTOSTERONE 235.01 Normal (applies [facility] TOTAL ng/dL to non-numeric (Ammir results) Shemar Physician) SEX HORMONE 42 Normal (applies [facility] BINDING GLOBU nmol/L to non-numeric (Ammir results) Shemar Physician) TESTOSTERONE 3.9 Normal (applies [facility] FREE CALCULATED ng/dL to non-numeric (Ammir results) Shemar Physician) FREE 1.6 % Normal (applies [facility] TESTOSTERONE% to non-numeric (Ammir results) Shemar Physician) ID Date Data Source [id number] 05/17/2020 12:00:00 AM EDT [facility] (Ammir Shemar Physician) Name Value Range Interpretation Description Data Sup porting Code Source(s) Document(s ) VITAMIN B12 434 pg/mL Normal (applies to [facility] (A mmir non-numeric Shemar results) Physician) FOLATE SERUM 9.1 ng/mL Normal (applies to [facility] ( Ammir non-numeric Shemar results) Physician) ID Date Data Source [id number] 05/17/2020 12:00:00 AM EDT [facility] (Ammir Shemar Physician) Name Value Range Interpretation Description Data Sup porting Code Source(s) Document(s ) HEPATITIS C NONREACTIVE Normal (applies [facility] AB QL to non-numeric (Ammir results) Shemar Physician) ID Date Data Source [id number] 05/17/2020 12:00:00 AM EDT [facility] (Ammir Shemar Physician) Name Value Range Interpretation Description Data Sup porting Code Source(s) Document(s ) HEPATITIS BS NONREACTIVE Normal (applies [facility] AG SCREEN to non-numeric (Ammir results) Shemar Physician) ID Date Data Source [id number] 05/17/2020 12:00:00 AM EDT [facility] (Ammir Shemar Physician) Name Value Range Interpretation Description Data Sup porting Code Source(s) Document(s ) HEPATITIS B 104.14 Normal (applies to [facility] (A mmir SURFACE AB (REACTIVE non-numeric Shemar ) results) Physician) ID Date Data Source [id number] 05/17/2020 12:00:00 AM EDT [facility] (Ammir Shemar Physician) Name Value Range Interpretation Description Data Sup porting Code Source(s) Document(s ) HEPATITIS A NONREACTIVE Normal (applies MED[facility] AB to non-numeric (Ammir results) Shemar Physician) ID Date Data Source [id number] 05/17/2020 12:00:00 AM EDT [facility] (Ammir Shemar Physician) Name Value Range Interpretation Description Data Sup porting Code Source(s) Document(s ) VITAMIN D 46.30 Normal (applies to [facility] (Amm ir 25-HYDROXY ng/mL non-numeric Shemar results) Physician) ID Date Data Source [id number] 05/17/2020 12:00:00 AM EDT [facility] (Ammir Shemar Physician) Name Value Range Interpretation Description Data Sup porting Code Source(s) Document(s ) Cholesterol 94 mg/dL Normal (applies [facility] [Moles/volume] to non-numeric (Ammir in Pericardial results) Shemar fluid Physician) CHOL/HDL RATIO 2.76 Normal (applies [facility] ratio to non-numeric (Ammir results) Shemar Physician) LDL CALCULATION 42.6 Normal (applies [facility] mg/dL to non-numeric (Ammir results) Shemar Physician) HDL CHOLESTEROL 34 mg/dL Below low normal [facility] (Ammir Shemar Physician) TRIGLYCERIDES 87 mg/dL Normal (applies [facility] to non-numeric (Ammir results) Shemar Physician) VLDL CALCULATION 17.4 Normal (applies [facility] mg/dl to non-numeric (Ammir results) Shemar Physician) ID Date Data Source [id number] 05/17/2020 12:00:00 AM EDT [facility] (Ammir Shemar Physician) Name Value Range Interpretation Description Data Sup porting Code Source(s) Document(s ) WBC 7.9 Normal (applies [facility] 10(3)/uL to non-numeric (Ammir results) Shemar Physician) Hemoglobin 10.3 g/dL Below low normal [facility] [Mass/volume] (Ammir in Mixed venous Shemar blood by Physician) Oximetry RBC 3.1 Below low normal [facility] 10(6)/uL (Ammir Shemar Physician) Hematocrit 30.2 % Below low normal [facility] [Pure volume (Ammir fraction] of Shemar Blood by Physician) Automated count MCH 33 pg Normal (applies MED[facility] to non-numeric (Ammir results) Shemar Physician) MCV 96.8 fL Normal (applies MED[facility] to non-numeric (Ammir results) Shemar Physician) MCHC 34 g/dL Normal (applies MED[facility] to non-numeric (Ammir results) Shemar Physician) RDWSD 43.6 fL Normal (applies [facility] to non-numeric (Ammir results) Shemar Physician) RDWCV 12.5 % Normal (applies MED[facility] to non-numeric (Ammir results) Shemar Physician) Platelet Count 132 Below low normal [facility] 10(3)/uL (Ammir Shemar Physician) MPV 10.6 fL Normal (applies [facility] to non-numeric (Ammir results) Shemar Physician) Neutrophil Abs 5.17 Normal (applies [facility] 10(3)/uL to non-numeric (Ammir results) Shemar Physician) Lymphocyte Abs 0.93 Normal (applies [facility] 10(3)/uL to non-numeric (Ammir results) Shemar Physician) Monocyte Abs 0.83 Normal (applies [facility] 10(3)/uL to non-numeric (Ammir results) Shemar Physician) Basophil Abs 0.06 Normal (applies [facility] 10(3)/uL to non-numeric (Ammir results) Shemar Physician) Eosinophil Abs 0.90 Above high normal [facility] 10(3)/uL (Ammir Shemar Physician) Immature 0.02 Normal (applies MEDGEN Granulocyte Abs 10(3)/uL to non-numeric (Ammir results) Shemar Physician) Neutrophil % 65.50 % Normal (applies MED[facility] to non-numeric (Ammir results) Shemar Physician) Lymphocyte % 12 % Below low normal [facility] (Ammir Shemar Physician) Eosinophil % 11.4 % Above high normal [facility] (Ammir Shemar Physician) Monocyte % 10.5 % Normal (applies MED[facility] to non-numeric (Ammir results) Shemar Physician) Immature 0.30 % Normal (applies MEDGEN Granulocyte % to non-numeric (Ammir results) Shemar Physician) Basophil % 0.8 % Normal (applies MEDGEN to non-numeric (Ammir results) Shemar Physician) NRBC % 0.0 % Normal (applies MEDGEN to non-numeric (Ammir results) [facility] Physician) NRBC Abs 0.00 Normal (applies [facility] 10(3)/uL to non-numeric (Ammir results) [facility] Physician) ID Date Data Source [id number] 05/17/2020 12:00:00 AM EDT [facility] (Ammir [facility] Physician) Name Value Range Interpretation Description Data Sup porting Code Source(s) Document(s ) Hemoglobin A1c 5.6 % Normal (applies to [facility] (Ammir in Blood non-numeric [facility] results) Physician) ID Date Data Source [id number] 05/17/2020 12:00:00 AM EDT [facility] (Ammir [facility] Physician) Name Value Range Interpretation Description Data Sup porting Code Source(s) Document(s ) GLUCOSE 107 Normal (applies [facility] NONFASTING,SERUM mg/dL to non-numeric (Ammir results) [facility] Physician) SODIUM, SERUM 142 Normal (applies [facility] mEq/L to non-numeric (Ammir results) [facility] Physician) POTASSIUM, SERUM 5.4 Normal (applies [facility] mEq/L to non-numeric (Ammir results) [facility] Physician) Carbon dioxide 30 mEq/L Normal (applies [facility] [VFr/PPres] in to non-numeric (Ammir Gas delivery results) [facility] system Physician) CHLORIDE, SERUM 98 mEq/L Below low normal [facility] (Ammir [facility] Physician) Anion gap in 19.4 Above high normal [facility] Body fluid mEq/L (Ammir [facility] Physician) CREATININE, 8.00 Above high normal [facility] SERUM mg/dL (Ammir [facility] Physician) BLOOD UREA 70 mg/dL Above high normal [facility] NITROGEN (Ammir [facility] Physician) BUN/CREATININE 8.75 Normal (applies [facility] RATIO to non-numeric (Ammir results) [facility] Physician) CALCIUM, SERUM 8.7 Normal (applies [facility] mg/dL to non-numeric (Ammir results) [facility] Physician) TOTAL PROTEIN 6.9 g/dL Normal (applies [facility] to non-numeric (Ammir results) [facility] Physician) Globulin 2.5 gldl Normal (applies [facility] [Mass/time] in to non-numeric (Ammir 24 hour Urine results) [facility] Physician) Microalbumin 4.4 g/dL Normal (applies [facility] [Mass/time] in to non-numeric (Ammir Urine collected results) [facility] for unspecified Physician) duration A/G RATIO 1.76 Normal (applies [facility] g/dl to non-numeric (Ammir results) [facility] Physician) BILIRUBIN, TOTAL 0.7 Normal (applies [facility] mg/dL to non-numeric (Ammir results) [facility] Physician) ALKALINE 156 U/L Above high normal [facility] PHOSPHATASE, ALP (Ammir [facility] Physician) ALT (SGPT) 19 U/L Normal (applies [facility] to non-numeric (Ammir results) [facility] Physician) AST 15 U/L Below low normal [facility] (Ammir [facility] Physician) EGFR NON AFR 8 Below low normal [facility] NAMIBIAN mL/min/1 (Ammir .73m2 [facility] Physician) EGFR AFR 9 Below low normal [facility] NAMIBIAN mL/min/1 (Ammir .73m2 [facility] Physician) Procedure Social History Code Duration Value Status Description Data Source(s ) Smoking 05/24/2020 FORMER SMOKER, completed FORMER SMOKER, QUIT [facility] (Ammir 12:00:00 AM EDT QUIT 2015. - 2016. - Alcohol: [facility] Physician) Alcohol: none none Smoking 05/24/2020 Unknown if ever completed Unknown if ever [facility] EN (Ammir 12:00:00 AM EDT smoked smoked [facility] Ph ysician) Smoking 05/17/2020 Unknown if ever completed Unknown if ever [facility] EN (Ammir 12:00:00 AM EDT smoked smoked [facility] Ph ysician) Smoking 05/17/2020 FORMER SMOKER, completed FORMER SMOKER, QUIT [facility] (Ammir 12:00:00 AM EDT QUIT 2016. - 2016. - Alcohol: [facility] Physician) Alcohol: none none Vital Signs ID Date Data Source UNK Name Value Range Interpretation Code Description Data Source(s) Heart rate 64 /min 64 /min [facility] (Ammir [facility] Physician) Inhaled oxygen 97 % 97 % [facility] (Am juan concentration [facility] Physician) Diastolic blood 82 mm[Hg] 82 mm[Hg] [facility] (A mmir pressure [facility] Physician) Systolic blood 158 mm[Hg] 158 mm[Hg] [facility] (Am juan pressure [facility] Physician) Body weight 233 lb 233 lb [facility] (Ammir [facility] Physician) Heart rate 63 /min 63 /min [facility] (Ammir [facility] Physician) Inhaled oxygen 97 % 97 % [facility] (Am juan concentration [facility] Physician) Body mass index 34.3 kg/m2 34.3 kg/m2 [facility] (A mmir (BMI) [Ratio] [facility] Physician) Diastolic blood 90 mm[Hg] 90 mm[Hg] [facility] (A mmir pressure [facility] Physician) Systolic blood 150 mm[Hg] 150 mm[Hg] [facility] (Am juan pressure [facility] Physician) Body weight 232 lb 232 lb [facility] (Ammir [facility] Physician) Body height 69 in 69 in [facility] (Ammir [facility] Physician) Body height 69 in 69 in [facility] (Ammir [facility] Physician) Body weight 232 lb 232 lb [facility] (Ammir [facility] Physician) Systolic blood 150 mm[Hg] 150 mm[Hg] [facility] (Am juan pressure [facility] Physician) Diastolic blood 90 mm[Hg] 90 mm[Hg] [facility] (A mmir pressure [facility] Physician) Body mass index 34.3 kg/m2 34.3 kg/m2 [facility] (A mmir (BMI) [Ratio] [facility] Physician) Inhaled oxygen 97 % 97 % [facility] (Am juan concentration [facility] Physician) Heart rate 63 /min 63 /min [facility] (Ammir [facility] Physician) Heart rate 68 /min 68 /min [facility] (Ammir [facility] Physician) Inhaled oxygen 91 % 91 % [facility] (Am juan concentration [facility] Physician) Diastolic blood 82 mm[Hg] 82 mm[Hg] [facility] (A mmir pressure [facility] Physician) Systolic blood 168 mm[Hg] 168 mm[Hg] [facility] (Am juan pressure [facility] Physician) Body weight 260 lb 260 lb [facility] (Ammir [facility] Physician) Body weight 260 lb 260 lb [facility] (Ammir [facility] Physician) Systolic blood 168 mm[Hg] 168 mm[Hg] [facility] (Am juan pressure [facility] Physician) Diastolic blood 82 mm[Hg] 82 mm[Hg] [facility] (A mmir pressure [facility] Physician) Inhaled oxygen 91 % 91 % [facility] (Am juan concentration [facility] Physician) Heart rate 68 /min 68 /min [facility] (Ammir [facility] Physician) Heart rate 68 /min 68 /min [facility] (Ammir [facility] Physician) Inhaled oxygen 91 % 91 % [facility] (Am juan concentration [facility] Physician) Diastolic blood 82 mm[Hg] 82 mm[Hg] [facility] (A mmir pressure [facility] Physician) Systolic blood 168 mm[Hg] 168 mm[Hg] [facility] (Am juan pressure [facility] Physician) Body weight 260 lb 260 lb [facility] (Ammir [facility] Physician) Body weight 260 lb 260 lb [facility] (Ammir [facility] Physician) Systolic blood 168 mm[Hg] 168 mm[Hg] [facility] (Am juan pressure [facility] Physician) Diastolic blood 82 mm[Hg] 82 mm[Hg] [facility] (A mmir pressure [facility] Physician) Inhaled oxygen 91 % 91 % [facility] (Am juan concentration [facility] Physician) Heart rate 68 /min 68 /min [facility] (Ammir [facility] Physician) Heart rate 80 /min 80 /min [facility] (Ammir [facility] Physician) Inhaled oxygen 95 % 95 % [facility] (Am juan concentration [facility] Physician) Diastolic blood 90 mm[Hg] 90 mm[Hg] [facility] (A mmir pressure [facility] Physician) Systolic blood 160 mm[Hg] 160 mm[Hg] [facility] (Am juan pressure [facility] Physician) Body weight 261 lb 261 lb [facility] (Ammir [facility] Physician) Body weight 261 lb 261 lb [facility] (Ammir [facility] Physician) Systolic blood 160 mm[Hg] 160 mm[Hg] [facility] (Am juan pressure [facility] Physician) Diastolic blood 90 mm[Hg] 90 mm[Hg] [facility] (A mmir pressure [facility] Physician) Inhaled oxygen 95 % 95 % [facility] (Am juan concentration [facility] Physician) Heart rate 80 /min 80 /min [facility] (Ammir [facility] Physician) Heart rate 66 /min 66 /min [facility] (Ammir [facility] Physician) Body temperature 97.7 F 97.7 F [facility] ( Ammir Shemar Physician) Inhaled oxygen 97 % 97 % [facility] (Am juan concentration [facility] Physician) Diastolic blood 90 mm[Hg] 90 mm[Hg] [facility] (A mmir pressure [facility] Physician) Systolic blood 146 mm[Hg] 146 mm[Hg] [facility] (Am juan pressure [facility] Physician) Body weight 242 lb 242 lb [facility] (Ammir [facility] Physician) Body weight 242 lb 242 lb [facility] (Ammir [facility] Physician) Systolic blood 146 mm[Hg] 146 mm[Hg] [facility] (Am juan pressure [facility] Physician) Diastolic blood 90 mm[Hg] 90 mm[Hg] [facility] (A mmir pressure [facility] Physician) Inhaled oxygen 97 % 97 % [facility] (Am juan concentration [facility] Physician) Body temperature 97.7 F 97.7 F [facility] ( Ammir Shemar Physician) Heart rate 66 /min 66 /min [facility] (Ammir [facility] Physician)
--- NOTE | 2020-06-02 15:36 | PDOC ---
History of Present Illness - General Chief Complaint: Shortness of Breath Stated Complaint: DIFFICULTY BREATHING Time Seen by Provider: 06/02/20 15:36 - History of Present Illness Initial Comments: 54 YOM h/o diabetes, ESRD on dialysis (M/W/), HF with EF 40%, presenting for SOB + orthopnea, + LL edema. PT followed by [facility], requiring home O2 but not currently using it due to difficulty with acquiring it. Reports intermittent bouts of SOB particularly with sustained ambulation. Denies CP, fever, chills, cough, N/V/D, recent travel or sick contacts. ROS otherwise negative 06/02/20 16:41 Past History - Medical History Allergies/Adverse Reactions: Allergies Allergy/AdvReac Type Severity Reaction Status Date / Time No Known Allergies Allergy Verified 10/12/19 18:36 Home Medications: Ambulatory Orders Metoprolol Succinate [Toprol XL -] 50 mg PO BID 02/03/19 Torsemide 100 mg PO UTDICT 02/03/19 Sevelamer Carbonate [Renvela -] 800 mg PO TID 07/06/19 Atorvastatin Ca [Lipitor] 80 mg PO HS 08/24/19 Ferrous Sulfate [Feosol] 325 mg PO BID 08/24/19 Hydralazine HCl 50 mg PO TID 08/24/19 Anemia: No Asthma: No Cancer: No Cardiac Disorders: Yes CVA: No COPD: No CHF: Yes Dementia: No Diabetes: Yes Dialysis: Yes (-W-) GI Disorders: No Disorders: No HTN: Yes Hypercholesterolemia: Yes Liver Disease: No Seizures: No Thyroid Disease: No - Surgical History Abdominal Surgery: No Appendectomy: No Cardiac Surgery: No Cholecystectomy: No Lung Surgery: No Neurologic Surgery: No Orthopedic Surgery: No - Psycho-Social/Smoking History Smoking History: Former smoker Have you smoked in the past 12 months: No If you are a former smoker, when did you quit?: 2009 Information on smoking cessation initiated: No - Substance Abuse Hx (Audit-C & DAST Scrn) How often the patient has a drink containing alcohol: Never Score: In Men: 4 or > Positive; In Women: 3 or > Positive: 0 Screen Result (Pos requires Nsg. Audit-10AR): Negative In the last yr the pt used illegal drug/Rx for NonMed reason: No Score: Yes response is considered Positive: 0 Screen Result (Positive result requires Nsg. DAST-10): Negative *Physical Exam - Vital Signs Last Vital Signs Temp Pulse Resp BP Pulse Ox 63 22 H 163/70 96 06/02/20 14:28 06/02/20 14:28 06/02/20 14:28 06/02/20 14:28 - Physical Exam General Appearance: Yes: Nourished, Appropriately Dressed HEENT: positive: EOMI, ANA, Normal ENT Inspection, Normal Voice, Symmetrical, Pharynx Normal Neck: positive: Trachea midline, Normal Thyroid Respiratory/Chest: positive: Lungs Clear, Normal Breath Sounds, Rapid RR, Other (patient on 2L nasal canula) Cardiovascular: positive: Regular Rhythm, Regular Rate, S1, S2 Gastrointestinal/Abdominal: positive: Normal Bowel Sounds, Flat, Soft Medical Decision Making - Medical Decision Making 54 YOM h/o HF with EF 40% presents with SOB vitals: RR 22-24. otherwise wnl exam: unremarkable will do cxr, ekg, 2l NC and reasses 06/02/20 16:39 CXR and EKG wnl patient reports feeling much better trial off NC O2 sats remain w/in 95-97 06/02/20 16:42 - will DC patient to f/u with [facility] as outpatient and return precautions Discharge - Discharge Information Problems reviewed: Yes Clinical Impression/Diagnosis: SOB (shortness of breath) Condition: Improved Disposition: HOME - Admission No - Follow up/Referral Referrals: Axel Staton MD [Primary Care Provider] - - Patient Discharge Instructions Patient Printed Discharge Instructions: DI for Shortness of Breath Additional Instructions: You were seen in the ER for shortness of breath. While in the ER you received chest xray, ekg, and supplemental oxygen. You reported feeling much better and endorsed a desire to return home. You mention you require home O2 but have not yet been able to acquire it. Please follow up with Dr. Staton soon after leaving the ER in order to organize immediate home O2. When at home you should limit physical activity. If you experience any of the following symptoms please return to the ER: Return to the emergency department if: Your signs and symptoms are the same or worse within 24 hours of treatment. You have shaking chills or a fever over 102F. You have new pain, pressure, or tightness in your chest. You have a new or worse cough or wheezing, or you cough up blood. You feel like you cannot get enough air. The skin over your ribs or on your neck sinks in when you breathe. You have a severe headache with vomiting and abdominal pain. You feel confused or dizzy. - Post Discharge Activity
--- NOTE | 2020-06-02 16:43 | PDOC ---
Documentation entered by Bobo Peraza SCRIBE, acting as scribe for Sesar Oscar MD. Sesar Oscar MD: This documentation has been prepared by the Stu mitchell Angel, SCRIBE, under my direction and personally reviewed by me in its entirety. I confirm that the documentation accurately reflects all work, treatment, procedures, and medical decision making performed by me. Attending Attestation - Resident Resident Name: Geoff Alvarez - ED Attending Attestation I have performed the following: I have examined & evaluated the patient, The case was reviewed & discussed with the resident, I agree w/resident's findings & plan, Exceptions are as noted - HPI HPI: 06/02/20 16:36 54y M hx of dm, esrd on dialysis (MWF< last dialysis yeserday),HF, present with sob. Patient states that he has been feeling increasing Shortness of breath over the last several months he has been following up with his primary care doctor for outpatient oxygen. He states that he sometimes feel short of breath and then feels a little better. He came to the ER today as he thought he could expedite the ability fo rhim to get oxygen. He denies any fever, chills, cough, nausea, vomiting, diaphoresis, chest pain,. He does endorse mild leg swelling which is chronic for him. He also endorses shortness of breath with exertion particularly when he walks up the hill. He states that he has no shortness of breath when walking around his apartment, Which is his baseline exertional tolerance. - Physicial Exam PE: 06/02/20 16:40 GENERAL: The patient is awake, alert, and fully oriented, Nontoxic - in no acute distress. HEAD: Normocephalic, atraumatic. EYES: extraocular movements intact, sclera anicteric, conjunctiva clear. ENT: Normal voice, Moist mucous membranes. NECK: Normal range of motion, supple LUNGS: Breath sounds equal, clear to auscultation bilaterally. No wheezes, no rhonchi, no rales. HEART: Regular rate and rhythm, normal S1 and S2 without murmur, rub or gallop. ABDOMEN: Soft, nontender, No guarding, no rebound. No CVA tenderness EXTREMITIES: Normal range of motion, trace b/l pitting edema. No calf tenderness, Negative Homans' sign NEUROLOGICAL: No facial assymetry, Normal speech, PSYCH: Normal mood, normal affect. SKIN: Warm, Dry, normal turgor, 06/02/20 16:40 - Medical Decision Making 06/02/20 16:40 Patient here with complaint of chronic shortness of breath, denies any acute complaints today but thought he may be will to get his outpatient oxygen. Currently asymptomatic,. EKG noted for incomplete right bundle branch block Chest x-ray without acute process 06/02/20 16:42 pt decines blood work here will have him fu with his PMD for further evlauation. Heart Score/ECG Review - ECG Impressions Comment:: 06/02/20 16:42 Twelve-lead EKG was performed and reviewed by me. There is normal sinus rhythm with a normal rate. Rate of 61 Incomplete right bundle branch block QT interval 505 Discharge - Follow up/Referral Referrals: Axel Staton MD [Primary Care Provider] - - Patient Discharge Instructions - Post Discharge Activity
[2020-06-02 17:17] VITALS: BP 158/88; PULSE 65; TEMP 98.1
== END 2020-06-02 17:00 | disposition home or self-care (01) ==
LOC: JER 14:10
DX: R06.02 Shortness of breath (principal)
CPT/HCPCS: 71045-TC-FY; 93005; 93010; 99285-25

== ENCOUNTER 2020-12-03 06:29 | Emergency (ER) | payer OTHER ==
[2020-12-03 06:55] VITALS: TEMP 97.8; BMI 33.0
[2020-12-03] MEDS ORDERED: ACETAMINOPHEN 1000 MG/100 ML VIAL (NON FORMULARY) IVPB ONE (07:18)
[2020-12-03] MEDS ORDERED: LACTATED RINGERS SOLUTION 1000 ML INFUS.BAG IV ONE (07:23)
[2020-12-03] MEDS ORDERED: ACETAMINOPHEN INJECTION 100 ML IVPB ONE (07:24)
[2020-12-03] MEDS ORDERED: SODIUM CHLORIDE 0.9% 500 ML INFUS.BAG IV ONE (07:45)
[2020-12-03] MEDS ORDERED: morphine CARPU-JECT 2 MG/1 ML DISP.SYRIN IVPUSH ONE ×2 (08:12→09:03)
[2020-12-03] MEDS ORDERED: morphine SULFATE 4 MG/ML VIAL ONE (08:27)
[2020-12-03 08:42] LABS: BASO % 0.9 % (0-2.0); EOS % 13.8 % (0-4.5); HEMATOCRIT 31.2 % (35.4-49); HEMOGLOBIN 10.7 GM/dL (11.7-16.9); LYMPH % 9.7 % (8-40); MCH 34.6 pg (25.7-33.7); MCHC 34.4 g/dl (32.0-35.9); MEAN CELL VOLUME 100.5 fl (80-96); MEAN PLT VOLUME 8.7 fl (7.5-11.1); MONO % 10.4 % (3.8-10.2); NEUT % 65.2 % (42.8-82.8); PLATELET COUNT 176 K/MM3 (134-434); RBC 3.11 M/mm3 (4.00-5.60); RDW 14.5 % (11.9-15.9); WHITE BLOOD COUNT 9.4 K/mm3 (4.0-10.0)
[2020-12-03 09:02] LABS: CALCIUM 9.4 mg/dL (8.5-10.1)
[2020-12-03] MEDS ORDERED: ALPRAZolam 1 MG TABLET PO PRN (09:02)
[2020-12-03 09:03] LABS: ALBUMIN 3.8 g/dl (3.4-5.0); BLOOD UREA NITROGEN 40.1 mg/dL (7-18)
[2020-12-03 09:07] LABS: TOT PROT 7.4 g/dl (6.4-8.2)
[2020-12-03] MEDS ORDERED: ALPRAZolam 0.25 MG TABLET ONE (09:24)
[2020-12-03 09:28] VITALS: BP 121/64; PULSE 58
[2020-12-03] MEDS ORDERED: FAMOTIDINE 20 MG/50 ML IVPB 20 MG/50 ML MG IVPB ONE (09:53)
[2020-12-03 10:01] LABS: INR 1.15 (0.83-1.09); PROTHROMBIN TIME (PATIENT) 13.9 SEC (9.7-13.0)
[2020-12-03 10:03] LABS: ACTIVATED PTT 32.3 SECONDS (25.2-36.5)
== END 2020-12-03 10:50 | disposition home or self-care (01) ==
LOC: JER 06:29
PROC: 3E033NZ Introduction of Analgesics, Hypnotics, Sedatives into Peripheral Vein, Percutaneous Approach (ICD-10-PCS; principal; 2020-12-03)
PROC: 3E033GC Introduction of Other Therapeutic Substance into Peripheral Vein, Percutaneous Approach (ICD-10-PCS; 2020-12-03)
DX: K46.9 Unspecified abdominal hernia without obstruction or gangrene (principal)
CPT/HCPCS: 36415; 74176-TC; 80053; 83605; 83690; 83735; 84100; 85025; 85610; 85730; 86850; 86900; 86901; 99285-25; J0131

== ENCOUNTER 2020-12-25 03:00 | Inpatient (IN) | payer OTHER ==
[2020-12-25] MEDS ORDERED: ASPIRIN 81 MG CHEWABLE TABLETS PO ONE (03:02)
[2020-12-25] MEDS ORDERED: ASPIRIN 81 MG CHEWABLE TABLETS ONE ×2 (03:04→03:12)
[2020-12-25 03:12] VITALS: BMI 32.8
[2020-12-25 04:06] LABS: BASO % 0.4 % (0-2.0); HEMATOCRIT 33.7 % (35.4-49); HEMOGLOBIN 11.6 GM/dL (11.7-16.9); MCH 34.9 pg (25.7-33.7); MCHC 34.5 g/dl (32.0-35.9); MEAN CELL VOLUME 101.1 fl (80-96); MEAN PLT VOLUME 8.8 fl (7.5-11.1); MONO % 7.6 % (3.8-10.2); PLATELET COUNT 155 K/MM3 (134-434); RBC 3.34 M/mm3 (4.00-5.60); RDW 14.5 % (11.9-15.9); WHITE BLOOD COUNT 9.4 K/mm3 (4.0-10.0)
[2020-12-25 04:07] LABS: VENOUS BASE EXCESS 3.6 mmol/L (-2-2); VENOUS O2 SATURATION 38.9 % (70-80); VENOUS PCO2 48.9 mmHg (38-52); VENOUS PH 7.398 (7.310-7.410)
[2020-12-25 04:16] LABS: INR 1.06 (0.83-1.09)
[2020-12-25 04:19] LABS: ACTIVATED PTT 34.1 SECONDS (25.2-36.5)
[2020-12-25 04:28] LABS: CHLORIDE 95 mmol/L (98-107); SODIUM 135 mmol/L (136-145)
[2020-12-25 04:32] LABS: CALCIUM 9.3 mg/dL (8.5-10.1)
[2020-12-25 04:33] LABS: ALBUMIN 4.4 g/dl (3.4-5.0); ANION GAP 11 MMOL/L (8-16); BLOOD UREA NITROGEN 56.9 mg/dL (7-18); CO2 29 mmol/L (21-32); GLUCOSE,RANDOM 103 mg/dL (74-106); MAGNESIUM 2.1 mg/dL (1.8-2.4)
[2020-12-25 04:36] LABS: SGOT/AST 22 U/L (15-37); SGPT/ALT 24 U/L (13-61)
[2020-12-25 04:37] LABS: PHOSPHOROUS 4.7 mg/dL (2.5-4.9)
[2020-12-25 04:38] LABS: BILIRUBIN,TOTAL 1.2 mg/dL (0.2-1); TOT PROT 8.4 g/dl (6.4-8.2)
[2020-12-25 04:39] LABS: ALK PHOS 193 U/L (45-117)
[2020-12-25 04:45] LABS: CREATININE 8.1 mg/dL (0.55-1.3)
[2020-12-25 07:20] LABS: N-TERMINAL BNP 62746.9 pg/ml (5-125)
[2020-12-25] MEDS ORDERED: SODIUM CHLORIDE 250 ML IV PRN (10:16)
[2020-12-25 12:00] VITALS: BP 169/72; PULSE 57; TEMP 97.9
[2020-12-26] MEDS ORDERED: ASPIRIN 81 MG CHEWABLE TABLETS PO SCH (10:00)
== END 2020-12-25 14:35 | disposition home or self-care (01) | DRG 291 ==
LOC: JER 03:00 → JERBED 05:28
PROVIDERS: ADMIT Family Medicine; ATTEND Family Medicine
DX: I13.2 Hypertensive heart and chronic kidney disease with heart failure and with stage 5 chronic kidney disease, or end stage renal disease (principal); N18.6 End stage renal disease; I50.43 Acute on chronic combined systolic (congestive) and diastolic (congestive) heart failure; J98.11 Atelectasis; J96.11 Chronic respiratory failure with hypoxia; R07.89 Other chest pain; E78.00 Pure hypercholesterolemia, unspecified; E11.22 Type 2 diabetes mellitus with diabetic chronic kidney disease; E87.70 Fluid overload, unspecified; I25.10 Atherosclerotic heart disease of native coronary artery without angina pectoris; Z99.81 Dependence on supplemental oxygen; Z99.2 Dependence on renal dialysis
CPT/HCPCS: 36415; 71045-TC-FY; 80053; 80061; 82550; 82803; 83721; 83735; 83880; 84100; 84436; 84443; 84481; 84484; 85025; 85610; 85730; 86850; 86900; 86901; 93005; 93010; 99285-25; C9803; U0003; U0005

== ENCOUNTER 2021-04-04 14:54 | Emergency (ER) | payer OTHER ==
[2021-04-04 15:24] VITALS: BP 144/81; PULSE 70; TEMP 98.4; BMI 31.0
[2021-04-04 17:53] LABS: BASO % 0.5 % (0-2.0); EOS % 8.4 % (0-4.5); HEMATOCRIT 22.4 % (35.4-49); HEMOGLOBIN 7.8 GM/dL (11.7-16.9); MCHC 34.9 g/dl (32.0-35.9); MEAN CELL VOLUME 94.6 fl (80-96); MEAN PLT VOLUME 8.2 fl (7.5-11.1); MONO % 8.3 % (3.8-10.2); NEUT % 69.8 % (42.8-82.8); PLATELET COUNT 160 10^3/uL (134-434); RBC 2.36 M/mm3 (4.00-5.60); RDW 13.1 % (11.9-15.9); WHITE BLOOD COUNT 8.9 K/mm3 (4.0-10.0)
[2021-04-04 18:11] LABS: CHLORIDE 100 mmol/L (98-107); SODIUM 139 mmol/L (136-145)
[2021-04-04 18:13] LABS: CALCIUM 8.8 mg/dL (8.5-10.1)
[2021-04-04 18:14] LABS: ALBUMIN 3.6 g/dl (3.4-5.0); ANION GAP 10 MMOL/L (8-16); BLOOD UREA NITROGEN 53.7 mg/dL (7-18); CO2 29 mmol/L (21-32); GLUCOSE,RANDOM 97 mg/dL (74-106)
[2021-04-04 18:17] LABS: SGOT/AST 12 U/L (15-37); SGPT/ALT 22 U/L (13-61)
[2021-04-04 18:18] LABS: BILIRUBIN,TOTAL 0.7 mg/dL (0.2-1)
[2021-04-04 18:19] LABS: ALK PHOS 173 U/L (45-117)
[2021-04-04 18:22] LABS: CREATININE 8.5 mg/dL (0.55-1.3); N-TERMINAL BNP 26611.6 pg/ml (5-125)
== END 2021-04-04 19:20 | disposition left against medical advice (07) ==
LOC: JER 14:54
DX: R06.02 Shortness of breath (principal); D64.9 Anemia, unspecified
CPT/HCPCS: 36415; 71046-TC-FY; 80053; 82272; 82550; 83735; 83880; 84484; 85025; 93005; 93010; 99285-25; C9803; U0003; U0005

== ENCOUNTER 2021-04-25 11:08 | Inpatient (IN) | payer OTHER ==
[2021-04-25 12:23] LABS: BASO % 0.7 % (0-2.0); EOS % 8.4 % (0-4.5); HEMATOCRIT 17.2 % (35.4-49); LYMPH % 13.7 % (8-40); MCH 34.4 pg (25.7-33.7); MCHC 35.9 g/dl (32.0-35.9); MEAN CELL VOLUME 95.7 fl (80-96); MEAN PLT VOLUME 7.9 fl (7.5-11.1); MONO % 9.4 % (3.8-10.2); NEUT % 67.8 % (42.8-82.8); PLATELET COUNT 174 10^3/uL (134-434); RDW 14.2 % (11.9-15.9); WHITE BLOOD COUNT 8.6 K/mm3 (4.0-10.0)
[2021-04-25 12:25] LABS: HEMOGLOBIN 6.2 GM/dL (11.7-16.9)
[2021-04-25 12:39] LABS: CHLORIDE 99 mmol/L (98-107); SODIUM 139 mmol/L (136-145)
[2021-04-25 12:41] LABS: ALBUMIN 3.3 g/dl (3.4-5.0); CALCIUM 8.6 mg/dL (8.5-10.1)
[2021-04-25 12:42] LABS: ANION GAP 9 MMOL/L (8-16); BLOOD UREA NITROGEN 54.3 mg/dL (7-18); CO2 31 mmol/L (21-32); GLUCOSE,RANDOM 219 mg/dL (74-106); MAGNESIUM 2.1 mg/dL (1.8-2.4)
[2021-04-25 12:44] LABS: SGOT/AST 11 U/L (15-37); SGPT/ALT 20 U/L (13-61)
[2021-04-25 12:45] LABS: PHOSPHOROUS 4.1 mg/dL (2.5-4.9)
[2021-04-25 12:46] LABS: BILIRUBIN,TOTAL 0.5 mg/dL (0.2-1); TOT PROT 6.7 g/dl (6.4-8.2)
[2021-04-25 12:47] LABS: ALK PHOS 135 U/L (45-117); CREATININE 8.2 mg/dL (0.55-1.3)
[2021-04-25 13:05] LABS: INR 1.03 (0.83-1.09); PROTHROMBIN TIME (PATIENT) 12.4 SEC (9.7-13.0)
[2021-04-25 13:07] LABS: ACTIVATED PTT 24.9 SECONDS (25.2-36.5)
[2021-04-25] MEDS ORDERED: SODIUM CHLORIDE 250 ML IV PRN (17:36)
[2021-04-25] MEDS ORDERED: LORATADINE 10 MG TABLET PO PRN (20:08)
[2021-04-25] MEDS: hydrALAZINE HCL 50 MG TABLET (FP) PO SCH (22:38)
[2021-04-25 22:47] VITALS: BMI 31.4
[2021-04-26] MEDS: hydrALAZINE HCL 50 MG TABLET (FP) PO SCH ×3 (05:59→21:36)
[2021-04-26] MEDS: INSULIN SLIDING SCALE (NOVOLOG) 1 VIAL SQ SCH ×4 (06:04→21:19)
[2021-04-26] MEDS ORDERED: INSULIN (NOVOLOG) ASPART 100 UNITS/ML 10ML VIAL ONE ×3 (06:49→20:27)
[2021-04-26] MEDS ORDERED: EPOETIN ALFA-EPBX 10,000 UNIT/ML VIAL IVPUSH ONE (09:00)
[2021-04-26 09:48] LABS: HEMATOCRIT 18.2 % (35.4-49); MCH 33.5 pg (25.7-33.7); MCHC 35.4 g/dl (32.0-35.9); MEAN CELL VOLUME 94.7 fl (80-96); MEAN PLT VOLUME 8.4 fl (7.5-11.1); PLATELET COUNT 146 10^3/uL (134-434); RBC 1.92 M/mm3 (4.00-5.60); RDW 15.3 % (11.9-15.9); WHITE BLOOD COUNT 8.7 K/mm3 (4.0-10.0)
[2021-04-26 09:53] LABS: HEMOGLOBIN 6.4 GM/dL (11.7-16.9)
[2021-04-26 10:02] LABS: CHLORIDE 102 mmol/L (98-107); SODIUM 141 mmol/L (136-145)
[2021-04-26 10:03] LABS: CALCIUM 8.6 mg/dL (8.5-10.1)
[2021-04-26 10:04] LABS: ANION GAP 8 MMOL/L (8-16); BLOOD UREA NITROGEN 63.6 mg/dL (7-18); CO2 31 mmol/L (21-32); GLUCOSE,RANDOM 173 mg/dL (74-106)
[2021-04-26 10:07] LABS: CREATININE 9.8 mg/dL (0.55-1.3)
[2021-04-26] MEDS: SEVELAMER CARBONATE 800 MG TAB (FP) PO SCH ×3 (10:30→18:24)
[2021-04-26] MEDS: NIFEdipine E.R 60 MG TABLET PO SCH (15:00)
[2021-04-26] MEDS ORDERED: ATORVASTATIN CA 80 MG TABLET (FP) PO SCH (22:00)
[2021-04-27 06:00] VITALS: TEMP 98.4
[2021-04-27] MEDS: hydrALAZINE HCL 50 MG TABLET (FP) PO SCH (06:03)
[2021-04-27] MEDS ORDERED: INSULIN (NOVOLOG) ASPART 100 UNITS/ML 10ML VIAL ONE (06:09)
[2021-04-27] MEDS: INSULIN SLIDING SCALE (NOVOLOG) 1 VIAL SQ SCH (06:21)
[2021-04-27 07:31] LABS: HEMATOCRIT 24.3 % (35.4-49); HEMOGLOBIN 8.6 GM/dL (11.7-16.9); MCH 32.1 pg (25.7-33.7); MCHC 35.4 g/dl (32.0-35.9); MEAN CELL VOLUME 90.6 fl (80-96); MEAN PLT VOLUME 8.3 fl (7.5-11.1); PLATELET COUNT 147 10^3/uL (134-434); RBC 2.68 M/mm3 (4.00-5.60); RDW 17.8 % (11.9-15.9); WHITE BLOOD COUNT 9.5 K/mm3 (4.0-10.0)
[2021-04-27] MEDS: SEVELAMER CARBONATE 800 MG TAB (FP) PO SCH (08:36)
[2021-04-27] MEDS: NIFEdipine E.R 60 MG TABLET PO SCH (09:09)
[2021-04-27 09:15] VITALS: BP 155/73; PULSE 66
== END 2021-04-27 09:00 | disposition home or self-care (01) | DRG 811 ==
LOC: JER 11:08 → JERBED 19:00 → J7W 22:09
PROVIDERS: ADMIT Internal Medicine; ATTEND Family Medicine
PROC: 30233N1 Transfusion of Nonautologous Red Blood Cells into Peripheral Vein, Percutaneous Approach (ICD-10-PCS; principal; 2021-04-25)
PROC: 5A1D70Z Performance of Urinary Filtration, Intermittent, Less than 6 Hours Per Day (ICD-10-PCS; 2021-04-26)
DX: D64.9 Anemia, unspecified (principal); N18.6 End stage renal disease; I13.2 Hypertensive heart and chronic kidney disease with heart failure and with stage 5 chronic kidney disease, or end stage renal disease; E11.22 Type 2 diabetes mellitus with diabetic chronic kidney disease; I50.9 Heart failure, unspecified; Z99.2 Dependence on renal dialysis; E78.00 Pure hypercholesterolemia, unspecified; I44.0 Atrioventricular block, first degree; I25.10 Atherosclerotic heart disease of native coronary artery without angina pectoris; E87.70 Fluid overload, unspecified; R06.00 Dyspnea, unspecified; R63.4 Abnormal weight loss; Z68.31 Body mass index [BMI] 31.0-31.9, adult
CPT/HCPCS: 36415; 36430; 71046-TC-FY; 80048; 80053; 82272; 82962; 83615; 83735; 84100; 85025; 85027; 85045; 85610; 85730; 86803; 86850; 86900; 86901; 86922; 87340; 93005; 93010; 99285-25; C9803; P9058; Q5106; U0003; U0005

== ENCOUNTER 2021-10-24 15:03 | Inpatient (IN) | payer MEDICARE, OTHER ==
[2021-10-24 16:58] LABS: BASO % 0.6 % (0-2.0); EOS % 11.1 % (0-4.5); HEMATOCRIT 20.4 % (35.4-49); HEMOGLOBIN 7.2 GM/dL (11.7-16.9); LYMPH % 16.2 % (8-40); MCH 34.8 pg (25.7-33.7); MCHC 35.1 g/dl (32.0-35.9); MEAN CELL VOLUME 99.2 fl (80-96); MEAN PLT VOLUME 7.8 fl (7.5-11.1); MONO % 10.1 % (3.8-10.2); PLATELET COUNT 171 10^3/uL (134-434); RBC 2.06 M/mm3 (4.00-5.60); RDW 14.5 % (11.9-15.9); WHITE BLOOD COUNT 5.8 K/mm3 (4.0-10.0)
[2021-10-24 17:17] LABS: CHLORIDE 94 mmol/L (98-107); SODIUM 138 mmol/L (136-145)
[2021-10-24 17:18] LABS: CALCIUM 8.2 mg/dL (8.5-10.1)
[2021-10-24 17:19] LABS: ALBUMIN 3.6 g/dl (3.4-5.0); ANION GAP 11 MMOL/L (8-16); BLOOD UREA NITROGEN 55.4 mg/dL (7-18); CO2 32 mmol/L (21-32); GLUCOSE,RANDOM 131 mg/dL (74-106)
[2021-10-24 17:22] LABS: SGOT/AST 11 U/L (15-37); SGPT/ALT 19 U/L (13-61)
[2021-10-24 17:24] LABS: BILIRUBIN,TOTAL 0.5 mg/dL (0.2-1)
[2021-10-24 17:25] LABS: ALK PHOS 122 U/L (45-117)
[2021-10-24 17:32] LABS: CREATININE 8.7 mg/dL (0.55-1.3)
[2021-10-24] MEDS ORDERED: ACETAMINOPHEN 325 MG TABLET (FP) PO PRN (20:49)
[2021-10-24] MEDS ORDERED: POLYETHYLENE GLYCOL (HEALTHYLAX) 3350 17 GM PACKET PO PRN (20:49)
[2021-10-24] MEDS: INSULIN SLIDING SCALE (NOVOLOG) 1 VIAL SQ SCH (22:26)
[2021-10-25 05:01] VITALS: BMI 32.6
[2021-10-25] MEDS: INSULIN SLIDING SCALE (NOVOLOG) 1 VIAL SQ SCH ×4 (06:13→21:40)
[2021-10-25 08:47] LABS: INR 1.07 (0.83-1.09); PROTHROMBIN TIME (PATIENT) 12.3 SEC (9.7-13.0)
[2021-10-25 08:50] LABS: ACTIVATED PTT 34.8 SECONDS (25.2-36.5)
[2021-10-25 08:51] LABS: BASO % 0.6 % (0-2.0); EOS % 10.3 % (0-4.5); HEMOGLOBIN 8.4 GM/dL (11.7-16.9); LYMPH % 16.8 % (8-40); MCH 33.8 pg (25.7-33.7); MCHC 34.8 g/dl (32.0-35.9); MEAN PLT VOLUME 7.6 fl (7.5-11.1); NEUT % 62.3 % (42.8-82.8); PLATELET COUNT 152 10^3/uL (134-434); RBC 2.48 M/mm3 (4.00-5.60); RDW 15.9 % (11.9-15.9)
[2021-10-25 09:03] LABS: CHLORIDE 97 mmol/L (98-107); SODIUM 135 mmol/L (136-145)
[2021-10-25 09:08] LABS: ANION GAP 9 MMOL/L (8-16); BLOOD UREA NITROGEN 76.8 mg/dL (7-18); CO2 29 mmol/L (21-32)
[2021-10-25 09:11] LABS: GLUCOSE,RANDOM 104 mg/dL (74-106)
[2021-10-25 09:12] LABS: PHOSPHOROUS 6.4 mg/dL (2.5-4.9)
[2021-10-25 09:18] LABS: CALCIUM 9.5 mg/dL (8.5-10.1); CREATININE 9.8 mg/dL (0.55-1.3)
[2021-10-25] MEDS: NIFEdipine E.R 60 MG TABLET PO SCH (09:43)
[2021-10-25] MEDS ORDERED: EPOETIN ALFA-EPBX 10,000 UNIT/ML VIAL IVPUSH ONE ×2 (13:00→15:00)
[2021-10-25] MEDS: SEVELAMER CARBONATE 800 MG TAB (FP) PO SCH ×2 (13:20→18:28)
[2021-10-25] MEDS: hydrALAZINE HCL 50 MG TABLET (FP) PO SCH ×2 (13:20→21:41)
[2021-10-25 14:07] LABS: SARS-CoV-2 NAA Not Detected (Not Detected)
[2021-10-25] MEDS ORDERED: SODIUM CHLORIDE 250 ML IV PRN (15:00)
[2021-10-25] MEDS: ATORVASTATIN CA 80 MG TABLET (FP) PO SCH (21:41)
[2021-10-26] MEDS: hydrALAZINE HCL 50 MG TABLET (FP) PO SCH ×3 (06:16→21:36)
[2021-10-26] MEDS: INSULIN SLIDING SCALE (NOVOLOG) 1 VIAL SQ SCH ×4 (06:19→21:36)
[2021-10-26 09:30] LABS: HEMATOCRIT 24.3 % (35.4-49); HEMOGLOBIN 8.4 GM/dL (11.7-16.9); MCH 33.9 pg (25.7-33.7); MCHC 34.4 g/dl (32.0-35.9); MEAN CELL VOLUME 98.5 fl (80-96); MEAN PLT VOLUME 7.9 fl (7.5-11.1); PLATELET COUNT 170 10^3/uL (134-434); RBC 2.46 M/mm3 (4.00-5.60)
[2021-10-26] MEDS: SEVELAMER CARBONATE 800 MG TAB (FP) PO SCH ×3 (09:40→18:20)
[2021-10-26] MEDS: NIFEdipine E.R 60 MG TABLET PO SCH (09:41)
[2021-10-26] MEDS ORDERED: SODIUM CHLORIDE 250 ML IV PRN (12:07)
[2021-10-26] MEDS: ATORVASTATIN CA 80 MG TABLET (FP) PO SCH (21:36)
[2021-10-27] MEDS: hydrALAZINE HCL 50 MG TABLET (FP) PO SCH ×2 (06:11→13:32)
[2021-10-27] MEDS: INSULIN SLIDING SCALE (NOVOLOG) 1 VIAL SQ SCH ×3 (06:12→17:40)
[2021-10-27 09:02] LABS: BASO % 0.7 % (0-2.0); EOS % 11.9 % (0-4.5); HEMATOCRIT 22.6 % (35.4-49); HEMOGLOBIN 7.9 GM/dL (11.7-16.9); LYMPH % 18.5 % (8-40); MCH 34.2 pg (25.7-33.7); MCHC 35.1 g/dl (32.0-35.9); MEAN CELL VOLUME 97.3 fl (80-96); MEAN PLT VOLUME 7.8 fl (7.5-11.1); MONO % 9.6 % (3.8-10.2); NEUT % 59.3 % (42.8-82.8); PLATELET COUNT 143 10^3/uL (134-434); RBC 2.32 M/mm3 (4.00-5.60); RDW 15.6 % (11.9-15.9); WHITE BLOOD COUNT 5.8 K/mm3 (4.0-10.0)
[2021-10-27 09:17] LABS: CHLORIDE 98 mmol/L (98-107); SODIUM 136 mmol/L (136-145)
[2021-10-27 09:20] LABS: ANION GAP 9 MMOL/L (8-16); BLOOD UREA NITROGEN 62.1 mg/dL (7-18); CO2 28 mmol/L (21-32); GLUCOSE,RANDOM 86 mg/dL (74-106)
[2021-10-27 09:23] LABS: INR 1.14 (0.83-1.09); PROTHROMBIN TIME (PATIENT) 13.1 SEC (9.7-13.0)
[2021-10-27 09:25] LABS: CREATININE 9.2 mg/dL (0.55-1.3); IRON SERUM 84 ug/dL (50-175); TOTAL IRON BINDING CAPACITY 233 ug/dL (250-450)
[2021-10-27] MEDS ORDERED: POLYETHYLENE GLYCOL (HEALTHYLAX) 3350 17 GM PACKET PO SCH (10:00)
[2021-10-27] MEDS ORDERED: PANTOPRAZOLE 40 MG TABLET PO SCH ×2 (10:00→22:00)
[2021-10-27] MEDS: SEVELAMER CARBONATE 800 MG TAB (FP) PO SCH ×3 (10:26→17:40)
[2021-10-27] MEDS: NIFEdipine E.R 60 MG TABLET PO SCH (10:54)
[2021-10-27] MEDS ORDERED: EPOETIN ALFA-EPBX 10,000 UNIT/ML VIAL IVPUSH ONE (12:07)
[2021-10-27 16:17] VITALS: TEMP 98.3
[2021-10-27 19:24] VITALS: BP 130/85; PULSE 64
== END 2021-10-27 18:40 | disposition home or self-care (01) | DRG 291 ==
LOC: JER 15:03 → JERBED 17:58 → OBSVTOIN 17:58 → J6S 10-25 04:47
PROVIDERS: ADMIT Hospitalist; ATTEND Family Medicine
PROC: 30233N1 Transfusion of Nonautologous Red Blood Cells into Peripheral Vein, Percutaneous Approach (ICD-10-PCS; 2021-10-24)
PROC: 5A1D70Z Performance of Urinary Filtration, Intermittent, Less than 6 Hours Per Day (ICD-10-PCS; 2021-10-25)
PROC: 5A1D70Z Performance of Urinary Filtration, Intermittent, Less than 6 Hours Per Day (ICD-10-PCS; 2021-10-25)
PROC: 0DB98ZX Excision of Duodenum, Via Natural or Artificial Opening Endoscopic, Diagnostic (ICD-10-PCS; 2021-10-27)
PROC: 0DB78ZX Excision of Stomach, Pylorus, Via Natural or Artificial Opening Endoscopic, Diagnostic (ICD-10-PCS; 2021-10-27)
PROC: 0DB68ZZ Excision of Stomach, Via Natural or Artificial Opening Endoscopic (ICD-10-PCS; principal; 2021-10-27 11:30)
DX: I13.2 Hypertensive heart and chronic kidney disease with heart failure and with stage 5 chronic kidney disease, or end stage renal disease (principal); N18.6 End stage renal disease; E11.22 Type 2 diabetes mellitus with diabetic chronic kidney disease; I50.9 Heart failure, unspecified; I25.10 Atherosclerotic heart disease of native coronary artery without angina pectoris; D64.9 Anemia, unspecified; E78.5 Hyperlipidemia, unspecified; E66.9 Obesity, unspecified; Z68.32 Body mass index [BMI] 32.0-32.9, adult; K63.89 Other specified diseases of intestine; K29.70 Gastritis, unspecified, without bleeding; K44.9 Diaphragmatic hernia without obstruction or gangrene; D50.0 Iron deficiency anemia secondary to blood loss (chronic); K31.7 Polyp of stomach and duodenum; Z99.2 Dependence on renal dialysis
CPT/HCPCS: 36415; 36430; 80048; 80053; 82272; 82728; 82962; 83540; 83550; 84100; 84484; 85025; 85027; 85610; 85730; 86803; 86850; 86900; 86901; 86922; 87340; 88305-TC; 93005; 93010; 99285-25; C9803; P9058; Q5106; U0003; U0005

== ENCOUNTER 2022-01-16 18:23 | Inpatient (IN) | payer OTHER ==
[2022-01-16 21:03] LABS: BASO % 0.8 % (0-2.0); EOS % 11.1 % (0-4.5); HEMATOCRIT 23.5 % (35.4-49); HEMOGLOBIN 7.9 GM/dL (11.7-16.9); LYMPH % 14.5 % (8-40); MCH 34.1 pg (25.7-33.7); MCHC 33.5 g/dl (32.0-35.9); MEAN CELL VOLUME 101.5 fl (80-96); MEAN PLT VOLUME 7.3 fl (7.5-11.1); MONO % 6.8 % (3.8-10.2); NEUT % 66.8 % (42.8-82.8); PLATELET COUNT 157 10^3/uL (134-434); RBC 2.32 M/mm3 (4.00-5.60); RDW 15.8 % (11.9-15.9)
[2022-01-16] MEDS ORDERED: NITROGLYCERIN 2% OINTMENT - 1GM PACKET TD ONE ×2 (21:19→21:20)
[2022-01-16 21:20] LABS: CHLORIDE 102 mmol/L (98-107); INR 1.13 (0.83-1.09); SODIUM 140 mmol/L (136-145)
[2022-01-16 21:22] LABS: ACTIVATED PTT 35.8 SECONDS (25.2-36.5); ALBUMIN 3.9 g/dl (3.4-5.0); ANION GAP 11 MMOL/L (8-16); BLOOD UREA NITROGEN 72.8 mg/dL (7-18); CALCIUM 9.1 mg/dL (8.5-10.1); CO2 27 mmol/L (21-32); GLUCOSE,RANDOM 96 mg/dL (74-106)
[2022-01-16 21:25] LABS: SGOT/AST 14 U/L (15-37); SGPT/ALT 17 U/L (13-61)
[2022-01-16 21:27] LABS: BILIRUBIN,TOTAL 0.7 mg/dL (0.2-1); TOT PROT 7.2 g/dl (6.4-8.2)
[2022-01-16 21:28] LABS: ALK PHOS 80 U/L (45-117)
[2022-01-16 22:25] LABS: CREATININE 8.7 mg/dL (0.55-1.3); N-TERMINAL BNP 54202.9 pg/ml (5-125)
[2022-01-17] MEDS ORDERED: ACETAMINOPHEN 325 MG TABLET (FP) PO PRN (00:30)
[2022-01-17] MEDS: INSULIN SLIDING SCALE (NOVOLOG) 1 VIAL SQ SCH ×4 (07:29→22:16)
[2022-01-17] MEDS: HEPARIN NA (PORCINE) 5,000 UNITS/ML 1ML VIAL SQ SCH ×3 (07:30→22:15)
[2022-01-17] MEDS: SEVELAMER CARBONATE 800 MG TAB (FP) PO SCH ×3 (08:30→18:07)
[2022-01-17] MEDS: hydrALAZINE HCL 50 MG TABLET (FP) PO SCH ×3 (08:30→22:15)
[2022-01-17] MEDS ORDERED: SODIUM CHLORIDE 250 ML IV PRN (09:13)
[2022-01-17] MEDS ORDERED: HEPARIN NA (PORCINE) 5,000 UNITS/ML 1ML VIAL IVPUSH ONE (09:15)
[2022-01-17] MEDS ORDERED: EPOETIN ALFA-EPBX 10,000 UNIT/ML VIAL SQ ONE (09:15)
[2022-01-17] MEDS ORDERED: NIFEdipine E.R 60 MG TABLET PO SCH (10:00)
[2022-01-17 10:01] LABS: HEMATOCRIT 23.3 % (35.4-49); MCH 34.8 pg (25.7-33.7); MCHC 34.4 g/dl (32.0-35.9); MEAN CELL VOLUME 101.1 fl (80-96); MEAN PLT VOLUME 8.1 fl (7.5-11.1); PLATELET COUNT 153 10^3/uL (134-434); RBC 2.31 M/mm3 (4.00-5.60); RDW 15.5 % (11.9-15.9); WHITE BLOOD COUNT 9.2 K/mm3 (4.0-10.0)
[2022-01-17] MEDS: MUPIROCIN 2% TOPICAL OINTMENT FOR DECOLONIZATION NS SCH ×2 (10:13→22:15)
[2022-01-17 10:19] LABS: CHLORIDE 101 mmol/L (98-107); SODIUM 140 mmol/L (136-145)
[2022-01-17 10:21] LABS: CALCIUM 8.9 mg/dL (8.5-10.1)
[2022-01-17 10:22] LABS: ALBUMIN 3.9 g/dl (3.4-5.0); ANION GAP 12 MMOL/L (8-16); BLOOD UREA NITROGEN 84.3 mg/dL (7-18); CO2 27 mmol/L (21-32); GLUCOSE,RANDOM 87 mg/dL (74-106)
[2022-01-17 10:25] LABS: SGOT/AST 13 U/L (15-37); SGPT/ALT 18 U/L (13-61)
[2022-01-17 10:26] LABS: BILIRUBIN,TOTAL 0.7 mg/dL (0.2-1); TOT PROT 7.1 g/dl (6.4-8.2)
[2022-01-17 10:27] LABS: ALK PHOS 81 U/L (45-117)
[2022-01-17 11:08] LABS: CREATININE 9.9 mg/dL (0.55-1.3)
[2022-01-17] MEDS ORDERED: ATORVASTATIN CA 80 MG TABLET (FP) PO SCH (22:00)
[2022-01-17] MEDS: CHLORHEXIDINE GLUCONATE 4% CLEANSER FOR DECOLONIZATION TP SCH (22:15)
[2022-01-18] MEDS: HEPARIN NA (PORCINE) 5,000 UNITS/ML 1ML VIAL SQ SCH ×3 (06:38→21:08)
[2022-01-18] MEDS: hydrALAZINE HCL 50 MG TABLET (FP) PO SCH ×3 (06:38→21:08)
[2022-01-18] MEDS: INSULIN SLIDING SCALE (NOVOLOG) 1 VIAL SQ SCH ×4 (06:48→21:08)
[2022-01-18] MEDS: SEVELAMER CARBONATE 800 MG TAB (FP) PO SCH ×3 (07:15→17:42)
[2022-01-18] MEDS ORDERED: SODIUM CHLORIDE 250 ML IV PRN ×2 (07:33→07:49)
[2022-01-18] MEDS ORDERED: EPOETIN ALFA-EPBX 10,000 UNIT/ML VIAL IVPUSH ONE (07:33)
[2022-01-18] MEDS ORDERED: ACETAMINOPHEN 325 MG TABLET (FP) PO PRN (07:49)
[2022-01-18 08:14] LABS: ALBUMIN 3.7 g/dl (3.4-5.0); CALCIUM 8.5 mg/dL (8.5-10.1); MAGNESIUM 2.2 mg/dL (1.8-2.4)
[2022-01-18 08:16] LABS: BASO % 0.5 % (0-2.0); EOS % 11.5 % (0-4.5); HEMATOCRIT 23.4 % (35.4-49); HEMOGLOBIN 8.1 GM/dL (11.7-16.9); HEMOGLOBIN 8.5 GM/dL (11.7-16.9); LYMPH % 10.7 % (8-40); MCH 34.4 pg (25.7-33.7); MCHC 33.9 g/dl (32.0-35.9); MCHC 34.6 g/dl (32.0-35.9); MEAN CELL VOLUME 101.2 fl (80-96); MEAN CELL VOLUME 101.6 fl (80-96); MEAN PLT VOLUME 7.8 fl (7.5-11.1); MEAN PLT VOLUME 8.1 fl (7.5-11.1); MONO % 6.4 % (3.8-10.2); NEUT % 70.9 % (42.8-82.8); PLATELET COUNT 145 10^3/uL (134-434); PLATELET COUNT 147 10^3/uL (134-434); RBC 2.31 M/mm3 (4.00-5.60); RBC 2.46 M/mm3 (4.00-5.60); RDW 15.4 % (11.9-15.9); RDW 15.5 % (11.9-15.9); WHITE BLOOD COUNT 6.9 K/mm3 (4.0-10.0)
[2022-01-18 08:17] LABS: PHOSPHOROUS 6.1 mg/dL (2.5-4.9)
[2022-01-18 08:19] LABS: BILIRUBIN,TOTAL 0.8 mg/dL (0.2-1)
[2022-01-18 08:42] LABS: BLOOD UREA NITROGEN 47.9 mg/dL (7-18)
[2022-01-18] MEDS: MUPIROCIN 2% TOPICAL OINTMENT FOR DECOLONIZATION NS SCH ×2 (13:22→21:08)
[2022-01-18] MEDS: NIFEdipine E.R 60 MG TABLET PO SCH (13:23)
[2022-01-18] MEDS: PANTOPRAZOLE 20 MG TABLET PO SCH (13:24)
[2022-01-18 14:45] VITALS: BMI 33.0
[2022-01-18] MEDS: CHLORHEXIDINE GLUCONATE 4% CLEANSER FOR DECOLONIZATION TP SCH (21:08)
[2022-01-18] MEDS ORDERED: ATORVASTATIN CA 80 MG TABLET (FP) PO SCH (22:00)
[2022-01-19] MEDS: hydrALAZINE HCL 50 MG TABLET (FP) PO SCH (06:06)
[2022-01-19] MEDS: INSULIN SLIDING SCALE (NOVOLOG) 1 VIAL SQ SCH ×2 (06:06→12:34)
[2022-01-19] MEDS: HEPARIN NA (PORCINE) 5,000 UNITS/ML 1ML VIAL SQ SCH (06:06)
[2022-01-19] MEDS ORDERED: EPOETIN ALFA-EPBX 10,000 UNIT/ML VIAL SQ ONE (07:00)
[2022-01-19] MEDS ORDERED: SODIUM CHLORIDE 250 ML IV PRN (07:00)
[2022-01-19 07:09] VITALS: TEMP 97.8
[2022-01-19 07:37] LABS: HEMATOCRIT 23.6 % (35.4-49); HEMOGLOBIN 8.1 GM/dL (11.7-16.9); MCH 34.6 pg (25.7-33.7); MCHC 34.5 g/dl (32.0-35.9); MEAN CELL VOLUME 100.4 fl (80-96); MEAN PLT VOLUME 7.5 fl (7.5-11.1); PLATELET COUNT 127 10^3/uL (134-434); RBC 2.35 M/mm3 (4.00-5.60); RDW 14.8 % (11.9-15.9); WHITE BLOOD COUNT 5.2 K/mm3 (4.0-10.0)
[2022-01-19 07:57] LABS: CALCIUM 8.5 mg/dL (8.5-10.1)
[2022-01-19 07:58] LABS: BLOOD UREA NITROGEN 32.4 mg/dL (7-18)
[2022-01-19 08:01] LABS: CREATININE 5.7 mg/dL (0.55-1.3)
[2022-01-19] MEDS: SEVELAMER CARBONATE 800 MG TAB (FP) PO SCH ×2 (08:41→12:29)
[2022-01-19] MEDS: NIFEdipine E.R 60 MG TABLET PO SCH (12:29)
[2022-01-19] MEDS: PANTOPRAZOLE 20 MG TABLET PO SCH (12:29)
[2022-01-19] MEDS: MUPIROCIN 2% TOPICAL OINTMENT FOR DECOLONIZATION NS SCH (12:29)
[2022-01-19 12:39] VITALS: BP 151/66; PULSE 80
== END 2022-01-19 14:03 | disposition home or self-care (01) | DRG 291 ==
LOC: JER 18:23 → JERBED 21:53 → JICU 01-17 08:37
PROVIDERS: ADMIT Hospitalist; ATTEND Family Medicine
PROC: 5A1D70Z Performance of Urinary Filtration, Intermittent, Less than 6 Hours Per Day (ICD-10-PCS; principal; 2022-01-17)
PROC: 5A1D70Z Performance of Urinary Filtration, Intermittent, Less than 6 Hours Per Day (ICD-10-PCS; 2022-01-18)
PROC: 5A1D70Z Performance of Urinary Filtration, Intermittent, Less than 6 Hours Per Day (ICD-10-PCS; 2022-01-19)
DX: I13.2 Hypertensive heart and chronic kidney disease with heart failure and with stage 5 chronic kidney disease, or end stage renal disease (principal); N18.6 End stage renal disease; I50.33 Acute on chronic diastolic (congestive) heart failure; E11.22 Type 2 diabetes mellitus with diabetic chronic kidney disease; Z99.2 Dependence on renal dialysis; E78.5 Hyperlipidemia, unspecified; D63.1 Anemia in chronic kidney disease; I25.10 Atherosclerotic heart disease of native coronary artery without angina pectoris; K44.9 Diaphragmatic hernia without obstruction or gangrene; I44.0 Atrioventricular block, first degree; I45.10 Unspecified right bundle-branch block; I27.20 Pulmonary hypertension, unspecified; E66.9 Obesity, unspecified; Z68.33 Body mass index [BMI] 33.0-33.9, adult
CPT/HCPCS: 0241U-QW; 36415; 71045-TC-FY; 80048; 80053; 82607; 82728; 82746; 82962; 83540; 83550; 83735; 83880; 84100; 84484; 85025; 85027; 85610; 85730; 86803; 86850; 86900; 86901; 87340; 93005; 93010; 94660; 99285-25; J1644; Q5106

== ENCOUNTER 2022-03-06 10:30 | Day surgery (SDC) | payer OTHER ==
[2022-03-06 10:56] VITALS: TEMP 97.8
[2022-03-06] MEDS ORDERED: FERRIC CARBOXYMALTOSE 750 MG in SODIUM CHLORIDE 250 ML IVPB ONE (11:00)
[2022-03-06 12:44] VITALS: BP 137/54; PULSE 67
== END 2022-03-06 12:30 | disposition home or self-care (01) ==
LOC: FINFUSION 10:30 → FM/S 10:31 → FINFUSION 12:30
PROVIDERS: ATTEND Family Medicine
PROC: 3E033GC Introduction of Other Therapeutic Substance into Peripheral Vein, Percutaneous Approach (ICD-10-PCS; principal; 2022-03-06)
DX: D50.9 Iron deficiency anemia, unspecified (principal)
CPT/HCPCS: 96365; J1439

== ENCOUNTER 2022-03-13 10:33 | Day surgery (SDC) | payer OTHER ==
[2022-03-13] MEDS ORDERED: FERRIC CARBOXYMALTOSE 750 MG in SODIUM CHLORIDE 250 ML IVPB ONE (11:15)
[2022-03-13 12:39] VITALS: BP 136/59; PULSE 64; RESP 20; TEMP 98
== END 2022-03-13 12:39 | disposition home or self-care (01) ==
LOC: FM/S 10:33 → FINFUSION 10:33
PROVIDERS: ATTEND Family Medicine
PROC: 3E033GC Introduction of Other Therapeutic Substance into Peripheral Vein, Percutaneous Approach (ICD-10-PCS; principal; 2022-03-13)
DX: D50.9 Iron deficiency anemia, unspecified (principal)
CPT/HCPCS: 96365; J1439

== ENCOUNTER 2022-05-08 20:30 | Inpatient (IN) | payer OTHER ==
[2022-05-08 20:50] VITALS: BMI 33.2
[2022-05-08 21:50] LABS: BASO % 0.7 % (0-2.0); EOS % 3.4 % (0-4.5); HEMATOCRIT 31.8 % (35.4-49); HEMOGLOBIN 10.8 GM/dL (11.7-16.9); MCH 34.6 pg (25.7-33.7); MCHC 34.1 g/dl (32.0-35.9); MEAN CELL VOLUME 101.5 fl (80-96); MEAN PLT VOLUME 8.5 fl (7.5-11.1); MONO % 6.8 % (3.8-10.2); NEUT % 82.1 % (42.8-82.8); PLATELET COUNT 153 10^3/uL (134-434); RBC 3.13 M/mm3 (4.00-5.60); WHITE BLOOD COUNT 10.3 K/mm3 (4.0-10.0)
[2022-05-08 21:57] LABS: VENOUS BASE EXCESS 3.6 mmol/L (-2-2); VENOUS O2 SATURATION 58.3 % (70-80); VENOUS PCO2 48.8 mmHg (38-52); VENOUS PH 7.395 (7.310-7.410)
[2022-05-08 22:05] LABS: CHLORIDE 95 mmol/L (98-107); SODIUM 139 mmol/L (136-145)
[2022-05-08 22:07] LABS: CALCIUM 9.4 mg/dL (8.5-10.1)
[2022-05-08 22:08] LABS: ALBUMIN 4.2 g/dl (3.4-5.0); ANION GAP 10 MMOL/L (8-16); CO2 34 mmol/L (21-32); GLUCOSE,RANDOM 122 mg/dL (74-106)
[2022-05-08 22:11] LABS: SGOT/AST 17 U/L (15-37); SGPT/ALT 19 U/L (13-61)
[2022-05-08 22:13] LABS: BILIRUBIN,TOTAL 0.6 mg/dL (0.2-1); TOT PROT 7.7 g/dl (6.4-8.2)
[2022-05-08 22:14] LABS: ALK PHOS 110 U/L (45-117)
[2022-05-08 22:16] LABS: N-TERMINAL BNP 29943.6 pg/ml (5-125)
[2022-05-08 22:23] LABS: CREATININE 7.9 mg/dL (0.55-1.3)
[2022-05-08] MEDS ORDERED: ONDANSETRON 4 MG/2 ML VIAL IVPUSH ONE (23:44)
[2022-05-09] MEDS ORDERED: ACETAMINOPHEN 325 MG TABLET (FP) PO PRN (00:50)
[2022-05-09] MEDS ORDERED: FUROSEMIDE 40 MG/4 ML INJECTABLE VIAL ONE (01:53)
[2022-05-09] MEDS ORDERED: HEPARIN NA (PORCINE) 5,000 UNITS/ML 1ML VIAL ONE ×2 (06:00→14:54)
[2022-05-09] MEDS: HEPARIN NA (PORCINE) 5,000 UNITS/ML 1ML VIAL SQ SCH ×3 (06:06→21:47)
[2022-05-09 06:43] LABS: BASO % 0.2 % (0-2.0); EOS % 2.3 % (0-4.5); HEMATOCRIT 29.2 % (35.4-49); HEMOGLOBIN 9.7 GM/dL (11.7-16.9); LYMPH % 6.5 % (8-40); MCH 33.6 pg (25.7-33.7); MCHC 33.1 g/dl (32.0-35.9); MEAN CELL VOLUME 101.6 fl (80-96); MEAN PLT VOLUME 8.6 fl (7.5-11.1); MONO % 7.4 % (3.8-10.2); NEUT % 83.6 % (42.8-82.8); PLATELET COUNT 146 10^3/uL (134-434); RBC 2.88 M/mm3 (4.00-5.60); WHITE BLOOD COUNT 11.6 K/mm3 (4.0-10.0)
[2022-05-09] MEDS ORDERED: SODIUM CHLORIDE 250 ML IV PRN (06:50)
[2022-05-09 06:59] LABS: CHLORIDE 94 mmol/L (98-107); SODIUM 136 mmol/L (136-145)
[2022-05-09 07:00] LABS: ANION GAP 11 MMOL/L (8-16); CALCIUM 8.9 mg/dL (8.5-10.1); CO2 32 mmol/L (21-32); GLUCOSE,RANDOM 103 mg/dL (74-106)
[2022-05-09 07:03] LABS: PHOSPHOROUS 4.6 mg/dL (2.5-4.9)
[2022-05-09] MEDS: INSULIN SLIDING SCALE (NOVOLOG) 1 VIAL SQ SCH ×4 (07:55→21:40)
[2022-05-09 08:12] LABS: CREATININE 8.4 mg/dL (0.55-1.3)
[2022-05-09] MEDS: ALBUMIN HUMAN 25% 12.5 GM/50 ML VIAL IV SCH ×4 (09:30→11:00)
[2022-05-09] MEDS ORDERED: EPOETIN ALFA-EPBX 10,000 UNIT/ML VIAL IVPUSH ONE (10:00)
[2022-05-09] MEDS: SEVELAMER CARBONATE 800 MG TAB (FP) PO SCH (18:27)
[2022-05-09] MEDS: ATORVASTATIN CA 80 MG TABLET (FP) PO SCH (21:47)
[2022-05-10] MEDS: INSULIN SLIDING SCALE (NOVOLOG) 1 VIAL SQ SCH ×4 (06:26→22:01)
[2022-05-10] MEDS: HEPARIN NA (PORCINE) 5,000 UNITS/ML 1ML VIAL SQ SCH ×3 (06:27→21:07)
[2022-05-10] MEDS: SEVELAMER CARBONATE 800 MG TAB (FP) PO SCH ×3 (09:05→18:12)
[2022-05-10] MEDS: PANTOPRAZOLE 20 MG TABLET PO SCH (09:05)
[2022-05-10 09:48] VITALS: RESP 18
[2022-05-10] MEDS ORDERED: SODIUM CHLORIDE 250 ML IV PRN (10:00)
[2022-05-10] MEDS ORDERED: EPOETIN ALFA-EPBX 10,000 UNIT/ML VIAL IVPUSH ONE (10:00)
[2022-05-10] MEDS: NIFEdipine E.R 60 MG TABLET PO SCH (14:07)
[2022-05-10] MEDS: VALSARTAN 160 MG TABLET PO SCH (14:07)
[2022-05-10 17:44] LABS: BASO % 0.3 % (0-2.0); EOS % 7.5 % (0-4.5); HEMATOCRIT 29.5 % (35.4-49); HEMOGLOBIN 9.9 GM/dL (11.7-16.9); LYMPH % 12.9 % (8-40); MCH 33.9 pg (25.7-33.7); MCHC 33.5 g/dl (32.0-35.9); MEAN PLT VOLUME 8.7 fl (7.5-11.1); MONO % 7.4 % (3.8-10.2); NEUT % 71.9 % (42.8-82.8); PLATELET COUNT 136 10^3/uL (134-434); RBC 2.93 M/mm3 (4.00-5.60); RDW 14.5 % (11.9-15.9); WHITE BLOOD COUNT 5.7 K/mm3 (4.0-10.0)
[2022-05-10 17:51] LABS: INR 1.29 (0.83-1.09); PROTHROMBIN TIME (PATIENT) 14.9 SEC (9.7-13.0)
[2022-05-10 17:53] LABS: ACTIVATED PTT 34.7 SECONDS (25.2-36.5)
[2022-05-10 18:15] LABS: ALBUMIN 3.5 g/dl (3.4-5.0); CALCIUM 8.6 mg/dL (8.5-10.1)
[2022-05-10 18:18] LABS: BILIRUBIN,TOTAL 0.7 mg/dL (0.2-1)
[2022-05-10 18:19] LABS: CREATININE 4.5 mg/dL (0.55-1.3)
[2022-05-10] MEDS: ATORVASTATIN CA 80 MG TABLET (FP) PO SCH (21:07)
[2022-05-11] MEDS: HEPARIN NA (PORCINE) 5,000 UNITS/ML 1ML VIAL SQ SCH ×2 (06:18→13:47)
[2022-05-11] MEDS: INSULIN SLIDING SCALE (NOVOLOG) 1 VIAL SQ SCH ×2 (06:19→12:30)
[2022-05-11] MEDS: SEVELAMER CARBONATE 800 MG TAB (FP) PO SCH ×2 (08:34→13:43)
[2022-05-11] MEDS ORDERED: SODIUM CHLORIDE 250 ML IV PRN (09:12)
[2022-05-11] MEDS ORDERED: EPOETIN ALFA-EPBX 10,000 UNIT/ML VIAL IVPUSH ONE (10:00)
[2022-05-11 10:01] LABS: HEMATOCRIT 28.4 % (35.4-49); HEMOGLOBIN 10.1 GM/dL (11.7-16.9); MCH 35.5 pg (25.7-33.7); MCHC 35.6 g/dl (32.0-35.9); MEAN CELL VOLUME 99.7 fl (80-96); MEAN PLT VOLUME 8.5 fl (7.5-11.1); PLATELET COUNT 140 10^3/uL (134-434); RBC 2.85 M/mm3 (4.00-5.60); RDW 14.1 % (11.9-15.9); WHITE BLOOD COUNT 5.7 K/mm3 (4.0-10.0)
[2022-05-11 10:18] LABS: ALBUMIN 3.5 g/dl (3.4-5.0); BLOOD UREA NITROGEN 47.4 mg/dL (7-18); CALCIUM 8.7 mg/dL (8.5-10.1)
[2022-05-11 10:22] LABS: CREATININE 6.3 mg/dL (0.55-1.3)
[2022-05-11 10:23] LABS: BILIRUBIN,TOTAL 0.6 mg/dL (0.2-1); TOT PROT 6.9 g/dl (6.4-8.2)
[2022-05-11] MEDS: PANTOPRAZOLE 20 MG TABLET PO SCH (13:43)
[2022-05-11] MEDS: VALSARTAN 160 MG TABLET PO SCH (13:43)
[2022-05-11] MEDS: NIFEdipine E.R 60 MG TABLET PO SCH (13:43)
[2022-05-11 20:32] VITALS: BP 127/65; PULSE 70; TEMP 98
== END 2022-05-11 14:30 | disposition left against medical advice (07) | DRG 291 ==
LOC: JER 20:30 → JERBED 21:25 → J5S 05-09 15:42
PROVIDERS: ADMIT Internal Medicine; ATTEND Family Medicine
PROC: 5A1D70Z Performance of Urinary Filtration, Intermittent, Less than 6 Hours Per Day (ICD-10-PCS; principal; 2022-05-09)
DX: I13.2 Hypertensive heart and chronic kidney disease with heart failure and with stage 5 chronic kidney disease, or end stage renal disease (principal); I50.23 Acute on chronic systolic (congestive) heart failure; J96.21 Acute and chronic respiratory failure with hypoxia; N18.6 End stage renal disease; N17.9 Acute kidney failure, unspecified; E11.22 Type 2 diabetes mellitus with diabetic chronic kidney disease; I42.8 Other cardiomyopathies; Z99.2 Dependence on renal dialysis; Z99.81 Dependence on supplemental oxygen; E78.5 Hyperlipidemia, unspecified; I25.10 Atherosclerotic heart disease of native coronary artery without angina pectoris; E66.9 Obesity, unspecified; I45.10 Unspecified right bundle-branch block; Z76.82 Awaiting organ transplant status; D64.9 Anemia, unspecified; Z68.30 Body mass index [BMI] 30.0-30.9, adult; Z53.29 Procedure and treatment not carried out because of patient's decision for other reasons
CPT/HCPCS: 0241U-QW; 36415; 71045-TC-FY; 80048; 80053; 80061; 82728; 82803; 82962; 83036; 83540; 83550; 83735; 83880; 84100; 84443; 84484; 85025; 85027; 85379; 85610; 85730; 86803; 86850; 86900; 86901; 87340; 93005; 93010; 93306-TC; 99285-25; J1644; Q5106

== ENCOUNTER 2022-12-22 12:06 | Inpatient (IN) | payer OTHER ==
[2022-12-22 12:19] VITALS: BMI 32.3
[2022-12-22 12:46] LABS: BASO % 0.8 % (0-2.0); HEMATOCRIT 21.9 % (35.4-49); HEMOGLOBIN 7.7 GM/dL (11.7-16.9); LYMPH % 10.7 % (8-40); MEAN CELL VOLUME 97.1 fl (80-96); MEAN PLT VOLUME 8.5 fl (7.5-11.1); MONO % 7.8 % (3.8-10.2); NEUT % 59.7 % (42.8-82.8); PLATELET COUNT 121 10^3/uL (134-434); RBC 2.26 M/mm3 (4.00-5.60); RDW 14.2 % (11.9-15.9); WHITE BLOOD COUNT 8.7 K/mm3 (4.0-10.0)
[2022-12-22 12:52] LABS: INR 1.37 (0.83-1.09); PROTHROMBIN TIME (PATIENT) 15.8 SEC (9.7-13.0)
[2022-12-22 12:55] LABS: ACTIVATED PTT 38.6 SECONDS (25.2-36.5)
[2022-12-22 13:08] LABS: ANISOCYTOSIS 1+; MACROCYTOSIS 0; PLATELET ESTIMATE DECREASED
[2022-12-22 13:13] LABS: POTASSIUM 3.9 mmol/L (3.5-5.1)
[2022-12-22 13:15] LABS: ALBUMIN 3.5 g/dl (3.4-5.0); BLOOD UREA NITROGEN 34.5 mg/dL (7-18); CALCIUM 9.7 mg/dL (8.5-10.1)
[2022-12-22 13:18] LABS: PHOSPHOROUS 3.7 mg/dL (2.5-4.9)
[2022-12-22 13:20] LABS: BILIRUBIN,TOTAL 1.1 mg/dL (0.2-1); TOT PROT 7.1 g/dl (6.4-8.2)
[2022-12-22 14:21] LABS: N-TERMINAL BNP 89771.7 pg/ml (5-125)
[2022-12-22] MEDS ORDERED: SODIUM CHLORIDE 250 ML IV PRN (16:03)
[2022-12-22] MEDS ORDERED: LORATADINE 10 MG TABLET PO PRN (20:24)
[2022-12-22] MEDS ORDERED: ATORVASTATIN CA 40 MG TABLET (FP) ONE (21:21)
[2022-12-22] MEDS: ATORVASTATIN CA 80 MG TABLET (FP) PO SCH (21:26)
[2022-12-22] MEDS: hydrALAZINE HCL 50 MG TABLET (FP) PO SCH (21:27)
[2022-12-22] MEDS: HEPARIN NA (PORCINE) 5,000 UNITS/ML 1ML VIAL SQ SCH ×2 (22:41→22:47)
[2022-12-23] MEDS ORDERED: guaiFENesin 200 MG/10 ML 10 ML UNIT-DOSE CUPS PO ONE (03:32)
[2022-12-23] MEDS: HEPARIN NA (PORCINE) 5,000 UNITS/ML 1ML VIAL SQ SCH ×3 (05:48→22:23)
[2022-12-23] MEDS: hydrALAZINE HCL 50 MG TABLET (FP) PO SCH ×3 (05:48→22:23)
[2022-12-23 07:24] LABS: HEMATOCRIT 22.6 % (35.4-49); HEMOGLOBIN 7.9 GM/dL (11.7-16.9); MCH 33.6 pg (25.7-33.7); MCHC 34.8 g/dl (32.0-35.9); MEAN CELL VOLUME 96.6 fl (80-96); MEAN PLT VOLUME 8.9 fl (7.5-11.1); PLATELET COUNT 121 10^3/uL (134-434); RBC 2.34 M/mm3 (4.00-5.60); RDW 14.5 % (11.9-15.9); WHITE BLOOD COUNT 9.4 K/mm3 (4.0-10.0)
[2022-12-23 07:45] LABS: CHOLESTEROL 73 mg/dL (50-200)
[2022-12-23 07:47] LABS: LDL CHOLESTEROL (ONLY SJRH) 29 mg/dL (5-100)
[2022-12-23 07:49] LABS: HDL CHOLESTEROL 33 mg/dL (40-60)
[2022-12-23] MEDS: SEVELAMER CARBONATE 800 MG TAB (FP) PO SCH ×3 (08:00→17:11)
[2022-12-23 08:46] LABS: BLOOD UREA NITROGEN 28.2 mg/dL (7-18); CALCIUM 9.3 mg/dL (8.5-10.1); POTASSIUM 3.9 mmol/L (3.5-5.1)
[2022-12-23] MEDS: PANTOPRAZOLE 20 MG TABLET PO SCH (10:12)
[2022-12-23] MEDS: NIFEdipine E.R 60 MG TABLET PO SCH (10:12)
[2022-12-23 10:51] LABS: LDH 210 U/L (87-246)
[2022-12-23] MEDS: guaiFENesin/D-M SUGAR-FREE/ACLHOL-FREE (200 MG/10 MG) 5 ML PO PRN (17:11)
[2022-12-23] MEDS: ATORVASTATIN CA 80 MG TABLET (FP) PO SCH (22:23)
[2022-12-24] MEDS: hydrALAZINE HCL 50 MG TABLET (FP) PO SCH ×3 (05:48→22:16)
[2022-12-24] MEDS: HEPARIN NA (PORCINE) 5,000 UNITS/ML 1ML VIAL SQ SCH ×3 (05:49→22:16)
[2022-12-24] MEDS: SEVELAMER CARBONATE 800 MG TAB (FP) PO SCH ×3 (08:23→17:30)
[2022-12-24] MEDS ORDERED: REGADENOSON 0.4 MG/5 ML PRE-FILLED SYRINGE IVPUSH ONE ×2 (09:36→10:00)
[2022-12-24] MEDS: metoPROLOL SUCCINATE 25 MG TAB.SR.24H (FP) PO SCH (13:00)
[2022-12-24] MEDS: PANTOPRAZOLE 20 MG TABLET PO SCH (13:00)
[2022-12-24] MEDS: NIFEdipine E.R 60 MG TABLET PO SCH (13:00)
[2022-12-24 14:43] LABS: HEMATOCRIT 21.5 % (35.4-49); HEMOGLOBIN 7.5 GM/dL (11.7-16.9); MCHC 35.1 g/dl (32.0-35.9); MEAN PLT VOLUME 8.8 fl (7.5-11.1); PLATELET COUNT 131 10^3/uL (134-434); RBC 2.22 M/mm3 (4.00-5.60); RDW 14.5 % (11.9-15.9); WHITE BLOOD COUNT 9.5 K/mm3 (4.0-10.0)
[2022-12-24 15:04] LABS: POTASSIUM 3.7 mmol/L (3.5-5.1)
[2022-12-24 15:05] LABS: ANISOCYTOSIS 0; HELMET CELLS 0; HOWELL-JOLLY BODIES 0; MACROCYTOSIS 0; OVALOCYTE 0; ROULEAU 0; SICKELED CELLS 0; TARGET CELLS 0; TEAR DROP CELLS 0; TOXIC GRANULATION 0
[2022-12-24 15:06] LABS: CALCIUM 9.1 mg/dL (8.5-10.1)
[2022-12-24 15:07] LABS: ALBUMIN 3.3 g/dl (3.4-5.0); BLOOD UREA NITROGEN 39.6 mg/dL (7-18)
[2022-12-24 15:10] LABS: CREATININE 6.8 mg/dL (0.55-1.3)
[2022-12-24 15:11] LABS: BILIRUBIN,TOTAL 0.9 mg/dL (0.2-1); TOT PROT 7.1 g/dl (6.4-8.2)
[2022-12-24] MEDS ORDERED: SODIUM CHLORIDE 250 ML IV PRN (16:15)
[2022-12-24] MEDS: EPOETIN ALFA-EPBX 10,000 UNIT/ML VIAL IVPUSH ONE ×2 (17:55→18:01)
[2022-12-24] MEDS: ATORVASTATIN CA 80 MG TABLET (FP) PO SCH (22:16)
[2022-12-24] MEDS: guaiFENesin/D-M SUGAR-FREE/ACLHOL-FREE (200 MG/10 MG) 5 ML PO PRN (22:20)
[2022-12-25] MEDS: HEPARIN NA (PORCINE) 5,000 UNITS/ML 1ML VIAL SQ SCH ×3 (05:48→21:39)
[2022-12-25] MEDS: hydrALAZINE HCL 50 MG TABLET (FP) PO SCH ×3 (06:38→21:32)
[2022-12-25] MEDS: SEVELAMER CARBONATE 800 MG TAB (FP) PO SCH ×4 (09:35→17:24)
[2022-12-25] MEDS: NIFEdipine E.R 60 MG TABLET PO SCH ×2 (10:57→21:37)
[2022-12-25] MEDS: PANTOPRAZOLE 20 MG TABLET PO SCH (10:57)
[2022-12-25] MEDS: metoPROLOL SUCCINATE 25 MG TAB.SR.24H (FP) PO SCH (10:57)
[2022-12-25] MEDS ORDERED: ATORVASTATIN CA 40 MG TABLET (FP) ONE (21:19)
[2022-12-25] MEDS: ATORVASTATIN CA 80 MG TABLET (FP) PO SCH (21:33)
[2022-12-25] MEDS: guaiFENesin/D-M SUGAR-FREE/ACLHOL-FREE (200 MG/10 MG) 5 ML PO PRN (21:33)
[2022-12-26] MEDS: hydrALAZINE HCL 50 MG TABLET (FP) PO SCH ×3 (06:19→21:24)
[2022-12-26] MEDS: HEPARIN NA (PORCINE) 5,000 UNITS/ML 1ML VIAL SQ SCH ×3 (06:22→21:24)
[2022-12-26] MEDS ORDERED: SODIUM CHLORIDE 250 ML IV PRN (07:58)
[2022-12-26] MEDS ORDERED: EPOETIN ALFA-EPBX 10,000 UNIT, EPOETIN ALFA-EPBX 3,000 UNIT, EPOETIN ALFA-EPBX 2,000 UNIT IVPUSH ONE (09:00)
[2022-12-26 10:44] LABS: HEMATOCRIT 25.3 % (35.4-49); HEMOGLOBIN 8.9 GM/dL (11.7-16.9); MCH 33.5 pg (25.7-33.7); MCHC 35.2 g/dl (32.0-35.9); MEAN CELL VOLUME 95.2 fl (80-96); MEAN PLT VOLUME 8.4 fl (7.5-11.1); PLATELET COUNT 146 10^3/uL (134-434); RBC 2.66 M/mm3 (4.00-5.60); RDW 15.7 % (11.9-15.9); WHITE BLOOD COUNT 12.1 K/mm3 (4.0-10.0)
[2022-12-26 10:56] LABS: CHLORIDE 96 mmol/L (98-107); POTASSIUM 4.1 mmol/L (3.5-5.1); SODIUM 133 mmol/L (136-145)
[2022-12-26 10:58] LABS: ANION GAP 9 MMOL/L (8-16); BLOOD UREA NITROGEN 44.5 mg/dL (7-18); CALCIUM 9.3 mg/dL (8.5-10.1); CO2 28 mmol/L (21-32); GLUCOSE,RANDOM 84 mg/dL (74-106)
[2022-12-26 11:08] LABS: CREATININE 7.8 mg/dL (0.55-1.3)
[2022-12-26] MEDS ORDERED: EPOETIN ALFA-EPBX 10,000 UNIT/ML VIAL SQ ONE (14:19)
[2022-12-26] MEDS ORDERED: REGADENOSON 0.4 MG/5 ML PRE-FILLED SYRINGE IVPUSH ONE (14:45)
[2022-12-26] MEDS: SEVELAMER CARBONATE 800 MG TAB (FP) PO SCH ×2 (17:28→17:29)
[2022-12-26] MEDS: NIFEdipine E.R 60 MG TABLET PO SCH ×2 (17:28→21:25)
[2022-12-26] MEDS: metoPROLOL SUCCINATE 25 MG TAB.SR.24H (FP) PO SCH (17:29)
[2022-12-26] MEDS: PANTOPRAZOLE 20 MG TABLET PO SCH (17:29)
[2022-12-26] MEDS: ATORVASTATIN CA 80 MG TABLET (FP) PO SCH (21:24)
[2022-12-27] MEDS: HEPARIN NA (PORCINE) 5,000 UNITS/ML 1ML VIAL SQ SCH (06:22)
[2022-12-27] MEDS: hydrALAZINE HCL 50 MG TABLET (FP) PO SCH (06:23)
[2022-12-27] MEDS: SEVELAMER CARBONATE 800 MG TAB (FP) PO SCH ×2 (07:37→11:58)
[2022-12-27] MEDS: PANTOPRAZOLE 20 MG TABLET PO SCH (09:21)
[2022-12-27] MEDS: NIFEdipine E.R 60 MG TABLET PO SCH (09:21)
[2022-12-27] MEDS: metoPROLOL SUCCINATE 25 MG TAB.SR.24H (FP) PO SCH (09:21)
[2022-12-27 09:23] VITALS: BP 124/56; PULSE 76; RESP 18; TEMP 98
== END 2022-12-27 13:06 | disposition home or self-care (01) | DRG 291 ==
LOC: JER 12:06 → JERBED 12:28 → J4W 21:18
PROVIDERS: ADMIT Internal Medicine; ATTEND Family Medicine
DX: I13.2 Hypertensive heart and chronic kidney disease with heart failure and with stage 5 chronic kidney disease, or end stage renal disease (principal); I50.23 Acute on chronic systolic (congestive) heart failure; N18.6 End stage renal disease; I42.8 Other cardiomyopathies; I25.10 Atherosclerotic heart disease of native coronary artery without angina pectoris; K44.9 Diaphragmatic hernia without obstruction or gangrene; E78.5 Hyperlipidemia, unspecified; R59.1 Generalized enlarged lymph nodes; D63.8 Anemia in other chronic diseases classified elsewhere; R00.1 Bradycardia, unspecified; D69.6 Thrombocytopenia, unspecified; S50.12XA Contusion of left forearm, initial encounter; E11.22 Type 2 diabetes mellitus with diabetic chronic kidney disease; E87.70 Fluid overload, unspecified; E66.8 Other obesity; Z68.28 Body mass index [BMI] 28.0-28.9, adult; Z99.2 Dependence on renal dialysis
CPT/HCPCS: 0241U-QW; 36415; 36430; 71045-TC-FY; 71275-TC; 74176-TC; 78452-TC; 80048; 80053; 80061; 83036; 83615; 83735; 83880; 84100; 84443; 84484; 85025; 85027; 85610; 85730; 86704; 86705; 86803; 86850; 86900; 86901; 86922; 87340; 87517; 93005; 93010; 93017; 93306-TC; 93925-TC; 99285-25; A9502; J1644; J2785; P9058; Q5106; Q9967

== ENCOUNTER 2023-01-15 15:02 | Inpatient (IN) | payer OTHER ==
[2023-01-15] MEDS ORDERED: ACETAMINOPHEN 1000 MG/100 ML BAG IVPB ONE (15:31)
[2023-01-15] MEDS ORDERED: ACETAMINOPHEN INJECTION 100 ML IVPB ONE (17:05)
[2023-01-15 17:46] LABS: BASO % 0.7 % (0-2.0); EOS % 22.4 % (0-4.5); HEMOGLOBIN 10.2 GM/dL (11.7-16.9); LYMPH % 6.7 % (8-40); MCH 32.3 pg (25.7-33.7); MEAN CELL VOLUME 97.9 fl (80-96); MEAN PLT VOLUME 8.9 fl (7.5-11.1); MONO % 6.2 % (3.8-10.2); PLATELET COUNT 169 10^3/uL (134-434); RBC 3.16 M/mm3 (4.00-5.60); RDW 17.2 % (11.9-15.9)
[2023-01-15 18:03] LABS: CHLORIDE 102 mmol/L (98-107); POTASSIUM 4.1 mmol/L (3.5-5.1); SODIUM 138 mmol/L (136-145)
[2023-01-15 18:06] LABS: ALBUMIN 3.9 g/dl (3.4-5.0); ANION GAP 13 MMOL/L (8-16); BLOOD UREA NITROGEN 46.8 mg/dL (7-18); CO2 22 mmol/L (21-32); GLUCOSE,RANDOM 86 mg/dL (74-106); LIPASE 323 U/L (73-393); MAGNESIUM 2.1 mg/dL (1.8-2.4)
[2023-01-15 18:09] LABS: CREATININE 7.1 mg/dL (0.55-1.3); SGOT/AST 16 U/L (15-37); SGPT/ALT 15 U/L (13-61)
[2023-01-15 18:10] LABS: TOT PROT 8.1 g/dl (6.4-8.2)
[2023-01-15 18:11] LABS: BILIRUBIN,TOTAL 0.8 mg/dL (0.2-1)
[2023-01-15 18:12] LABS: ALK PHOS 118 U/L (45-117)
[2023-01-15 18:20] LABS: N-TERMINAL BNP > 35000.0 pg/ml (5-125)
[2023-01-15] MEDS ORDERED: PIPERACILLIN/TAZOB 4.5 GM 4.5 GM in DEXTROSE 5%-WATER 100 ML IVPB ONE (18:28)
[2023-01-15 20:24] LABS: ANISOCYTOSIS 2+; MACROCYTOSIS 0; OVALOCYTE 1+
[2023-01-15] MEDS ORDERED: PIPERACILLIN/TAZOB 3.375 GM 3.375 GM/50 ML BAG IVPB ONE (20:44)
[2023-01-15] MEDS ORDERED: ACETAMINOPHEN 1000 MG/100 ML BAG IVPB PRN (23:30)
[2023-01-16 00:25] VITALS: BMI 31.8
[2023-01-16] MEDS: PIPERACILLIN/TAZOB 2.25 GM 2.25 GM in DEXTROSE 5%-WATER - 50 ML IVPB SCH ×3 (02:42→18:01)
[2023-01-16] MEDS: LIDOCAINE 5% TOPICAL PATCH TP SCH ×2 (06:18→10:07)
[2023-01-16] MEDS ORDERED: ACETAMINOPHEN 325 MG TABLET (FP) PO PRN (07:00)
[2023-01-16] MEDS ORDERED: SODIUM CHLORIDE 250 ML IV PRN (07:57)
[2023-01-16] MEDS ORDERED: LORATADINE 10 MG TABLET PO PRN (08:30)
[2023-01-16] MEDS: PANTOPRAZOLE 20 MG TABLET PO SCH (10:06)
[2023-01-16] MEDS: ACETAMINOPHEN 325 MG TABLET (FP) PO PRN (10:08)
[2023-01-16] MEDS ORDERED: EPOETIN ALFA-EPBX 10,000 UNIT/ML VIAL IVPUSH ONE (13:45)
[2023-01-16 14:59] LABS: URIC ACID 3.3 mg/dL (2.6-7.2)
[2023-01-16] MEDS: HEPARIN NA (PORCINE) 5,000 UNITS/ML 1ML VIAL SQ SCH ×2 (15:21→21:37)
[2023-01-16] MEDS: hydrALAZINE HCL 50 MG TABLET (FP) PO SCH ×2 (16:51→21:37)
[2023-01-16] MEDS: NIFEdipine E.R 60 MG TABLET PO SCH (18:00)
[2023-01-16] MEDS: metoPROLOL SUCCINATE 25 MG TAB.SR.24H (FP) PO SCH (18:00)
[2023-01-16] MEDS: ATORVASTATIN CA 80 MG TABLET (FP) PO SCH (21:37)
[2023-01-16] MEDS: LIDOCAINE PATCH REMOVAL MC SCH (21:41)
[2023-01-17] MEDS ORDERED: PIPERACILLIN/TAZOB 2.25 GM 2.25 GM in DEXTROSE 5%-WATER - 50 ML IVPB ONE (04:30)
[2023-01-17] MEDS: HEPARIN NA (PORCINE) 5,000 UNITS/ML 1ML VIAL SQ SCH ×3 (05:51→22:05)
[2023-01-17] MEDS: hydrALAZINE HCL 50 MG TABLET (FP) PO SCH ×4 (05:51→22:05)
[2023-01-17 06:38] LABS: HEMATOCRIT 25.5 % (35.4-49); HEMOGLOBIN 8.8 GM/dL (11.7-16.9); MCH 33.9 pg (25.7-33.7); MCHC 34.7 g/dl (32.0-35.9); MEAN CELL VOLUME 97.8 fl (80-96); MEAN PLT VOLUME 8.9 fl (7.5-11.1); PLATELET COUNT 126 10^3/uL (134-434); RBC 2.61 M/mm3 (4.00-5.60); RDW 16.6 % (11.9-15.9); WHITE BLOOD COUNT 9.9 K/mm3 (4.0-10.0)
[2023-01-17] MEDS ORDERED: POTASSIUM CHLORIDE ORAL LIQUID 20 MEQ/15 ML PO ONE (08:30)
[2023-01-17] MEDS: NIFEdipine E.R 60 MG TABLET PO SCH (09:30)
[2023-01-17] MEDS: metoPROLOL SUCCINATE 25 MG TAB.SR.24H (FP) PO SCH (09:30)
[2023-01-17] MEDS: LIDOCAINE 5% TOPICAL PATCH TP SCH (09:30)
[2023-01-17] MEDS: PANTOPRAZOLE 20 MG TABLET PO SCH (09:30)
[2023-01-17] MEDS ORDERED: SODIUM CHLORIDE 250 ML IV PRN (13:45)
[2023-01-17 14:56] LABS: POTASSIUM 3.2 mmol/L (3.5-5.1)
[2023-01-17 14:58] LABS: CALCIUM 8.5 mg/dL (8.5-10.1)
[2023-01-17 14:59] LABS: ALBUMIN 3.5 g/dl (3.4-5.0); BLOOD UREA NITROGEN 29.7 mg/dL (7-18)
[2023-01-17 15:02] LABS: CREATININE 5.9 mg/dL (0.55-1.3)
[2023-01-17 15:04] LABS: TOT PROT 7.5 g/dl (6.4-8.2)
[2023-01-17 15:05] LABS: BILIRUBIN,TOTAL 1.2 mg/dL (0.2-1)
[2023-01-17] MEDS: SEVELAMER CARBONATE 800 MG TAB (FP) PO SCH (17:31)
[2023-01-17] MEDS: ATORVASTATIN CA 80 MG TABLET (FP) PO SCH (22:05)
[2023-01-17] MEDS: LIDOCAINE PATCH REMOVAL MC SCH (22:05)
[2023-01-18] MEDS: HEPARIN NA (PORCINE) 5,000 UNITS/ML 1ML VIAL SQ SCH ×3 (06:09→21:54)
[2023-01-18] MEDS: hydrALAZINE HCL 50 MG TABLET (FP) PO SCH ×3 (06:10→21:54)
[2023-01-18 06:40] LABS: HEMATOCRIT 23.9 % (35.4-49); HEMOGLOBIN 8.4 GM/dL (11.7-16.9); MCH 34.2 pg (25.7-33.7); MCHC 35.4 g/dl (32.0-35.9); MEAN CELL VOLUME 96.6 fl (80-96); MEAN PLT VOLUME 8.9 fl (7.5-11.1); PLATELET COUNT 139 10^3/uL (134-434); RBC 2.47 M/mm3 (4.00-5.60); RDW 16.8 % (11.9-15.9)
[2023-01-18 06:48] LABS: INR 1.39 (0.83-1.09); PROTHROMBIN TIME (PATIENT) 16.1 SEC (9.7-13.0)
[2023-01-18 06:57] LABS: POTASSIUM 3.4 mmol/L (3.5-5.1)
[2023-01-18 07:03] LABS: ALBUMIN 3.1 g/dl (3.4-5.0); BLOOD UREA NITROGEN 41.9 mg/dL (7-18)
[2023-01-18 07:06] LABS: CREATININE 7.3 mg/dL (0.55-1.3)
[2023-01-18 07:07] LABS: BILIRUBIN,TOTAL 0.8 mg/dL (0.2-1); TOT PROT 6.6 g/dl (6.4-8.2)
[2023-01-18 08:45] LABS: ANISOCYTOSIS 0; HELMET CELLS 0; HOWELL-JOLLY BODIES 0; MACROCYTOSIS 0; OVALOCYTE 0; ROULEAU 0; SICKELED CELLS 0; TARGET CELLS 0; TEAR DROP CELLS 0; TOXIC GRANULATION 0
[2023-01-18] MEDS: PANTOPRAZOLE 20 MG TABLET PO SCH (09:28)
[2023-01-18] MEDS: metoPROLOL SUCCINATE 25 MG TAB.SR.24H (FP) PO SCH (09:28)
[2023-01-18] MEDS: SEVELAMER CARBONATE 800 MG TAB (FP) PO SCH ×3 (09:28→17:30)
[2023-01-18] MEDS: LIDOCAINE 5% TOPICAL PATCH TP SCH (09:28)
[2023-01-18] MEDS: NIFEdipine E.R 60 MG TABLET PO SCH (09:28)
[2023-01-18] MEDS ORDERED: predniSONE 10 MG TABLET (UD) PO ONE (10:00)
[2023-01-18 10:37] LABS: PHOSPHOROUS 4.3 mg/dL (2.5-4.9)
[2023-01-18 12:13] LABS: URIC ACID 3.4 mg/dL (2.6-7.2)
[2023-01-18] MEDS ORDERED: EPOETIN ALFA-EPBX 10,000 UNIT/ML VIAL IVPUSH ONE (13:00)
[2023-01-18] MEDS ORDERED: SODIUM CHLORIDE 250 ML IV PRN (13:00)
[2023-01-18] MEDS: ATORVASTATIN CA 80 MG TABLET (FP) PO SCH (21:54)
[2023-01-18] MEDS: LIDOCAINE PATCH REMOVAL MC SCH (21:54)
[2023-01-19] MEDS: hydrALAZINE HCL 50 MG TABLET (FP) PO SCH ×3 (05:28→21:28)
[2023-01-19] MEDS: HEPARIN NA (PORCINE) 5,000 UNITS/ML 1ML VIAL SQ SCH ×3 (05:29→21:28)
[2023-01-19] MEDS: SEVELAMER CARBONATE 800 MG TAB (FP) PO SCH ×3 (08:38→16:55)
[2023-01-19] MEDS: LIDOCAINE 5% TOPICAL PATCH TP SCH (10:23)
[2023-01-19] MEDS: metoPROLOL SUCCINATE 25 MG TAB.SR.24H (FP) PO SCH (10:23)
[2023-01-19] MEDS: NIFEdipine E.R 60 MG TABLET PO SCH (10:23)
[2023-01-19] MEDS: PANTOPRAZOLE 20 MG TABLET PO SCH (10:23)
[2023-01-19] MEDS: ATORVASTATIN CA 80 MG TABLET (FP) PO SCH (21:28)
[2023-01-19] MEDS: LIDOCAINE PATCH REMOVAL MC SCH (21:29)
[2023-01-20] MEDS: hydrALAZINE HCL 50 MG TABLET (FP) PO SCH ×3 (05:33→21:14)
[2023-01-20] MEDS: HEPARIN NA (PORCINE) 5,000 UNITS/ML 1ML VIAL SQ SCH ×3 (05:34→21:15)
[2023-01-20] MEDS: SEVELAMER CARBONATE 800 MG TAB (FP) PO SCH ×3 (08:40→17:08)
[2023-01-20] MEDS: PANTOPRAZOLE 20 MG TABLET PO SCH (09:01)
[2023-01-20] MEDS: metoPROLOL SUCCINATE 25 MG TAB.SR.24H (FP) PO SCH (09:01)
[2023-01-20] MEDS: NIFEdipine E.R 60 MG TABLET PO SCH (09:01)
[2023-01-20] MEDS: LIDOCAINE 5% TOPICAL PATCH TP SCH (09:02)
[2023-01-20] MEDS ORDERED: COLCHICINE 0.6 MG CAP PO ONE (10:47)
[2023-01-20] MEDS ORDERED: INDOMETHACIN 50 MG CAPSULE PO ONE (10:48)
[2023-01-20] MEDS ORDERED: BISACODYL 5 MG TABLET.DR (FP) PO ONE (16:00)
[2023-01-20] MEDS ORDERED: PEG 3350/NA SULF BICARB CL/KCL 4000 ML SOLN.RECON PO ONE (17:00)
[2023-01-20] MEDS: LIDOCAINE PATCH REMOVAL MC SCH (21:15)
[2023-01-20] MEDS: ATORVASTATIN CA 80 MG TABLET (FP) PO SCH (21:15)
[2023-01-20] MEDS: ACETAMINOPHEN 325 MG TABLET (FP) PO PRN (21:34)
[2023-01-21] MEDS: HEPARIN NA (PORCINE) 5,000 UNITS/ML 1ML VIAL SQ SCH ×3 (05:56→22:40)
[2023-01-21] MEDS: hydrALAZINE HCL 50 MG TABLET (FP) PO SCH ×3 (05:56→22:39)
[2023-01-21] MEDS: ACETAMINOPHEN 325 MG TABLET (FP) PO PRN (05:57)
[2023-01-21] MEDS ORDERED: SODIUM CHLORIDE 250 ML IV PRN (07:00)
[2023-01-21] MEDS: LIDOCAINE 5% TOPICAL PATCH TP SCH (09:22)
[2023-01-21] MEDS: PANTOPRAZOLE 20 MG TABLET PO SCH (09:22)
[2023-01-21 11:23] LABS: HEMATOCRIT 24.2 % (35.4-49); HEMOGLOBIN 8.3 GM/dL (11.7-16.9); MCH 33.4 pg (25.7-33.7); MCHC 34.1 g/dl (32.0-35.9); MEAN CELL VOLUME 97.9 fl (80-96); MEAN PLT VOLUME 8.5 fl (7.5-11.1); PLATELET COUNT 151 10^3/uL (134-434); RBC 2.47 M/mm3 (4.00-5.60); RDW 16.4 % (11.9-15.9); WHITE BLOOD COUNT 7.2 K/mm3 (4.0-10.0)
[2023-01-21] MEDS: EPOETIN ALFA-EPBX 10,000 UNIT/ML VIAL SQ ONE ×2 (12:19→12:22)
[2023-01-21] MEDS: SEVELAMER CARBONATE 800 MG TAB (FP) PO SCH ×3 (14:17→18:22)
[2023-01-21] MEDS: metoPROLOL SUCCINATE 25 MG TAB.SR.24H (FP) PO SCH (14:18)
[2023-01-21] MEDS: NIFEdipine E.R 60 MG TABLET PO SCH (14:18)
[2023-01-21] MEDS: ATORVASTATIN CA 80 MG TABLET (FP) PO SCH (22:41)
[2023-01-21] MEDS: LIDOCAINE PATCH REMOVAL MC SCH (22:41)
[2023-01-22] MEDS: PIPERACILLIN/TAZOB 2.25 GM 2.25 GM in DEXTROSE 5%-WATER - 50 ML IVPB SCH ×2 (02:05→02:06)
[2023-01-22] MEDS: hydrALAZINE HCL 50 MG TABLET (FP) PO SCH ×2 (06:01→15:03)
[2023-01-22] MEDS: methylPREDNISolone NA SUCC 40 MG/1 ML VIAL IVPUSH SCH ×2 (07:10→15:03)
[2023-01-22] MEDS: SEVELAMER CARBONATE 800 MG TAB (FP) PO SCH ×2 (08:07→11:37)
[2023-01-22] MEDS: LIDOCAINE 5% TOPICAL PATCH TP SCH (10:49)
[2023-01-22] MEDS: NIFEdipine E.R 60 MG TABLET PO SCH (10:50)
[2023-01-22] MEDS: PANTOPRAZOLE 20 MG TABLET PO SCH (10:50)
[2023-01-22] MEDS: metoPROLOL SUCCINATE 25 MG TAB.SR.24H (FP) PO SCH (10:50)
[2023-01-22 13:18] VITALS: TEMP 98
[2023-01-22 15:03] VITALS: BP 142/69; PULSE 78; RESP 18
== END 2023-01-22 17:02 | disposition home or self-care (01) | DRG 391 ==
LOC: JER 15:02 → JERBED 22:03 → J4S 23:29
PROVIDERS: ADMIT Internal Medicine; ATTEND Family Medicine
PROC: 5A1D70Z Performance of Urinary Filtration, Intermittent, Less than 6 Hours Per Day (ICD-10-PCS; 2023-01-22)
PROC: 5A1D70Z Performance of Urinary Filtration, Intermittent, Less than 6 Hours Per Day (ICD-10-PCS; 2023-01-22)
PROC: 5A1D70Z Performance of Urinary Filtration, Intermittent, Less than 6 Hours Per Day (ICD-10-PCS; 2023-01-22)
PROC: 5A1D70Z Performance of Urinary Filtration, Intermittent, Less than 6 Hours Per Day (ICD-10-PCS; 2023-01-22)
PROC: 0DJD8ZZ Inspection of Lower Intestinal Tract, Via Natural or Artificial Opening Endoscopic (ICD-10-PCS; principal; 2023-01-22 13:00)
DX: K52.9 Noninfective gastroenteritis and colitis, unspecified (principal); I50.33 Acute on chronic diastolic (congestive) heart failure; N18.6 End stage renal disease; I24.8 Other forms of acute ischemic heart disease; J96.10 Chronic respiratory failure, unspecified whether with hypoxia or hypercapnia; I13.2 Hypertensive heart and chronic kidney disease with heart failure and with stage 5 chronic kidney disease, or end stage renal disease; I42.8 Other cardiomyopathies; J98.11 Atelectasis; M10.9 Gout, unspecified; I25.10 Atherosclerotic heart disease of native coronary artery without angina pectoris; E11.22 Type 2 diabetes mellitus with diabetic chronic kidney disease; M25.561 Pain in right knee; E78.5 Hyperlipidemia, unspecified; E87.70 Fluid overload, unspecified; R60.0 Localized edema; R59.0 Localized enlarged lymph nodes; M65.861 Other synovitis and tenosynovitis, right lower leg; K57.90 Diverticulosis of intestine, part unspecified, without perforation or abscess without bleeding; K64.8 Other hemorrhoids; D64.9 Anemia, unspecified; Z86.010 Personal history of colon polyps; Z99.2 Dependence on renal dialysis
CPT/HCPCS: 0241U-QW; 36415; 71045-TC-FY; 73562-TC-RT-FY; 74176-TC; 80048; 80053; 82962; 83690; 83735; 83880; 84100; 84484; 84550; 85025; 85027; 85610; 87338; 93005; 93010; 99285-25; J1644; Q5106

== ENCOUNTER 2023-01-27 17:32 | Observation (INO) | payer OTHER ==
[2023-01-27 18:36] LABS: BASO % 0.5 % (0-2.0); EOS % 25.1 % (0-4.5); HEMATOCRIT 26.9 % (35.4-49); HEMOGLOBIN 8.9 GM/dL (11.7-16.9); MCH 32.8 pg (25.7-33.7); MCHC 33.1 g/dl (32.0-35.9); MEAN PLT VOLUME 8.4 fl (7.5-11.1); MONO % 8.3 % (3.8-10.2); NEUT % 55.1 % (42.8-82.8); PLATELET COUNT 134 10^3/uL (134-434); RBC 2.72 M/mm3 (4.00-5.60); RDW 17.4 % (11.9-15.9); WHITE BLOOD COUNT 8.5 K/mm3 (4.0-10.0)
[2023-01-27 18:47] LABS: INR 1.17 (0.83-1.09); PROTHROMBIN TIME (PATIENT) 13.6 SEC (9.7-13.0)
[2023-01-27 18:56] LABS: CHLORIDE 104 mmol/L (98-107); POTASSIUM 4.2 mmol/L (3.5-5.1); SODIUM 140 mmol/L (136-145)
[2023-01-27 18:57] LABS: ALBUMIN 3.6 g/dl (3.4-5.0); ANION GAP 10 MMOL/L (8-16); BLOOD UREA NITROGEN 58.6 mg/dL (7-18); CALCIUM 8.4 mg/dL (8.5-10.1); CO2 26 mmol/L (21-32); GLUCOSE,RANDOM 123 mg/dL (74-106); MAGNESIUM 1.9 mg/dL (1.8-2.4)
[2023-01-27 19:00] LABS: SGOT/AST 16 U/L (15-37); SGPT/ALT 16 U/L (13-61)
[2023-01-27 19:02] LABS: BILIRUBIN,TOTAL 0.6 mg/dL (0.2-1); TOT PROT 7.4 g/dl (6.4-8.2)
[2023-01-27 19:03] LABS: ALK PHOS 110 U/L (45-117)
[2023-01-27 19:12] LABS: CREATININE 7.5 mg/dL (0.55-1.3); N-TERMINAL BNP > 35000.0 pg/ml (5-125)
[2023-01-27] MEDS ORDERED: ACETAMINOPHEN 1000 MG/100 ML BAG IVPB ONE (19:27)
[2023-01-27] MEDS ORDERED: ACETAMINOPHEN INJECTION 100 ML IVPB ONE (19:48)
[2023-01-27] MEDS ORDERED: DOCUSATE SODIUM 100 MG CAPSULE (FP) PO PRN (20:40)
[2023-01-27] MEDS ORDERED: ACETAMINOPHEN 325 MG TABLET (FP) PO PRN (20:40)
[2023-01-27] MEDS ORDERED: LORATADINE 10 MG TABLET PO PRN (20:46)
[2023-01-27 21:04] LABS: ANISOCYTOSIS 1+; MACROCYTOSIS 0; OVALOCYTE 2+
[2023-01-27] MEDS ORDERED: SEVELAMER CARBONATE 800 MG TAB (FP) PO SCH ×2 (22:00→22:36)
[2023-01-27 22:35] LABS: PHOSPHOROUS 2.9 mg/dL (2.5-4.9)
[2023-01-27] MEDS: ATORVASTATIN CA 80 MG TABLET (FP) PO SCH (23:07)
[2023-01-27] MEDS: hydrALAZINE HCL 50 MG TABLET (FP) PO SCH (23:07)
[2023-01-27] MEDS ORDERED: traMADol HCL 50 MG TABLET PO ONE (23:28)
[2023-01-28] MEDS: LIDOCAINE 5% TOPICAL PATCH TP SCH ×2 (00:02→22:22)
[2023-01-28 04:16] VITALS: BMI 32.3
[2023-01-28] MEDS: hydrALAZINE HCL 50 MG TABLET (FP) PO SCH ×3 (06:07→22:18)
[2023-01-28] MEDS: LEVOTHYROXINE NA 25 MCG TABLET (FP) PO SCH (06:08)
[2023-01-28 07:54] LABS: HEMATOCRIT 25.3 % (35.4-49); HEMOGLOBIN 8.3 GM/dL (11.7-16.9); MCH 33.7 pg (25.7-33.7); MCHC 32.7 g/dl (32.0-35.9); MEAN CELL VOLUME 102.8 fl (80-96); MEAN PLT VOLUME 8.7 fl (7.5-11.1); PLATELET COUNT 124 10^3/uL (134-434); RBC 2.47 M/mm3 (4.00-5.60); RDW 17.2 % (11.9-15.9); WHITE BLOOD COUNT 8.3 K/mm3 (4.0-10.0)
[2023-01-28 08:10] LABS: CHLORIDE 106 mmol/L (98-107); POTASSIUM 4.8 mmol/L (3.5-5.1); SODIUM 140 mmol/L (136-145)
[2023-01-28 08:22] LABS: ANION GAP 11 MMOL/L (8-16); BLOOD UREA NITROGEN 64.5 mg/dL (7-18); CALCIUM 8.7 mg/dL (8.5-10.1); CO2 23 mmol/L (21-32); GLUCOSE,RANDOM 83 mg/dL (74-106)
[2023-01-28 08:38] LABS: CREATININE 8.3 mg/dL (0.55-1.3)
[2023-01-28] MEDS ORDERED: SODIUM CHLORIDE 250 ML IV PRN (08:50)
[2023-01-28] MEDS: SEVELAMER CARBONATE 800 MG TAB (FP) PO SCH ×3 (11:02→18:56)
[2023-01-28] MEDS: LIDOCAINE PATCH REMOVAL MC SCH (12:35)
[2023-01-28] MEDS ORDERED: INDOMETHACIN 50 MG CAPSULE PO ONE (15:53)
[2023-01-28] MEDS ORDERED: COLCHICINE 0.6 MG TAB PO ONE (15:53)
[2023-01-28] MEDS ORDERED: methylPREDNISolone 2 MG TABLET PO SCH (16:00)
[2023-01-28] MEDS: NIFEdipine E.R 60 MG TABLET PO SCH (17:03)
[2023-01-28] MEDS: PANTOPRAZOLE 20 MG TABLET PO SCH (17:04)
[2023-01-28] MEDS: metoPROLOL SUCCINATE 25 MG TAB.SR.24H (FP) PO SCH (17:04)
[2023-01-28] MEDS: ATORVASTATIN CA 80 MG TABLET (FP) PO SCH (22:18)
[2023-01-29] MEDS: hydrALAZINE HCL 50 MG TABLET (FP) PO SCH ×3 (06:44→21:41)
[2023-01-29] MEDS: LEVOTHYROXINE NA 25 MCG TABLET (FP) PO SCH (06:44)
[2023-01-29] MEDS: SEVELAMER CARBONATE 800 MG TAB (FP) PO SCH ×3 (08:28→17:35)
[2023-01-29] MEDS: metoPROLOL SUCCINATE 25 MG TAB.SR.24H (FP) PO SCH (09:26)
[2023-01-29] MEDS: LIDOCAINE PATCH REMOVAL MC SCH (09:26)
[2023-01-29] MEDS: NIFEdipine E.R 60 MG TABLET PO SCH (09:26)
[2023-01-29] MEDS: PANTOPRAZOLE 20 MG TABLET PO SCH (09:26)
[2023-01-29] MEDS: methylPREDNISolone 4 MG TABLET PO SCH (09:30)
[2023-01-29] MEDS ORDERED: SODIUM CHLORIDE 250 ML IV PRN (09:49)
[2023-01-29] MEDS ORDERED: EPOETIN ALFA-EPBX 10,000 UNIT/ML VIAL SQ ONE ×2 (11:00→18:00)
[2023-01-29 11:24] LABS: HEMATOCRIT 23.5 % (35.4-49); HEMOGLOBIN 7.8 GM/dL (11.7-16.9); MCH 33.4 pg (25.7-33.7); MCHC 33.2 g/dl (32.0-35.9); MEAN CELL VOLUME 100.5 fl (80-96); MEAN PLT VOLUME 9.4 fl (7.5-11.1); PLATELET COUNT 108 10^3/uL (134-434); RBC 2.34 M/mm3 (4.00-5.60); RDW 16.8 % (11.9-15.9); WHITE BLOOD COUNT 6.1 K/mm3 (4.0-10.0)
[2023-01-29 11:45] LABS: POTASSIUM 3.7 mmol/L (3.5-5.1)
[2023-01-29 11:50] LABS: CREATININE 6.2 mg/dL (0.55-1.3)
[2023-01-29 11:52] LABS: BLOOD UREA NITROGEN 39.3 mg/dL (7-18)
[2023-01-29] MEDS: ATORVASTATIN CA 80 MG TABLET (FP) PO SCH (21:41)
[2023-01-29] MEDS: LIDOCAINE 5% TOPICAL PATCH TP SCH (21:42)
[2023-01-29 22:18] VITALS: RESP 18
[2023-01-30] MEDS: LEVOTHYROXINE NA 25 MCG TABLET (FP) PO SCH (06:37)
[2023-01-30] MEDS: hydrALAZINE HCL 50 MG TABLET (FP) PO SCH ×3 (06:37→21:57)
[2023-01-30] MEDS: SEVELAMER CARBONATE 800 MG TAB (FP) PO SCH ×3 (09:06→17:43)
[2023-01-30] MEDS: metoPROLOL SUCCINATE 25 MG TAB.SR.24H (FP) PO SCH (09:12)
[2023-01-30] MEDS: PANTOPRAZOLE 20 MG TABLET PO SCH (09:12)
[2023-01-30] MEDS: NIFEdipine E.R 60 MG TABLET PO SCH (09:13)
[2023-01-30] MEDS: LIDOCAINE PATCH REMOVAL MC SCH (10:01)
[2023-01-30] MEDS: methylPREDNISolone 4 MG TABLET PO SCH (10:05)
[2023-01-30 14:02] LABS: HEMATOCRIT 25.1 % (35.4-49); HEMOGLOBIN 8.2 GM/dL (11.7-16.9); MCH 33.1 pg (25.7-33.7); MCHC 32.8 g/dl (32.0-35.9); MEAN CELL VOLUME 100.9 fl (80-96); MEAN PLT VOLUME 9.2 fl (7.5-11.1); PLATELET COUNT 140 10^3/uL (134-434); POTASSIUM 3.8 mmol/L (3.5-5.1); RBC 2.49 M/mm3 (4.00-5.60); RDW 16.3 % (11.9-15.9); WHITE BLOOD COUNT 7.3 K/mm3 (4.0-10.0)
[2023-01-30] MEDS ORDERED: SODIUM CHLORIDE 250 ML IV PRN (14:04)
[2023-01-30 14:05] LABS: CALCIUM 8.5 mg/dL (8.5-10.1)
[2023-01-30 14:06] LABS: BLOOD UREA NITROGEN 31.2 mg/dL (7-18)
[2023-01-30 14:09] LABS: CREATININE 5.5 mg/dL (0.55-1.3)
[2023-01-30] MEDS ORDERED: EPOETIN ALFA-EPBX 10,000 UNIT/ML VIAL IVPUSH ONE ×2 (14:15→14:45)
[2023-01-30] MEDS: ATORVASTATIN CA 80 MG TABLET (FP) PO SCH (21:57)
[2023-01-30] MEDS: LIDOCAINE 5% TOPICAL PATCH TP SCH (21:57)
[2023-01-30] MEDS ORDERED: MAG HYDROX/AL HYDROX/SIMETH 30 ML UNIT-DOSE CUP PO PRN ×2 (22:42→22:43)
[2023-01-31] MEDS: LEVOTHYROXINE NA 25 MCG TABLET (FP) PO SCH (06:25)
[2023-01-31] MEDS: hydrALAZINE HCL 50 MG TABLET (FP) PO SCH ×3 (06:25→21:33)
[2023-01-31] MEDS: SEVELAMER CARBONATE 800 MG TAB (FP) PO SCH ×3 (08:29→16:53)
[2023-01-31] MEDS: metoPROLOL SUCCINATE 25 MG TAB.SR.24H (FP) PO SCH (10:56)
[2023-01-31] MEDS: PANTOPRAZOLE 20 MG TABLET PO SCH (10:56)
[2023-01-31] MEDS: NIFEdipine E.R 60 MG TABLET PO SCH (10:56)
[2023-01-31] MEDS: LIDOCAINE PATCH REMOVAL MC SCH (11:00)
[2023-01-31] MEDS: methylPREDNISolone 4 MG TABLET PO SCH (11:00)
[2023-01-31] MEDS: LIDOCAINE 5% TOPICAL PATCH TP SCH (11:21)
[2023-01-31] MEDS ORDERED: SODIUM CHLORIDE 250 ML IV PRN (14:56)
[2023-01-31] MEDS: ATORVASTATIN CA 80 MG TABLET (FP) PO SCH (21:33)
[2023-01-31] MEDS ORDERED: LIDOCAINE PATCH REMOVAL MC SCH (22:00)
[2023-02-01] MEDS: hydrALAZINE HCL 50 MG TABLET (FP) PO SCH ×2 (05:58→15:00)
[2023-02-01] MEDS: LEVOTHYROXINE NA 25 MCG TABLET (FP) PO SCH (06:05)
[2023-02-01] MEDS ORDERED: EPOETIN ALFA-EPBX 10,000 UNIT/ML VIAL IVPUSH ONE (07:30)
[2023-02-01] MEDS: SEVELAMER CARBONATE 800 MG TAB (FP) PO SCH ×2 (08:22→12:43)
[2023-02-01 10:59] LABS: POTASSIUM 4.1 mmol/L (3.5-5.1)
[2023-02-01 11:00] LABS: CALCIUM 8.3 mg/dL (8.5-10.1)
[2023-02-01 11:01] LABS: BLOOD UREA NITROGEN 36.6 mg/dL (7-18)
[2023-02-01 11:04] LABS: CREATININE 6.5 mg/dL (0.55-1.3)
[2023-02-01 11:34] LABS: HEMATOCRIT 25.5 % (35.4-49); HEMOGLOBIN 8.3 GM/dL (11.7-16.9); MCH 32.3 pg (25.7-33.7); MCHC 32.5 g/dl (32.0-35.9); MEAN CELL VOLUME 99.3 fl (80-96); MEAN PLT VOLUME 8.4 fl (7.5-11.1); PLATELET COUNT 184 10^3/uL (134-434); RBC 2.56 M/mm3 (4.00-5.60); RDW 16.4 % (11.9-15.9); WHITE BLOOD COUNT 8.5 K/mm3 (4.0-10.0)
[2023-02-01] MEDS: LIDOCAINE 5% TOPICAL PATCH TP SCH (12:43)
[2023-02-01] MEDS: PANTOPRAZOLE 20 MG TABLET PO SCH (12:43)
[2023-02-01] MEDS: NIFEdipine E.R 60 MG TABLET PO SCH (12:44)
[2023-02-01] MEDS: metoPROLOL SUCCINATE 25 MG TAB.SR.24H (FP) PO SCH (12:44)
[2023-02-01] MEDS: methylPREDNISolone 4 MG TABLET PO SCH (12:44)
[2023-02-01 14:35] VITALS: BP 144/63; PULSE 65; TEMP 97.7
== END 2023-02-01 17:06 | disposition home or self-care (01) ==
LOC: JER 17:32 → INTOOBSV 20:32 → JERBED 20:32 → UNDOADMOB 20:32 → JERBED 22:59 → J8W 22:59 → JERBED 01-29 10:57 → J6S 01-29 11:20
PROVIDERS: ADMIT Internal Medicine; ATTEND Family Medicine
PROC: 3E033NZ Introduction of Analgesics, Hypnotics, Sedatives into Peripheral Vein, Percutaneous Approach (ICD-10-PCS; principal; 2023-01-29)
PROC: 3E023GC Introduction of Other Therapeutic Substance into Muscle, Percutaneous Approach (ICD-10-PCS; 2023-01-29)
PROC: 3E033GC Introduction of Other Therapeutic Substance into Peripheral Vein, Percutaneous Approach (ICD-10-PCS; 2023-01-29)
DX: I13.2 Hypertensive heart and chronic kidney disease with heart failure and with stage 5 chronic kidney disease, or end stage renal disease (principal); E11.9 Type 2 diabetes mellitus without complications; R77.8 Other specified abnormalities of plasma proteins; I25.10 Atherosclerotic heart disease of native coronary artery without angina pectoris; Z99.2 Dependence on renal dialysis; M25.561 Pain in right knee; E11.22 Type 2 diabetes mellitus with diabetic chronic kidney disease; N18.6 End stage renal disease
CPT/HCPCS: 0241U-QW; 36415; 71045-TC-FY; 73721-RT-TC; 80048; 80053; 83735; 83880; 84100; 84443; 84484; 84550; 85025; 85027; 85610; 85651; 85730; 86140; 86803; 87340; 93005; 93010; 93926-TC; 93970-TC; 96372; 96374; 96375; 96376; 97116-GP; 97161-GP; 99285-25; G0378; Q5106

== ENCOUNTER 2023-04-16 15:41 | Day surgery (SDC) | payer OTHER ==
[2023-04-16] MEDS ORDERED: ACETAMINOPHEN 1000 MG/100 ML BAG IVPB ONE (17:37)
[2023-04-16] MEDS ORDERED: ACETAMINOPHEN INJECTION 100 ML IVPB ONE (18:24)
[2023-04-16 19:08] LABS: BASO % 0.5 % (0-2.0); EOS % 4.9 % (0-4.5); HEMATOCRIT 30.3 % (35.4-49); HEMOGLOBIN 9.9 GM/dL (11.7-16.9); LYMPH % 7.3 % (8-40); MCH 32.4 pg (25.7-33.7); MCHC 32.7 g/dl (32.0-35.9); MEAN CELL VOLUME 99.1 fl (80-96); MEAN PLT VOLUME 9.2 fl (7.5-11.1); MONO % 6.7 % (3.8-10.2); NEUT % 80.6 % (42.8-82.8); PLATELET COUNT 122 10^3/uL (134-434); RBC 3.06 M/mm3 (4.00-5.60); RDW 13.9 % (11.9-15.9); WHITE BLOOD COUNT 10.9 K/mm3 (4.0-10.0)
[2023-04-16] MEDS ORDERED: morphine CARPU-JECT 2 MG/1 ML DISP.SYRIN IVPUSH ONE (19:13)
[2023-04-16 19:14] LABS: INR 1.27 (0.83-1.09); PROTHROMBIN TIME (PATIENT) 14.7 SEC (9.7-13.0)
[2023-04-16 19:17] LABS: ACTIVATED PTT 40.8 SECONDS (25.2-36.5)
[2023-04-16 19:29] LABS: CHLORIDE 102 mmol/L (98-107); POTASSIUM 4.4 mmol/L (3.5-5.1); SODIUM 135 mmol/L (136-145)
[2023-04-16 19:30] LABS: CALCIUM 9.1 mg/dL (8.5-10.1)
[2023-04-16 19:31] LABS: ANION GAP 10 MMOL/L (8-16); BLOOD UREA NITROGEN 60.8 mg/dL (7-18); CO2 23 mmol/L (21-32); GLUCOSE,RANDOM 76 mg/dL (74-106)
[2023-04-16 19:34] LABS: SGOT/AST 17 U/L (15-37); SGPT/ALT 17 U/L (13-61)
[2023-04-16 19:36] LABS: TOT PROT 7.4 g/dl (6.4-8.2)
[2023-04-16 19:37] LABS: ALK PHOS 127 U/L (45-117)
[2023-04-16 19:44] LABS: CREATININE 8.2 mg/dL (0.55-1.3)
[2023-04-17] MEDS ORDERED: BUPIVACAINE HCL/PF 2.5 MG/ML - 30 ML VIAL IJ ONE
[2023-04-17 00:22] VITALS: BMI 30.7
[2023-04-17] MEDS: PIPERACILLIN/TAZOB 2.25 GM 2.25 GM in DEXTROSE 5%-WATER - 50 ML IVPB SCH ×2 (00:44→11:42)
[2023-04-17] MEDS ORDERED: ACETAMINOPHEN 1000 MG/100 ML BAG IVPB PRN (01:00)
[2023-04-17 09:25] LABS: BASO % 0.3 % (0-2.0); EOS % 6.1 % (0-4.5); HEMATOCRIT 28.3 % (35.4-49); HEMOGLOBIN 9.3 GM/dL (11.7-16.9); LYMPH % 7.8 % (8-40); MCH 32.7 pg (25.7-33.7); MEAN CELL VOLUME 99.1 fl (80-96); MEAN PLT VOLUME 9.1 fl (7.5-11.1); MONO % 7.8 % (3.8-10.2); PLATELET COUNT 104 10^3/uL (134-434); RBC 2.85 M/mm3 (4.00-5.60); RDW 13.9 % (11.9-15.9); WHITE BLOOD COUNT 8.2 K/mm3 (4.0-10.0)
[2023-04-17] MEDS ORDERED: BUPIVACAINE HCL/PF 0.25% (2.5MG/ML) 10 ML VIAL ONE (10:05)
[2023-04-17 10:20] LABS: CHLORIDE 101 mmol/L (98-107); POTASSIUM 4.4 mmol/L (3.5-5.1); SODIUM 138 mmol/L (136-145)
[2023-04-17 10:21] LABS: CALCIUM 8.5 mg/dL (8.5-10.1)
[2023-04-17 10:22] LABS: ANION GAP 14 MMOL/L (8-16); CO2 22 mmol/L (21-32); GLUCOSE,RANDOM 78 mg/dL (74-106)
[2023-04-17] MEDS ORDERED: ROCURONIUM BROMIDE 50 MG/5 ML SYRINGE ONE (10:28)
[2023-04-17] MEDS ORDERED: SUCCINYLCHOLINE CHLORIDE 200 MG/10 ML SYRINGE ONE (10:29)
[2023-04-17] MEDS ORDERED: MIDAZOLAM HCL 2 MG/2 ML SINGLE DOSE VIAL ONE (10:29)
[2023-04-17] MEDS ORDERED: PROPOFOL 20 ML ONE (10:29)
[2023-04-17 10:33] LABS: CREATININE 9.2 mg/dL (0.55-1.3)
[2023-04-17] MEDS ORDERED: PIPERACILLIN/TAZOBACTAM 2.25 GM VIAL IVPB ONE (11:42)
[2023-04-17] MEDS ORDERED: DEXAMETHASONE SOD PHOSPHATE 4 MG/1 ML VIAL ONE ×2 (11:43→12:20)
[2023-04-17] MEDS ORDERED: ONDANSETRON 4 MG/2 ML VIAL ONE ×2 (11:43→12:37)
[2023-04-17] MEDS ORDERED: BUPIVACAINE HCL/PF 0.25% (2.5MG/ML) 10 ML VIAL IJ ONE ×2 (11:45)
[2023-04-17] MEDS ORDERED: SUGAMMADEX SODIUM 200 MG/2 ML VIAL ONE (12:18)
[2023-04-17] MEDS ORDERED: ACETAMINOPHEN INJECTION 100 ML IVPB ONE (12:21)
[2023-04-17] MEDS ORDERED: NEOSTIGMINE METHYLSULFATE 0.5 MG/1 ML - 10 ML MDV ONE (12:36)
[2023-04-17] MEDS ORDERED: GLYCOPYRROLATE 0.2 MG/1 ML VIAL ONE (12:36)
[2023-04-17] MEDS ORDERED: SODIUM CHLORIDE 250 ML IV PRN ×2 (12:57→18:54)
[2023-04-17] MEDS ORDERED: EPOETIN ALFA-EPBX 10,000 UNIT/ML VIAL SQ ONE (13:15)
[2023-04-17] MEDS ORDERED: oxyCODONE HCL 5 MG TABLET PO PRN ×2 (13:34)
[2023-04-17] MEDS ORDERED: ONDANSETRON 4 MG/2 ML VIAL IVPUSH PRN (14:20)
[2023-04-17] MEDS ORDERED: SODIUM CHLORIDE 50 ML IV STA (14:20)
[2023-04-17] MEDS: DOCUSATE SODIUM 100 MG CAPSULE (FP) PO SCH (21:11)
[2023-04-17] MEDS: ACETAMINOPHEN 1000 MG/100 ML BAG IVPB SCH (21:11)
[2023-04-18] MEDS: DOCUSATE SODIUM 100 MG CAPSULE (FP) PO SCH ×4 (00:05→22:08)
[2023-04-18] MEDS: ACETAMINOPHEN 1000 MG/100 ML BAG IVPB SCH ×3 (01:29→14:02)
[2023-04-18] MEDS ORDERED: PIPERACILLIN/TAZOB 2.25 GM 2.25 GM in DEXTROSE 5%-WATER - 50 ML IVPB SCH (02:00)
[2023-04-18 11:03] LABS: BASO % 0.4 % (0-2.0); EOS % 3.1 % (0-4.5); HEMATOCRIT 30.9 % (35.4-49); HEMOGLOBIN 10.4 GM/dL (11.7-16.9); LYMPH % 12.7 % (8-40); MCH 32.4 pg (25.7-33.7); MCHC 33.5 g/dl (32.0-35.9); MEAN CELL VOLUME 96.7 fl (80-96); MEAN PLT VOLUME 8.6 fl (7.5-11.1); NEUT % 74.8 % (42.8-82.8); PLATELET COUNT 133 10^3/uL (134-434); RDW 14.1 % (11.9-15.9); WHITE BLOOD COUNT 7.1 K/mm3 (4.0-10.0)
[2023-04-18 11:30] LABS: CALCIUM 8.6 mg/dL (8.5-10.1)
[2023-04-18 11:31] LABS: ALBUMIN 3.8 g/dl (3.4-5.0)
[2023-04-18 11:36] LABS: BILIRUBIN,TOTAL 0.8 mg/dL (0.2-1); TOT PROT 7.5 g/dl (6.4-8.2)
[2023-04-18 11:38] LABS: BLOOD UREA NITROGEN 39.8 mg/dL (7-18)
[2023-04-18] MEDS: ACETAMINOPHEN 325 MG TABLET (FP) PO PRN ×2 (16:56→22:08)
[2023-04-18] MEDS ORDERED: ATORVASTATIN CA 80 MG TABLET (FP) PO SCH (22:00)
[2023-04-18] MEDS: hydrALAZINE HCL 50 MG TABLET (FP) PO SCH (22:07)
[2023-04-19] MEDS: DOCUSATE SODIUM 100 MG CAPSULE (FP) PO SCH ×2 (06:19→14:01)
[2023-04-19] MEDS: hydrALAZINE HCL 50 MG TABLET (FP) PO SCH ×2 (06:20→14:01)
[2023-04-19] MEDS ORDERED: LEVOTHYROXINE NA 25 MCG TABLET (FP) PO SCH (07:00)
[2023-04-19] MEDS ORDERED: SODIUM CHLORIDE 250 ML IV PRN (08:09)
[2023-04-19] MEDS ORDERED: EPOETIN ALFA-EPBX 10,000 UNIT/ML VIAL SQ ONE (08:15)
[2023-04-19] MEDS: ACETAMINOPHEN 325 MG TABLET (FP) PO PRN (08:54)
[2023-04-19] MEDS ORDERED: PANTOPRAZOLE 40 MG TABLET PO SCH (10:00)
[2023-04-19] MEDS ORDERED: NIFEdipine E.R 60 MG TABLET PO SCH (10:00)
[2023-04-19 10:09] LABS: HEMOGLOBIN 9.1 GM/dL (11.7-16.9); MCH 32.7 pg (25.7-33.7); MCHC 33.7 g/dl (32.0-35.9); MEAN PLT VOLUME 8.7 fl (7.5-11.1); PLATELET COUNT 132 10^3/uL (134-434); RBC 2.78 M/mm3 (4.00-5.60); RDW 13.9 % (11.9-15.9); WHITE BLOOD COUNT 6.7 K/mm3 (4.0-10.0)
[2023-04-19 10:27] LABS: CHLORIDE 92 mmol/L (98-107); POTASSIUM 3.7 mmol/L (3.5-5.1); SODIUM 131 mmol/L (136-145)
[2023-04-19 10:29] LABS: CALCIUM 8.1 mg/dL (8.5-10.1)
[2023-04-19 10:30] LABS: ALBUMIN 3.3 g/dl (3.4-5.0); ANION GAP 12 MMOL/L (8-16); CO2 27 mmol/L (21-32); GLUCOSE,RANDOM 120 mg/dL (74-106)
[2023-04-19 10:33] LABS: SGOT/AST 11 U/L (15-37); SGPT/ALT 13 U/L (13-61)
[2023-04-19 10:34] LABS: BILIRUBIN,TOTAL 0.7 mg/dL (0.2-1)
[2023-04-19 10:35] LABS: TOT PROT 6.6 g/dl (6.4-8.2)
[2023-04-19 10:36] LABS: ALK PHOS 102 U/L (45-117)
[2023-04-19 10:41] LABS: CREATININE 8.4 mg/dL (0.55-1.3)
[2023-04-19 14:53] VITALS: BP 150/70; PULSE 72; RESP 16; TEMP 97.6
== END 2023-04-19 15:44 | disposition home or self-care (01) ==
LOC: JER 15:41 → UNDOADMOB 17:41 → JERBED 17:41 → J5S 23:28 → JASUSAT 04-17 14:44 → J5S 04-17 17:17 → JASUSAT 04-19 15:44
PROVIDERS: ATTEND Family Medicine
PROC: 0DTJ4ZZ Resection of Appendix, Percutaneous Endoscopic Approach (ICD-10-PCS; principal; 2023-04-17 12:30)
DX: K35.80 Unspecified acute appendicitis (principal); I12.0 Hypertensive chronic kidney disease with stage 5 chronic kidney disease or end stage renal disease; N18.6 End stage renal disease; Z99.2 Dependence on renal dialysis
CPT/HCPCS: 36415; 74177-TC; 80048; 80053; 85025; 85027; 85610; 85730; 86704; 86803; 86850; 86900; 86901; 87340; 87517; 88304-TC; 93005; 93010; 94760; 99285-25; Q5106; Q9967

== ENCOUNTER 2023-06-10 00:31 | Emergency (ER) | payer OTHER ==
[2023-06-10 00:49] VITALS: BP 133/70; PULSE 64; RESP 18; TEMP 97.7; BMI 31.7
[2023-06-10] MEDS ORDERED: PANTOPRAZOLE SODIUM 40 MG VIAL IVPUSH ONE (01:27)
[2023-06-10] MEDS ORDERED: SUCRALFATE 1 GM TABLET (FP) PO ONE (01:27)
[2023-06-10] MEDS ORDERED: FAMOTIDINE 20 MG/50 ML IVPB 20 MG/50 ML MG IVPB ONE ×2 (01:27→01:54)
[2023-06-10] MEDS ORDERED: MAG HYDROX/AL HYDROX/SIMETH 30 ML UNIT-DOSE CUP PO ONE (01:27)
[2023-06-10] MEDS ORDERED: PANTOPRAZOLE SODIUM 40 MG/100 ML BAG IVPB ONE (01:54)
[2023-06-10] MEDS ORDERED: SUCRALFATE 1 GM TABLET (FP) ONE (01:54)
[2023-06-10] MEDS ORDERED: MAG HYDROX/AL HYDROX/SIMETH 30 ML UNIT-DOSE CUP ONE (01:54)
[2023-06-10 02:15] LABS: BASO % 0.6 % (0-2.0); HEMATOCRIT 30.6 % (35.4-49); LYMPH % 7.5 % (8-40); MCH 32.6 pg (25.7-33.7); MCHC 32.6 g/dl (32.0-35.9); MEAN CELL VOLUME 100.2 fl (80-96); MEAN PLT VOLUME 8.7 fl (7.5-11.1); MONO % 6.9 % (3.8-10.2); PLATELET COUNT 116 10^3/uL (134-434); RBC 3.05 M/mm3 (4.00-5.60); RDW 15.8 % (11.9-15.9); WHITE BLOOD COUNT 6.8 K/mm3 (4.0-10.0)
[2023-06-10 02:16] LABS: INR 1.21 (0.83-1.09)
[2023-06-10 02:18] LABS: ACTIVATED PTT 37.3 SECONDS (25.2-36.5)
[2023-06-10 02:27] LABS: CHLORIDE 100 mmol/L (98-107); POTASSIUM 4.3 mmol/L (3.5-5.1); SODIUM 135 mmol/L (136-145)
[2023-06-10 02:29] LABS: CALCIUM 8.6 mg/dL (8.5-10.1)
[2023-06-10 02:30] LABS: ANION GAP 10 mmol/L (4-13); BLOOD UREA NITROGEN 90.7 mg/dL (7-18); CO2 25 mmol/L (21-32); GLUCOSE,RANDOM 149 mg/dL (74-106); MAGNESIUM 1.8 mg/dL (1.8-2.4)
[2023-06-10 02:32] LABS: SGPT/ALT 16 U/L (13-61)
[2023-06-10 02:33] LABS: PHOSPHOROUS 4.4 mg/dL (2.5-4.9); SGOT/AST 14 U/L (15-37)
[2023-06-10 02:34] LABS: BILIRUBIN,TOTAL 0.7 mg/dL (0.2-1); TOT PROT 7.4 g/dl (6.4-8.2)
[2023-06-10 02:36] LABS: ALK PHOS 141 U/L (45-117)
[2023-06-10 02:52] LABS: CREATININE 8.7 mg/dL (0.55-1.3)
[2023-06-10] MEDS ORDERED: PANTOPRAZOLE 40 MG TABLET PO ONE ×2 (02:58→03:01)
[2023-06-10] MEDS ORDERED: FAMOTIDINE 20 MG TABLET PO ONE (02:58)
[2023-06-10] MEDS ORDERED: FAMOTIDINE 20 MG TABLET ONE (03:01)
== END 2023-06-10 03:14 | disposition home or self-care (01) ==
LOC: JER 00:31
DX: R06.02 Shortness of breath (principal); R10.9 Unspecified abdominal pain; Z20.822 Contact with and (suspected) exposure to COVID-19
CPT/HCPCS: 0241U-QW; 36415; 71046-TC-FY; 80053; 83735; 83880; 84100; 84484; 85025; 85610; 85730; 93005; 93010; 99285-25

== ENCOUNTER 2024-02-23 03:18 | Emergency (ER) | payer OTHER ==
[2024-02-23 03:28] VITALS: BP 161/71; PULSE 64; RESP 20; BMI 31.0
[2024-02-23 04:35] LABS: HEMATOCRIT 26.7 % (35.4-49); HEMOGLOBIN 8.8 GM/dL (11.7-16.9); MCH 33.5 pg (25.7-33.7); MEAN CELL VOLUME 101.6 fl (80-96); MEAN PLT VOLUME 8.6 fl (7.5-11.1); PLATELET COUNT 130 10^3/uL (134-434); RBC 2.63 M/mm3 (4.00-5.60)
[2024-02-23 04:46] LABS: INR 1.04 (0.83-1.09); PROTHROMBIN TIME (PATIENT) 11.7 SEC (9.7-13.0)
[2024-02-23 04:48] LABS: ACTIVATED PTT 30.9 SECONDS (25.2-36.5)
[2024-02-23 04:54] LABS: POTASSIUM 4.8 mmol/L (3.5-5.1)
[2024-02-23 04:58] LABS: ALBUMIN 3.6 g/dl (3.4-5.0); BLOOD UREA NITROGEN 57.9 mg/dL (7-18)
[2024-02-23 05:00] LABS: CREATININE 2.5 mg/dL (0.55-1.3)
[2024-02-23 05:02] LABS: BILIRUBIN,TOTAL 0.3 mg/dL (0.2-1)
[2024-02-23] MEDS ORDERED: GABAPENTIN 300 MG CAPSULE ONE (05:24)
[2024-02-23] MEDS ORDERED: LIDOCAINE 5% TOPICAL PATCH ONE (05:24)
[2024-02-23] MEDS: LIDOCAINE 5% TOPICAL PATCH TP ONE (05:27)
[2024-02-23] MEDS: GABAPENTIN 300 MG CAPSULE PO ONE (05:28)
[2024-02-23 10:29] LABS: ANISOCYTOSIS 2+; MACROCYTOSIS 1+; OVALOCYTE 1+
[2024-02-23] MEDS ORDERED: LIDOCAINE PATCH REMOVAL MC SCH (22:00)
== END 2024-02-23 06:52 | disposition home or self-care (01) ==
LOC: JER 03:18
DX: M54.2 Cervicalgia (principal)
CPT/HCPCS: 36415; 71045-TC-FY; 80053; 84484; 85025; 85610; 85730; 88300-TC; 93005; 93010; 99285-25

== ENCOUNTER 2024-02-24 11:25 | Emergency (ER) | payer OTHER ==
[2024-02-24 11:43] VITALS: BP 155/73; PULSE 67; RESP 18; TEMP 98.1; BMI 31.7
[2024-02-24] MEDS ORDERED: oxyCODONE HCL 5 MG TABLET ONE ×2 (12:42→15:36)
[2024-02-24] MEDS: oxyCODONE HCL 5 MG TABLET PO ONE ×2 (12:50→15:39)
[2024-02-24 13:05] LABS: HEMATOCRIT 27.2 % (35.4-49); HEMOGLOBIN 8.9 GM/dL (11.7-16.9); MCH 33.8 pg (25.7-33.7); MCHC 32.6 g/dl (32.0-35.9); MEAN CELL VOLUME 103.8 fl (80-96); MEAN PLT VOLUME 8.3 fl (7.5-11.1); PLATELET COUNT 117 10^3/uL (134-434); RBC 2.62 M/mm3 (4.00-5.60); RDW 14.7 % (11.9-15.9); WHITE BLOOD COUNT 3.7 K/mm3 (4.0-10.0)
[2024-02-24 13:12] LABS: INR 1.05 (0.83-1.09); PROTHROMBIN TIME (PATIENT) 11.9 SEC (9.7-13.0)
[2024-02-24 13:24] LABS: ALBUMIN 3.5 g/dl (3.4-5.0); BLOOD UREA NITROGEN 62.8 mg/dL (7-18); CALCIUM 8.9 mg/dL (8.5-10.1)
[2024-02-24 13:28] LABS: CREATININE 2.5 mg/dL (0.55-1.3)
[2024-02-24 13:30] LABS: BILIRUBIN,TOTAL 0.3 mg/dL (0.2-1); TOT PROT 6.3 g/dl (6.4-8.2)
== END 2024-02-24 15:52 | disposition left against medical advice (07) ==
LOC: JER 11:25
DX: R07.89 Other chest pain (principal); M54.6 Pain in thoracic spine; M54.2 Cervicalgia; M50.20 Other cervical disc displacement, unspecified cervical region; R06.02 Shortness of breath; I12.0 Hypertensive chronic kidney disease with stage 5 chronic kidney disease or end stage renal disease; E11.22 Type 2 diabetes mellitus with diabetic chronic kidney disease; N18.6 End stage renal disease; D63.1 Anemia in chronic kidney disease; Z99.2 Dependence on renal dialysis
CPT/HCPCS: 36415; 71046-TC-FY; 80053; 84484; 85025; 85610; 85730; 93005; 93010; 99285-25

== ENCOUNTER 2024-03-08 12:16 | Emergency (ER) | payer OTHER ==
[2024-03-08 12:46] VITALS: RESP 18; TEMP 97.5; BMI 27.6
[2024-03-08] MEDS: SODIUM CHLORIDE 0.9% 500 ML INFUS.BAG IV ONE (12:59)
[2024-03-08 13:08] LABS: HEMATOCRIT 35.8 % (35.4-49); MCH 33.4 pg (25.7-33.7); MCHC 33.5 g/dl (32.0-35.9); MEAN CELL VOLUME 99.9 fl (80-96); MEAN PLT VOLUME 9.4 fl (7.5-11.1); PLATELET COUNT 180 10^3/uL (134-434); RBC 3.58 M/mm3 (4.00-5.60); RDW 14.2 % (11.9-15.9); VENOUS O2 SATURATION 61.1 % (70-80); VENOUS PCO2 46.6 mmHg (38-52); VENOUS PH 7.376 (7.310-7.410); WHITE BLOOD COUNT 7.4 K/mm3 (4.0-10.0)
[2024-03-08] MEDS ORDERED: ACETAMINOPHEN 325 MG TABLET (FP) ONE (13:10)
[2024-03-08] MEDS: ACETAMINOPHEN 325 MG TABLET (FP) PO ONE (13:13)
[2024-03-08 13:14] LABS: POTASSIUM 4.2 mmol/L (3.5-5.1)
[2024-03-08 13:16] LABS: ALBUMIN 3.5 g/dl (3.4-5.0); BLOOD UREA NITROGEN 61.2 mg/dL (7-18)
[2024-03-08 13:20] LABS: CREATININE 2.9 mg/dL (0.55-1.3)
[2024-03-08 13:21] LABS: BILIRUBIN,TOTAL 0.5 mg/dL (0.2-1); TOT PROT 6.1 g/dl (6.4-8.2)
[2024-03-08 13:24] LABS: N-TERMINAL BNP 2437.5 pg/ml (5-125)
[2024-03-08 13:39] LABS: INR 1.04 (0.83-1.09); PROTHROMBIN TIME (PATIENT) 11.7 SEC (9.7-13.0)
[2024-03-08 14:10] VITALS: BP 104/65; PULSE 81
[2024-03-08 14:29] LABS: ANISOCYTOSIS 0; HELMET CELLS 0; HOWELL-JOLLY BODIES 0; MACROCYTOSIS 0; OVALOCYTE 0; ROULEAU 0; SICKELED CELLS 0; TARGET CELLS 0; TEAR DROP CELLS 0; TOXIC GRANULATION 0
== END 2024-03-08 15:47 | disposition left against medical advice (07) ==
LOC: JER 12:16
DX: R55 Syncope and collapse (principal); R42 Dizziness and giddiness
CPT/HCPCS: 36415; 70450-TC; 71045-TC-FY; 71250-TC; 76775-TC; 80053; 82803; 82962; 83605; 83880; 84484; 85025; 85610; 86850; 86900; 86901; 93005; 93010; 93308; 99285-25

== ENCOUNTER 2024-03-08 22:55 | Emergency (ER) | payer OTHER ==
[2024-03-08 23:19] VITALS: BMI 27.6
[2024-03-08] MEDS: SODIUM CHLORIDE 0.9% 500 ML INFUS.BAG IV ONE (23:32)
[2024-03-08 23:36] LABS: VENOUS BASE EXCESS -3.3 mmol/L (-2-2); VENOUS O2 SATURATION 42.9 % (70-80); VENOUS PH 7.304 (7.310-7.410)
[2024-03-09 04:10] VITALS: BP 112/55; PULSE 97; RESP 22; TEMP 98.2
== END 2024-03-09 05:23 | disposition short-term general hospital (02) ==
LOC: JER 22:55
DX: R06.02 Shortness of breath (principal); R55 Syncope and collapse; R42 Dizziness and giddiness; I95.9 Hypotension, unspecified; Z20.822 Contact with and (suspected) exposure to COVID-19
CPT/HCPCS: 0241U-QW; 36415; 82803; 84484; 93005; 93010; 93970-TC; 99285-25